=== PATIENT | male | born 1955 | race American Indian/Alaskan Native ===

== ENCOUNTER 2018-01-08 01:58 | Emergency (ER) | payer OTHER, MEDICARE, SELFPAY | END 2018-01-08 03:27 | disposition home or self-care (01) | PROVIDERS: Emergency Provider Emergency Medicine; Family Provider Family Medicine; PCP Family Medicine; Visit Provider Emergency Medicine | DX: M54.5 Low back pain (principal); M54.10 Radiculopathy, site unspecified | CPT/HCPCS: 96372; 99283; J1885 ==

== ENCOUNTER 2018-02-07 23:04 | Emergency (ER) | payer OTHER, MEDICARE, SELFPAY ==
[2018-02-07 23:16] VITALS: BP 173/74; PULSE 66; RESP 22; TEMP 36.7; O2SAT 99
--- NOTE | 2018-02-07 23:46 | PC.NURSE ---
generalized back, hip, bilat wrist pain, reports as chronic. He states he was given gabapentin 2 weeks ago, he took this for 3 days in addition to his regular medications. he did not like the side effects of this medication and stopped it 3 days later. since that time, he reports his pain has been 10/10 for days and days, he denies recent injury or illness, is ambulatory independently with steady gait.
[2018-02-07] MEDS: KETOROLAC 60 MG/2 ML VIAL IM (23:53)
[2018-02-08 00:43] VITALS: BP 163/78; PULSE 61; RESP 16; O2SAT 97
--- NOTE | 2018-02-08 02:45 | ED_ITS ---
HPI - Back Pain/Injury General Chief Complaint: Back Pain/Injury Stated Complaint: pain level is high Time Seen by Provider: 02/07/18 23:13 Source: patient Mode of arrival: ambulatory Limitations: no limitations History of Present Illness HPI Narrative: Pleasant 62-year-old male with longstanding history of chronic neck and back pain presents to the emergency department with an exacerbation of his pain. He denies any new injuries nor fever, chills nor weakness. He states that his pain started getting worse when Neurontin was added to his pain regimen. He took for 3 days and then stopped. His chief complaint is of midline neck pain as well as right wrist. He denies numbness, tingling or weakness. MD Complaint: back pain Onset (ago): year(s) Duration: constant Similar Symptoms Previously: Yes Severity: moderate Quality: burning and sharp Exacerbating factors: movement Related Data Previous Rx's Medication Instructions Recorded amitriptyline 75 mg PO HS #30 tab 08/23/16 metoprolol tartrate 25 mg PO BID #60 tab 04/28/17 sildenafil (antihypertensive) 20 mg PO SEE INSTRUCTIONS #30 tab 07/05/17 prednisone 0 PO SEE INSTRUCTIONS #15 tab 08/03/17 cyclobenzaprine 10 mg PO TIDP PRN #20 tab 11/01/17 lansoprazole 30 mg PO QDAY #30 ecc 11/21/17 tramadol 50 mg PO QIDP PRN #120 tab 12/04/17 atorvastatin [Lipitor] 20 mg PO HS #30 tab 12/18/17 [METHADONE/HYDROXY] 0 SEE INSTRUCTIONS #120 cap 01/01/18 oxycodone-acetaminophen [Percocet] 1 tab PO TIDP PRN #20 tab 01/01/18 ketorolac 10 mg PO Q6H PRN #14 tab 02/07/18 methylprednisolone [Medrol (Damien)] See Label Instructions PO PER PKG 02/07/18 DIR #21 each Allergies Allergy/AdvReac Type Severity Reaction Status Date / Time morphine [MORPHINE] AdvReac Severe VOMITING Unverified 12/27/17 12:01 gabapentin AdvReac Verified 02/07/18 23:16 Review of Systems Review of Systems All systems reviewed & are unremarkable except as noted in HPI and below Eyes Denies change in vision, Denies eye discharge, Denies irritation and Denies loss of vision ENT Ears, Nose, Mouth, and Throat: Denies throat swelling Cardiovascular Denies chest pain, Denies irregular heart rhythm, Denies lightheadedness, Denies palpitations and Denies orthopnea Respiratory Denies wheezing Gastrointestinal Gastrointestinal: Denies abdominal pain, Denies change in bowel habits, Denies diarrhea, Denies nausea and Denies vomiting Genitourinary Denies hematuria, Denies flank pain, Denies urinary incontinence and Denies urinary urgency Musculoskeletal Reports back pain, Denies muscle weakness, Denies numbness and Denies tingling Integumentary/Breasts Denies pruritus, Denies erythema, Denies rash and Denies wounds Neurologic Denies loss of vision, Denies numbness and Denies tingling Endocrine Denies palpitations Allergic/Immunologic Denies urticaria, Denies throat swelling and Denies wheezing [facility] Surgical History Status post rotator cuff repair Family History Father CAD (coronary artery disease) Mother CAD (coronary artery disease) Arthritis Exam Initial Vital Signs Initial Vital Signs: Vital Signs Temperature 98.1 F 02/07/18 23:16 Pulse Rate 66 02/07/18 23:16 Respiratory Rate 22 02/07/18 23:16 Blood Pressure 173/74 H 02/07/18 23:16 Pulse Oximetry 99 02/07/18 23:16 Const General: cooperative and well developed Nutritional Appearance: well nourished Orientation: alert, awake, oriented x3 and not confused [facility] Head: normocephalic and atraumatic Nose: external nose normal and No nasal discharge Face and sinus: sinuses nontender, face symmetric, no sinus tenderness and No dry mucous membranes Mouth: oral mucosae normal and moist mucous membranes Teeth and gingiva: dentition normal Throat: tonsils normal and uvula midline Eyes General: appearance normal, both eyes and all related structures Eyelids: eyelids normal Conjunctivae: conjunctivae normal Sclera: sclerae normal Pupils: PERRL EOM: EOM intact bilaterally Neck Neck: normal visual inspection, full ROM, trachea midline, No lymphadenopathy, No midline deformity and No JVD Lymphatic: No lymphedema Resp Effort & Inspection: normal respiratory effort, able to speak in complete sentences, no respiratory distress and no use of accessory muscles Auscultation: clear to auscultation bilaterally, no rales, no rhonchi and no wheezes GI Inspection: non-distended Palpation: soft, no hepatosplenomegaly, No guarding, No pulsatile mass and No tender Auscultation: normal bowel sounds Back/Spine/Pelvis Back: No CVA tenderness Cervical Spine: cervical ROM normal and No pain with cervical ROM Thoracic/Lumbar Spine: thoracic and lumbar spine normal to inspection Skin General: no rashes or lesions noted, No jaundice and No petechiae Neuro General: alert, oriented x3, gait normal and no focal motor deficits Speech: speech normal Gait: normal gait Motor: muscle tone normal throughout and strength 5/5 throughout Sensory Exam: no sensory deficits noted Extrem General: full ROM, no clubbing, cyanosis or edema, no pedal edema and no calf tenderness Course Orders Ordered: Discontinued Medications Ketorolac Tromethamine (Toradol) 60 mg IM NOW ONE Stop: 02/07/18 23:48 Last Admin: 02/07/18 23:53 Dose: 60 mg Vital Signs - 8 hr 02/07/18 23:16 02/08/18 00:43 Temperature 98.1 F Pulse Rate 66 61 Respiratory Rate 22 16 Blood Pressure 173/74 H 163/78 H Pulse Oximetry 99 97 Discharge Plan Departure Patient Disposition: Home, Self-Care Clinical Impression: Cervical radiculopathy, Radiculopathy, Chronic neck pain Discharge Date/Time: 02/08/18 00:42 Interventions: ED Discharge Assessment Last Done: 02/08/18 00:43 Instructions: DI for Cervical Radiculopathy Activity Restrictions/Additional Instructions: *You have been diagnosed with [ cervical radiculopathy ] *What to do: *Take medications as directed. Do not take Ketorolac along with Naproxen as they can cause a dangerous reaction if given together *Follow up with your primary care provider in 2-3 days *Return to ER if you should have any new, worsening or concerning symptoms Prescriptions: New ketorolac 10 mg tablet 10 mg PO Q6H PRN (Reason: pain) Qty: 14 RF: 0 methylprednisolone [Medrol (Damien)] 4 mg tablets,dose pack See Label Instructions PO PER PKG DIR Qty: 21 RF: 0 No Action amitriptyline 75 MG tablet 75 mg PO HS Qty: 30 RF: 11 metoprolol tartrate 25 MG tablet 25 mg PO BID Qty: 60 RF: 11 sildenafil (antihypertensive) 20 MG tablet 20 mg PO SEE INSTRUCTIONS Qty: 30 RF: 6 prednisone 10 MG tablet PO SEE INSTRUCTIONS Qty: 15 RF: 0 cyclobenzaprine 10 MG tablet 10 mg PO TIDP PRNQty: 20 RF: 1 lansoprazole 30 MG capsule,delayed release(DR/EC) 30 mg PO QDAY Qty: 30 RF: 6 tramadol 50 MG tablet 50 mg PO QIDP PRNQty: 120 RF: 2 atorvastatin [Lipitor] 20 MG tablet 20 mg PO HS Qty: 30 RF: 11 oxycodone-acetaminophen [Percocet] 5 MG/325 MG tablet 1 tab PO TIDP PRNQty: 20 RF: 0 [METHADONE/HYDROXY] SEE INSTRUCTIONS Qty: 120 RF: 0
== END 2018-02-08 00:42 | disposition home or self-care (01) ==
PROVIDERS: Emergency Provider Emergency Medicine; Family Provider Family Medicine; PCP Family Medicine
DX: M54.12 Radiculopathy, cervical region (principal)
CPT/HCPCS: 96372; 99282; 99283; J1885

== ENCOUNTER → 2018-05-01 12:51 | Outpatient (CLI) | payer OTHER, MEDICARE, SELFPAY ==
[2018-05-01 13:58] LABS: Add Manual Diff / Slide Review NO; Basophils Percent Auto 0.9 % (0-2); Eosinophils Percent Auto 1.5 % (2-4); Hematocrit 42.6 % (41-53); Hemoglobin 14.2 g/dL (13.5-17.5); Lymphocytes Percent Auto 39.4 % (25-40); Mean Corpuscular HGB Conc 33.4 % (30-36); Mean Corpuscular Hemoglobin 30.4 PG (26-34); Monocytes Percent Auto 8.7 % (3-14); Neutrophils Absolute Auto 3900 /uL (3000-5900); Neutrophils Percent Auto 49.5 % (50-75); Platelet Count 225 X10^3/uL (150-400); Red Blood Cell Count 4.68 X10^6/uL (4.5-5.9); Red Cell Distribution Width 14.5 % (11.6-14.8); White Blood Cell Count 7.8 X10^3/uL (4.5-11.0)
[2018-05-01 14:27] LABS: Alanine Aminotransferase 24 IU/L (21-72); Albumin 4.2 g/dL (3.5-5.0); Albumin Globulin Ratio 1.3 (1.0-2.8); Alkaline Phosphatase 60 U/L (38-126); Aspartate Aminotransferase 28 IU/L (17-59); BUN Creatinine Ratio 12.2 (6-22); Bilirubin Total 0.5 mg/dL (0.2-1.3); Blood Urea Nitrogen 11 mg/dL (9-20); Calcium 9.5 mg/dL (8.4-10.2); Carbon Dioxide 29 mmol/L (22-32); Chloride 105 mmol/L (98-107); Cholesterol 141 mg/dL (140-199); Estimated Glomerular Filt Rate > 60.0 mL/min (>60); Globulin 3.2 g/dL (1.7-4.1); Glucose 96 mg/dL (80-110); HDL Cholesterol 37 mg/dL (40-60); HEMOLYSIS < 15 (0-50); LDL Cholesterol Calculated 82 mg/dL (<100); Potassium 4.3 mmol/L (3.4-5.1); Sodium 143 mmol/L (137-145); Total Protein 7.4 g/dL (6.3-8.2); Triglycerides 109 mg/dL (35-150)
== END ==
PROVIDERS: PCP Internal Medicine; Visit Provider Internal Medicine
DX: G89.29 Other chronic pain (principal); E78.00 Pure hypercholesterolemia, unspecified
CPT/HCPCS: 36415; 80053; 80061; 85025

== ENCOUNTER 2018-05-15 00:31 | Emergency (ER) | payer OTHER, MEDICARE, SELFPAY ==
[2018-05-15 00:43] VITALS: BP 188/100; PULSE 73; RESP 18
[2018-05-15] MEDS: KETOROLAC 60 MG/2 ML VIAL IM (00:48)
[2018-05-15] MEDS: predniSONE 20 MG TABLET 60 MG PO (00:49)
--- NOTE | 2018-05-15 00:53 | PC.NURSE ---
pt has long history of back problems. multiple fusions and arthritic spine. states he has appointments with [facility] soon. states this episode of back pain has been increasing over the last week and is not unbearable.
--- NOTE | 2018-05-15 00:56 | ED_ITS ---
HPI - Back Pain/Injury General Chief Complaint: Extremity Injury, Lower Stated Complaint: lower back sciatic pain going down left leg Time Seen by Provider: 05/15/18 00:32 Source: patient Mode of arrival: ambulatory Limitations: no limitations History of Present Illness HPI Narrative: 62-year-old male with history of chronic neck and back pain presents to the emergency department with a chief complaint of an exacerbation of his pain. By and large she is doing quite well and is off most of his chronic medications. He has an upcoming appointment with [facility]. He denies any new injury but states his pain has flared up tonight for some reason and is radiating down his left leg. He does have some burning and tingling but denies any weakness. He denies fever or chills. He has no loss of bowel or bladder control. MD Complaint: back pain Onset (ago): year(s) Duration: constant Similar Symptoms Previously: Yes Location: lumbar spine Severity: moderate Quality: burning, sharp and stabbing Radiation: left leg Severity scale (1-10): 8 Relieving factors: none Exacerbating factors: walking Related Data Previous Rx's Medication Instructions Recorded sildenafil (antihypertensive) 20 mg PO SEE INSTRUCTIONS #30 tab 07/05/17 lansoprazole 30 mg PO QDAY #30 ecc 11/21/17 atorvastatin [Lipitor] 20 mg PO HS #30 tab 12/18/17 amitriptyline 25 mg tablet 25 mg PO BEDTIME #90 tab 03/06/18 meloxicam 15 mg tablet 15 mg PO DAILY #30 tab 03/06/18 acetaminophen 500 mg capsule 1,000 mg PO TID PRN #100 cap 04/13/18 amoxicillin 500 mg tablet 500 mg PO TID #21 tab 04/26/18 cyclobenzaprine 10 mg tablet 10 mg PO TIDP PRN #90 tab 05/02/18 metoprolol succinate ER 50 mg 50 mg PO DAILY #30 tab 05/02/18 tablet,extended release 24 hr pregabalin 100 mg capsule 100 mg PO QID #120 cap 05/14/18 methylprednisolone [Medrol (Damien)] See Label Instructions PO PER PKG 05/15/18 DIR #21 each Allergies Allergy/AdvReac Type Severity Reaction Status Date / Time morphine [MORPHINE] AdvReac Severe VOMITING Unverified 05/15/18 00:45 gabapentin AdvReac Verified 05/15/18 00:45 Review of Systems Review of Systems All systems reviewed & are unremarkable except as noted in HPI and below Constitutional Denies chills, Denies fever(s), Denies lethargy and Denies weakness Eyes Denies change in vision, Denies eye discharge, Denies irritation and Denies loss of vision ENT Ears, Nose, Mouth, and Throat: Denies change in voice, Denies neck pain and Denies sore throat Cardiovascular Denies chest pain, Denies irregular heart rhythm, Denies lightheadedness, Denies palpitations, Denies dyspnea, Denies dyspnea on exertion and Denies orthopnea Respiratory Denies cough, Denies dyspnea, Denies dyspnea on exertion and Denies wheezing Gastrointestinal Gastrointestinal: Denies abdominal pain, Denies change in bowel habits, Denies diarrhea, Denies nausea and Denies vomiting Genitourinary Denies hematuria, Denies flank pain, Denies urinary incontinence and Denies urinary urgency Musculoskeletal Reports back pain, Reports limited range of motion and Denies neck pain Integumentary/Breasts Denies pruritus, Denies erythema, Denies rash and Denies wounds Neurologic Denies confusion, Denies loss of vision and Denies weakness Psychiatric Denies anxiety, Denies confusion, Denies depression, Denies homicidal ideation and Denies suicidal ideation Endocrine Denies palpitations Hematologic/Lymphatic Denies easy bruising Allergic/Immunologic Denies wheezing PFSH Medical History CAD (coronary artery disease) (Chronic) Hyperlipidemia (Chronic) Myocardial infarction (Resolved) Surgical History History of cervical spinal surgery (Resolved ~2000) History of left knee surgery (Resolved) History of lumbar surgery (Resolved ~2000) S/P coronary artery stent placement (Resolved 2010) Status post arthroscopic surgery of right knee (Resolved 12/2012) Status post rotator cuff repair (Resolved 2007) Family History Father CAD (coronary artery disease) Mother CAD (coronary artery disease) Arthritis Family/Other Alcoholism and drug addiction in family Autoimmune disease Arthritis Rheumatoid arthritis Other Drug abuse Social History Smoking Status: Current every day smoker Exam Narrative Exam Narrative: GEN: AOx3 and in mild distress, pleasant, ambulating with a cane EYES: Pupils are equal, round, and reactive to light and accommodation. Extraoccular muscles are intact bilaterally. There is no subconjunctival hemorrhage or exudate. CHEST: Lungs are clear to auscultation bilaterally and free of wheezes, rales, or rhonchi. Heart rate is regular rhythm, there are no murmurs, clicks, rubs, or gallops. There is no chest wall tenderness. ABD: Abdomen is soft and nontender. There is no guarding or rebound. Bowel sounds are normal in all 4 quadrants. There is no mass or organomegaly. EXT: Full painless ROM of all extremities with no loss of sensation or strength. SKIN: Warm, pink, and dry. No erythema or rash BACK: chief operator lock tender but free of any obvious external abnormalities. Patient exam notes decreased range of motion and muscle spasm, but no CVA tenderness, or vertebral point tenderness. There are no symptoms of cauda equina such as saddle anesthesia, and decreased reflexes, decreased sensation or strength. Initial Vital Signs Initial Vital Signs: Vital Signs Pulse Rate 73 05/15/18 00:43 Respiratory Rate 18 05/15/18 00:43 Blood Pressure 188/100 H 05/15/18 00:43 Course Orders Ordered: Discontinued Medications Ketorolac Tromethamine (Toradol) 60 mg IM NOW ONE Stop: 05/15/18 00:45 Last Admin: 05/15/18 00:48 Dose: 60 mg Prednisone (Deltasone) 60 mg PO NOW ONE Stop: 05/15/18 00:45 Last Admin: 05/15/18 00:49 Dose: 60 mg Vital Signs - 8 hr 05/15/18 00:43 Pulse Rate 73 Respiratory Rate 18 Blood Pressure 188/100 H MDM - Back Pain/Injury Differential Diagnosis Differential diagnosis: Likely lumbar radiculopathy, sciatica, strain of lumbar region, renal colic, pyelonephritis, thoracic back pain and AAA Discharge Plan Departure Patient Disposition: Home Clinical Impression: Left sided sciatica Discharge Date/Time: 05/15/18 01:03 Interventions: ED Discharge Assessment Last Done: 05/15/18 01:03 Instructions: DI for Lumbar Radiculopathy Activity Restrictions/Additional Instructions: *You have been diagnosed with [ lumbar radiculopathy ] *What to do: *Take medications as directed *Follow up with your primary care provider in 2-3 days, call for an appointment. Let them know you were seen in the Emergency Department and that we ask that you be seen in follow up *Return to ER if you should have any new, worsening or concerning symptoms , such as [increasing pain, weakness of the extremities, loss of control of bowel or bladder, or other bothersome symptoms ] Prescriptions: New methylprednisolone [Medrol (Damien)] 4 mg tablets,dose pack See Label Instructions PO PER PKG DIR Qty: 21 RF: 0 No Action sildenafil (antihypertensive) 20 MG tablet 20 mg PO SEE INSTRUCTIONS Qty: 30 RF: 6 lansoprazole 30 MG capsule,delayed release(DR/EC) 30 mg PO QDAY Qty: 30 RF: 6 atorvastatin [Lipitor] 20 MG tablet 20 mg PO HS Qty: 30 RF: 11 amoxicillin 500 mg tablet 500 mg PO TID Qty: 21 RF: 0 cyclobenzaprine 10 mg tablet 10 mg PO TIDP PRN (Reason: muscle spasm) Qty: 90 RF: 1 metoprolol succinate 50 mg tablet extended release 24 hr 50 mg PO DAILY Qty: 30 RF: 1 amitriptyline 25 mg tablet 25 mg PO BEDTIME Qty: 90 RF: 0 meloxicam 15 mg tablet 15 mg PO DAILY Qty: 30 RF: 2 pregabalin 100 mg capsule 100 mg PO QID Qty: 120 RF: 2 acetaminophen 500 mg capsule 1,000 mg PO TID PRN (Reason: pain) Qty: 100 RF: 5 Referrals: Arnaldo Trammell MD [Primary Care Provider] -
== END 2018-05-15 01:03 | disposition home or self-care (01) ==
PROVIDERS: Emergency Provider Emergency Medicine; Family Provider Family Medicine; PCP Internal Medicine
DX: M54.32 Sciatica, left side (principal)
CPT/HCPCS: 96372; 99282; 99284; J1885

== ENCOUNTER → 2018-06-14 16:47 | Outpatient (CLI) | payer OTHER, MEDICARE, SELFPAY ==
--- NOTE | 2018-06-14 16:51 | DI.MRI.S_ITS ---
PROCEDURE: MR LUMBAR SPINE WO CON INDICATIONS: Low back pain. Bilateral leg radicular pain TECHNIQUE: Noncontrast sagittal T1 spin echo and T2 fast echo, sagittal STIR, axial T1 and T2 fast spin echo through the lumbar spine. In cases with scoliosis, additional coronal T2 fast spin echo may be performed. COMPARISON: [facility], MR, L-SPINE WITHOUT CONTRAST, 07/15/2016, 17:18. [facility], CR, L-SPINE 2-3 VIEWS, 06/18/2016, 9:00. [facility], MR, L-SPINE WITHOUT CONTRAST, 06/03/2015, 17:02. [facility], MR, L-SPINE WITHOUT CONTRAST, 11/07/2013, 17:26. [facility], MR, L-SPINE WITHOUT CONTRAST, 09/07/2011, 16:49. FINDINGS: Image quality: Excellent. Alignment and Curvature: Grade 1 anterolisthesis is seen at the L4-L5 level. Bone Marrow: Marrow is of normal overall signal. No acute vertebral body compression fractures. Spinal Cord: Conus medullaris terminates at the L1 level. Visualized cord demonstrates normal signal and size. Paraspinous Soft Tissues: No paravertebral masses. T12-L1: Normal appearance. L1-L2: Normal appearance. L2-L3: Mild to moderate loss of disc height and disc signal are seen. There is a Schmorl's node seen at the inferior posterior aspect of L2, which has progressed compared to the prior examination. There is a mild degree of adjacent edema seen, as on series 4 image 10. Mild to moderate disc bulge is seen. There is an annular fissure seen posteriorly, as on 4 image 10. Moderate bilateral neural foraminal narrowing is seen. Moderate central canal narrowing is seen. These imaging findings are mildly progressed compared to the prior study. L3-L4: Mild loss of disc height is seen. Loss of disc signal is seen. Moderate generalized disc bulge is seen. Moderate facet joint hypertrophy is seen. Moderate bilateral neural foraminal narrowing is seen, left worse than right. Moderate central canal narrowing is seen. These degenerative changes have progressed compared to 2016. L4-L5: Moderate loss of disc height is seen. Loss of disc signal is seen. Moderate disc bulge is seen, which is eccentric to the right. There is moderate facet hypertrophy seen, right worse than left. Moderate associated hypertrophy of the ligamentum flavum can be seen. There is moderate left-sided and moderate to severe right-sided neural foraminal narrowing seen. There is a degree of impingement seen upon the exiting right L4 nerve root. Severe central canal narrowing is seen. When comparison is made with the prior examination, these findings are similar. L5-S1: Moderate loss of disc height is seen. Loss of disc signal is seen. Moderate disc bulge is seen, which is eccentric to the left. Mild to moderate facet hypertrophy is seen. There is moderate bilateral neural foraminal narrowing seen. Right hemilaminectomy changes are seen. No significant central canal narrowing is seen. When comparison is made with the prior examination, these findings are similar. IMPRESSION: Multiple levels of lumbar spine degenerative change are seen, which are slightly progressed at L2-L3 and L3-L4 compared to 2016. The degenerative changes are overall most prominent at L4-L5, with relatively stable degenerative change at this level. Interval progression of a Schmorl's node at the inferior endplate of L2. Dictated by: Darrius Cerrato M.D. on 06/14/2018 at 16:35 Approved by: Darrius Cerrato M.D. on 06/14/2018 at 16:45
== END ==
PROVIDERS: Family Provider Family Medicine; PCP Internal Medicine; Visit Provider Orthopaedic Surgery Orthopaedic Surgery of the Spine
DX: M54.5 Low back pain (principal); M51.16 Intervertebral disc disorders with radiculopathy, lumbar region; M51.17 Intervertebral disc disorders with radiculopathy, lumbosacral region; M51.46 Schmorl's nodes, lumbar region; M43.16 Spondylolisthesis, lumbar region
CPT/HCPCS: 72148

== ENCOUNTER 2018-07-13 00:43 | Emergency (ER) | payer OTHER, MEDICARE, SELFPAY ==
[2018-07-13 00:59] VITALS: BP 173/93; PULSE 64; RESP 16; TEMP 36.6; O2SAT 99; BMI 30.7
[2018-07-13] MEDS: KETOROLAC 60 MG/2 ML VIAL IM (01:14)
[2018-07-13] MEDS: predniSONE 20 MG TABLET 40 MG PO (01:15)
[2018-07-13 01:46] VITALS: BP 165/88; PULSE 72; RESP 18; O2SAT 100
--- NOTE | 2018-07-13 01:52 | ED_ITS ---
HPI - Back Pain/Injury General Chief Complaint: Back Pain/Injury Stated Complaint: lower back/both legs pain x3 days Time Seen by Provider: 07/13/18 01:01 Source: patient Mode of arrival: ambulatory Limitations: no limitations History of Present Illness HPI Narrative: 62-year-old every day smoker presents to the emergency department today with a chief complaint of an exacerbation of his chronic back pain with radiculopathy. He is known well to myself and others with a chief complaint of back pain. He states that got exacerbated over the past few days and radiates down both legs. He denies any trouble controlling bowel or bladder. He denies any weakness or foot drop. He denies any specific injury or trauma. He has had no fever MD Complaint: back pain Onset (ago): year(s) Duration: constant Similar Symptoms Previously: Yes Location: lumbar spine Severity: mild Quality: burning and sharp Radiation: left leg and right leg Relieving factors: immobilization Exacerbating factors: movement and walking Associated symptoms: denies other symptoms Related Data Previous Rx's Medication Instructions Recorded sildenafil (antihypertensive) 20 mg PO SEE INSTRUCTIONS #30 tab 07/05/17 atorvastatin [Lipitor] 20 mg PO HS #30 tab 12/18/17 acetaminophen 500 mg capsule 1,000 mg PO TID PRN #100 cap 04/13/18 lansoprazole 30 mg capsule,delayed 30 mg PO QDAY #30 ecc 06/04/18 release meloxicam 15 mg tablet 15 mg PO DAILY #30 tab 06/04/18 amitriptyline 25 mg tablet 25 mg PO BEDTIME #90 tab 06/07/18 pregabalin 100 mg capsule 100 mg PO QID #120 cap 06/15/18 cyclobenzaprine 10 mg tablet 10 mg PO TIDP PRN #30 tab 07/03/18 metoprolol succinate ER 50 mg 50 mg PO DAILY #30 tab 07/10/18 tablet,extended release 24 hr methylprednisolone [Medrol (Damien)] See Label Instructions PO PER PKG 07/13/18 DIR #21 each Allergies Allergy/AdvReac Type Severity Reaction Status Date / Time morphine [MORPHINE] AdvReac Severe VOMITING Verified 07/13/18 01:02 gabapentin AdvReac Verified 07/13/18 01:02 Review of Systems Review of Systems All systems reviewed & are unremarkable except as noted in HPI and below Constitutional Denies chills, Denies fever(s), Denies lethargy and Denies weakness Eyes Denies change in vision, Denies eye discharge, Denies irritation and Denies loss of vision ENT Ears, Nose, Mouth, and Throat: Denies change in voice, Denies neck pain and Denies sore throat Cardiovascular Denies chest pain, Denies irregular heart rhythm, Denies lightheadedness, Denies palpitations, Denies dyspnea, Denies dyspnea on exertion and Denies orthopnea Respiratory Denies cough, Denies dyspnea, Denies dyspnea on exertion and Denies wheezing Gastrointestinal Gastrointestinal: Denies abdominal pain, Denies change in bowel habits, Denies diarrhea, Denies nausea and Denies vomiting Genitourinary Denies hematuria, Denies flank pain, Denies urinary incontinence and Denies urinary urgency Musculoskeletal Reports abnormal gait, Reports limited range of motion and Denies neck pain Integumentary/Breasts Denies pruritus, Denies erythema, Denies rash and Denies wounds Neurologic Reports abnormal gait, Denies confusion, Denies loss of vision and Denies weakness Psychiatric Denies anxiety, Denies confusion, Denies depression, Denies homicidal ideation and Denies suicidal ideation Endocrine Denies palpitations Hematologic/Lymphatic Denies easy bruising Allergic/Immunologic Denies wheezing PFSH Medical History CAD (coronary artery disease) (Chronic) Hyperlipidemia (Chronic) Myocardial infarction (Resolved) Surgical History History of cervical spinal surgery (Resolved ~2000) History of left knee surgery (Resolved) History of lumbar surgery (Resolved ~2000) S/P coronary artery stent placement (Resolved 2010) Status post arthroscopic surgery of right knee (Resolved 12/2012) Status post rotator cuff repair (Resolved 2007) Family History Father CAD (coronary artery disease) Mother CAD (coronary artery disease) Arthritis Family/Other Alcoholism and drug addiction in family Autoimmune disease Arthritis Rheumatoid arthritis Other Drug abuse Social History Smoking Status: Current every day smoker Exam Narrative Exam Narrative: GEN: AOx3 and in mild distress EYES: Pupils are equal, round, and reactive to light and accommodation. Extraoccular muscles are intact bilaterally. There is no subconjunctival hemorrhage or exudate. CHEST: Lungs are clear to auscultation bilaterally and free of wheezes, rales, or rhonchi. Heart rate is regular rhythm, there are no murmurs, clicks, rubs, or gallops. There is no chest wall tenderness. ABD: Abdomen is soft and nontender. There is no guarding or rebound. Bowel sounds are normal in all 4 quadrants. There is no mass or organomegaly. EXT: Full painless ROM of all extremities with no loss of sensation or strength. SKIN: Warm, pink, and dry. No erythema or rash BACK: heating and ventilating tender but free of any obvious external abnormalities. Patient exam notes decreased range of motion and muscle spasm, but no CVA tenderness, or vertebral point tenderness. There are no symptoms of cauda equina such as saddle anesthesia, and decreased reflexes, decreased sensation or strength. Initial Vital Signs Initial Vital Signs: Vital Signs Temperature 97.9 F 07/13/18 00:59 Pulse Rate 64 07/13/18 00:59 Respiratory Rate 16 07/13/18 00:59 Blood Pressure 173/93 H 07/13/18 00:59 Pulse Oximetry 99 10 00:59 Course Orders Ordered: Discontinued Medications Ketorolac Tromethamine (Toradol) 60 mg IM NOW ONE Stop: 07/13/18 01:03 Last Admin: 07/13/18 01:14 Dose: 60 mg Prednisone (Deltasone) 40 mg PO NOW ONE Stop: 07/13/18 01:04 Last Admin: 07/13/18 01:15 Dose: 40 mg Vital Signs - 8 hr 07/13/18 00:59 Temperature 97.9 F Pulse Rate 64 Respiratory Rate 16 Blood Pressure 173/93 H Pulse Oximetry 99 Discharge Plan Departure Patient Disposition: Home Clinical Impression: Acute lumbar radiculopathy Discharge Date/Time: 07/13/18 01:48 Instructions: DI for Lumbar Radiculopathy Activity Restrictions/Additional Instructions: *You have been diagnosed with [ acute on chronic lumbar radiculopathy ] *What to do: *Take medications as directed *Follow up with your primary care provider in 2-3 days, call for an appointment. Let them know you were seen in the Emergency Department and that we ask that you be seen in follow up *Return to ER if you should have any new, worsening or concerning symptoms Prescriptions: New methylprednisolone [Medrol (Damien)] 4 mg tablets,dose pack See Label Instructions PO PER PKG DIR Qty: 21 RF: 0 No Action sildenafil (antihypertensive) 20 MG tablet 20 mg PO SEE INSTRUCTIONS Qty: 30 RF: 6 atorvastatin [Lipitor] 20 MG tablet 20 mg PO HS Qty: 30 RF: 11 lansoprazole 30 mg capsule,delayed release(DR/EC) 30 mg PO QDAY Qty: 30 RF: 6 meloxicam 15 mg tablet 15 mg PO DAILY Qty: 30 RF: 2 amitriptyline 25 mg tablet 25 mg PO BEDTIME Qty: 90 RF: 1 cyclobenzaprine 10 mg tablet 10 mg PO TIDP PRN (Reason: muscle spasm) Qty: 30 RF: 0 metoprolol succinate 50 mg tablet extended release 24 hr 50 mg PO DAILY Qty: 30 RF: 1 pregabalin 100 mg capsule 100 mg PO QID Qty: 120 RF: 2 acetaminophen 500 mg capsule 1,000 mg PO TID PRN (Reason: pain) Qty: 100 RF: 5 Referrals: Arnaldo Trammell MD [Primary Care Provider] -
== END 2018-07-13 01:48 | disposition home or self-care (01) ==
PROVIDERS: Emergency Provider Emergency Medicine; Family Provider Family Medicine; PCP Internal Medicine
DX: M54.16 Radiculopathy, lumbar region (principal)
CPT/HCPCS: 96372; 99282; 99283; J1885

== ENCOUNTER 2018-08-05 06:28 | Emergency (ER) | payer OTHER, MEDICARE, SELFPAY ==
[2018-08-05 06:38] VITALS: BP 153/81; PULSE 74; RESP 16; TEMP 36.3; O2SAT 100; BMI 31.4
--- NOTE | 2018-08-05 06:49 | ED.NECK ---
HPI - Neck Pain/Injury General Chief Complaint: Neck Pain/Injury Stated Complaint: low back and neck pain x 3 days Time Seen by Provider: 08/05/18 06:38 Source: patient and old records reviewed Mode of arrival: ambulatory Limitations: no limitations History of Present Illness HPI Narrative: this is a 62-year-old male who comes the emergency department with complaint of back pain. Patient states his neck and lower back pain have both been exacerbated. He has a history of 4 prior cervical surgeries. Patient states he has also had an MRI recently of his lower back and is scheduled for surgery in September with Orthopedic surgery. He supposed to get cardiac clearance on the with Dr. Lynne. Patient states no fevers. He has had pain particularly in the left side of neck and radiated to his left arm. He does have this intermittently. He has also had some increasing just lower back pain but majority of his symptoms today her cervical. Patient has not had any new falls or trauma. He has been taking his naproxen, Flexeril and Lyrica without any improvement in his symptoms. He states he always lives about 6/10 level but today is higher. Patient did drive himself. He has not had any loss of bowel or bladder control, no new weakness, no new numbness. Related Data Previous Rx's Medication Instructions Recorded sildenafil (antihypertensive) 20 mg PO SEE INSTRUCTIONS #30 tab 07/05/17 atorvastatin [Lipitor] 20 mg PO HS #30 tab 12/18/17 acetaminophen 500 mg capsule 1,000 mg PO TID PRN #100 cap 04/13/18 lansoprazole 30 mg capsule,delayed 30 mg PO QDAY #30 ecc 06/04/18 release meloxicam 15 mg tablet 15 mg PO DAILY #30 tab 06/04/18 amitriptyline 25 mg tablet 25 mg PO BEDTIME #90 tab 06/07/18 pregabalin 100 mg capsule 100 mg PO QID #120 cap 06/15/18 metoprolol succinate ER 50 mg 50 mg PO DAILY #30 tab 07/10/18 tablet,extended release 24 hr methylprednisolone [Medrol (Damien)] See Label Instructions PO PER PKG 07/13/18 DIR #21 each cyclobenzaprine 10 mg tablet 10 mg PO TIDP PRN #10 tab 07/30/18 methylprednisolone See Label Instructions PO PER PKG 08/05/18 DIR #21 each Allergies Allergy/AdvReac Type Severity Reaction Status Date / Time morphine [MORPHINE] AdvReac Severe VOMITING Verified 08/05/18 06:42 gabapentin AdvReac Verified 08/05/18 06:42 Review of Systems Review of Systems All systems reviewed & are unremarkable except as noted in HPI and below Constitutional Denies fever(s) ENT Ears, Nose, Mouth, and Throat: Reports neck pain Cardiovascular Denies dyspnea Respiratory Denies dyspnea Gastrointestinal Gastrointestinal: Denies fecal incontinence, Denies nausea and Denies vomiting Genitourinary Denies urinary incontinence Musculoskeletal Reports as per HPI, Reports back pain, Reports limited range of motion, Denies muscle weakness, Reports neck pain, Denies numbness, Reports radiating pain into limb (left arm) and Denies tingling Integumentary/Breasts Denies rash Neurologic Denies numbness and Denies tingling PFSH Medical History CAD (coronary artery disease) (Chronic) Hyperlipidemia (Chronic) Myocardial infarction (Resolved) Surgical History History of cervical spinal surgery (Resolved ~2000) History of left knee surgery (Resolved) History of lumbar surgery (Resolved ~2000) S/P coronary artery stent placement (Resolved 2010) Status post arthroscopic surgery of right knee (Resolved 12/2012) Status post rotator cuff repair (Resolved 2007) Social History Smoking Status: Current every day smoker Exam Narrative Exam Narrative: GENERAL: Alert and oriented x three, Well-nourished, well-appearing obese male in moderate distress. HEENT: Head normocephalic, atraumatic, EOMI, pupils reactive, face symmetric, moist mucous membranes NECK: Supple, full range of motion CARDIOVASCULAR: Regular rate and rhythm without murmurs, rubs or gallops. RESPIRATORY: Breath sounds equal bilaterally, no wheezes rales or rhonchi. ABDOMEN: Soft, nontender. Normoactive bowel sounds all 4 quadrants. No guarding or rebound, rigidity, no mass : No CVA tenderness BACK: No cervical, thoracic or lumbar vertebral point tenderness. Patient has mildly decreased range of motion, especially with rotation of neck.. Patient's gait is slightly antalgic. Rectal exam is deferred. 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 2+ pulses radially b/l. sensation intact bilateral upper extremities. EXTREMITIES: Normal range of motion, no clubbing or edema. Neurovascularly intact NEUROLOGICAL: Cranial nerves II through XII grossly intact. Moving all extremities SKIN: Warm, dry, no petechiae, no rashes or lesions. Initial Vital Signs Initial Vital Signs: Vital Signs Temperature 97.4 F L 08/05/18 06:38 Pulse Rate 74 08/05/18 06:38 Respiratory Rate 16 08/05/18 06:38 Blood Pressure 153/81 H 08/05/18 06:38 Pulse Oximetry 100 08/05/18 06:38 Course Orders Ordered: Discontinued Medications Hydrocodone Bitart/Acetaminophen (Vicodin Prepack) 1 bottle MISC SEEINSTR ONE Stop: 08/05/18 06:50 Last Admin: 08/05/18 07:00 Dose: 1 bottle Ketorolac Tromethamine (Toradol) 60 mg IM NOW ONE Stop: 08/05/18 06:50 Last Admin: 08/05/18 07:00 Dose: 60 mg Prednisone (Deltasone) 40 mg PO NOW ONE Stop: 08/05/18 06:50 Last Admin: 08/05/18 07:00 Dose: 40 mg Vital Signs - 8 hr 08/05/18 06:38 Temperature 97.4 F L Pulse Rate 74 Respiratory Rate 16 Blood Pressure 153/81 H Pulse Oximetry 100 MDM - Neck Pain/Injury MDM Narrative Medical decision making narrative: Patient had improvement before with Toradol and prednisone. Plan for [place] prepack this am for breakthrough and follow up with pcp. Patient has ortho as follow up also. Patient is aware of red flag symptoms and will return if these occur. Discharge Plan Departure Patient Disposition: Home Clinical Impression: Cervical pain (neck), Lumbar back pain Discharge Date/Time: 08/05/18 07:10 Interventions: ED Discharge Assessment Last Done: 08/05/18 07:09 Instructions: DI for Neck Pain Activity Restrictions/Additional Instructions: Follow-up with your physician in the next 3-5 days for recheck if you're not having any improvement in your symptoms. 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 Take methylprednisolone as prescribed. Take prepack as prescribed. You may take 1-2 tablets as needed for pain. Prescriptions: New methylprednisolone 4 mg tablets,dose pack See Label Instructions PO PER PKG DIR Qty: 21 RF: 0 No Action sildenafil (antihypertensive) 20 MG tablet 20 mg PO SEE INSTRUCTIONS Qty: 30 RF: 6 atorvastatin [Lipitor] 20 MG tablet 20 mg PO HS Qty: 30 RF: 11 lansoprazole 30 mg capsule,delayed release(DR/EC) 30 mg PO QDAY Qty: 30 RF: 6 meloxicam 15 mg tablet 15 mg PO DAILY Qty: 30 RF: 2 amitriptyline 25 mg tablet 25 mg PO BEDTIME Qty: 90 RF: 1 metoprolol succinate 50 mg tablet extended release 24 hr 50 mg PO DAILY Qty: 30 RF: 1 cyclobenzaprine 10 mg tablet 10 mg PO TIDP PRN (Reason: muscle spasm) Qty: 10 RF: 0 pregabalin 100 mg capsule 100 mg PO QID Qty: 120 RF: 2 acetaminophen 500 mg capsule 1,000 mg PO TID PRN (Reason: pain) Qty: 100 RF: 5 methylprednisolone [Medrol (Damien)] 4 mg tablets,dose pack See Label Instructions PO PER PKG DIR Qty: 21 RF: 0 Referrals: Arnaldo Trammell MD [Primary Care Provider] -
[2018-08-05] MEDS: HYDROCODONE/ACET 5/325 PREPACK 1 BOTTLE MISC (07:00)
[2018-08-05] MEDS: predniSONE 20 MG TABLET 40 MG PO (07:00)
[2018-08-05] MEDS: KETOROLAC 60 MG/2 ML VIAL IM (07:00)
--- NOTE | 2018-08-07 14:44 | PC.NURSE ---
Pt states that he is still having pain,Pt states that he doesn't have a pcp appointment until the 27 for a new doctor as his pcp left. Pt states that he may need to go back to the ED
== END 2018-08-05 07:11 | disposition home or self-care (01) ==
PROVIDERS: Emergency Provider Emergency Medicine; Family Provider Family Medicine; PCP Internal Medicine
DX: M54.2 Cervicalgia (principal); M54.5 Low back pain
CPT/HCPCS: 96372; 99282; 99283; J1885

== ENCOUNTER → 2018-08-30 14:50 | Outpatient (CLI) | payer OTHER, MEDICARE, SELFPAY ==
[2018-08-30 15:28] LABS: Hemoglobin 13.5 g/dL (13.5-17.5); Mean Corpuscular HGB Conc 33.7 % (30-36); Mean Corpuscular Hemoglobin 29.9 PG (26-34); Mean Corpuscular Volume 88.8 fL (80-100); Platelet Count 206 X10^3/uL (150-400); Red Cell Distribution Width 16.6 % (11.6-14.8); White Blood Cell Count 6.5 X10^3/uL (4.5-11.0)
[2018-08-30 15:39] LABS: BUN Creatinine Ratio 13.3 (6-22); Blood Urea Nitrogen 12 mg/dL (9-20); Calcium 9.1 mg/dL (8.4-10.2); Carbon Dioxide 26 mmol/L (22-32); Chloride 105 mmol/L (98-107); Estimated Glomerular Filt Rate > 60.0 mL/min (>60); Glucose 103 mg/dL (80-110); HEMOLYSIS < 15 (0-50); Potassium 4.2 mmol/L (3.4-5.1); Sodium 143 mmol/L (137-145)
== END ==
PROVIDERS: PCP Student in an Organized Health Care Education/Training Program; Visit Provider Orthopaedic Surgery Orthopaedic Surgery of the Spine
DX: Z01.818 Encounter for other preprocedural examination (principal)
CPT/HCPCS: 36415; 80048; 85027

== ENCOUNTER 2018-09-27 06:15 | Inpatient (IN) | payer OTHER, MEDICARE, SELFPAY ==
[2018-08-23 12:40] VITALS: BMI 33.3
[2018-09-27] VITALS (17 sets, daily range): BP systolic 116–167; BP diastolic 53–97; PULSE 66–85; RESP 10–20; TEMP 35.8–36.9; O2SAT 89–98; BMI 33.6
--- NOTE | 2018-09-27 | DI.RAD.S_ITS ---
PROCEDURE: XR LUMBAR SPINE 2-3V INDICATIONS: L4-5, L5-S1 TLIF TECHNIQUE: 2 views of the lumbar spine were acquired. COMPARISON: [facility] [place], SPINE LUMB 2 OR 3VW, 08/17/2016, 15:04. [facility] [place], XR LUMBAR SPINE 2 OR 3 VIEWS, 06/06/2018, 14:22. FINDINGS: 2 intraoperative fluoroscopy images demonstrate discectomy and posterior fusion at L4-L5 and L5-S1. IMPRESSION: Discectomy and posterior fusion at L4-L5 and L5-S1. Dictated by: Sulaiman Chawla M.D. on 09/27/2018 at 15:18 Approved by: Sulaiman Chawla M.D. on 09/27/2018 at 15:19
[2018-09-27] MEDS: LACTATED RINGERS 1,000 ML 42 ML IV ×4 (07:10→11:18)
--- NOTE | 2018-09-27 07:16 | SUR.PREOP ---
PT REPORTS HAS NUMBNESS AND TINGLING IN ALL FOUR EXTREMITIES THAT IS BASELINE FOR HIM.
--- NOTE | 2018-09-27 07:49 | PM.PREOP ---
Pre-operative Note Interval Note History & Physical reviewed/Exam performed by Physician: Yes Changes to H&P: No
[2018-09-27] MEDS: CEFAZOLIN 2 GM/100 ML FROZ.PIGGY IV ×2 (07:50→17:48)
[2018-09-27] MEDS: BUPIVACAINE 0.25% W/ EPI VIAL 30 ML INJ (08:41)
[2018-09-27] MEDS: BUPIVACAINE LIPOSOME 266 MG/20 ML VIAL INJ (08:42)
--- NOTE | 2018-09-27 08:45 | SUR.OPER ---
Prone on spine table, head in foam head support, padded chest and pelvic supports, gel pad at knees, lower legs supported by pillows; nipples, genitalia and toes free of pressure, arms secured on foam padded arm boards at <90 degrees abduction. Tape over blanket at thigh secured to table.
--- NOTE | 2018-09-27 11:02 | P.OP_ITS ---
Operative Date/Time/Diagnoses Date of procedure: 09/27/18 Time of procedure: 07:56 Pre-op diagnosis: 1. L4-5, L5-S1 post laminectomy syndrome 2. L4-5, L5-S1 spinal stenosis 3. L4-5, L5-S1 spondylolisthesis Post-op diagnosis: same Procedure & Clinicians Procedure: 1. L4-5, L5-S1 Postero-lateral and posterior interbody fusion 2. L4-5, L5-S1 interbody cage placement. 3. L4-5, L5-S1 decompressive laminectomy with bilateral facetecomies 4. L4-5, L5-S1 Posterior segmental instrumentation 5. [place] of bone marrow from iliac crest 6. Utilization of microsurgical technique and operating microscope Same procedure as scheduled: Yes Indications: Patient has been having chronic back pain and worsening lumbar radiculopathy. Patient had a history of lumbar laminectomies with persisting symptoms and worsening leg pain and leg weakness. Patient failed multiple conservative management with worsening pain weakness and numbness in her lower extremity. Patient has been having difficulty performing activity of daily living. After discussing risks benefits of treatment options, patient elected proceed with surgery. Surgeon: Karina Alamo Auto Bench Mechanic: Leeann Person Click Yes if Unassisted: No Anesthesia Type: General Operative Notes Closure Type: primary Specimen(s): none sent Implants & Drains: Globus revolve screws, Rise cages Applied: catheter Estimated Blood Loss (mL): 100 Blood products transfused: none Procedure in detail: Patient was seen in the preoperative area. Risks and benefits of the surgery was discussed with the patient. Informed consent was obtained from the patient and placed in the chart. Surgical site was marked. Patient was taken to the operative room. General anesthesia was administered. Prophylactic antibiotic was given to the patient less than 30 min before the incision was made. Patient was placed into a prone position on the Moe table. Patient's back was then prepped and draped in the sterile fashion. Time- out was performed at this time. Using AP and lateral C-arm imaging the interval between L4-S1 was identified and marked on patient's back. A 2 inch incision 2 in from midline was made on the left side first. The fascia was incised in line with skin incision. Globus MARS retractors was placed inside the incision and docked onto the L4 and L5 lamina. Using microsurgical technique and operating microscope, a L4 and L5 laminectomy and L4-5 L5-S1 facetectomy was performed using a [place]ison rongeur. Patient was found have significant amount of epidural scarring from the previous laminectomy. Along with the osteophytes the thecal sac and nerve roots were under significant amount of pressure from the scar tissue causing stenosis. L4-5 L5-S1 facetectomies at L4 and L5 laminectomies were performed in order to fully decompress the epidural space and neural foramen at both levels. The disc space at L4-5, L5-S1 was identified. And a total diskectomy was performed at L4-5, L5-S1 level. The endplates were decorticated using a rasp and shaver. The total diskectomy and decortication was performed at L4-5, L5-S1 level in order to to accomplish a L4-5, L5-S1 fusion. The local bone from the laminectomy and facetectomy was saved for local bone grafting. After the total diskectomy and decortication was completed, Globus viacell bone graft material was combined with local bone that was harvested earlier. At this time , a separate skin is incision was made over the iliac crest. A Jamshidi needle was inserted into the iliac crest through a separate skin incision. 5 cc of bone marrow aspiration was obtained through the separate skin incision using a Jamshidi needle from the iliac crest. The bone marrow aspiration was combined with local bone and the via cell bone grafting material. The bone grafting material was placed into the L4-5, L5-S1 interbody space along with two cages, one expandable cage at each level. The cages were expanded to their maximum height using the torque limiting screwdriver. At this time a mirror image incision was made on the right side. The fascia was incised in line with the skin incision. Globus MARS retractor was inserted and docked onto the L4-5, L5-S1 posterolateral gutter. Using the power drill, posterior-lateral decortication was performed at L4-5, L5-S1 level until bleeding cortical bone was identified. The remaining bone grafting material was placed into the L4-5 L5-S1 posterior lateral gutter he order to accomplish posterolateral fusion at the L4-5 L5-S1 levels. Using the double C-arm technique, pedicle screws were placed into the L4, L5, S1 pedicles bilaterally. This was done by placing the Jamshidi needle into the pedicles, then placing the guidewires over the Jamshidi needle, and finally placing the cannulated screws over the guidewires bilaterally. After the pedicle screws were placed, 2 titanium rods was locked into the heads of the pedicle screws using locking caps and torque limiting screwdriver. Total 6 pedicles screws were placed. After all the hardware was placed, and confirmed with AP and lateral C-arm imaging, the wound was then irrigated with sterile normal saline and packed with Ray-Marifer gauze for 3 min to accomplish hemostasis. After the gauze was removed the deep fascia was closed with #1 Vicryl suture. The subcutaneous layer was closed with 2-0 Vicryl. The skin was closed with skin rajeev. Patient tolerated the procedure well. There were no complications. Complications: none Condition: stable Disposition: PACU Plan for aftercare: Admit to inpatient hospital
[2018-09-27] MEDS: HYDROMORPHONE 2 MG INJ 0.5 MG IV ×4 (11:40→11:55)
[2018-09-27] MEDS: LORazepam 2 MG/ML SYRINGE 0.25 MG IV ×2 (11:40→11:45)
[2018-09-27] MEDS: SODIUM CHLORIDE 0.9% 1,000 ML 100 ML IV (14:55)
[2018-09-27] MEDS: NALOXONE 0.4 MG/ML VIAL 0.2 MG IV (15:35)
--- NOTE | 2018-09-27 15:52 | PC.NURSE ---
Aundrea shift note: 1528 Received report from Bárbara CABELLO, at bedside patient asleep, this RN was unable to arouse patient to voice or pain. Patient was placed on Cpap and was at 7L, O2 sat 88% RR 12, shallow breathing. Notified Dr. Alamo regarding patient clinical status, VS, and RTs recommendation for closer observation. Order obtained for Narcan 0.2 mg x1 and order for ICU transfer. Upon administration of Narcan IV, patient more responsive, responds 1-2 words, able to squeeze hand. However, O2 sat remain 90% on 7L via Cpap. Patient transferred with RN and RT on O2 to ICU. Report given to Cande CABELLO. Family updated regarding plan of care.
--- NOTE | 2018-09-27 16:33 | PC.NURSE ---
jessica solorio pt received from acute care to ICU room 106. O2 at 7 L bleed in via cpap. O2 sats 93-98% depending on wakefulness. Pt opens eyes to name being called. Pt lifts arm when wires being moved under arm. RR steady at 10.
--- NOTE | 2018-09-27 16:56 | CM.MNRNOTE ---
Ortho- Report called for pt. During report pacu nurse stated the pt had brief desats and prob. had sleep apnea. She had given him dilaudid and ativan but he was doing fine and she would be bringing pt to his room. OPERATIONS STAFF SPECIALIST SECURITY made decision to leave pt on O2 due to desats. When pt arrived to the floor he was immed desating to the low to mid 80's unless stimulated. He had obvious apnea episodes. The pacu nurse said he would be fine in a couple of minutes and after looking at the wound left. However pt remained unable to maintain a sat. Cont pulse ox placed. He required 1:1 care with this RN due to breathing and oxygenation. He was quickly titrated to 6L NC, RT paged x2, RT started with a venti mask. Started CO2 monitoring, was high 50's. CO - called informed of situation. CO made aware patient was requiring 1:1 care and RT had thought he might need to be moved to the ICU for monitoring. CO reported ICU was busy but would consider this if current modality being tried didn't work. called - informed of situation. RT requesting and received order for c-pap. Pt could be aroused and sats would increase briefly but then decrease. O2 was bled into c-pap line. Each time patient aroused he would be grimacing and complaining of 10/10 pain. RT recalled (RT has actually been in room numerous times) and they stated patient should be transfered to the ICU to initiate bi-pap. And to also try a dose of narcan. It was noted patient had arrived to the floor without narcan orders. Dr. Alamo was called again about RT request for bi-pap, move to ICU and narcan. Dr. Alamo was in agreement and pt is in the process of being transfered. Pt is arouseable at this time but does fall asleep immed. O2 sats are better at 88-92% on cpap at 7L. Spouse is in room and has been kept informed about pt's care and condition through entire event. She confirms pt does have sleep apnea but has not been able to do the sleep study. The pain has been so bad in his back he has been sleeping in a chair at home. Family aware of decision to move pt to ICU and they will follow him down there. Cont w/poc.
[2018-09-27] MEDS: PREGABALIN 50 MG CAPSULE 100 MG PO ×2 (17:48→21:09)
[2018-09-27] MEDS: OXYCODONE IR 5 MG TABLET 10 MG PO ×2 (17:51→21:09)
--- NOTE | 2018-09-27 20:46 | PC.NURSE ---
Addendum entered by Cande Lopez R.N. 09/27/18 22:29: pt ambulated 3 more laps around ICU, now sitting in recliner. Original Note: Addendum entered by Cande Lopez R.N. 09/27/18 21:37: pt up to bathroom to try for bowel movement. + flatus, no BM. Pt c/o burning with catheter and feels like no urine is draining, but >700 ml in bag. Original Note: Addendum entered by Cande Lopez R.N. 09/27/18 20:48: 18:00- pt c/o 10 pain. Pt able to assist with sitting up, ate pudding and soup. 10 mg oxycodone given and scheduled Lyrica. 19:00- pt OOB with FWW to ambulate 4 full circles in ICU. 20:00- O2 sats 89% on RA while asleep, with some snoring, apnea. O2 2L added. Original Note: jessica note Pt very sleepy, but opens eyes when name is called. Does not stay awake. O2 7 L via cpap with sats 96-99%, RR10.
[2018-09-27] MEDS: ATORVASTATIN 20 MG TABLET 40 MG PO (21:10)
[2018-09-27] MEDS: DOCUSATE 100 MG CAPSULE PO (21:10)
[2018-09-27] MEDS: AMITRIPTYLINE 25 MG TABLET PO (21:10)
[2018-09-27] MEDS: SENNOSIDES 8.6 MG TABLET 17.2 MG PO (21:10)
[2018-09-28 00:05] VITALS: BP 125/69; PULSE 76; RESP 8; TEMP 36.4; O2SAT 95
[2018-09-28] MEDS: OXYCODONE IR 5 MG TABLET 10 MG PO ×4 (00:08→11:59)
--- NOTE | 2018-09-28 01:00 | PC.NURSE ---
Up walking around ICU for steady 20min, returned to bed and said his pain was down to 8, and that he usually takes Lyrica and Flexaril now. I explained we needed to see how rest and repositioning and ice would do, as those aren't ordered right now.
[2018-09-28] MEDS: HYDROMORPHONE 1 MG INJ 0.5 MG IV (04:00)
[2018-09-28] MEDS: CEFAZOLIN 2 GM/100 ML FROZ.PIGGY IV (04:01)
[2018-09-28 04:06] VITALS: BP 152/69; PULSE 79; RESP 10; TEMP 36.9; O2SAT 95
--- NOTE | 2018-09-28 04:11 | PC.NURSE ---
Medicated at 0304 with second dose this shift of oxycodone 10mg for pain 10/10. Pt states it is higher than 10 even after explaining 10 would be unbearable. Repositioned placed on ice and cautioned about twisting again. 20 min after that found him twisting to remove ice. At 0400 stated needed to go to ER as he was hurting and he is not getting his Lyrica. Med with 0.5mg Dilaudid IV. Keeps asking for heating pad for back, then neck. Explained that for 24 hours heat is contraindicated , warm blanket in a roll given for his neck.
[2018-09-28 05:35] LABS: Hematocrit 36.6 % (41-53); Hemoglobin 12.3 g/dL (13.5-17.5)
[2018-09-28] MEDS: PANTOPRAZOLE 40 MG TABLET PO (06:13)
[2018-09-28 08:00] VITALS: BP 169/75; PULSE 90; RESP 18; TEMP 36.6; O2SAT 94
--- NOTE | 2018-09-28 08:00 | PM.DS.1 ---
History of Present Illness Date Patient Seen: 09/28/18 Time Patient Seen: 08:00 Chief complaint: [id number] Narrative: Patient seen bedside s/p L4-5, L5-S1 Postero-lateral and posterior interbody fusion on 09/28/[address] Alamo. Patient is POD #1. He is doing well, his pain is controlled and he has been ambulating using a walker in the hallway. He has not been seen by PT yet. He would like to go home today. He denies CP, SOB, numbness/tingling, and calf pain. Discharge Providers Date of admission: 09/27/18 06:15 Primary care physician: Myron Estrella MD Consults: 09/27/18 12:45 Consult to Occupational Therapy Evaluate & Treat Comment: Physician Instructions: Evaluate and treat Consult to Physical Therapy Evaluate & Treat Comment: Physician Instructions: Evaluate and Treat 09/27/18 13:23 Consult to Pastoral Services Routine Comment: No problems 08/23/18 13:35 Consult to Anesthesiology Routine Comment: Consulting Provider: Anesthesiologist Reason for consultation: Surgeon requested re: Cardiac Consult to Pastoral Services Routine Comment: TLIF 09/07 Consult to Respiratory Therapy Evaluate & Treat Comment: Physician Instructions: Evaluate and treat Discharge provider: Do Morillo PA-C Discharge Date: 09/28/18 Summary Discharge Diagnosis: 1. L4-5, L5-S1 post laminectomy syndrome 2. L4-5, L5-S1 spinal stenosis 3. L4-5, L5-S1 spondylolisthesis Hospital Course: Patient admitted to the hospital s/p L4-5, L5-S1 TLIF with Dr. Alamo on 09/27/18. Patient tolerated the procedure well with no major complications. Patient had respiratory depression in the PACU secondary to narcotics, he was reversed and sent to the ICU for observation overnight. He was seen by Physical therapy recommended for discharge home. He is stable for discharge on 09/28/2018 Status at Discharge Functional status at discharge: uses cane/walker Overall status at discharge: patient is progressing back to baseline Time Spent with Patient Less than 30 minutes Exam Vital Signs (past 8 hours): - 09/28/18 04:06 09/28/18 08:00 09/28/18 08:11 Temperature 98.5 F 97.9 F Pulse Rate 79 90 95 H Respiratory Rate 10 L 18 Blood Pressure 152/69 H 169/75 H 169/75 H Pulse Oximetry 95 94 09/28/18 09:12 Temperature Pulse Rate 78 Respiratory Rate Blood Pressure Pulse Oximetry Oxygen Delivery Method CPAP Oxygen Flow Rate 7 Narrative Exam Narrative: Well-developed well-nourished no acute distress. Alert oriented x3. Dressing on the lumbar spine is clean dry intact. No erythema no drainage. Mild generalized swelling around the incision area. No focal deficits noted. Calves are soft and compressible. Objective Labs Result Diagrams: 09/28/18 04:54 Labs: Laboratory Results - last 24 hr 09/27/18 09/28/18 16:00 04:54 Hgb 12.3 L Hct 36.6 L Nasal Screen MRSA (PCR) Negative for mrsa Discharge Plan Discharge Plan Patient Disposition: Home Discharge comment: d/c after PT Discharge Med Rec/Prescriptions Prescriptions: New hydroxyzine pamoate 25 mg Capsule 25 mg PO Q4HR PRN (Reason: Nausea And Vomiting) Qty: 40 RF: 1 oxycodone 10 mg tablet 10 mg PO Q4-6H PRN (Reason: pain) Qty: 40 RF: 0 Continue atorvastatin 40 mg tablet 40 mg PO HS Qty: 30 RF: 11 cyclobenzaprine 10 mg tablet 10 mg PO TIDP PRN (Reason: muscle spasm) Qty: 90 RF: 5 lansoprazole 30 mg capsule,delayed release(DR/EC) 30 mg PO QDAY Qty: 30 RF: 6 amitriptyline 25 mg tablet 25 mg PO BEDTIME Qty: 90 RF: 1 pregabalin 100 mg capsule 100 mg PO QID Qty: 120 RF: 2 metoprolol succinate 50 mg tablet extended release 24 hr 50 mg PO DAILY Qty: 30 RF: 5 acetaminophen 500 mg capsule 1,000 mg PO TID PRN (Reason: pain) Qty: 100 RF: 5 Discontinued meloxicam 15 mg tablet 15 mg PO DAILY Qty: 30 RF: 5 oxycodone-acetaminophen 7.5-325 mg Tablet 1 tab PO Q4H PRN (Reason: pain) RF: 0 naproxen sodium 220 mg Capsule 220 mg PO TID RF: 0 Follow up/Referrals: Myron Estrella MD [Primary Care Provider] - Provider Discharge Instructions Diet: Diet as Tolerated Activity: Weight bearing as tolerated, limit bending, twisting, and lifting greater than 5 lbs Cold/Heat Therapy: Apply ice 20 minutes at a time to surgical site at needed for pain/swelling Skin/Wound/Dressing Care Report to your healthcare provider any signs of infection, such as:: chills, fever, night sweats, increased pain, unusual drainage and unusual redness Dressing: Keep dressing clean, dry, and intact. May shower with dressing in place, no soaking. Visit Report/Discharge Packet Instructions: DI for Transforaminal Lumbar Interbody Fusion Visit Report Forms: Stroke Signs & Symptoms Discharge Data Primary Care Provider: Myron Estrella Attending Provider: Karina Alamo Admit Date/Time: 09/27/18 06:15 Discharges patient from system. Discharge Date/Time: 09/28/18 13:39
[2018-09-28] MEDS: hydrOXYzine pamoate 25 MG CAPSULE PO ×2 (08:10→11:59)
[2018-09-28] MEDS: PREGABALIN 50 MG CAPSULE 100 MG PO ×2 (08:10→12:00)
[2018-09-28 08:11] VITALS: BP 169/75; PULSE 95
[2018-09-28] MEDS: METOPROLOL ER 50 MG TABLET PO (08:11)
[2018-09-28] MEDS: DOCUSATE 100 MG CAPSULE PO (08:11)
[2018-09-28 09:12] VITALS: PULSE 78
--- NOTE | 2018-09-28 11:10 | PT.IIE ---
Current Diagnoses Spondylolisthesis, lumbar region (09/27/18) Spinal stenosis, lumbar region without neurogenic claudication (09/27/18) Postlaminectomy syndrome, not elsewhere classified (09/27/18) Surgery Performed Operation Date: 09/27/18 07:45 Actual Procedures p L4-5,L5-S1 TLIF w/Post Enrike Alamo MD Surgical History (Last Updated 08/23/18 @ 13:15 by Dorene Caldera, RN) History of arthroplasty of right knee (Acute) History of bilateral carpal tunnel release (Acute) Hx of appendectomy (Acute) Hx of cervical spine surgery (Acute ~12/2015) S/P wrist surgery (Acute) History of cervical spinal surgery (Resolved ~02/2001) History of lumbar surgery (Resolved ~2000) S/P coronary artery stent placement (Resolved 09/2011) Status post rotator cuff repair (Resolved 2007) Medical History (Last Updated 08/23/18 @ 13:27 by Dorene Caldera RN) GERD (gastroesophageal reflux disease) (Acute) Gastric ulcer (Acute) Insomnia (Acute) Numbness and tingling (Acute) CAD (coronary artery disease) (Chronic) Hyperlipidemia (Chronic) Myocardial infarction (Resolved ~2011) Physical Therapy Inpatient Evaluation/Re-Eval M1 PT/OT-IP Prior Functional Status Start: 09/28/18 12:10 Freq: NEEDED Status: Active Protocol: Document 09/28/18 11:10 AB (Rec: 09/28/18 12:24 AB [id number]) Medical Review Prior Functional Status Medical History Reviewed Yes Communication able to make needs known Mobility and Gait stated that he is modified independent with all mobilities and ambulation using SPC. has used 2 SPC last few days before surgery due to back pain Social History Household Members spouse children Living Arrangements House Number of Floors (Floors) One Floor Number of Stairs To Enter/Railing? 4 steps to enter with L rail ascending Home Environment Standard Height Toilet Tub/Shower Home Equipment Four Wheel Walker Straight Cane Grab Bars In Shower Employment Status Retired M2 PT-IP Current Condition Start: 09/28/18 12:10 Freq: NEEDED Status: Active Protocol: Document 09/28/18 11:10 AB (Rec: 09/28/18 12:24 AB [id number]) Physical Therapy Current Condition Current Condition Evaluation Date 09/28/18 Treatment Diagnosis s/p L4-5, L5S1 posterolat/ posterior fusion/lami; difficulties in walking Onset Date 09/27/18 Precautions Lumbar Precautions Log Roll No Twisting Limit Bending Lifting Restriction of 10 lbs Gait Belt above Incisional Area M3 PT-IP Subjective Start: 09/28/18 12:10 Freq: NEEDED Status: Active Protocol: Document 09/28/18 11:10 AB (Rec: 09/28/18 12:24 AB [id number]) Subjective Physical Therapy Visit Type Type Initial Evaluation Visit Start Time 11:10 Visit Stop Time 11:55 Total Visit Minutes 45 Number of MULTIFOLD OPERATOR Visits 0 Physical Therapy Visit Comments Patient Comments pt agreeable to do PT Therapy Pain Assessment Pain When Pain Assessed At Rest Pain Present Pain Present Pain Reported Location Back Intensity 8 Scale Used stated that normally his pain is 7/10 prior to surgery Pain Management Techniques Re-positioning Timing of Activity with Medications M4 PT-IP Mobility and Gait Start: 09/28/18 12:10 Freq: NEEDED Status: Active Protocol: Document 09/28/18 11:10 AB (Rec: 09/28/18 12:24 AB [id number]) PT-Bed Mobility Assessment Rolling Type of Rolling Log Rolling Level of Assist Standby Assistance Supine to Sit Supine to Sit Standby Assistance Sit to Supine Sit to Supine Standby Assistance Scooting Scooting Up and Down in Bed Standby Assistance PT-Transfer Assessment Sit to and From Stand Sit to and from Stand Standby Assistance Equipment Transfer Assistive Device Gait Belt Front Wheeled Walker 4 Wheeled Walker Transfers Transfer Destination Bed Chair Transfer Technique Stand Step Pivot Transfer Ability Level of Assist Standby Assistance Gait Assessment Gait Gait Assistance Required: Standby Assistance Distance (Feet) 100 Able to Maintain Weight Bearing Status Yes During Gait Assistive Devices Assistive Device Gait Belt Straight Cane Front Wheeled Walker 4 Wheeled Walker Orthotic/Prosthetic Devices or Brace: No Gait Deviations General Gait Pattern Antalgic Factors Limiting Gait Function Factors Limiting Gait Function Decreased Activity Tolerance Decreased Strength Limited Range of Motion Pain Poor Balance Poor Safety Awareness Comments Gait Comments Pt completed ambulation using FWW SBA to the toilet. pt was able to maintain standing using FWW for support SBA while completing toileting. Assessed ambulation using SPC and able to complete ~ 10 ft CGA and cues. pt has 4WW at home and assessed safety with use of 4WW. pt educated on how to manage 4WW and use of brakes. pt completed ambulation using 4WW ~ 100 ft SBA with occasional cues on brake management. Stair Climbing Assessment Devices Stair Climbing Assistive Devices Left Railing Technique/Endurance Stair Climbing Direction Ascend and Descend Stair Climbing Technique Step to Step Number of Steps Climbed 1 Query Text: Stair Climbing Set # Repetitions (reps) 4 Comments Stair Climbing Comments pt completed up/down 1 step using L rail SBA PT-Balance Assessment Sitting Balance and Reactions Static Sitting Balance Ability Good Dynamic Sitting Balance Ability Good Standing Balance and Reactions Static Standing Balance Ability Fair Dynamic Standing Balance Ability Fair Device Used without AD/SPC M5 PT-IP Objective Assessments Start: 09/28/18 12:10 Freq: NEEDED Status: Active Protocol: Document 09/28/18 11:10 AB (Rec: 09/28/18 12:24 AB [id number]) Orientation Orientation/Cognition Level of Alertness Alert Orientation Name Age Birthday Month Year Day of Week Place Situation Safety Awareness Decreased Safety Awareness Memory Description Short Term Impaired Gross Range of Motion Lower Extremity ROM Assessment Within Functional Limits Strength Lower Extremity Strength Assessment Bilaterally Impaired Comments Strength Comments RLE: 4+/5 LLE: 4/5 Sensation Assessment Sensation Gross Sensation WNL Muscle Tone Muscle Tone WNL Yes M6 PT-IP Treatment Start: 09/28/18 12:10 Freq: NEEDED Status: Active Protocol: Document 09/28/18 11:10 AB (Rec: 09/28/18 12:24 AB [id number]) Physical Therapy Treatment Education Education Provided Precautions Weight Bearing Status Post-Op Packet Safety M7 PT-IP Assessment and Plan Start: 09/28/18 12:10 Freq: NEEDED Status: Active Protocol: Document 09/28/18 11:10 AB (Rec: 09/28/18 12:24 AB [id number]) PT Summary Assessment and Plan Potential Rehabilitation Potential Good Status of Condition at Evaluation Stable Summary Impairments Pain ROM Strength Balance Coordination Sensation Tone Cognition Bed Mobility Transfers Gait Activity Tolerance Assessment Summary pt requiring SBA to CGA with mobility and plans to go home with spouse to assist him. pt may go home when medically stable. Goals Bed Mobility Goal Independent Transfer Goal Independent Four Wheeled Walker Gait Goal Independent Four Wheel Walker Gait Distance 200 Other Goals up/down 4 steps withL rail SBA Days to Meet Goals 2 Frequency of Treatment Frequency Of Treatment Twice a Day Treatment Plan Physical Therapy Treatment Plan Bed Mobility Training Transfer Training Gait Training Therapeutic Exercise Balance Retraining Post Op Education Discharge Planning Hot or Cold Pack Neuromuscular Re-ed Coordination Retraining Manual Therapy Other Recommendations and Next Treatment ambulation, stair climbing Focus Recommendations To Nursing Amount of Assist Needed Standby Assistance Discharge Recommendations PT Discharge Recommendations Home with Assistance
--- NOTE | 2018-09-28 11:51 | CM.DANOTE ---
Discharge Planning/Care Management CM Discharge Assessment Start: 09/28/18 11:48 Freq: Status: Active Protocol: Document 09/28/18 11:48 (Rec: 09/28/18 11:50 [id number]) Discharge Planning Assessment Assigned Supervisor Type Photography RALPH Paz Advance Directives? Yes Advance Directives on File No History Provided By Patient Family Member Medical Record Has Patient been admitted in last 30 No days? Prior Living Arrangements House Household Members spouse children Type of transporation used prior to Drives own vehicle admit Independent with ADL's Yes: with use of cane. Is patient alert and oriented? Yes Caregiver for Another No DME Already Rented / Owned Cane Patient/Family Preference OP PT Therapy Barriers to Discharge No Discharge Plan Home Community Services Physical Therapy Transportation Arrangement will provide Referrals Initiated None needed Comment Met with patient and spouse: both in agreement for discharge home today. Spouse took time off work to care for patient. Neither have any concerns or needs at this time. Spouse will provide transportation home. Whiteboard Updated in Patient Room with Yes name and ext. # of Supervisor Type Photography Please Provide Date Initial DC 09/28/18 Assessment Was Performed Pre-Anesthesia Assessment Start: 08/23/18 12:40 Freq: Status: Complete Protocol: Document 08/23/18 12:40 CAB (Rec: 08/23/18 13:35 CAB [id number]) Pre-Anesthesia Assessment Patient Information Reviewed Via Phone Assessment Assessment Completed With Patient Lab Results EKG Comment Pt has not done labs yet Primary Care Provider Myron Estrella Medical Clearance Received Yes Seen Specialist in Last 12 Months Yes Specialist Seen Manufacturer Orthopedist Comment PCP clearance Primary Language Slovak Transportation Maintenance Worker Required No Height 180.34 cm Weight 108.409 kg Body Mass Index (BMI) 33.3 Hearing Ability Normal Visual Assist None Dentition Type Teeth, Missing Full- Upper Barriers to Learning Visual Comment Missing teeth on bottom Hx Anesthesia Reactions No Hx Family Anesthesia Reaction No Hx Malignant Hyperthermia No Hx Blood Transfusions No Anesthesia Review Requested Yes: Surgeon requested re: Cardiac Kennel Manager Dog Track No alcohol intake former Alcohol Intake Frequency Other: Quit 25 years ago Smoking Status Current every day smoker Tobacco type cigarettes Smoking packs per day 0.75 Substance Use Type does not use Pain Present Pain Reported Musculoskeletal Symptoms Abnormal Gait Back Pain Difficulty Walking Joint Pain Neck Pain Numbness Tingling History of Falling (Recent or History of No ) Patient is completely paralyzed or No completely immobile Prosthesis or Orthotic Device Cane Mental Status Oriented to own ability Is patient on oxygen? No Does patient have ZHAO/SOB No Hx Sleep Apnea No Currently Taking a Beta Brendan Yes: Metoprolol Can You Climb a Flight of Stairs Without Yes SOB Hx Chest Pain No Hx SOB No Hx Syncope or Dizziness No Anti-Coagulant Therapy No Has a Manufacturer Yes: Dr. Lynne visit Hx Pacemaker/ICD No Pacemaker Rep Required? No Cardiac Clearance Received Yes Comment Clearance/visit to med records to be scanned to chart Diet Type At Home Regular dysphagia No Urinary Catheter Present No Hx Urinary Self Catheterization No Diabetes No Hx Drug Resistant Organism No Presence of External or Internal Medical No Devices Have you traveled outside the [facility] in the last 30 days? Marital Status Lives With spouse children Prior Living Arrangements House Number of Floors (Floors) One Floor Number of Stairs To Enter/Railing? 4 stairs, railing present Support System Child/Children Spouse Does the Patient Have Assistance After Yes Surgery Patient Discharge Plan Description Return Home Comment Pt advised 2-3 day length of stay per surgeon's office Feels Safe in Current Environment Yes Been Physically Hurt or Threatened By a No Person in Current Environment Do you have thoughts of harming yourself None or others? Are you currently considering suicide? No Do you have a plan to hurt yourself or No Plan others? Do You Have Any Spiritual Beliefs That No May Affect Your HC Choices? Do You Have Any Cultural Practices That No May Affect Your HC Choices? 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 No: Declines further information Power of Demand Planning Manager Yes Power of Demand Planning Manager Name Yady Taveras () Power of Demand Planning Manager PAC Instructions Medications to take/avoid Nasal antibiotic No ETOH/petroleum product on skin DOS NPO Post-op transportation Pre-surgical wash Sturdy shoes/comfortable clothes Do not bring valuables and remove jewelry
--- NOTE | 2018-09-28 13:37 | PC.NURSE ---
d/c to home following pt eval as well as conversation with OT- RX FILLED AT [facility] AND INSTRUCTED ON SAME-ESCORT FROM HOSPITAL AFTER ALL QUESTIONS ANSWERED TO THEIR SATISFACTION
--- NOTE | 2018-09-28 13:52 | OT.IP.TRT ---
Current Diagnoses Spondylolisthesis, lumbar region (09/27/18) Spinal stenosis, lumbar region without neurogenic claudication (09/27/18) Postlaminectomy syndrome, not elsewhere classified (09/27/18) Surgery Performed Operation Date: 09/27/18 07:45 Actual Procedures p L4-5,L5-S1 TLIF w/Post Instru - Karina Alamo MD Occupational Therapy Treatment Note M3 OT- IP Subjective and Pain Start: 09/28/18 13:49 Freq: Status: Active Protocol: Document 09/28/18 13:49 [facility] (Rec: 09/28/18 13:52 [facility] [id number]) OT- Subjective Occupational Therapy Visit Type Type Administrative Note Notes Pt right about to be discharged. Spoke to pt and for OT needs and states going to [employer] to check on shower chair otherwise has all needs for OT. Pt states will initially sleep in his recliner. Also suggested urinal at night , however pt and states not needed and she will be close by and that the bathroom is close by to use. Pt's has good understanding to assist pt for all needs. No charge
== END 2018-09-28 13:39 | disposition home or self-care (01) | DRG 455 ==
LOC: AC 11:35 → ICU 09-28 10:57
PROVIDERS: Admitting Provider Orthopaedic Surgery Orthopaedic Surgery of the Spine; Family Provider Family Medicine; PCP Student in an Organized Health Care Education/Training Program; Visit Provider Orthopaedic Surgery Orthopaedic Surgery of the Spine
PROC: 0SG00AJ Fusion of Lumbar Vertebral Joint with Interbody Fusion Device, Posterior Approach, Anterior Column, Open Approach (ICD-10-PCS; principal; 2018-09-27 07:45)
DX: M43.16 Spondylolisthesis, lumbar region (principal); M47.26 Other spondylosis with radiculopathy, lumbar region; M48.062 Spinal stenosis, lumbar region with neurogenic claudication; E78.5 Hyperlipidemia, unspecified; G89.4 Chronic pain syndrome; I25.10 Atherosclerotic heart disease of native coronary artery without angina pectoris; T41.205A Adverse effect of unspecified general anesthetics, initial encounter; G93.89 Other specified disorders of brain
CPT/HCPCS: 36415; 72100; 76000; 85014; 85018; 87797; 94762; 97116; 97161; 99406; C1776; C9290; J0330; J0690; J1100; J1170; J2060; J2310; J2405; J2704; J3010

== ENCOUNTER 2018-10-16 08:04 | Emergency (ER) | payer OTHER, MEDICARE, SELFPAY ==
[2018-09-27 13:00] VITALS: BMI 33.6
[2018-10-16 08:13] VITALS: BP 148/86; PULSE 74; RESP 12; TEMP 36.3; O2SAT 96
--- NOTE | 2018-10-16 08:30 | ED.BACK ---
HPI - Back Pain/Injury General Chief Complaint: Back Pain/Injury Stated Complaint: back pain/back surg on 09/27/18 Time Seen by Provider: 10/16/18 08:13 Source: patient and old records reviewed Mode of arrival: ambulatory Limitations: no limitations History of Present Illness HPI Narrative: Patient is 63-year-old male presenting with back pain. He had lumbar fusion 09/27/2018 before his surgery was complaining of radiation down both legs. He continues to complain of radiation down both legs as well. The right leg is weaker but sensation on his left leg is altered. He has not had any fever. He has no changes in bowel or bladder habits. He has been taking more oxycodone prescribed up to 6 a day he says he is only supposed to take for. He has not been taking any Tylenol with it. He is on Lyrica. He has had difficulty with pain control in the past. He says his pain was never better after surgery that continues on. MD Complaint: back pain Related Data Previous Rx's Medication Instructions Recorded acetaminophen 500 mg capsule 1,000 mg PO TID PRN #100 cap 04/13/18 lansoprazole 30 mg capsule,delayed 30 mg PO QDAY #30 ecc 06/04/18 release amitriptyline 25 mg tablet 25 mg PO BEDTIME #90 tab 06/07/18 atorvastatin 40 mg tablet 40 mg PO HS #30 tab 08/14/18 cyclobenzaprine 10 mg tablet 10 mg PO TIDP PRN #90 tab 08/14/18 pregabalin 100 mg capsule 100 mg PO QID #120 cap 08/14/18 metoprolol succinate ER 50 mg 50 mg PO DAILY #30 tab 09/04/18 tablet,extended release 24 hr hydroxyzine pamoate 25 mg PO Q4HR PRN #40 cap 09/28/18 oxycodone 10 mg PO Q4-6H PRN #40 tab 09/28/18 Allergies Allergy/AdvReac Type Severity Reaction Status Date / Time gabapentin AdvReac Severe Dizziness, Verified 09/27/18 06:48 increased pain symptoms morphine [MORPHINE] AdvReac Severe VOMITING Verified 09/27/18 06:48 Review of Systems Review of Systems ROS Unobtainable: All systems reviewed & are unremarkable except as noted in HPI and below Constitutional Denies chills, Denies fever(s), Denies lethargy and Denies weakness Cardiovascular Denies chest pain, Denies irregular heart rhythm, Denies lightheadedness, Denies palpitations, Denies dyspnea, Denies dyspnea on exertion and Denies orthopnea Respiratory Denies cough, Denies dyspnea, Denies dyspnea on exertion and Denies wheezing Gastrointestinal Gastrointestinal: Denies abdominal pain, Denies change in bowel habits, Denies diarrhea, Denies nausea and Denies vomiting Musculoskeletal Denies back pain, Denies muscle weakness, Denies numbness and Denies tingling Integumentary/Breasts Denies pruritus, Denies erythema, Denies rash and Denies wounds Neurologic Denies numbness, Denies tingling and Denies weakness Endocrine Denies palpitations Allergic/Immunologic Denies wheezing PFSH Medical History Fusion of lumbar spine (Acute) GERD (gastroesophageal reflux disease) (Acute) Gastric ulcer (Acute) Insomnia (Acute) Numbness and tingling (Acute) CAD (coronary artery disease) (Chronic) Hyperlipidemia (Chronic) Myocardial infarction (Resolved ~2011) Surgical History History of arthroplasty of right knee (Acute) History of bilateral carpal tunnel release (Acute) Hx of appendectomy (Acute) Hx of cervical spine surgery (Acute ~12/2015) S/P wrist surgery (Acute) History of cervical spinal surgery (Resolved ~02/2001) History of lumbar surgery (Resolved ~2000) S/P coronary artery stent placement (Resolved 09/2011) Status post rotator cuff repair (Resolved 2007) Family History Father CAD (coronary artery disease) Mother CAD (coronary artery disease) Arthritis Family/Other Alcoholism and drug addiction in family Autoimmune disease Arthritis Rheumatoid arthritis Other Drug abuse Social History household members: spouse and children Smoking Status: Current every day smoker alcohol intake: former Social History household members: spouse and children Smoking Status: Current every day smoker alcohol intake: former Exam Initial Vital Signs Initial Vital Signs: Vital Signs Temperature 97.4 F L 10/16/18 08:13 Pulse Rate 74 10/16/18 08:13 Respiratory Rate 12 10/16/18 08:13 Blood Pressure 148/86 H 10/16/18 08:13 Pulse Oximetry 96 10/16/18 08:13 GENERAL: Well-appearing, well-nourished and in no acute distress. HEENT: Head atraumatic,EOMI, pupils reactive CARDIOVASCULAR: Regular rate and rhythm without murmurs, rubs or gallops. RESPIRATORY: Breath sounds equal bilaterally, no wheezes rales or rhonchi. ABDOMEN: Soft, nontender. Normoactive bowel sounds all 4 quadrants. No guarding or rebound. BACK: Mild lumbar pain more on left than right incision sites are clean and dry no erythema EXTREMITIES: Normal range of motion, no clubbing or edema. Neurovascularly intact NEUROLOGICAL: Alert and oriented x4.Normal gait and speech. Cranial nerves II through XII grossly intact. Unable to hold right leg off the gurney, left leg is held for 5 sec. Decreased sensation on left leg than right leg SKIN: Warm, dry, no laceration, no petechiae, no rashes or lesions. Course Orders Ordered: Discontinued Medications Ketorolac Tromethamine (Toradol) 60 mg IM NOW ONE Stop: 10/16/18 08:30 Last Admin: 10/16/18 08:39 Dose: 60 mg Vital Signs - 8 hr 10/16/18 08:13 10/16/18 09:00 10/16/18 09:25 Temperature 97.4 F L 98.3 F 96.1 F L Pulse Rate 74 63 76 Respiratory Rate 12 18 13 Blood Pressure 148/86 H 137/72 Blood Pressure [Left Arm] 151/76 H Pulse Oximetry 96 100 99 Discharge Plan Departure Patient Disposition: Home Clinical Impression: Acute exacerbation of chronic low back pain Discharge Date/Time: 10/16/18 09:36 Interventions: ED Discharge Assessment Last Done: 10/16/18 09:25 Instructions: DI for Low Back Pain Activity Restrictions/Additional Instructions: *You have been diagnosed with acute on chronic back pain *What to do: Follow-up postoperative instructions at some point you may require physical therapy you will need medical clearance before this *Continue to take medications as directed Tylenol 1000 mg every 6 hr do not exceed more than 4,000mg in 24 hr *Follow up with your primary care provider in 2-3 days, you may also need chronic pain management *Return to ER if you should have leg weakness, fever, numbness, tingling or any new, worsening or concerning symptoms Prescriptions: No Action atorvastatin 40 mg tablet 40 mg PO HS Qty: 30 RF: 11 cyclobenzaprine 10 mg tablet 10 mg PO TIDP PRN (Reason: muscle spasm) Qty: 90 RF: 5 lansoprazole 30 mg capsule,delayed release(DR/EC) 30 mg PO QDAY Qty: 30 RF: 6 amitriptyline 25 mg tablet 25 mg PO BEDTIME Qty: 90 RF: 1 pregabalin 100 mg capsule 100 mg PO QID Qty: 120 RF: 2 metoprolol succinate 50 mg tablet extended release 24 hr 50 mg PO DAILY Qty: 30 RF: 5 acetaminophen 500 mg capsule 1,000 mg PO TID PRN (Reason: pain) Qty: 100 RF: 5 hydroxyzine pamoate 25 mg Capsule 25 mg PO Q4HR PRN (Reason: Nausea And Vomiting) Qty: 40 RF: 1 oxycodone 10 mg tablet 10 mg PO Q4-6H PRN (Reason: pain) Qty: 40 RF: 0 Referrals: Myron Estrella MD [Primary Care Provider] - Karina Alamo MD [Physician] -
[2018-10-16] MEDS: KETOROLAC 60 MG/2 ML VIAL IM (08:39)
[2018-10-16 09:00] VITALS: BP 151/76; PULSE 63; RESP 18; TEMP 36.8; O2SAT 100
[2018-10-16 09:25] VITALS: BP 137/72; PULSE 76; RESP 13; TEMP 35.6; O2SAT 99
== END 2018-10-16 09:36 | disposition home or self-care (01) ==
PROVIDERS: Emergency Provider Emergency Medicine; Family Provider Family Medicine; PCP Student in an Organized Health Care Education/Training Program
DX: M54.5 Low back pain (principal); G89.29 Other chronic pain
CPT/HCPCS: 96372; 99282; 99283; J1885

== ENCOUNTER 2018-12-29 23:08 | Emergency (ER) | payer OTHER, MEDICARE, SELFPAY ==
[2018-09-27 13:00] VITALS: BMI 33.6
[2018-12-29 23:28] VITALS: BP 166/73; PULSE 66; RESP 16; TEMP 36.6; O2SAT 100; BMI 33.5
--- NOTE | 2018-12-29 23:41 | ED.BACK ---
HPI - Back Pain/Injury General Chief Complaint: Back Pain/Injury Stated Complaint: back pain Time Seen by Provider: 12/29/18 23:40 Source: patient Mode of arrival: ambulatory Limitations: no limitations History of Present Illness HPI Narrative: Patient is a 63-year-old male with known degenerative disc disease here for evaluation of back pain. He states that it is a flare of his normal back pain. He has not taken any medications for. Has seen spine surgery in the past. Related Data Previous Rx's Medication Instructions Recorded acetaminophen 500 mg capsule 1,000 mg PO TID PRN #100 cap 04/13/18 lansoprazole 30 mg capsule,delayed 30 mg PO QDAY #30 ecc 06/04/18 release amitriptyline 25 mg tablet 25 mg PO BEDTIME #90 tab 06/07/18 atorvastatin 40 mg tablet 40 mg PO HS #30 tab 08/14/18 cyclobenzaprine 10 mg tablet 10 mg PO TIDP PRN #90 tab 08/14/18 metoprolol succinate ER 50 mg 50 mg PO DAILY #30 tab 09/04/18 tablet,extended release 24 hr hydroxyzine pamoate 25 mg PO Q4HR PRN #40 cap 09/28/18 oxycodone 10 mg PO Q4-6H PRN #40 tab 09/28/18 pregabalin 100 mg capsule 100 mg PO QID #120 cap 11/30/18 oxycodone-acetaminophen [Percocet] 1 tab PO Q4-6H PRN #7 tab 12/29/18 prednisone 40 mg PO DAILY 5 Days #10 tab 12/29/18 Allergies Allergy/AdvReac Type Severity Reaction Status Date / Time gabapentin AdvReac Severe Dizziness, Verified 09/27/18 06:48 increased pain symptoms morphine [MORPHINE] AdvReac Severe VOMITING Verified 09/27/18 06:48 Review of Systems Constitutional Denies fever(s) Cardiovascular Denies chest pain and Denies dyspnea Respiratory Denies dyspnea Gastrointestinal Gastrointestinal: Denies abdominal pain Genitourinary Denies dysuria, Denies urinary frequency and Denies urinary hesitancy Musculoskeletal Reports back pain Integumentary/Breasts Denies rash Hematologic/Lymphatic Denies easy bleeding and Denies easy bruising Allergic/Immunologic Denies urticaria PFSH Medical History Fusion of lumbar spine (Acute) GERD (gastroesophageal reflux disease) (Acute) Gastric ulcer (Acute) Insomnia (Acute) Numbness and tingling (Acute) CAD (coronary artery disease) (Chronic) Hyperlipidemia (Chronic) Myocardial infarction (Resolved ~2011) Surgical History (Updated 08/23/18 @ 13:15 by Dorene Caldera RN) History of arthroplasty of right knee (Acute) History of bilateral carpal tunnel release (Acute) Hx of appendectomy (Acute) Hx of cervical spine surgery (Acute ~12/2015) S/P wrist surgery (Acute) History of cervical spinal surgery (Resolved ~02/2001) History of lumbar surgery (Resolved ~2000) S/P coronary artery stent placement (Resolved 09/2011) Status post rotator cuff repair (Resolved 2007) Family History Father CAD (coronary artery disease) Mother CAD (coronary artery disease) Arthritis Family/Other Alcoholism and drug addiction in family Autoimmune disease Arthritis Rheumatoid arthritis Other Drug abuse Social History household members: spouse and children Smoking Status: Current every day smoker alcohol intake: former Social History household members: spouse and children Smoking Status: Current every day smoker alcohol intake: former Exam Initial Vital Signs Initial Vital Signs: Vital Signs Temperature 97.9 F 12/29/18 23:28 Pulse Rate 66 12/29/18 23:28 Respiratory Rate 16 12/29/18 23:28 Blood Pressure 166/73 H 12/29/18 23:28 Pulse Oximetry 100 12/29/18 23:28 Const General: cooperative, healthy appearing, comfortable, well developed, well groomed and No acute distress Orientation: alert, awake and oriented x3 HENMT Head: normal to inspection and normocephalic Resp Effort & Inspection: normal respiratory effort Cardio Rate: regular rate Back/Spine/Pelvis Cervical Spine: No cervical spasm and No cervical spinal tenderness Thoracic/Lumbar Spine: thoracic spinal tenderness and lumbar spinal tenderness Skin Lesions: no lesions Rashes: no rashes Neuro General: alert, awake and oriented x3 Extrem General: normal to inspection and capillary refill normal Psych Appearance: grossly normal and well kempt Course Orders Ordered: Discontinued Medications Hydromorphone HCl (Dilaudid) 1 mg IM NOW ONE Stop: 04/13/19 23:50 Last Admin: 12/30/18 00:01 Dose: 1 mg Vital Signs - 8 hr 12/29/18 23:28 12/30/18 00:42 Temperature 97.9 F Pulse Rate 66 60 Respiratory Rate 16 18 Blood Pressure 166/73 H 166/68 H Pulse Oximetry 100 97 MDM - Back Pain/Injury MDM Narrative Medical decision making narrative: No red flag symptoms. Will hold on radiologic studies for now. Was given pain medication here in the emergency department. Will have him follow up with his primary provider. He expressed understanding and agreement with plan. Discharge Plan Departure Patient Disposition: Home Clinical Impression: Back pain Qualifiers: Back pain location: back pain in unspecified location Chronicity: chronic Back pain laterality: unspecified Qualified Code(s): M54.9 - Dorsalgia, unspecified Discharge Date/Time: 12/30/18 00:41 Interventions: ED Discharge Assessment Last Done: 12/30/18 00:42 Instructions: DI for Back Strain or Sprain Activity Restrictions/Additional Instructions: I do recommend you stay as active as possible. Your pain control medications need to come from 1 provider. That can be either your orthopedic doctor or your primary doctor. On Monday I would contact both them to schedule follow-up visit. Return to the emergency department for any new or worsening symptoms Prescriptions: New prednisone 20 mg tablet 40 mg PO DAILY 5 Days Qty: 10 RF: 0 oxycodone-acetaminophen [Percocet] 5-325 mg tablet 1 tab PO Q4-6H PRN (Reason: pain) Qty: 7 RF: 0 No Action atorvastatin 40 mg tablet 40 mg PO HS Qty: 30 RF: 11 cyclobenzaprine 10 mg tablet 10 mg PO TIDP PRN (Reason: muscle spasm) Qty: 90 RF: 5 lansoprazole 30 mg capsule,delayed release(DR/EC) 30 mg PO QDAY Qty: 30 RF: 6 amitriptyline 25 mg tablet 25 mg PO BEDTIME Qty: 90 RF: 1 metoprolol succinate 50 mg tablet extended release 24 hr 50 mg PO DAILY Qty: 30 RF: 5 pregabalin 100 mg capsule 100 mg PO QID Qty: 120 RF: 5 acetaminophen 500 mg capsule 1,000 mg PO TID PRN (Reason: pain) Qty: 100 RF: 5 hydroxyzine pamoate 25 mg Capsule 25 mg PO Q4HR PRN (Reason: Nausea And Vomiting) Qty: 40 RF: 1 oxycodone 10 mg tablet 10 mg PO Q4-6H PRN (Reason: pain) Qty: 40 RF: 0 Referrals: Myorn Estrella MD [Primary Care Provider] -
[2018-12-30] MEDS: HYDROMORPHONE 1 MG INJ IM (00:01)
[2018-12-30 00:42] VITALS: BP 166/68; PULSE 60; RESP 18; O2SAT 97
== END 2018-12-30 00:41 | disposition home or self-care (01) ==
PROVIDERS: Emergency Provider Emergency Medicine; Family Provider Orthopaedic Surgery Orthopaedic Surgery of the Spine; PCP Student in an Organized Health Care Education/Training Program
DX: M54.9 Dorsalgia, unspecified (principal)
CPT/HCPCS: 96372; 99282; 99283; J1170

== ENCOUNTER 2019-02-01 15:15 | Outpatient (RCR) | payer OTHER, MEDICARE, SELFPAY ==
[2018-09-27 13:00] VITALS: BMI 33.6
--- NOTE | 2018-12-27 11:15 | PT.OIE ---
Current Diagnoses Spondylolisthesis, lumbar region (12/27/18) Other spondylosis with radiculopathy, lumbar region (12/27/18) Spinal stenosis, lumbar region with neurogenic claudication (12/27/18) Muscle weakness (generalized) (12/27/18) Unspecified abnormalities of gait and mobility (12/27/18) Past Medical History (Last Updated 10/16/18 @ 08:40 by Dana Cortez DO) Fusion of lumbar spine (Acute) GERD (gastroesophageal reflux disease) (Acute) Gastric ulcer (Acute) Insomnia (Acute) Numbness and tingling (Acute) CAD (coronary artery disease) (Chronic) Hyperlipidemia (Chronic) Myocardial infarction (Resolved ~2011) Past Surgical History (Last Updated 08/23/18 @ 13:15 by Dorene Caldera RN) History of arthroplasty of right knee (Acute) History of bilateral carpal tunnel release (Acute) Hx of appendectomy (Acute) Hx of cervical spine surgery (Acute ~12/2015) S/P wrist surgery (Acute) History of cervical spinal surgery (Resolved ~02/2001) History of lumbar surgery (Resolved ~2000) S/P coronary artery stent placement (Resolved 09/2011) Status post rotator cuff repair (Resolved 2007) Provider Visit Care Team Role Provider Type Myron Estrella MD Primary Care Provider Physician Specialty: Internal Medicine Address: [address] [place] [address], [id number] Email: Karina Alamo MD Attending Provider Physician Specialty: Orthopedic Surgery Address: [address] [place] [address], [id number] Email: [email or web address] Physical Therapy Initial Evaluation PT-OP-A Visit Information Start: 12/27/18 17:09 Freq: Status: Active Protocol: Document 12/27/18 11:15 RCC (Rec: 12/27/18 17:54 [facility] [email or web address]) Out-Patient Physical Therapy Visit Information Visit Information Visit Type Initial Evaluation Visit Start Time 11:15 Visit Stop Time 12:05 Total Visit Minutes 50 Visit Number 1 Number of HOTEL OR MOTEL RECEPTIONIST Visits 0 Evaluation Information Evaluation Date 12/27/18 Precautions Precautions lumbar spine surgery precautions- surgery 09/27/18 ( per pt Dr. Alamo states 3 lb max lifting) PT-OP-B Current Condition Start: 12/27/18 17:09 Freq: Status: Active Protocol: Document 12/27/18 11:15 RCC (Rec: 12/27/18 17:54 [facility] [email or web address]) Current Condition History of Current Condition Onset Date 09/27/18 Current Complaints low back with radiating LE pain, bilateral neck pain, difficulty walking History of Current Condition Pt is a 63 y/o male presenting to physical therapy with a c/ o bilateral low back with radiating LE pain, and neck pain stemming from past orthopedic surgeries, most recent L4-5, L5-S1 laminectomy , TLIF with cage, and posterior instrumented fusion. Pt also with past h/o back surgery in 2000, bilateral shoulder surgeries, R knee replacement, and cervical spine fusion 3-4 yrs ago. Pt admits that his pain is still radiating down the bilateral LEs. Walking longer time or distances without breaks increases his low back pain. Easing factors include: heat, cold, rest (seated in recliner with his feet elevated). Pt would like to be able to walk long distances without increased low back pain (up to 1 hr per pt). Treatment Goals Patient/Caregiver Goals Improve walking tolerance to 1 hr, decrease neck and back pain Prior Functional Status Baseline Function- Recreation/Hobbies walking for 1-1.5 hrs with fatigue outdoors Personal Factors Other Personal Factors That May Effect multiple orthopedic procedures Therapy/Recovery : multiple back and neck surgeries with hardware, B shoulder surgeries, R knee replacement; current every day smoker PT-OP-C Subjective Start: 12/27/18 17:09 Freq: Status: Active Protocol: Document 12/27/18 11:15 [facility] (Rec: 12/27/18 17:54 [facility] [email or web address]) Patient Questionnaires Oswestry Low Back Index Oswestry Score 74 OP-PT Pain Assessment Location neck Intensity 7 Scale Used Numeric (1 - 10) Back Intensity 7 Scale Used Numeric (1 - 10) Home Pain Medication Use Pain Medications Used Yes PT-OP-E Functional Tests Start: 12/27/18 17:09 Freq: Status: Active Protocol: Document 12/27/18 11:15 RCC (Rec: 12/27/18 17:54 RCC [email or web address]) Functional Tests 6 Minute Walk Test Distance 623 Device Used SPC Comments quit @ 4 min d/t pain in low back PT-OP-F Manual Assessment Start: 12/27/18 17:09 Freq: Status: Active Protocol: Document 12/27/18 11:15 RCC (Rec: 12/27/18 17:54 [facility] [email or web address]) Manual Assessments Soft Tissue Assessment Soft Tissue Mobility Assessment moderate tone: bilateral QL, lumbar paraspinals, R levator and upper trap; mild tone L levator and upper trap; mild scar tissue lumbar spine @ region of incision L4-S1 PT-OP-G Mobility & Gait Start: 12/27/18 17:09 Freq: Status: Active Protocol: Document 12/27/18 11:15 RCC (Rec: 12/27/18 17:54 [facility] [email or web address]) OP Gait Assessment Gait Deviations General Gait Pattern Antalgic Decreased Stride Length Decreased Feet Clearance PT-OP-H Neuro Start: 12/27/18 17:09 Freq: Status: Active Protocol: Document 12/27/18 11:15 RCC (Rec: 12/27/18 17:54 [facility] [email or web address]) Vital Signs Comments Vital Signs Comments DTRs- unable to evoke due to pt tension PT-OP-K Range of Motion Start: 12/27/18 17:09 Freq: Status: Active Protocol: Document 12/27/18 11:15 RCC (Rec: 12/27/18 17:54 [facility] [email or web address]) Cervical Spine Range of Motion Cervical Spine Active Degrees Testing Position Sitting Flexion 22 Extension 25 Rotation Left 45 Rotation Right 39 Lateral Flexion Left 26 Lateral Flexion Right 22 Lumbar Spine Range of Motion Lumbar Spine Active Degrees Testing Position Standing Flexion 40 Extension 0 PT-OP-L Special Tests Start: 12/27/18 17:09 Freq: Status: Active Protocol: Document 12/27/18 11:15 RCC (Rec: 12/27/18 17:54 [facility] [email or web address]) Special Tests Neural Special Tests- Lower Body Sciatic Nerve Tension Test Results positive B PT-OP-M Strength Start: 12/27/18 17:09 Freq: Status: Active Protocol: Document 12/27/18 11:15 RCC (Rec: 12/27/18 17:54 [facility] [email or web address]) Shoulder Strength Shoulder Manual Muscle Testing Right Flexion 4- Good- Abduction (C5) 4 Good External Rotation 3 Fair Internal Rotation 5 Normal Left Flexion 4 Good Abduction (C5) 3+ Fair+ External Rotation 4 Good Internal Rotation 5 Normal Hip Strength Hip Manual Muscle Testing Right Flexion (L2) 4 Good External Rotation 3+ Fair+ Internal Rotation 3+ Fair+ Left Flexion (L2) 4 Good External Rotation 3+ Fair+ Internal Rotation 4- Good- Knee Strength Knee Manual Muscle Testing Right Flexion (S2) 4 Good Extension (L3) 4 Good Left Flexion (S2) 4+ Good+ Extension (L3) 5 Normal Ankle/Foot Strength Ankle and Foot Manual Muscle Testing Right Dorsiflexion (L4) 5 Normal Left Dorsiflexion (L4) 5 Normal PT-OP-Q Treatments Start: 12/27/18 17:09 Freq: Status: Active Protocol: Document 12/27/18 11:15 RCC (Rec: 12/27/18 17:54 [facility] [email or web address]) Therapeutic Exercises Supine Exercises sciatic nerve glides Side bilateral Comments tension with hip flex to 45 deg SKC, DKC Side bilateral Reps/Minutes 10 sec hold x2 each PT-OP-R Modalities Start: 12/27/18 17:09 Freq: Status: Active Protocol: Document 12/27/18 11:15 RCC (Rec: 12/27/18 17:54 RCC [email or web address]) Hot Pack/Cold Pack Treatment Hot Pack Location lumbar and cervical Patient Position Hooklying Treatment Duration (minutes) 10 Patient Tolerance Good PT-OP-T Assessment and Plan Start: 12/27/18 17:09 Freq: Status: Active Protocol: Document 12/27/18 11:15 RCC (Rec: 12/27/18 17:54 [facility] [email or web address]) Physical Therapy Assessment Rehab Potential Rehabilitation Potential Good Evaluation Complexity Number of Personal Factors/Comorbidities 3 or More Number of Body Systems Impaired 4 or More Clinical Presentation at Evaluation Evolving Impairments Impairments Activity Tolerance Functional Activities Functional Mobility Gait Pain Posture ROM Soft Tissue Mobility Strength Goals weakness Impairment bilateral UE and LE weakness Short Term Goal (STG) Pt will demonstrate improved strength with manual muscle testing at least 4+/5 in the LE and 4/5 in the UE to be able to return to his home projects and being able to lift light objects for art work. STG Duration 6 weeks Mcfp Goal (LTG) Pt will demonstrate improved strength with manual muscle testing at least 4+/5 in the bilateral LE and UE to be able to return to his home projects and being able to lift light objects for art work. LTG Duration 12 weeks 6 Minute Walk Test Impairment 623 ft in 4 min (unable to complete 6 MWT) Short Term Goal (STG) Pt will ambulate at least 900 ft with the 6 Minute Walk Test (and complete walk test) to demonstrate improved tolerance to walking for continuous amount of time and to promote establishment of a daily walking program. STG Duration 6 weeks Health Physics Technician Goal (LTG) Pt will ambulate at least 1200 ft with the 6 Minute Walk Test (and complete walk test) to demonstrate improved tolerance to walking for continuous amount of time and to promote establishment of a daily walking program. LTG Duration 12 weeks pain Impairment low back and neck pain 7/10 Mcfp Goal (LTG) Decrease pain to 4/10 or less to improve activity tolerance with standing and walking. LTG Duration 12 weeks Modified Oswestry Impairment 74% perceived disability Short Term Goal (STG) 60% or less perceived disability on the Modified Oswestry Scale to demonstrate improvements with functional mobility and activities and decreased perceived disability from low back pain. STG Duration 6 weeks Mcfp Goal (LTG) 50% or less perceived disability on the Modified Oswestry Scale to demonstrate improvements with functional mobility and activities and decreased perceived disability from low back pain. LTG Duration 12 weeks Assessment Summary Assessment Pt presents s/p lumbar fusion on 09/27/2018, with bilateral low back and radiating pain, worsened with standing and walking. Pt was unable to walk for six consecutive minutes due to low back pain, which is well below his goal of walking for 1 hr at a time without low back pain. It is more realistic that pt may only tolerate short bouts of walking at a time with occasional rest breaks between, but he does not have a safe walking program to abide by which could be established with progression of physical therapy interventions. Pt also lacks appropriate strength overall, which has left him unable to participate in his usual hobbies and work, including being able to lift light objects such as art work without increase pain. Overall , pt is a good candidate for physical therapy, but due to his multiple orthopedic surgeries and poor conditioning at this time, it is expected that pt will require a prolonged amount of consistent physical therapy to progress toward his goals. Physical Therapy Plan Frequency and Duration Frequency of Treatment 2x/Week Duration of Treatment 12 weeks Plan of Care Start Date 12/27/18 Plan of Care End Date 03/21/19 Therapeutic Interventions Therapeutic Interventions Aquatic Therapy Balance Training Gait Training Home Exercise Program Manual Therapy Neuromuscular Re-education Orthotic/Prosthetic Management Patient/Caregiver Education Self-Care/Home Management Soft Tissue Mobilization Taping Therapeutic Activities Therapeutic Exercises Modalities Cold Pack/Ice Massage Electric Stimulation Hot Packs Ultrasound Next Visit Focus/Plan Next Note Type Treatment Note Next Visit Plan Recumbent stepper, HS stretching in standing or sitting with good low back positioning; review sciatic nerve glides; gentle core stabilization: TA activation; modalities for pain as needed.
--- NOTE | 2019-01-02 15:43 | PT.OTN ---
Current Diagnoses Spondylolisthesis, lumbar region (01/02/19) Other spondylosis with radiculopathy, lumbar region (01/02/19) Spinal stenosis, lumbar region with neurogenic claudication (01/02/19) Physical Therapy Treatment Note PT-OP-A Visit Information Start: 12/27/18 17:09 Freq: Status: Active Protocol: Document 01/02/19 13:45 HH (Rec: 01/02/19 15:43 HH [email or web address]) Out-Patient Physical Therapy Visit Information Visit Information Visit Type Treatment Note Visit Start Time 13:45 Visit Stop Time 14:30 Total Visit Minutes 45 Visit Number 2 Number of INTERNET NETWORK SPECIALIST Visits 0 PT-OP-B Current Condition Start: 12/27/18 17:09 Freq: Status: Active Protocol: Document 12/27/18 11:15 RCC (Rec: 12/27/18 17:54 RCC [email or web address]) Current Condition History of Current Condition Onset Date 09/27/18 Current Complaints low back with radiating LE pain, bilateral neck pain, difficulty walking History of Current Condition Pt is a 63 y/o male presenting to physical therapy with a c/ o bilateral low back with radiating LE pain, and neck pain stemming from past orthopedic surgeries, most recent L4-5, L5-S1 laminectomy , TLIF with cage, and posterior instrumented fusion. Pt also with past h/o back surgery in 2000, bilateral shoulder surgeries, R knee replacement, and cervical spine fusion 3-4 yrs ago. Pt admits that his pain is still radiating down the bilateral LEs. Walking longer time or distances without breaks increases his low back pain. Easing factors include: heat, cold, rest (seated in recliner with his feet elevated). Pt would like to be able to walk long distances without increased low back pain (up to 1 hr per pt). Treatment Goals Patient/Caregiver Goals Improve walking tolerance to 1 hr, decrease neck and back pain Prior Functional Status Baseline Function- Recreation/Hobbies walking for 1-1.5 hrs with fatigue outdoors Personal Factors Other Personal Factors That May Effect multiple orthopedic procedures Therapy/Recovery : multiple back and neck surgeries with hardware, B shoulder surgeries, R knee replacement; current every day smoker PT-OP-C Subjective Start: 12/27/18 17:09 Freq: Status: Active Protocol: Document 01/02/19 13:45 HH (Rec: 01/02/19 15:43 HH [email or web address]) OP-PT Subjective Patient Comments Patient Comments My back is very limited. And hard to walk for long distance PT-OP-E Functional Tests Start: 12/27/18 17:09 Freq: Status: Active Protocol: Document 12/27/18 11:15 RCC (Rec: 12/27/18 17:54 RCC [email or web address]) Functional Tests 6 Minute Walk Test Distance 623 Device Used SPC Comments quit @ 4 min d/t pain in low back PT-OP-F Manual Assessment Start: 12/27/18 17:09 Freq: Status: Active Protocol: Document 12/27/18 11:15 RCC (Rec: 12/27/18 17:54 RCC [email or web address]) Manual Assessments Soft Tissue Assessment Soft Tissue Mobility Assessment moderate tone: bilateral QL, lumbar paraspinals, R levator and upper trap; mild tone L levator and upper trap; mild scar tissue lumbar spine @ region of incision L4-S1 PT-OP-G Mobility & Gait Start: 12/27/18 17:09 Freq: Status: Active Protocol: Document 12/27/18 11:15 RCC (Rec: 12/27/18 17:54 RCC [email or web address]) OP Gait Assessment Gait Deviations General Gait Pattern Antalgic Decreased Stride Length Decreased Feet Clearance PT-OP-H Neuro Start: 12/27/18 17:09 Freq: Status: Active Protocol: Document 12/27/18 11:15 RCC (Rec: 12/27/18 17:54 RCC [email or web address]) Vital Signs Comments Vital Signs Comments DTRs- unable to evoke due to pt tension PT-OP-K Range of Motion Start: 12/27/18 17:09 Freq: Status: Active Protocol: Document 12/27/18 11:15 RCC (Rec: 12/27/18 17:54 RCC [email or web address]) Cervical Spine Range of Motion Cervical Spine Active Degrees Testing Position Sitting Flexion 22 Extension 25 Rotation Left 45 Rotation Right 39 Lateral Flexion Left 26 Lateral Flexion Right 22 Lumbar Spine Range of Motion Lumbar Spine Active Degrees Testing Position Standing Flexion 40 Extension 0 PT-OP-L Special Tests Start: 12/27/18 17:09 Freq: Status: Active Protocol: Document 12/27/18 11:15 RCC (Rec: 12/27/18 17:54 RCC [email or web address]) Special Tests Neural Special Tests- Lower Body Sciatic Nerve Tension Test Results positive B PT-OP-M Strength Start: 12/27/18 17:09 Freq: Status: Active Protocol: Document 12/27/18 11:15 RCC (Rec: 12/27/18 17:54 RCC [email or web address]) Shoulder Strength Shoulder Manual Muscle Testing Right Flexion 4- Good- Abduction (C5) 4 Good External Rotation 3 Fair Internal Rotation 5 Normal Left Flexion 4 Good Abduction (C5) 3+ Fair+ External Rotation 4 Good Internal Rotation 5 Normal Hip Strength Hip Manual Muscle Testing Right Flexion (L2) 4 Good External Rotation 3+ Fair+ Internal Rotation 3+ Fair+ Left Flexion (L2) 4 Good External Rotation 3+ Fair+ Internal Rotation 4- Good- Knee Strength Knee Manual Muscle Testing Right Flexion (S2) 4 Good Extension (L3) 4 Good Left Flexion (S2) 4+ Good+ Extension (L3) 5 Normal Ankle/Foot Strength Ankle and Foot Manual Muscle Testing Right Dorsiflexion (L4) 5 Normal Left Dorsiflexion (L4) 5 Normal PT-OP-Q Treatments Start: 12/27/18 17:09 Freq: Status: Active Protocol: Document 01/02/19 13:45 HH (Rec: 01/02/19 15:43 HH [email or web address]) Cardio Equipment Recumbent Stepper (Sci-Fit) Duration (Minutes) 6 Resistance 3 Therapeutic Exercises Supine Exercises HS stretch Side bilateral Equipment Used manual support Comments manual support to hip flexion 40-45 degrees. sciatic nerve glides Side bilateral Comments tension with hip flex to 45 deg Sitting Exercises seated sciatic nerve glide Side bilateral Reps/Minutes 10 x 4 Comments seated B knee ext with DF Standing Exercises standing Ppt Side bilateral Reps/Minutes 10 x 3 Comments cues for abd and gluteal engagement Manual Therapy Treatment Soft Tissue Mobilization B paraspinals Body Location lumbar and thoracic Mobilization Type Rolling Sustained Pressure Trigger Point Release Intensity/Depth Superficial Body Position Prone Joint Mobilizations Pa mob Joint T2-T6 Grade II Body Position Prone PT-OP-R Modalities Start: 12/27/18 17:09 Freq: Status: Active Protocol: Document 12/27/18 11:15 RCC (Rec: 12/27/18 17:54 RCC [email or web address]) Hot Pack/Cold Pack Treatment Hot Pack Location lumbar and cervical Patient Position Hooklying Treatment Duration (minutes) 10 Patient Tolerance Good PT-OP-T Assessment and Plan Start: 12/27/18 17:09 Freq: Status: Active Protocol: Document 01/02/19 13:45 HH (Rec: 01/02/19 15:43 HH [email or web address]) Physical Therapy Assessment Assessment Summary Assessment today's session focused on STM on paraspinals, PA mob at T/S , HS stretch, sciatic nerve glide in supine/ seated, PPT. Pt did not c/o pain during seated nerve glide but pain during SLR/HS stretch R>L. Pt also show significant reduced joint mobility at upper thoracic region. Introduced pt to use cardio eq today to improve his overall LE strength and cardio endurance. Physical Therapy Plan Next Visit Focus/Plan Next Note Type Treatment Note Next Visit Plan Recumbent stepper, HS stretching in standing or sitting with good low back positioning; review sciatic nerve glides; gentle core stabilization: TA activation; modalities for pain as needed.
--- NOTE | 2019-01-08 17:52 | PT.OTN ---
Current Diagnoses Spondylolisthesis, lumbar region (01/08/19) Other spondylosis with radiculopathy, lumbar region (01/08/19) Spinal stenosis, lumbar region with neurogenic claudication (01/08/19) Physical Therapy Treatment Note PT-OP-A Visit Information Start: 12/27/18 17:09 Freq: Status: Active Protocol: Document 01/08/19 14:30 HH (Rec: 01/08/19 17:50 HH [email or web address]) Out-Patient Physical Therapy Visit Information Visit Information Visit Type Treatment Note Visit Start Time 14:30 Visit Stop Time 15:15 Total Visit Minutes 45 Visit Number 3 Number of LOCATION MANAGER Visits 0 PT-OP-B Current Condition Start: 12/27/18 17:09 Freq: Status: Active Protocol: Document 12/27/18 11:15 RCC (Rec: 12/27/18 17:54 RCC [email or web address]) Current Condition History of Current Condition Onset Date 09/27/18 Current Complaints low back with radiating LE pain, bilateral neck pain, difficulty walking History of Current Condition Pt is a 63 y/o male presenting to physical therapy with a c/ o bilateral low back with radiating LE pain, and neck pain stemming from past orthopedic surgeries, most recent L4-5, L5-S1 laminectomy , TLIF with cage, and posterior instrumented fusion. Pt also with past h/o back surgery in 2000, bilateral shoulder surgeries, R knee replacement, and cervical spine fusion 3-4 yrs ago. Pt admits that his pain is still radiating down the bilateral LEs. Walking longer time or distances without breaks increases his low back pain. Easing factors include: heat, cold, rest (seated in recliner with his feet elevated). Pt would like to be able to walk long distances without increased low back pain (up to 1 hr per pt). Treatment Goals Patient/Caregiver Goals Improve walking tolerance to 1 hr, decrease neck and back pain Prior Functional Status Baseline Function- Recreation/Hobbies walking for 1-1.5 hrs with fatigue outdoors Personal Factors Other Personal Factors That May Effect multiple orthopedic procedures Therapy/Recovery : multiple back and neck surgeries with hardware, B shoulder surgeries, R knee replacement; current every day smoker PT-OP-C Subjective Start: 12/27/18 17:09 Freq: Status: Active Protocol: Document 01/08/19 14:30 HH (Rec: 01/08/19 17:52 HH [email or web address]) OP-PT Subjective Patient Comments Patient Comments I felt pretty good last week. However, my neck and back was quite painful during the weekend because of the rain. It's been like that everytime it rains. PT-OP-E Functional Tests Start: 12/27/18 17:09 Freq: Status: Active Protocol: Document 12/27/18 11:15 RCC (Rec: 12/27/18 17:54 RCC [email or web address]) Functional Tests 6 Minute Walk Test Distance 623 Device Used SPC Comments quit @ 4 min d/t pain in low back PT-OP-F Manual Assessment Start: 12/27/18 17:09 Freq: Status: Active Protocol: Document 12/27/18 11:15 RCC (Rec: 12/27/18 17:54 RCC [email or web address]) Manual Assessments Soft Tissue Assessment Soft Tissue Mobility Assessment moderate tone: bilateral QL, lumbar paraspinals, R levator and upper trap; mild tone L levator and upper trap; mild scar tissue lumbar spine @ region of incision L4-S1 PT-OP-G Mobility & Gait Start: 12/27/18 17:09 Freq: Status: Active Protocol: Document 12/27/18 11:15 RCC (Rec: 12/27/18 17:54 RCC [email or web address]) OP Gait Assessment Gait Deviations General Gait Pattern Antalgic Decreased Stride Length Decreased Feet Clearance PT-OP-H Neuro Start: 12/27/18 17:09 Freq: Status: Active Protocol: Document 12/27/18 11:15 RCC (Rec: 12/27/18 17:54 RCC [email or web address]) Vital Signs Comments Vital Signs Comments DTRs- unable to evoke due to pt tension PT-OP-K Range of Motion Start: 12/27/18 17:09 Freq: Status: Active Protocol: Document 12/27/18 11:15 RCC (Rec: 12/27/18 17:54 RCC [email or web address]) Cervical Spine Range of Motion Cervical Spine Active Degrees Testing Position Sitting Flexion 22 Extension 25 Rotation Left 45 Rotation Right 39 Lateral Flexion Left 26 Lateral Flexion Right 22 Lumbar Spine Range of Motion Lumbar Spine Active Degrees Testing Position Standing Flexion 40 Extension 0 PT-OP-L Special Tests Start: 12/27/18 17:09 Freq: Status: Active Protocol: Document 12/27/18 11:15 RCC (Rec: 12/27/18 17:54 RCC [email or web address]) Special Tests Neural Special Tests- Lower Body Sciatic Nerve Tension Test Results positive B PT-OP-M Strength Start: 12/27/18 17:09 Freq: Status: Active Protocol: Document 12/27/18 11:15 RCC (Rec: 12/27/18 17:54 RCC [email or web address]) Shoulder Strength Shoulder Manual Muscle Testing Right Flexion 4- Good- Abduction (C5) 4 Good External Rotation 3 Fair Internal Rotation 5 Normal Left Flexion 4 Good Abduction (C5) 3+ Fair+ External Rotation 4 Good Internal Rotation 5 Normal Hip Strength Hip Manual Muscle Testing Right Flexion (L2) 4 Good External Rotation 3+ Fair+ Internal Rotation 3+ Fair+ Left Flexion (L2) 4 Good External Rotation 3+ Fair+ Internal Rotation 4- Good- Knee Strength Knee Manual Muscle Testing Right Flexion (S2) 4 Good Extension (L3) 4 Good Left Flexion (S2) 4+ Good+ Extension (L3) 5 Normal Ankle/Foot Strength Ankle and Foot Manual Muscle Testing Right Dorsiflexion (L4) 5 Normal Left Dorsiflexion (L4) 5 Normal PT-OP-Q Treatments Start: 12/27/18 17:09 Freq: Status: Active Protocol: Document 01/08/19 14:30 HH (Rec: 01/08/19 17:50 [email or web address]) Therapeutic Exercises Supine Exercises HS stretch Side bilateral Equipment Used manual support Reps/Minutes 5 mins Comments manual support to hip flexion 60 degrees. sciatic nerve glides Side bilateral Reps/Minutes 5 mins Comments with knee ext and ankle DF, tension with hip flex to 45 deg Sitting Exercises scap roll Side bilateral Reps/Minutes 5 mins seated trunk flexion and extension Side bilateral Reps/Minutes 5 mins Comments with PPT and APT seated sciatic nerve glide Side bilateral Reps/Minutes 10 x 4 Comments seated B knee ext with DF Standing Exercises standing hip hinge Side bilateral Reps/Minutes 8 x 2 Comments cues to keep neutral spine Manual Therapy Treatment Soft Tissue Mobilization B paraspinals Body Location lumbar and thoracic Mobilization Type Rolling Sustained Pressure Trigger Point Release Joint Mobilizations Pa mob Joint T2-T6 Grade II Body Position Prone PT-OP-R Modalities Start: 12/27/18 17:09 Freq: Status: Active Protocol: Document 01/08/19 14:30 HH (Rec: 01/08/19 17:52 HH [email or web address]) Hot Pack/Cold Pack Treatment Hot Pack Location lumbar and cervical Patient Position Hooklying Treatment Duration (minutes) 10 Patient Tolerance Good PT-OP-T Assessment and Plan Start: 12/27/18 17:09 Freq: Status: Active Protocol: Document 01/08/19 14:30 HH (Rec: 01/08/19 17:50 HH [email or web address]) Physical Therapy Assessment Assessment Summary Assessment today's session focused on STM on paraspinals, PA mob at T/S , HS stretch, sciatic nerve glide in supine/ seated, PPT. Pt did not c/o pain during seated nerve glide but pain during SLR/HS stretch R>L. Added standing hip hinge today with cues to keep neutral spine. Pt also refuses to use cardio marchine due to c/o knee pain Physical Therapy Plan Next Visit Focus/Plan Next Note Type Treatment Note Next Visit Plan Recumbent stepper, HS stretching in standing or sitting with good low back positioning; review sciatic nerve glides; gentle core stabilization: TA activation; modalities for pain as needed.
--- NOTE | 2019-01-10 17:31 | PT.OTN ---
Current Diagnoses Spondylolisthesis, lumbar region (01/10/19) Other spondylosis with radiculopathy, lumbar region (01/10/19) Spinal stenosis, lumbar region with neurogenic claudication (01/10/19) Physical Therapy Treatment Note PT-OP-A Visit Information Start: 12/27/18 17:09 Freq: Status: Active Protocol: Document 01/10/19 14:30 HH (Rec: 01/10/19 17:31 HH [email or web address]) Out-Patient Physical Therapy Visit Information Visit Information Visit Type Treatment Note Visit Note 10 mins for hotpack after tx session Visit Start Time 14:30 Visit Stop Time 15:15 Total Visit Minutes 45 Visit Number 4 Number of FREIGHT CALLER Visits 0 PT-OP-B Current Condition Start: 12/27/18 17:09 Freq: Status: Active Protocol: Document 12/27/18 11:15 RCC (Rec: 12/27/18 17:54 RCC [email or web address]) Current Condition History of Current Condition Onset Date 09/27/18 Current Complaints low back with radiating LE pain, bilateral neck pain, difficulty walking History of Current Condition Pt is a 63 y/o male presenting to physical therapy with a c/ o bilateral low back with radiating LE pain, and neck pain stemming from past orthopedic surgeries, most recent L4-5, L5-S1 laminectomy , TLIF with cage, and posterior instrumented fusion. Pt also with past h/o back surgery in 2000, bilateral shoulder surgeries, R knee replacement, and cervical spine fusion 3-4 yrs ago. Pt admits that his pain is still radiating down the bilateral LEs. Walking longer time or distances without breaks increases his low back pain. Easing factors include: heat, cold, rest (seated in recliner with his feet elevated). Pt would like to be able to walk long distances without increased low back pain (up to 1 hr per pt). Treatment Goals Patient/Caregiver Goals Improve walking tolerance to 1 hr, decrease neck and back pain Prior Functional Status Baseline Function- Recreation/Hobbies walking for 1-1.5 hrs with fatigue outdoors Personal Factors Other Personal Factors That May Effect multiple orthopedic procedures Therapy/Recovery : multiple back and neck surgeries with hardware, B shoulder surgeries, R knee replacement; current every day smoker PT-OP-C Subjective Start: 12/27/18 17:09 Freq: Status: Active Protocol: Document 01/10/19 14:30 HH (Rec: 01/10/19 17:31 HH [email or web address]) OP-PT Subjective Patient Comments Patient Comments my symptoms is the same. It' s been like that for many years and seems like nothing help. PT-OP-E Functional Tests Start: 12/27/18 17:09 Freq: Status: Active Protocol: Document 12/27/18 11:15 RCC (Rec: 12/27/18 17:54 RCC [email or web address]) Functional Tests 6 Minute Walk Test Distance 623 Device Used SPC Comments quit @ 4 min d/t pain in low back PT-OP-F Manual Assessment Start: 12/27/18 17:09 Freq: Status: Active Protocol: Document 12/27/18 11:15 RCC (Rec: 12/27/18 17:54 RCC [email or web address]) Manual Assessments Soft Tissue Assessment Soft Tissue Mobility Assessment moderate tone: bilateral QL, lumbar paraspinals, R levator and upper trap; mild tone L levator and upper trap; mild scar tissue lumbar spine @ region of incision L4-S1 PT-OP-G Mobility & Gait Start: 12/27/18 17:09 Freq: Status: Active Protocol: Document 12/27/18 11:15 RCC (Rec: 12/27/18 17:54 RCC [email or web address]) OP Gait Assessment Gait Deviations General Gait Pattern Antalgic Decreased Stride Length Decreased Feet Clearance PT-OP-H Neuro Start: 12/27/18 17:09 Freq: Status: Active Protocol: Document 12/27/18 11:15 RCC (Rec: 12/27/18 17:54 RCC [email or web address]) Vital Signs Comments Vital Signs Comments DTRs- unable to evoke due to pt tension PT-OP-K Range of Motion Start: 12/27/18 17:09 Freq: Status: Active Protocol: Document 12/27/18 11:15 RCC (Rec: 12/27/18 17:54 RCC [email or web address]) Cervical Spine Range of Motion Cervical Spine Active Degrees Testing Position Sitting Flexion 22 Extension 25 Rotation Left 45 Rotation Right 39 Lateral Flexion Left 26 Lateral Flexion Right 22 Lumbar Spine Range of Motion Lumbar Spine Active Degrees Testing Position Standing Flexion 40 Extension 0 PT-OP-L Special Tests Start: 12/27/18 17:09 Freq: Status: Active Protocol: Document 12/27/18 11:15 RCC (Rec: 12/27/18 17:54 RCC [email or web address]) Special Tests Neural Special Tests- Lower Body Sciatic Nerve Tension Test Results positive B PT-OP-M Strength Start: 12/27/18 17:09 Freq: Status: Active Protocol: Document 12/27/18 11:15 RCC (Rec: 12/27/18 17:54 RCC [email or web address]) Shoulder Strength Shoulder Manual Muscle Testing Right Flexion 4- Good- Abduction (C5) 4 Good External Rotation 3 Fair Internal Rotation 5 Normal Left Flexion 4 Good Abduction (C5) 3+ Fair+ External Rotation 4 Good Internal Rotation 5 Normal Hip Strength Hip Manual Muscle Testing Right Flexion (L2) 4 Good External Rotation 3+ Fair+ Internal Rotation 3+ Fair+ Left Flexion (L2) 4 Good External Rotation 3+ Fair+ Internal Rotation 4- Good- Knee Strength Knee Manual Muscle Testing Right Flexion (S2) 4 Good Extension (L3) 4 Good Left Flexion (S2) 4+ Good+ Extension (L3) 5 Normal Ankle/Foot Strength Ankle and Foot Manual Muscle Testing Right Dorsiflexion (L4) 5 Normal Left Dorsiflexion (L4) 5 Normal PT-OP-Q Treatments Start: 12/27/18 17:09 Freq: Status: Active Protocol: Document 01/10/19 14:30 HH (Rec: 01/10/19 17:31 HH [email or web address]) Cardio Equipment Recumbent Bicycle Duration (Minutes) 10 Resistance 3 Therapeutic Exercises Supine Exercises HS stretch Side bilateral Equipment Used manual support Reps/Minutes 5 mins Comments manual support to hip flexion 60 degrees. Sitting Exercises scap roll Side bilateral Reps/Minutes 5 mins Comments forward and backward seated sciatic nerve glide Side bilateral Reps/Minutes 10 x 4 Comments seated B knee ext with DF Standing Exercises standing lumbar stretch Side bilateral Equipment Used treadmill handle bar Reps/Minutes 8 mins Comments flexion, lateral flexion standing hip hinge Side bilateral Reps/Minutes 8 x 2 Comments cues to keep neutral spine PT-OP-R Modalities Start: 12/27/18 17:09 Freq: Status: Active Protocol: Document 01/10/19 14:30 HH (Rec: 01/10/19 17:31 HH [email or web address]) Hot Pack/Cold Pack Treatment Hot Pack Location lumbar and cervical Patient Position Hooklying Treatment Duration (minutes) 10 Patient Tolerance Good PT-OP-T Assessment and Plan Start: 12/27/18 17:09 Freq: Status: Active Protocol: Document 01/10/19 14:30 HH (Rec: 01/10/19 17:31 HH [email or web address]) Physical Therapy Assessment Assessment Summary Assessment Today's session focused on pt education regarding strengthening program and cardio program. Pt thinks bike / stepper machine will hurt his knees. explained machines will reduce his pressure and maintain ROM for B knees. Pt agreed and looking forward to start a strengthening and endurance program to improve his quality of life/ Physical Therapy Plan Next Visit Focus/Plan Next Note Type Treatment Note Next Visit Plan Recumbent bike, HS stretching in standing or sitting with good low back positioning; review sciatic nerve glides; gentle core stabilization: TA activation; modalities for pain as needed.
--- NOTE | 2019-01-17 17:06 | PT.OTN ---
Current Diagnoses Spondylolisthesis, lumbar region (01/17/19) Other spondylosis with radiculopathy, lumbar region (01/17/19) Spinal stenosis, lumbar region with neurogenic claudication (01/17/19) Physical Therapy Treatment Note PT-OP-A Visit Information Start: 12/27/18 17:09 Freq: Status: Active Protocol: Document 01/17/19 15:30 GGD (Rec: 01/17/19 17:05 GGD [email or web address]) Out-Patient Physical Therapy Visit Information Visit Information Visit Type Treatment Note Visit Start Time 15:30 Visit Stop Time 16:05 Total Visit Minutes 35 Visit Number 5 Number of BLOCK MASON Visits 1 PT-OP-B Current Condition Start: 12/27/18 17:09 Freq: Status: Active Protocol: Document 12/27/18 11:15 RCC (Rec: 12/27/18 17:54 RCC [email or web address]) Current Condition History of Current Condition Onset Date 09/27/18 Current Complaints low back with radiating LE pain, bilateral neck pain, difficulty walking History of Current Condition Pt is a 63 y/o male presenting to physical therapy with a c/ o bilateral low back with radiating LE pain, and neck pain stemming from past orthopedic surgeries, most recent L4-5, L5-S1 laminectomy , TLIF with cage, and posterior instrumented fusion. Pt also with past h/o back surgery in 2000, bilateral shoulder surgeries, R knee replacement, and cervical spine fusion 3-4 yrs ago. Pt admits that his pain is still radiating down the bilateral LEs. Walking longer time or distances without breaks increases his low back pain. Easing factors include: heat, cold, rest (seated in recliner with his feet elevated). Pt would like to be able to walk long distances without increased low back pain (up to 1 hr per pt). Treatment Goals Patient/Caregiver Goals Improve walking tolerance to 1 hr, decrease neck and back pain Prior Functional Status Baseline Function- Recreation/Hobbies walking for 1-1.5 hrs with fatigue outdoors Personal Factors Other Personal Factors That May Effect multiple orthopedic procedures Therapy/Recovery : multiple back and neck surgeries with hardware, B shoulder surgeries, R knee replacement; current every day smoker PT-OP-C Subjective Start: 12/27/18 17:09 Freq: Status: Active Protocol: Document 01/17/19 15:30 GGD (Rec: 01/17/19 17:05 GGD [email or web address]) OP-PT Subjective Patient Comments Patient Comments Pt states that he has had increase in pain after doing 1 hour of yard work. PT-OP-E Functional Tests Start: 12/27/18 17:09 Freq: Status: Active Protocol: Document 12/27/18 11:15 RCC (Rec: 12/27/18 17:54 RCC [email or web address]) Functional Tests 6 Minute Walk Test Distance 623 Device Used SPC Comments quit @ 4 min d/t pain in low back PT-OP-F Manual Assessment Start: 12/27/18 17:09 Freq: Status: Active Protocol: Document 12/27/18 11:15 RCC (Rec: 12/27/18 17:54 RCC [email or web address]) Manual Assessments Soft Tissue Assessment Soft Tissue Mobility Assessment moderate tone: bilateral QL, lumbar paraspinals, R levator and upper trap; mild tone L levator and upper trap; mild scar tissue lumbar spine @ region of incision L4-S1 PT-OP-G Mobility & Gait Start: 12/27/18 17:09 Freq: Status: Active Protocol: Document 12/27/18 11:15 RCC (Rec: 12/27/18 17:54 RCC [email or web address]) OP Gait Assessment Gait Deviations General Gait Pattern Antalgic Decreased Stride Length Decreased Feet Clearance PT-OP-H Neuro Start: 12/27/18 17:09 Freq: Status: Active Protocol: Document 12/27/18 11:15 RCC (Rec: 12/27/18 17:54 RCC [email or web address]) Vital Signs Comments Vital Signs Comments DTRs- unable to evoke due to pt tension PT-OP-K Range of Motion Start: 12/27/18 17:09 Freq: Status: Active Protocol: Document 12/27/18 11:15 RCC (Rec: 12/27/18 17:54 RCC [email or web address]) Cervical Spine Range of Motion Cervical Spine Active Degrees Testing Position Sitting Flexion 22 Extension 25 Rotation Left 45 Rotation Right 39 Lateral Flexion Left 26 Lateral Flexion Right 22 Lumbar Spine Range of Motion Lumbar Spine Active Degrees Testing Position Standing Flexion 40 Extension 0 PT-OP-L Special Tests Start: 12/27/18 17:09 Freq: Status: Active Protocol: Document 12/27/18 11:15 RCC (Rec: 12/27/18 17:54 RCC [email or web address]) Special Tests Neural Special Tests- Lower Body Sciatic Nerve Tension Test Results positive B PT-OP-M Strength Start: 12/27/18 17:09 Freq: Status: Active Protocol: Document 12/27/18 11:15 RCC (Rec: 12/27/18 17:54 RCC [email or web address]) Shoulder Strength Shoulder Manual Muscle Testing Right Flexion 4- Good- Abduction (C5) 4 Good External Rotation 3 Fair Internal Rotation 5 Normal Left Flexion 4 Good Abduction (C5) 3+ Fair+ External Rotation 4 Good Internal Rotation 5 Normal Hip Strength Hip Manual Muscle Testing Right Flexion (L2) 4 Good External Rotation 3+ Fair+ Internal Rotation 3+ Fair+ Left Flexion (L2) 4 Good External Rotation 3+ Fair+ Internal Rotation 4- Good- Knee Strength Knee Manual Muscle Testing Right Flexion (S2) 4 Good Extension (L3) 4 Good Left Flexion (S2) 4+ Good+ Extension (L3) 5 Normal Ankle/Foot Strength Ankle and Foot Manual Muscle Testing Right Dorsiflexion (L4) 5 Normal Left Dorsiflexion (L4) 5 Normal PT-OP-Q Treatments Start: 12/27/18 17:09 Freq: Status: Active Protocol: Document 01/17/19 15:30 GGD (Rec: 01/17/19 17:05 GGD [email or web address]) Cardio Equipment Recumbent Bicycle Duration (Minutes) 9 Resistance 1 Therapeutic Exercises Supine Exercises knee push Supine Exercise Name abdominal Isometric Side bilateral Reps/Minutes 6x 5 sec bent knee fall out Side bilateral Reps/Minutes 10 HS stretch Side bilateral Equipment Used manual support Reps/Minutes 5 mins Comments manual support to hip flexion 60 degrees. SKC, DKC Side bilateral Reps/Minutes 10 sec hold x2 each Standing Exercises standing hip hinge Side bilateral Reps/Minutes 8 Comments cues to keep neutral spine PT-OP-R Modalities Start: 12/27/18 17:09 Freq: Status: Active Protocol: Document 01/17/19 15:30 GGD (Rec: 01/17/19 17:05 GGD [email or web address]) Hot Pack/Cold Pack Treatment Hot Pack Location lumbar and cervical Patient Position Hooklying Treatment Duration (minutes) 10 Patient Tolerance Good PT-OP-T Assessment and Plan Start: 12/27/18 17:09 Freq: Status: Active Protocol: Document 01/17/19 15:30 GGD (Rec: 05/02/19 17:05 GGD [email or web address]) Physical Therapy Assessment Assessment Summary Assessment Pt need review of hip hinge and body mechanics for yard work. He needs encouragement and cues for exercise. Physical Therapy Plan Frequency and Duration Frequency of Treatment 2x/Week Duration of Treatment 12 weeks Plan of Care Start Date 12/27/18 Plan of Care End Date 03/21/19 Next Visit Focus/Plan Next Note Type Treatment Note Next Visit Plan Recumbent bike, gentle core stabilization: TA activation; modalities for pain as needed.
--- NOTE | 2019-01-22 12:18 | PT.OTN ---
Current Diagnoses Spondylolisthesis, lumbar region (01/22/19) Other spondylosis with radiculopathy, lumbar region (01/22/19) Spinal stenosis, lumbar region with neurogenic claudication (01/22/19) Physical Therapy Treatment Note PT-OP-A Visit Information Start: 12/27/18 17:09 Freq: Status: Active Protocol: Document 01/22/19 10:30 HH (Rec: 01/22/19 12:18 HH [email or web address]) Out-Patient Physical Therapy Visit Information Visit Information Visit Type Treatment Note Visit Start Time 10:30 Visit Stop Time 11:15 Total Visit Minutes 45 Visit Number 6 Number of OPERATOR [employer] Visits 0 PT-OP-B Current Condition Start: 12/27/18 17:09 Freq: Status: Active Protocol: Document 12/27/18 11:15 RCC (Rec: 12/27/18 17:54 RCC [email or web address]) Current Condition History of Current Condition Onset Date 09/27/18 Current Complaints low back with radiating LE pain, bilateral neck pain, difficulty walking History of Current Condition Pt is a 63 y/o male presenting to physical therapy with a c/ o bilateral low back with radiating LE pain, and neck pain stemming from past orthopedic surgeries, most recent L4-5, L5-S1 laminectomy , TLIF with cage, and posterior instrumented fusion. Pt also with past h/o back surgery in 2000, bilateral shoulder surgeries, R knee replacement, and cervical spine fusion 3-4 yrs ago. Pt admits that his pain is still radiating down the bilateral LEs. Walking longer time or distances without breaks increases his low back pain. Easing factors include: heat, cold, rest (seated in recliner with his feet elevated). Pt would like to be able to walk long distances without increased low back pain (up to 1 hr per pt). Treatment Goals Patient/Caregiver Goals Improve walking tolerance to 1 hr, decrease neck and back pain Prior Functional Status Baseline Function- Recreation/Hobbies walking for 1-1.5 hrs with fatigue outdoors Personal Factors Other Personal Factors That May Effect multiple orthopedic procedures Therapy/Recovery : multiple back and neck surgeries with hardware, B shoulder surgeries, R knee replacement; current every day smoker PT-OP-C Subjective Start: 12/27/18 17:09 Freq: Status: Active Protocol: Document 01/22/19 10:30 HH (Rec: 01/22/19 12:18 HH [email or web address]) OP-PT Subjective Patient Comments Patient Comments I started feeling pretty good lately with increased activity level such as gardening, yardwork without much of c/o. I think my back is getting stronger. Patient Reported Progress Improving PT-OP-E Functional Tests Start: 12/27/18 17:09 Freq: Status: Active Protocol: Document 12/27/18 11:15 RCC (Rec: 12/27/18 17:54 RCC [email or web address]) Functional Tests 6 Minute Walk Test Distance 623 Device Used SPC Comments quit @ 4 min d/t pain in low back PT-OP-F Manual Assessment Start: 12/27/18 17:09 Freq: Status: Active Protocol: Document 12/27/18 11:15 RCC (Rec: 12/27/18 17:54 RCC [email or web address]) Manual Assessments Soft Tissue Assessment Soft Tissue Mobility Assessment moderate tone: bilateral QL, lumbar paraspinals, R levator and upper trap; mild tone L levator and upper trap; mild scar tissue lumbar spine @ region of incision L4-S1 PT-OP-G Mobility & Gait Start: 12/27/18 17:09 Freq: Status: Active Protocol: Document 12/27/18 11:15 RCC (Rec: 12/27/18 17:54 RCC [email or web address]) OP Gait Assessment Gait Deviations General Gait Pattern Antalgic Decreased Stride Length Decreased Feet Clearance PT-OP-H Neuro Start: 12/27/18 17:09 Freq: Status: Active Protocol: Document 12/27/18 11:15 RCC (Rec: 12/27/18 17:54 RCC [email or web address]) Vital Signs Comments Vital Signs Comments DTRs- unable to evoke due to pt tension PT-OP-K Range of Motion Start: 12/27/18 17:09 Freq: Status: Active Protocol: Document 12/27/18 11:15 RCC (Rec: 12/27/18 17:54 RCC [email or web address]) Cervical Spine Range of Motion Cervical Spine Active Degrees Testing Position Sitting Flexion 22 Extension 25 Rotation Left 45 Rotation Right 39 Lateral Flexion Left 26 Lateral Flexion Right 22 Lumbar Spine Range of Motion Lumbar Spine Active Degrees Testing Position Standing Flexion 40 Extension 0 PT-OP-L Special Tests Start: 12/27/18 17:09 Freq: Status: Active Protocol: Document 12/27/18 11:15 RCC (Rec: 04/11/19 17:54 RCC [email or web address]) Special Tests Neural Special Tests- Lower Body Sciatic Nerve Tension Test Results positive B PT-OP-M Strength Start: 12/27/18 17:09 Freq: Status: Active Protocol: Document 12/27/18 11:15 RCC (Rec: 12/27/18 17:54 RCC [email or web address]) Shoulder Strength Shoulder Manual Muscle Testing Right Flexion 4- Good- Abduction (C5) 4 Good External Rotation 3 Fair Internal Rotation 5 Normal Left Flexion 4 Good Abduction (C5) 3+ Fair+ External Rotation 4 Good Internal Rotation 5 Normal Hip Strength Hip Manual Muscle Testing Right Flexion (L2) 4 Good External Rotation 3+ Fair+ Internal Rotation 3+ Fair+ Left Flexion (L2) 4 Good External Rotation 3+ Fair+ Internal Rotation 4- Good- Knee Strength Knee Manual Muscle Testing Right Flexion (S2) 4 Good Extension (L3) 4 Good Left Flexion (S2) 4+ Good+ Extension (L3) 5 Normal Ankle/Foot Strength Ankle and Foot Manual Muscle Testing Right Dorsiflexion (L4) 5 Normal Left Dorsiflexion (L4) 5 Normal PT-OP-Q Treatments Start: 12/27/18 17:09 Freq: Status: Active Protocol: Document 01/22/19 10:30 HH (Rec: 01/22/19 12:18 HH [email or web address]) Cardio Equipment Recumbent Bicycle Duration (Minutes) 9 Resistance 3 Gym Equipment Shuttle Recovery B squat Resistance 100 lbs Shuttle Recovery Platform Stable Reps/Time 10 x4 single leg squat Resistance 50 lbs Shuttle Recovery Platform Stable Reps/Time 10x 4 Sport Cord resisted hip hinge Cord/Resistance blue Reps/Duration 10 x 3 Comments cues on hip hinge with neutral spine Therapeutic Exercises Standing Exercises standing hip hinge Standing Exercise Name butt touch wall Side bilateral Reps/Minutes 10 x 3 Comments cues to keep neutral spine standing Ppt Side bilateral Reps/Minutes 10 x 3 Comments cues for abd and gluteal engagement Other Exercises bird dog Side bilateral Reps/Minutes 10 x2 each ex Comments single leg hold 10secs; single UE hold x 10 secs PT-OP-R Modalities Start: 12/27/18 17:09 Freq: Status: Active Protocol: Document 01/17/19 15:30 GGD (Rec: 01/17/19 17:05 GGD [email or web address]) Hot Pack/Cold Pack Treatment Hot Pack Location lumbar and cervical Patient Position Hooklying Treatment Duration (minutes) 10 Patient Tolerance Good PT-OP-T Assessment and Plan Start: 12/27/18 17:09 Freq: Status: Active Protocol: Document 01/22/19 10:30 HH (Rec: 01/22/19 12:18 HH [email or web address]) Physical Therapy Assessment Assessment Summary Assessment Today focused on hip hinge with neutral spine and bird dog to facilitate isometric strength of back extensors and gluteal engagement. Pt is very satisfied of new ex which allows him to be more aware of his movement capability Physical Therapy Plan Next Visit Focus/Plan Next Note Type Treatment Note Next Visit Plan provide HEP with hip hinge, bird dog, sit to stand, plank cont leg press, core and back strengthening
--- NOTE | 2019-02-01 15:30 | PT.OTN ---
Current Diagnoses Spondylolisthesis, lumbar region (02/01/19) Other spondylosis with radiculopathy, lumbar region (02/01/19) Spinal stenosis, lumbar region with neurogenic claudication (02/01/19) Physical Therapy Treatment Note PT-OP-A Visit Information Start: 12/27/18 17:09 Freq: Status: Active Protocol: Document 02/01/19 15:30 RCC (Rec: 02/03/19 16:51 RCC [email or web address]) Out-Patient Physical Therapy Visit Information Visit Information Visit Type Treatment Note Visit Start Time 15:30 Visit Stop Time 16:15 Total Visit Minutes 45 Visit Number 7 Number of [employer] EXAM[employer]ER Visits 0 Evaluation Information Evaluation Date 12/27/18 Precautions Precautions lumbar spine surgery precautions- surgery 09/27/18 ( per pt Dr. Alamo states 3 lb max lifting) PT-OP-B Current Condition Start: 12/27/18 17:09 Freq: Status: Active Protocol: Document 12/27/18 11:15 RCC (Rec: 12/27/18 17:54 RCC [email or web address]) Current Condition History of Current Condition Onset Date 09/27/18 Current Complaints low back with radiating LE pain, bilateral neck pain, difficulty walking History of Current Condition Pt is a 63 y/o male presenting to physical therapy with a c/ o bilateral low back with radiating LE pain, and neck pain stemming from past orthopedic surgeries, most recent L4-5, L5-S1 laminectomy , TLIF with cage, and posterior instrumented fusion. Pt also with past h/o back surgery in 2000, bilateral shoulder surgeries, R knee replacement, and cervical spine fusion 3-4 yrs ago. Pt admits that his pain is still radiating down the bilateral LEs. Walking longer time or distances without breaks increases his low back pain. Easing factors include: heat, cold, rest (seated in recliner with his feet elevated). Pt would like to be able to walk long distances without increased low back pain (up to 1 hr per pt). Treatment Goals Patient/Caregiver Goals Improve walking tolerance to 1 hr, decrease neck and back pain Prior Functional Status Baseline Function- Recreation/Hobbies walking for 1-1.5 hrs with fatigue outdoors Personal Factors Other Personal Factors That May Effect multiple orthopedic procedures Therapy/Recovery : multiple back and neck surgeries with hardware, B shoulder surgeries, R knee replacement; current every day smoker PT-OP-C Subjective Start: 04/11/19 17:09 Freq: Status: Active Protocol: Document 02/01/19 15:30 RCC (Rec: 02/03/19 16:51 RCC [email or web address]) OP-PT Subjective Patient Comments Patient Comments Pt still having some bad days when it's rainy. He does feel like his legs are getting stronger and he is doing his TA exercises. PT-OP-E Functional Tests Start: 12/27/18 17:09 Freq: Status: Active Protocol: Document 12/27/18 11:15 RCC (Rec: 12/27/18 17:54 RCC [email or web address]) Functional Tests 6 Minute Walk Test Distance 623 Device Used SPC Comments quit @ 4 min d/t pain in low back PT-OP-F Manual Assessment Start: 12/27/18 17:09 Freq: Status: Active Protocol: Document 12/27/18 11:15 RCC (Rec: 12/27/18 17:54 RCC [email or web address]) Manual Assessments Soft Tissue Assessment Soft Tissue Mobility Assessment moderate tone: bilateral QL, lumbar paraspinals, R levator and upper trap; mild tone L levator and upper trap; mild scar tissue lumbar spine @ region of incision L4-S1 PT-OP-G Mobility & Gait Start: 12/27/18 17:09 Freq: Status: Active Protocol: Document 12/27/18 11:15 RCC (Rec: 12/27/18 17:54 RCC [email or web address]) OP Gait Assessment Gait Deviations General Gait Pattern Antalgic Decreased Stride Length Decreased Feet Clearance PT-OP-H Neuro Start: 12/27/18 17:09 Freq: Status: Active Protocol: Document 12/27/18 11:15 RCC (Rec: 12/27/18 17:54 RCC [email or web address]) Vital Signs Comments Vital Signs Comments DTRs- unable to evoke due to pt tension PT-OP-K Range of Motion Start: 12/27/18 17:09 Freq: Status: Active Protocol: Document 12/27/18 11:15 RCC (Rec: 12/27/18 17:54 RCC [email or web address]) Cervical Spine Range of Motion Cervical Spine Active Degrees Testing Position Sitting Flexion 22 Extension 25 Rotation Left 45 Rotation Right 39 Lateral Flexion Left 26 Lateral Flexion Right 22 Lumbar Spine Range of Motion Lumbar Spine Active Degrees Testing Position Standing Flexion 40 Extension 0 PT-OP-L Special Tests Start: 12/27/18 17:09 Freq: Status: Active Protocol: Document 12/27/18 11:15 RCC (Rec: 12/27/18 17:54 RCC [email or web address]) Special Tests Neural Special Tests- Lower Body Sciatic Nerve Tension Test Results positive B PT-OP-M Strength Start: 12/27/18 17:09 Freq: Status: Active Protocol: Document 12/27/18 11:15 RCC (Rec: 12/27/18 17:54 RCC [email or web address]) Shoulder Strength Shoulder Manual Muscle Testing Right Flexion 4- Good- Abduction (C5) 4 Good External Rotation 3 Fair Internal Rotation 5 Normal Left Flexion 4 Good Abduction (C5) 3+ Fair+ External Rotation 4 Good Internal Rotation 5 Normal Hip Strength Hip Manual Muscle Testing Right Flexion (L2) 4 Good External Rotation 3+ Fair+ Internal Rotation 3+ Fair+ Left Flexion (L2) 4 Good External Rotation 3+ Fair+ Internal Rotation 4- Good- Knee Strength Knee Manual Muscle Testing Right Flexion (S2) 4 Good Extension (L3) 4 Good Left Flexion (S2) 4+ Good+ Extension (L3) 5 Normal Ankle/Foot Strength Ankle and Foot Manual Muscle Testing Right Dorsiflexion (L4) 5 Normal Left Dorsiflexion (L4) 5 Normal PT-OP-Q Treatments Start: 12/27/18 17:09 Freq: Status: Active Protocol: Document 02/01/19 15:30 RCC (Rec: 02/03/19 16:51 RCC [email or web address]) Cardio Equipment Recumbent Bicycle Duration (Minutes) 8 Resistance 3 Gym Equipment Shuttle Recovery B squat Resistance 75 lbs Shuttle Recovery Platform Stable Reps/Time 10 x4 single leg squat Resistance 50 lbs Shuttle Recovery Platform Stable Reps/Time 10x 4 Therapeutic Ball TA activation Ball Size/Color 55 cm ball Body Position Supine Reps/Duration x5 min LTR Ball Size/Color 55 cm Body Position Supine Reps/Duration x10 each direction Comments gentle B knee flex/extension Ball Size/Color 55 cm Body Position Supine Reps/Duration x15 Therapeutic Exercises Supine Exercises hip adduction Supine Exercise Name ball squeeze Side bilateral Equipment Used small therapy ball Reps/Minutes x10 Comments 5 sec hold SKC, DKC Side bilateral Reps/Minutes 10 sec hold x2 each Standing Exercises standing Ppt Side bilateral Reps/Minutes 10 x 3 Comments cues for abd and gluteal engagement PT-OP-R Modalities Start: 12/27/18 17:09 Freq: Status: Active Protocol: Document 02/01/19 15:30 RCC (Rec: 02/03/19 16:51 RCC [email or web address]) Hot Pack/Cold Pack Treatment Hot Pack Location lumbar and cervical Patient Position Hooklying Treatment Duration (minutes) 15 Patient Tolerance Good PT-OP-T Assessment and Plan Start: 12/27/18 17:09 Freq: Status: Active Protocol: Document 02/01/19 15:30 RCC (Rec: 02/03/19 16:51 RCC [email or web address]) Physical Therapy Assessment Assessment Summary Assessment Pt 15 min late for appointment . He was able to perform supine exercises with 55 cm ball and no c/o low back pain this session. He was unable to tolerate 100 lb resistance on Shuttle Recovery today, therefore decreased weight. Physical Therapy Plan Frequency and Duration Frequency of Treatment 2x/Week Duration of Treatment 12 weeks Plan of Care Start Date 12/27/18 Plan of Care End Date 03/21/19 Next Visit Focus/Plan Next Note Type Treatment Note Next Visit Plan cont. to advance core strength and activity tolerance.
--- NOTE | 2019-02-06 15:15 | PT.OTN ---
Current Diagnoses Spondylolisthesis, lumbar region (02/01/19) Other spondylosis with radiculopathy, lumbar region (02/01/19) Spinal stenosis, lumbar region with neurogenic claudication (02/01/19) Physical Therapy Treatment Note Patient called to cancel his appointment. He reports he fell from a ladder and injured his wrist. He is going to the MD/ED to determine if his wrist is broken.
--- NOTE | 2019-04-24 11:58 | PT.OPDS ---
Current Diagnoses Spondylolisthesis, lumbar region (02/01/19) Other spondylosis with radiculopathy, lumbar region (02/01/19) Spinal stenosis, lumbar region with neurogenic claudication (02/01/19) Provider Visit Care Team Role Provider Type Myron Estrella MD Primary Care Provider Physician Specialty: Internal Medicine Address: [address] [place] [address], [address] Email: Karina Alamo MD Attending Provider Physician Specialty: Orthopedic Surgery Address: [address] [place] [address], [id number] Email: [email or web address] Visit Number Visit Number 7 Discharge Summary PT-OP-B Current Condition Start: 12/27/18 17:09 Freq: Status: Active Protocol: Document 12/27/18 11:15 RCC (Rec: 12/27/18 17:54 RCC [email or web address]) Current Condition History of Current Condition Onset Date 09/27/18 Current Complaints low back with radiating LE pain, bilateral neck pain, difficulty walking History of Current Condition Pt is a 63 y/o male presenting to physical therapy with a c/ o bilateral low back with radiating LE pain, and neck pain stemming from past orthopedic surgeries, most recent L4-5, L5-S1 laminectomy , TLIF with cage, and posterior instrumented fusion. Pt also with past h/o back surgery in 2000, bilateral shoulder surgeries, R knee replacement, and cervical spine fusion 3-4 yrs ago. Pt admits that his pain is still radiating down the bilateral LEs. Walking longer time or distances without breaks increases his low back pain. Easing factors include: heat, cold, rest (seated in recliner with his feet elevated). Pt would like to be able to walk long distances without increased low back pain (up to 1 hr per pt). Treatment Goals Patient/Caregiver Goals Improve walking tolerance to 1 hr, decrease neck and back pain Prior Functional Status Baseline Function- Recreation/Hobbies walking for 1-1.5 hrs with fatigue outdoors Personal Factors Other Personal Factors That May Effect multiple orthopedic procedures Therapy/Recovery : multiple back and neck surgeries with hardware, B shoulder surgeries, R knee replacement; current every day smoker PT-OP-C Subjective Start: 12/27/18 17:09 Freq: Status: Active Protocol: Document 02/01/19 15:30 RCC (Rec: 02/03/19 16:51 RCC [email or web address]) OP-PT Subjective Patient Comments Patient Comments Pt still having some bad days when it's rainy. He does feel like his legs are getting stronger and he is doing his TA exercises. PT-OP-E Functional Tests Start: 12/27/18 17:09 Freq: Status: Active Protocol: Document 12/27/18 11:15 RCC (Rec: 12/27/18 17:54 RCC [email or web address]) Functional Tests 6 Minute Walk Test Distance 623 Device Used SPC Comments quit @ 4 min d/t pain in low back PT-OP-F Manual Assessment Start: 12/27/18 17:09 Freq: Status: Active Protocol: Document 12/27/18 11:15 RCC (Rec: 12/27/18 17:54 RCC [email or web address]) Manual Assessments Soft Tissue Assessment Soft Tissue Mobility Assessment moderate tone: bilateral QL, lumbar paraspinals, R levator and upper trap; mild tone L levator and upper trap; mild scar tissue lumbar spine @ region of incision L4-S1 PT-OP-G Mobility & Gait Start: 12/27/18 17:09 Freq: Status: Active Protocol: Document 12/27/18 11:15 RCC (Rec: 12/27/18 17:54 RCC [email or web address]) OP Gait Assessment Gait Deviations General Gait Pattern Antalgic Decreased Stride Length Decreased Feet Clearance PT-OP-H Neuro Start: 12/27/18 17:09 Freq: Status: Active Protocol: Document 12/27/18 11:15 RCC (Rec: 12/27/18 17:54 RCC [email or web address]) Vital Signs Comments Vital Signs Comments DTRs- unable to evoke due to pt tension PT-OP-K Range of Motion Start: 12/27/18 17:09 Freq: Status: Active Protocol: Document 12/27/18 11:15 RCC (Rec: 12/27/18 17:54 RCC [email or web address]) Cervical Spine Range of Motion Cervical Spine Active Degrees Testing Position Sitting Flexion 22 Extension 25 Rotation Left 45 Rotation Right 39 Lateral Flexion Left 26 Lateral Flexion Right 22 Lumbar Spine Range of Motion Lumbar Spine Active Degrees Testing Position Standing Flexion 40 Extension 0 PT-OP-L Special Tests Start: 12/27/18 17:09 Freq: Status: Active Protocol: Document 12/27/18 11:15 RCC (Rec: 12/27/18 17:54 RCC [email or web address]) Special Tests Neural Special Tests- Lower Body Sciatic Nerve Tension Test Results positive B PT-OP-M Strength Start: 12/27/18 17:09 Freq: Status: Active Protocol: Document 12/27/18 11:15 RCC (Rec: 12/27/18 17:54 RCC [email or web address]) Shoulder Strength Shoulder Manual Muscle Testing Right Flexion 4- Good- Abduction (C5) 4 Good External Rotation 3 Fair Internal Rotation 5 Normal Left Flexion 4 Good Abduction (C5) 3+ Fair+ External Rotation 4 Good Internal Rotation 5 Normal Hip Strength Hip Manual Muscle Testing Right Flexion (L2) 4 Good External Rotation 3+ Fair+ Internal Rotation 3+ Fair+ Left Flexion (L2) 4 Good External Rotation 3+ Fair+ Internal Rotation 4- Good- Knee Strength Knee Manual Muscle Testing Right Flexion (S2) 4 Good Extension (L3) 4 Good Left Flexion (S2) 4+ Good+ Extension (L3) 5 Normal Ankle/Foot Strength Ankle and Foot Manual Muscle Testing Right Dorsiflexion (L4) 5 Normal Left Dorsiflexion (L4) 5 Normal PT-OP-T Assessment and Plan Start: 12/27/18 17:09 Freq: Status: Active Protocol: Document 04/24/19 11:53 IJS (Rec: 04/24/19 11:58 IJS [email or web address]) Physical Therapy Plan Discharge Physical Therapy Discharge Reasons No Longer Attending PT Discharge Comments Patient was last seen 02-01-19. He then called to cancel further appointments secondary to falling off a roof on 02-05 and he felt he may have broken his wrist.
== END 2019-05-01 12:52 | disposition home or self-care (01) ==
LOC: PHYS 15:15
PROVIDERS: PCP Student in an Organized Health Care Education/Training Program; Visit Provider Orthopaedic Surgery Orthopaedic Surgery of the Spine
DX: M43.16 Spondylolisthesis, lumbar region (principal); M47.26 Other spondylosis with radiculopathy, lumbar region; M48.062 Spinal stenosis, lumbar region with neurogenic claudication
CPT/HCPCS: 97010; 97110; 97140; 97162

== ENCOUNTER 2019-02-07 02:09 | Emergency (ER) | payer OTHER, MEDICARE, SELFPAY ==
[2018-09-27 13:00] VITALS: BMI 33.6
[2019-02-07 02:15] VITALS: BP 163/84; PULSE 74; RESP 16; TEMP 36.7; O2SAT 97; BMI 32.8
--- NOTE | 2019-02-07 02:15 | PC.NURSE ---
PT unable to remove metal ring from left hand and has consented to ring being cut off by Dr. Lentz. Dr. Lentz removed ring using ring cutter, pt tolerated procedure well. Pt placed ring in his zipped coat pocket.
--- NOTE | 2019-02-07 02:21 | DI.RAD.S_ITS ---
PROCEDURE: XR WRIST LT MIN 3V INDICATIONS: Pain and swelling after fall TECHNIQUE: 4 views of the wrist were acquired. COMPARISON: None. FINDINGS: Bones: Impacted, mildly comminuted and minimally displaced fracture of the distal radius. There is fracture plane extension to the articular surface. The ulnar styloid fracture is seen. The distal radioulnar joint alignment maintained. Mild osteoarthritic changes at the first carpometacarpal joint. Scaphoid view: Scaphoid appears intact. Soft tissues: No suspicious soft tissue calcifications. IMPRESSION: Impacted, intra-articular distal radius fracture without significant angulation and with only mild displacement. Minimally displaced ulnar styloid fracture. Dictated by: Riya Howard M.D. on 02/07/2019 at 8:45 Approved by: Riya Howard M.D. on 02/07/2019 at 8:48
--- NOTE | 2019-02-07 02:22 | ED.UPPEXIN ---
HPI - Extremity Injury (Upper) General Chief Complaint: Extremity Injury, Upper Stated Complaint: left hand injury, fell off ladder at home Time Seen by Provider: 02/07/19 02:18 Source: patient Mode of arrival: ambulatory Limitations: no limitations History of Present Illness HPI narrative: Patient is a 63-year-old male here for evaluation of left wrist pain and hand swelling. He states that yesterday he tripped while climbing a ladder landing on his left wrist. No other injuries reported from the event. He states since then he has had pain and swelling of the left hand and wrist. Related Data Previous Rx's Medication Instructions Recorded acetaminophen 500 mg capsule 1,000 mg PO TID PRN #100 cap 04/13/18 atorvastatin 40 mg tablet 40 mg PO HS #30 tab 08/14/18 hydroxyzine pamoate 25 mg PO Q4HR PRN #40 cap 09/28/18 pregabalin 100 mg capsule 100 mg PO QID #120 cap 11/30/18 amitriptyline 25 mg tablet 25 mg PO BEDTIME #90 tab 01/01/19 lansoprazole 30 mg capsule,delayed 30 mg PO QDAY #30 ecc 01/01/19 release oxycodone-acetaminophen 5 mg-325 1 tab PO Q6-8H PRN #90 tab 01/10/19 mg tablet cyclobenzaprine 10 mg tablet 10 mg PO TIDP PRN #90 tab 01/11/19 metoprolol succinate ER 50 mg 50 mg PO DAILY #90 tab 01/11/19 tablet,extended release 24 hr Allergies Allergy/AdvReac Type Severity Reaction Status Date / Time gabapentin AdvReac Severe Dizziness, Verified 01/10/19 16:21 increased pain symptoms morphine [MORPHINE] AdvReac Severe VOMITING Verified 01/10/19 16:21 Review of Systems Constitutional Denies fever(s) and Denies frequent falls Musculoskeletal Denies myalgias, Reports arthralgias (Left wrist) and Reports tingling (Left hand) Comments: Left hand swelling Integumentary/Breasts Denies lesions and Denies rash Neurologic Denies frequent falls and Reports tingling (Left hand) Hematologic/Lymphatic Denies easy bleeding and Denies easy bruising [facility] Surgical History History of arthroplasty of right knee (Acute) History of bilateral carpal tunnel release (Acute) Hx of appendectomy (Acute) Hx of cervical spine surgery (Acute ~12/2015) S/P wrist surgery (Acute) History of cervical spinal surgery (Resolved ~02/2001) History of lumbar surgery (Resolved ~2000) S/P coronary artery stent placement (Resolved 09/2011) Status post rotator cuff repair (Resolved 2007) Family History Father CAD (coronary artery disease) Mother CAD (coronary artery disease) Arthritis Family/Other Alcoholism and drug addiction in family Autoimmune disease Arthritis Rheumatoid arthritis Other Drug abuse Social History household members: spouse and children Smoking Status: Current every day smoker alcohol intake: former Family History Father CAD (coronary artery disease) Mother CAD (coronary artery disease) Arthritis Family/Other Alcoholism and drug addiction in family Autoimmune disease Arthritis Rheumatoid arthritis Other Drug abuse Social History household members: spouse and children Smoking Status: Current every day smoker alcohol intake: former Exam Initial Vital Signs Initial Vital Signs: Vital Signs Temperature 98.1 F 02/07/19 02:15 Pulse Rate 74 02/07/19 02:15 Respiratory Rate 16 02/07/19 02:15 Blood Pressure 163/84 H 02/07/19 02:15 Pulse Oximetry 97 02/07/19 02:15 Const General: cooperative, well developed, well groomed and No acute distress Orientation: alert, awake and oriented x3 HENMT Head: normal to inspection and normocephalic Cardio Pulses: radial pulses present on the left Skin Lesions: no lesions Rashes: no rashes Neuro Other: Sensation intact to light touch left upper extremity Extrem Other: Left shoulder and left elbow unremarkable. Patient with discomfort supination of the left wrist. Unable to flex extend the left wrist. Does have swelling to the left hand. Procedures Orthopedic Splinting/Casting Injury #1: Side: left Upper Extremity Injury Location: wrist Upper Extremity Immobilizer: sugar tong splint Post splinting neuro exam: intact and no change Post splinting vascular exam: no change Placed by: Provider Course Orders Ordered: ED Orders 02/07/19 02:21 XR wrist LT min 3V Stat Vital Signs - 8 hr 02/07/19 02:15 02/07/19 02:38 Temperature 98.1 F Pulse Rate 74 Pulse Rate [Left Radial] 74 Respiratory Rate 16 Blood Pressure 163/84 H Pulse Oximetry 97 MDM - Extremity Injury (Upper) Imaging Data X-ray left wrist: Attestation: I personally reviewed and interpreted this imaging study as follows: My impression: Distal radius fracture [facility] Narrative Medical decision making narrative: Patient is neurovascularly intact does have a distal radius fracture. He is placed in a splint as described above. He has pain medication at home prescribed by his primary doctor. Approximately 1 month ago he had 90 tablets filled. He states he has approximately 7 tablets left in states that he cannot get it refilled until next week. He was informed that he can take these pills as needed for any discomfort. Informed him that if he needed any more pain medication needed contact his primary doctor tomorrow for refill. Discharge Plan Departure Patient Disposition: Home Clinical Impression: Distal radius fracture, left Qualifiers: Encounter type: initial encounter Fracture type: closed Fracture morphology: unspecified fracture morphology Qualified Code(s): S52.502A - Unspecified fracture of the lower end of left radius, initial encounter for closed fracture Instructions: How to Take Care of Your Splint, DI for Distal Radius Fracture Activity Restrictions/Additional Instructions: You need to keep the splint on and keep it clean and keep it dry. Tomorrow contact the [facility] at [phone] for follow-up. You can use the pain medication that you already have at home for any discomfort if you need this refilled you need to contact your primary doctor before Monday to have this done before the weekend. Emergency department will not refill chronic pain medications. Return to the emergency department for any new or worsening symptoms Prescriptions: No Action atorvastatin 40 mg tablet 40 mg PO HS Qty: 30 RF: 11 pregabalin 100 mg capsule 100 mg PO QID Qty: 120 RF: 5 amitriptyline 25 mg tablet 25 mg PO BEDTIME Qty: 90 RF: 1 lansoprazole 30 mg capsule,delayed release(DR/EC) 30 mg PO QDAY Qty: 30 RF: 6 oxycodone-acetaminophen 5-325 mg tablet 1 tab PO Q6-8H PRN (Reason: pain) Qty: 90 RF: 0 cyclobenzaprine 10 mg tablet 10 mg PO TIDP PRN (Reason: muscle spasm) Qty: 90 RF: 5 metoprolol succinate 50 mg tablet extended release 24 hr 50 mg PO DAILY Qty: 90 RF: 1 acetaminophen 500 mg capsule 1,000 mg PO TID PRN (Reason: pain) Qty: 100 RF: 5 hydroxyzine pamoate 25 mg Capsule 25 mg PO Q4HR PRN (Reason: Nausea And Vomiting) Qty: 40 RF: 1 Referrals: Myron Estrella MD [Primary Care Provider] -
[2019-02-07 02:38] VITALS: PULSE 74
[2019-02-07] MEDS: HYDROMORPHONE 1 MG INJ IM (03:35)
== END 2019-02-07 03:40 | disposition home or self-care (01) ==
PROVIDERS: Emergency Provider Emergency Medicine; Family Provider Orthopaedic Surgery Orthopaedic Surgery of the Spine; PCP Student in an Organized Health Care Education/Training Program
DX: S52.502A Unspecified fracture of the lower end of left radius, initial encounter for closed fracture (principal); W11.XXXA Fall on and from ladder, initial encounter
CPT/HCPCS: 73110; 96372; 99282; 99283; J1170

== ENCOUNTER → 2019-02-08 15:08 | Outpatient (CLI) | payer OTHER, MEDICARE, SELFPAY ==
[2018-09-27 13:00] VITALS: BMI 33.6
--- NOTE | 2019-02-08 | DI.CT.S_ITS ---
PROCEDURE: CT UE LT WO CON INDICATIONS: left wrist fracture TECHNIQUE: Noncontrast 1 mm axial sections acquired through the carpal bones, with coronal and sagittal reformats. COMPARISON: [facility] [place] [facility], CR, XR WRIST LT MIN 3V, 02/07/2019, 2:25. FINDINGS: Image quality: Excellent. Bones: Mildly displaced comminuted fracture of the distal radius with articular surface extension to the radiocarpal joint. Mild, roughly 2 mm of impaction. No significant angulation. Mildly displaced fracture of the tip of the ulnar styloid. Soft tissues: Chondrocalcinosis within triangular fibrocartilage complex. IMPRESSION: 1. Distal radial and ulnar fractures as above. Dictated by: Jhonny Chun M.D. on 02/08/2019 at 17:55 Approved by: Jhonny Chun M.D. on 02/08/2019 at 17:56
== END ==
PROVIDERS: Family Provider Orthopaedic Surgery Orthopaedic Surgery of the Spine; PCP Student in an Organized Health Care Education/Training Program; Visit Provider Orthopaedic Surgery
DX: S52.502A Unspecified fracture of the lower end of left radius, initial encounter for closed fracture (principal); S52.612A Displaced fracture of left ulna styloid process, initial encounter for closed fracture; X58.XXXA Exposure to other specified factors, initial encounter
CPT/HCPCS: 73200

== ENCOUNTER → 2019-02-12 15:12 | Outpatient (CLI) | payer OTHER, MEDICARE, SELFPAY ==
[2018-09-27 13:00] VITALS: BMI 33.6
== END ==
PROVIDERS: Family Provider Orthopaedic Surgery Orthopaedic Surgery of the Spine; PCP Student in an Organized Health Care Education/Training Program; Visit Provider Orthopaedic Surgery
DX: Z01.818 Encounter for other preprocedural examination (principal)
CPT/HCPCS: 93005

== ENCOUNTER 2019-06-16 19:52 | Emergency (ER) | payer OTHER, MEDICARE, SELFPAY ==
[2018-09-27 13:00] VITALS: BMI 33.6
[2019-06-16 20:10] VITALS: BP 148/88; PULSE 74; RESP 16; TEMP 36.6; O2SAT 97; BMI 33.6
[2019-06-16] MEDS: KETOROLAC 60 MG/2 ML VIAL IM (21:05)
--- NOTE | 2019-06-17 00:18 | ED_ITS ---
HPI - Back Pain/Injury General Chief Complaint: Back Pain/Injury Stated Complaint: lower back pain Time Seen by Provider: 06/16/19 19:54 Source: patient Mode of arrival: Ambulatory Limitations: no limitations History of Present Illness HPI Narrative: 63-year-old male smoker with extensive history of neck and back pain is well known to myself and other staff. He presents with a few days of left lower back pain in the absence of any significant injury. He denies any numbness, weakness or tingling. He denies any trouble controlling bowel or bladder. He denies any numbness in his groin or foot drop. He states this happens on occasion and has been for quite some time and usually responds well to anti-inflammatories. MD Complaint: back pain Onset (ago): month(s) Duration: intermittent Similar Symptoms Previously: Yes Location: lumbar spine Severity: moderate Quality: aching Radiation: buttocks Relieving factors: none Exacerbating factors: movement Associated symptoms: denies other symptoms Related Data Previous Rx's Medication Instructions Recorded acetaminophen 500 mg capsule 1,000 mg PO TID PRN #100 cap 04/13/18 atorvastatin 40 mg tablet 40 mg PO HS #30 tab 08/14/18 amitriptyline 25 mg tablet 25 mg PO BEDTIME #90 tab 01/01/19 lansoprazole 30 mg capsule,delayed 30 mg PO QDAY #30 ecc 01/01/19 release hydroxyzine pamoate 25 mg capsule 25 mg PO Q4HR PRN #40 cap 02/13/19 cyclobenzaprine 10 mg tablet 10 mg PO TIDP PRN #90 tab 04/05/19 oxycodone-acetaminophen 5 mg-325 1 tab PO Q6-8H PRN #90 tab 04/11/19 mg tablet metoprolol succinate 50 mg 50 mg PO DAILY #90 tab 04/26/19 tablet,extended release 24 hr pregabalin 100 mg capsule 100 mg PO QID #120 cap 05/24/19 ketorolac 10 mg PO TID PRN #10 tab 06/16/19 Allergies Allergy/AdvReac Type Severity Reaction Status Date / Time gabapentin AdvReac Severe Dizziness, Verified 04/11/19 13:39 increased pain symptoms morphine [MORPHINE] AdvReac Severe VOMITING Verified 04/11/19 13:39 Review of Systems Constitutional Constitutional: Denies chills, Denies fatigue, Denies fever(s), Denies frequent falls, Denies lethargy and Denies weakness Eyes Eyes: Denies change in vision, Denies eye discharge, Denies irritation and Denies loss of vision ENT Ears, Nose, Mouth, and Throat: Denies change in voice, Denies dizziness, Denies neck pain, Denies sore throat and Denies throat swelling Cardiovascular Cardiovascular: Denies chest pain, Denies irregular heart rhythm, Denies lightheadedness, Denies palpitations, Denies dyspnea, Denies dyspnea on exertion and Denies orthopnea Respiratory Respiratory: Denies cough, Denies dyspnea, Denies dyspnea on exertion and Denies wheezing Gastrointestinal Gastrointestinal: Denies abdominal pain, Denies change in bowel habits, Denies diarrhea, Denies nausea and Denies vomiting Genitourinary Genitourinary: Denies hematuria, Denies flank pain, Denies urinary incontinence and Denies urinary urgency Musculoskeletal Musculoskeletal: Reports back pain, Denies muscle weakness, Denies neck pain, Denies numbness and Denies tingling Integumentary/Breasts Skin/Breast: Denies pruritus, Denies erythema, Denies rash and Denies wounds Neurologic Neurologic: Denies behavioral changes, Denies confusion, Denies dizziness, Denies frequent falls, Denies loss of vision, Denies numbness, Denies tingling and Denies weakness Psychiatric Psychiatric: Denies anxiety, Denies behavioral changes, Denies confusion, Denies depression, Denies homicidal ideation and Denies suicidal ideation Endocrine Endocrine: Denies fatigue, Denies flushing and Denies palpitations Hematologic/Lymphatic Hematologic/Lymphatic: Denies easy bruising Allergic/Immunologic Allergic/Immunologic: Denies urticaria, Denies throat swelling and Denies wheezing FOR[facility], LATER [facility] Medical History CAD (coronary artery disease) (Chronic) Fusion of lumbar spine (Acute) Gastric ulcer (Acute) GERD (gastroesophageal reflux disease) (Acute) Hyperlipidemia (Chronic) Insomnia (Acute) Myocardial infarction (Resolved ~2011) Numbness and tingling (Acute) Surgical History History of arthroplasty of right knee (Acute) History of bilateral carpal tunnel release (Acute) History of cervical spinal surgery (Resolved ~02/2001) History of left knee surgery (Deleted) History of lumbar surgery (Resolved ~2000) Hx of appendectomy (Acute) Hx of cervical spine surgery (Acute ~12/2015) S/P coronary artery stent placement (Resolved 09/2011) S/P wrist surgery (Acute) Status post arthroscopic surgery of right knee (Deleted 12/2012) Status post rotator cuff repair (Resolved 2007) Family History Father CAD (coronary artery disease) Mother CAD (coronary artery disease) Arthritis Family/Other Alcoholism and drug addiction in family Autoimmune disease Arthritis Rheumatoid arthritis Other Drug abuse Social History household members: spouse and children Smoking Status: Current every day smoker alcohol intake: former Family History Father CAD (coronary artery disease) Mother CAD (coronary artery disease) Arthritis Family/Other Alcoholism and drug addiction in family Autoimmune disease Arthritis Rheumatoid arthritis Other Drug abuse Social History household members: spouse and children Smoking Status: Current every day smoker alcohol intake: former Exam Narrative Exam Narrative: GEN: AOx3 and in mild distress EYES: Pupils are equal, round, and reactive to light and accommodation. Extraoccular muscles are intact bilaterally. There is no subconjunctival hemorrhage or exudate. CHEST: Lungs are clear to auscultation bilaterally and free of wheezes, rales, or rhonchi. Heart rate is regular rhythm, there are no murmurs, clicks, rubs, or gallops. There is no chest wall tenderness. ABD: Abdomen is soft and nontender. There is no guarding or rebound. Bowel sounds are normal in all 4 quadrants. There is no mass or organomegaly. EXT: Full painless ROM of all extremities with no loss of sensation or strength. BACK: branding machine tender but free of any obvious external abnormalities. Patient exam notes decreased range of motion and muscle spasm, but no CVA tenderness, or vertebral point tenderness. There are no symptoms of cauda equina such as saddle anesthesia, and decreased reflexes, decreased sensation or strength. SKIN: Warm, pink, and dry. No erythema or rash Initial Vital Signs Initial Vital Signs: Vital Signs Temperature 97.8 F 06/16/19 20:10 Pulse Rate 74 06/16/19 20:10 Respiratory Rate 16 06/16/19 20:10 Blood Pressure 148/88 H 06/16/19 20:10 Pulse Oximetry 97 06/16/19 20:10 Course Orders Ordered: Discontinued Medications Ketorolac Tromethamine (Toradol) 60 mg IM NOW ONE Stop: 06/16/19 20:54 Last Admin: 06/16/19 21:05 Dose: 60 mg Documented by: CIRILO Vital Signs Vital signs: Vital Signs - 8 hr 06/16/19 20:10 Temperature 97.8 F Pulse Rate 74 Respiratory Rate 16 Blood Pressure 148/88 H Pulse Oximetry 97 MDM - Back Pain/Injury MDM Narrative Medical decision making narrative: Multiple etiologies of back pain considered including; Epidural abscess, cauda equina, mass occupying lesion, and other considered but thought less likely given patient's history and very reassuring physical exam Discharge Plan Departure Patient Disposition: Home Clinical Impression: Left sided sciatica Strain of lumbar region Qualifiers: Encounter type: initial encounter Qualified Code(s): S39.012A - Strain of muscle, fascia and tendon of lower back, initial encounter Discharge Date/Time: 06/16/19 21:09 Instructions: DI for Back Pain With Sciatica Activity Restrictions/Additional Instructions: *You have been diagnosed with [left lumbar pain] *What to do: *Take medications as directed *Follow up with your primary care provider in 2-3 days, call for an appointment. Let them know you were seen in the Emergency Department and that we ask that you be seen in follow up *Return to ER if you should have any new, worsening or concerning symptoms Prescriptions: New ketorolac 10 mg tablet 10 mg PO TID PRN (Reason: pain) Qty: 10 RF: 0 No Action atorvastatin 40 mg tablet 40 mg PO HS Qty: 30 RF: 11 amitriptyline 25 mg tablet 25 mg PO BEDTIME Qty: 90 RF: 1 lansoprazole 30 mg capsule,delayed release(DR/EC) 30 mg PO QDAY Qty: 30 RF: 6 hydroxyzine pamoate 25 mg capsule 25 mg PO Q4HR PRN (Reason: Nausea And Vomiting) Qty: 40 RF: 5 cyclobenzaprine 10 mg tablet 10 mg PO TIDP PRN (Reason: muscle spasm) Qty: 90 RF: 5 metoprolol succinate 50 mg tablet extended release 24 hr 50 mg PO DAILY Qty: 90 RF: 1 pregabalin 100 mg capsule 100 mg PO QID Qty: 120 RF: 5 acetaminophen 500 mg capsule 1,000 mg PO TID PRN (Reason: pain) Qty: 100 RF: 5 oxycodone-acetaminophen 5-325 mg tablet 1 tab PO Q6-8H PRN (Reason: pain) Qty: 90 RF: 0 Referrals: Myron Estrella MD [Primary Care Provider] -
== END 2019-06-16 21:09 | disposition home or self-care (01) ==
PROVIDERS: Emergency Provider Emergency Medicine; Family Provider Orthopaedic Surgery Orthopaedic Surgery of the Spine; PCP Student in an Organized Health Care Education/Training Program
DX: M54.32 Sciatica, left side (principal)
CPT/HCPCS: 96372; 99282; 99283; J1885

== ENCOUNTER 2019-09-24 06:39 | Emergency (ER) | payer OTHER, MEDICARE, SELFPAY ==
[2018-09-27 13:00] VITALS: BMI 33.6
[2019-09-24 06:45] VITALS: BP 191/85; PULSE 78; RESP 16; TEMP 36.7; O2SAT 98; BMI 34.5
[2019-09-24] MEDS: KETOROLAC 60 MG/2 ML VIAL IM (06:49)
--- NOTE | 2019-09-24 06:51 | ED_ITS ---
HPI - Back Pain/Injury General Chief Complaint: Back Pain/Injury Stated Complaint: neck pain Time Seen by Provider: 09/24/19 06:40 Source: patient Mode of arrival: Ambulatory Limitations: no limitations History of Present Illness HPI Narrative: 64-year-old male smoker with chronic neck pain known well to myself and others presents with his chronic neck pain. No new symptoms, no numbness, tingling or weakness. No trauma. No fever. He tends to have exacerbations with changes in weather. He is otherwise well and free of complaint. MD Complaint: other Onset (ago): year(s) Duration: constant Similar Symptoms Previously: Yes Severity: moderate Quality: aching Relieving factors: immobilization Exacerbating factors: movement Associated symptoms: denies other symptoms Related Data Previous Rx's Medication Instructions Recorded acetaminophen 500 mg capsule 1,000 mg PO TID PRN #100 cap 04/13/18 hydroxyzine pamoate 25 mg capsule 25 mg PO Q4HR PRN #40 cap 02/13/19 cyclobenzaprine 10 mg tablet 10 mg PO TIDP PRN #90 tab 04/05/19 metoprolol succinate 50 mg 50 mg PO DAILY #90 tab 04/26/19 tablet,extended release 24 hr pregabalin 100 mg capsule 100 mg PO QID #120 cap 05/24/19 amitriptyline 25 mg tablet 25 mg PO BEDTIME #90 tab 06/24/19 oxycodone-acetaminophen 5 mg-325 1 tab PO Q6-8H PRN #90 tab 07/12/19 mg tablet lansoprazole 30 mg capsule,delayed See Rx Instructions .ROUTE 07/23/19 release .COMPLEX #90 cap atorvastatin 40 mg tablet See Rx Instructions .ROUTE 08/28/19 .COMPLEX #90 tab ketorolac 10 mg PO Q6H PRN #20 tab 09/24/19 Allergies Allergy/AdvReac Type Severity Reaction Status Date / Time gabapentin AdvReac Severe Dizziness, Verified 07/12/19 11:35 increased pain symptoms morphine [MORPHINE] AdvReac Severe VOMITING Verified 07/12/19 11:35 Review of Systems Constitutional Constitutional: Denies chills, Denies fatigue, Denies fever(s), Denies frequent falls, Denies lethargy and Denies weakness Eyes Eyes: Denies change in vision, Denies eye discharge, Denies irritation and Denies loss of vision ENT Ears, Nose, Mouth, and Throat: Denies change in voice, Denies dizziness, Reports neck pain, Denies sore throat and Denies throat swelling Cardiovascular Cardiovascular: Denies chest pain, Denies irregular heart rhythm, Denies lightheadedness, Denies palpitations, Denies dyspnea, Denies dyspnea on exertion and Denies orthopnea Respiratory Respiratory: Denies cough, Denies dyspnea, Denies dyspnea on exertion and Denies wheezing Gastrointestinal Gastrointestinal: Denies abdominal pain, Denies change in bowel habits, Denies diarrhea, Denies nausea and Denies vomiting Genitourinary Genitourinary: Denies hematuria, Denies flank pain, Denies urinary incontinence and Denies urinary urgency Musculoskeletal Musculoskeletal: Denies back pain, Denies muscle weakness, Reports neck pain, Denies numbness and Denies tingling Integumentary/Breasts Skin/Breast: Denies pruritus, Denies erythema, Denies rash and Denies wounds Neurologic Neurologic: Denies behavioral changes, Denies confusion, Denies dizziness, Denies frequent falls, Denies loss of vision, Denies numbness, Denies tingling and Denies weakness Psychiatric Psychiatric: Denies anxiety, Denies behavioral changes, Denies confusion, Denies depression, Denies homicidal ideation and Denies suicidal ideation Endocrine Endocrine: Denies fatigue, Denies flushing and Denies palpitations Hematologic/Lymphatic Hematologic/Lymphatic: Denies easy bruising Allergic/Immunologic Allergic/Immunologic: Denies urticaria, Denies throat swelling and Denies wheezing Patient History Medical History CAD (coronary artery disease) (Chronic) Fusion of lumbar spine (Acute) Gastric ulcer (Acute) GERD (gastroesophageal reflux disease) (Acute) Hyperlipidemia (Chronic) Hypertension (Acute) Insomnia (Acute) Myocardial infarction (Resolved ~2011) Numbness and tingling (Acute) Surgical History History of arthroplasty of right knee (Acute) History of bilateral carpal tunnel release (Acute) History of cervical spinal surgery (Resolved ~02/2001) History of left knee surgery (Deleted) History of lumbar surgery (Resolved ~2000) Hx of appendectomy (Acute) Hx of cervical spine surgery (Acute ~12/2015) S/P coronary artery stent placement (Resolved 09/2011) S/P wrist surgery (Acute) Status post arthroscopic surgery of right knee (Deleted 12/2012) Status post rotator cuff repair (Resolved 2007) Family History Father CAD (coronary artery disease) Mother CAD (coronary artery disease) Arthritis Family/Other Alcoholism and drug addiction in family Autoimmune disease Arthritis Rheumatoid arthritis Other Drug abuse Social History household members: spouse and children Smoking Status: Current every day smoker alcohol intake: former Smoking Status: Current every day smoker alcohol intake frequency: 0-2 drinks per day Substance Use Type: does not use Exam Narrative Exam Narrative: GEN: AOx3 and in mild distress NECK: Tender to palpation of L sided paraspinal muscles. No numbness or weakness. No change with axial loading. EYES: Pupils are equal, round, and reactive to light and accommodation. Extraoccular muscles are intact bilaterally. There is no subconjunctival hemorrhage or exudate. CHEST: Lungs are clear to auscultation bilaterally and free of wheezes, rales, or rhonchi. Heart rate is regular rhythm, there are no murmurs, clicks, rubs, or gallops. There is no chest wall tenderness. ABD: Abdomen is soft and nontender. There is no guarding or rebound. Bowel sounds are normal in all 4 quadrants. There is no mass or organomegaly. EXT: Full painless ROM of all extremities with no loss of sensation or strength. SKIN: Warm, pink, and dry. No erythema or rash Initial Vital Signs Initial Vital Signs: Vital Signs Temperature 98.1 F 09/24/19 06:45 Pulse Rate 78 09/24/19 06:45 Respiratory Rate 16 09/24/19 06:45 Blood Pressure 191/85 H 09/24/19 06:45 Pulse Oximetry 98 09/24/19 06:45 Course Orders Ordered: Discontinued Medications Ketorolac Tromethamine (Toradol) 60 mg IM NOW ONE Stop: 09/24/19 06:44 Last Admin: 09/24/19 06:49 Dose: 60 mg Documented by: VERO Vital Signs Vital signs: Vital Signs - 8 hr 09/24/19 06:45 Temperature 98.1 F Pulse Rate 78 Respiratory Rate 16 Blood Pressure 191/85 H Pulse Oximetry 98 Discharge Plan Departure Patient Disposition: Home Clinical Impression: Chronic neck pain Discharge Date/Time: 09/24/19 06:54 Instructions: DI for Chronic Neck Pain Activity Restrictions/Additional Instructions: *You have been diagnosed with [chronic neck pain ] *What to do: *Take medications as directed: Prescription sent to [facility] at your request *Follow up with your primary care provider in 2-3 days, call for an appointment. Let them know you were seen in the Emergency Department and that we ask that you be seen in follow up *Return to ER if you should have any new, worsening or concerning symptoms Prescriptions: New ketorolac 10 mg tablet 10 mg PO Q6H PRN (Reason: pain) Qty: 20 RF: 0 No Action hydroxyzine pamoate 25 mg capsule 25 mg PO Q4HR PRN (Reason: Nausea And Vomiting) Qty: 40 RF: 5 cyclobenzaprine 10 mg tablet 10 mg PO TIDP PRN (Reason: muscle spasm) Qty: 90 RF: 5 metoprolol succinate 50 mg tablet extended release 24 hr 50 mg PO DAILY Qty: 90 RF: 1 pregabalin 100 mg capsule 100 mg PO QID Qty: 120 RF: 5 amitriptyline 25 mg tablet 25 mg PO BEDTIME Qty: 90 RF: 3 lansoprazole 30 mg capsule,delayed release(DR/EC) See Rx Instructions .ROUTE .COMPLEX Qty: 90 RF: 1 atorvastatin 40 mg tablet See Rx Instructions .ROUTE .COMPLEX Qty: 90 RF: 3 acetaminophen 500 mg capsule 1,000 mg PO TID PRN (Reason: pain) Qty: 100 RF: 5 oxycodone-acetaminophen 5-325 mg tablet 1 tab PO Q6-8H PRN (Reason: pain) Qty: 90 RF: 0 Referrals: Myron Estrella MD [Primary Care Provider] -
[2019-09-24 06:54] VITALS: BP 169/68; PULSE 68; RESP 18; O2SAT 96
== END 2019-09-24 06:54 | disposition home or self-care (01) ==
PROVIDERS: Emergency Provider Emergency Medicine; Family Provider Orthopaedic Surgery Orthopaedic Surgery of the Spine; PCP Student in an Organized Health Care Education/Training Program
DX: M54.2 Cervicalgia (principal); G89.29 Other chronic pain
CPT/HCPCS: 96372; 99283; J1885

== ENCOUNTER 2019-11-26 22:13 | Emergency (ER) | payer OTHER, MEDICARE, SELFPAY ==
[2018-09-27 13:00] VITALS: BMI 33.6
[2019-11-26 22:15] VITALS: BP 144/73; PULSE 62; RESP 15; TEMP 36.7; O2SAT 98; BMI 34.5
--- NOTE | 2019-11-27 00:19 | ED_ITS ---
HPI - Neck Pain/Injury General Chief Complaint: Neck Pain/Injury Stated Complaint: Neck pain Time Seen by Provider: 11/27/19 00:18 Source: patient and old records reviewed Mode of arrival: Ambulatory Limitations: no limitations History of Present Illness HPI Narrative: This is a 64-year-old comes in with complaint of acute exacerbation of chronic neck pain. Patient has been seen in the past for similar. Patient has issues with his neck as well as lower back. He is having pain kind of in both areas. Patient states he has had a fusion in his neck remotely as well as low back surgery. Patient has not had any fevers. He states he has some radiation of pain down towards his shoulder. He has some numbness and tingling which he states is not new and has not increased. He has not had any loss of sensation. He also has not had any bowel or bladder incontinence or saddle anesthesia. Patient states he has been taking Percocet, gabapentin and cyclobenzaprine with minimal improvement. He follows with Dr. Robledo is his primary care. Patient states he has responded well to steroids in the past. Related Data Previous Rx's Medication Instructions Recorded acetaminophen 500 mg capsule 1,000 mg PO TID PRN #100 cap 04/13/18 hydroxyzine pamoate 25 mg capsule 25 mg PO Q4HR PRN #40 cap 02/13/19 metoprolol succinate 50 mg 50 mg PO DAILY #90 tab 04/26/19 tablet,extended release 24 hr amitriptyline 25 mg tablet 25 mg PO BEDTIME #90 tab 06/24/19 lansoprazole 30 mg capsule,delayed See Rx Instructions .ROUTE 07/23/19 release .COMPLEX #90 cap atorvastatin 40 mg tablet See Rx Instructions .ROUTE 08/28/19 .COMPLEX #90 tab cyclobenzaprine 10 mg tablet 10 mg PO TIDP PRN #90 tab 10/12/19 pregabalin 100 mg capsule 100 mg PO QID #120 cap 10/31/19 oxycodone-acetaminophen 5 mg-325 1 tab PO Q6-8H PRN #90 tab 11/12/19 mg tablet prednisone 40 mg PO DAILY #6 tab 11/27/19 Allergies Allergy/AdvReac Type Severity Reaction Status Date / Time gabapentin AdvReac Severe Dizziness, Verified 10/11/19 15:11 increased pain symptoms morphine [MORPHINE] AdvReac Severe VOMITING Verified 10/11/19 15:11 Review of Systems Review of Systems ROS Unobtainable: All systems reviewed & are unremarkable except as noted in HPI and below Patient History Medical History CAD (coronary artery disease) (Chronic) Fusion of lumbar spine (Acute) Gastric ulcer (Acute) GERD (gastroesophageal reflux disease) (Acute) Hyperlipidemia (Chronic) Hypertension (Acute) Insomnia (Acute) Myocardial infarction (Resolved ~2011) Numbness and tingling (Acute) Surgical History History of arthroplasty of right knee (Acute) History of bilateral carpal tunnel release (Acute) History of cervical spinal surgery (Resolved ~02/2001) History of left knee surgery (Deleted) History of lumbar surgery (Resolved ~2000) Hx of appendectomy (Acute) Hx of cervical spine surgery (Acute ~12/2015) S/P coronary artery stent placement (Resolved 09/2011) S/P wrist surgery (Acute) Status post arthroscopic surgery of right knee (Deleted 12/2012) Status post rotator cuff repair (Resolved 2007) Social History household members: spouse and children Smoking Status: Current every day smoker alcohol intake: former Smoking Status: Current every day smoker alcohol intake frequency: 0-2 drinks per day Substance Use Type: does not use Exam Narrative Exam Narrative: GEN: well nourished, well appearing male, alert and oriented x 3, patient appears to be in mild distress. Patient is sitting up in a chair. HEENT: Atraumatic, pupils are equal round reactive to light, extraocular movements are intact, nares are clear. Is clear. HEART: Regular rate and rhythm without murmur, clicks, rubs. No carotid bruits, pulses are equal in upper and lower extremities LUNGS:Lungs clear to auscultation, no wheezes, rales, crackles, chest moves symmetrically ABD:bowel sounds normal, soft, non-tender, no guarding, rebound, rigidity, no masses noted, no hepatosplenomegaly BACK: No cervical, thoracic or lumbar vertebral point tenderness. Patient has normal range of motion. Rectal exam is deferred. Muscle strength is 5/5 in upper and lower extremities, co founder are equal bilaterally, 2+ radial pulse bilaterally. Sensation is equal throughout bilateral upper extremities. MSCL: Non-tender, no muscle atrophy, muscles strength 5/5 upper and lower extremities, full range of motion, normal gait NEURO:CN 2-12 intact, sensation normal. SKIN: No rash, no erythema or skin changes. Initial Vital Signs Initial Vital Signs: Vital Signs Temperature 98.0 F 11/26/19 22:15 Pulse Rate 62 11/26/19 22:15 Respiratory Rate 15 11/26/19 22:15 Blood Pressure 144/73 H 11/26/19 22:15 Pulse Oximetry 98 11/26/19 22:15 Course Orders Ordered: Discontinued Medications Ketorolac Tromethamine (Toradol) 30 mg IM NOW ONE Stop: 11/27/19 00:38 Last Admin: 11/27/19 00:46 Dose: 30 mg Documented by: JAD Prednisone (Deltasone) 40 mg PO NOW ONE Stop: 11/27/19 00:38 Last Admin: 11/27/19 00:45 Dose: 40 mg Documented by: JAD Vital Signs Vital signs: Vital Signs - 8 hr 11/26/19 22:15 11/27/19 01:02 Temperature 98.0 F Pulse Rate 62 59 L Respiratory Rate 15 15 Blood Pressure 144/73 H 121/77 Pulse Oximetry 98 99 MDM - Neck Pain/Injury MDM Narrative Medical decision making narrative: Patient comes to the ED with complaint of neck pain that is acute on chronic. States that he response to steroids typically. It appears he has had Toradol frequently in the past his renal function does appear appropriate for this from past lab work. No red flag symptoms. Discharge Plan Departure Patient Disposition: Home Clinical Impression: Chronic neck pain Discharge Date/Time: 11/27/19 01:08 Instructions: Chronic Neck Pain Activity Restrictions/Additional Instructions: Follow-up with your physician in the next week if her symptoms are not improving. Take the steroids once daily until gone. Your prescription was sent to the [facility]. Continue your other home medications as prescribed. 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 Prescriptions: New prednisone 20 mg tablet 40 mg PO DAILY Qty: 6 RF: 0 No Action hydroxyzine pamoate 25 mg capsule 25 mg PO Q4HR PRN (Reason: Nausea And Vomiting) Qty: 40 RF: 5 metoprolol succinate 50 mg tablet extended release 24 hr 50 mg PO DAILY Qty: 90 RF: 1 amitriptyline 25 mg tablet 25 mg PO BEDTIME Qty: 90 RF: 3 lansoprazole 30 mg capsule,delayed release(DR/EC) See Rx Instructions .ROUTE .COMPLEX Qty: 90 RF: 1 atorvastatin 40 mg tablet See Rx Instructions .ROUTE .COMPLEX Qty: 90 RF: 3 pregabalin 100 mg capsule 100 mg PO QID Qty: 120 RF: 5 oxycodone-acetaminophen 5-325 mg tablet 1 tab PO Q6-8H PRN (Reason: pain) Qty: 90 RF: 0 acetaminophen 500 mg capsule 1,000 mg PO TID PRN (Reason: pain) Qty: 100 RF: 5 cyclobenzaprine 10 mg tablet 10 mg PO TIDP PRN (Reason: muscle spasm) Qty: 90 RF: 5 Referrals: Myron Estrella MD [Primary Care Provider] -
[2019-11-27] MEDS: predniSONE 20 MG TABLET 40 MG PO (00:45)
[2019-11-27] MEDS: KETOROLAC 60 MG/2 ML VIAL 30 MG IM (00:46)
[2019-11-27 01:02] VITALS: BP 121/77; PULSE 59; RESP 15; O2SAT 99
== END 2019-11-27 01:08 | disposition home or self-care (01) ==
PROVIDERS: Emergency Provider Emergency Medicine; Family Provider Orthopaedic Surgery Orthopaedic Surgery of the Spine; PCP Student in an Organized Health Care Education/Training Program
DX: M54.2 Cervicalgia (principal)
CPT/HCPCS: 96372; 99283; J1885

== ENCOUNTER 2020-02-28 02:12 | Emergency (ER) | payer OTHER, MEDICARE, SELFPAY ==
[2018-09-27 13:00] VITALS: BMI 33.6
--- NOTE | 2020-02-28 02:16 | ED_ITS ---
HPI - General Adult General Chief complaint: Back Pain/Injury Stated complaint: spine hurting with leg pain Time Seen by Provider: 02/28/20 02:15 History of Present Illness HPI narrative: 64-year-old gentleman with chronic orthopedic pain in multiple locations including spine shoulders hands hips knees and increasing peripheral neuropathy as he is aging. He has had multiple orthopedic surgeries including multiple spine surgeries and he is followed by Dr. Robledo for chronic pain managem ent. He states that he is not out of any of his medications. Notes that he has days that her particularly painful and yesterday was 1 such day. He describes no specific trauma that seem to make things worse he does note that a weather change sometimes can affect his joints adversely. Notes that he is having more left-sided body pain specifically left low back pain and increasing left leg radicular pain. He did take a Percocet approximately 2 hours prior to arrival as part of his routine chronic pain management and found that it was not effective in relieving any of his pain. In the past he has had significant luck with coming into the emergency room and getting a shot of Toradol to get on top of the pain and then finds that his chronic pain management plan is far more effective. He is requesting such today. Related Data Previous Rx's Medication Instructions Recorded acetaminophen 500 mg capsule 1,000 mg PO TID PRN #100 cap 04/13/18 hydroxyzine pamoate 25 mg capsule 25 mg PO Q4HR PRN #40 cap 02/13/19 amitriptyline 25 mg tablet 25 mg PO BEDTIME #90 tab 06/24/19 atorvastatin 40 mg tablet See Rx Instructions .ROUTE 08/28/19 .COMPLEX #90 tab pregabalin 100 mg capsule 100 mg PO QID #120 cap 10/31/19 metoprolol succinate 50 mg 50 mg PO DAILY #90 tab 11/27/19 tablet,extended release 24 hr cyclobenzaprine 10 mg tablet 10 mg PO TIDP PRN #90 tab 11/28/19 lansoprazole 30 mg capsule,delayed 30 mg PO DAILY #90 cap 01/24/20 release oxycodone-acetaminophen 5 mg-325 1 tab PO Q6-8H PRN #90 tab 02/24/20 mg tablet Allergies Allergy/AdvReac Type Severity Reaction Status Date / Time gabapentin AdvReac Severe Dizziness, Verified 10/11/19 15:11 increased pain symptoms morphine [MORPHINE] AdvReac Severe VOMITING Verified 10/11/19 15:11 Review of Systems Review of Systems Narrative: Pertinent positive and negative findings as per HPI Remainder of review of systems is otherwise unremarkable for Constitutional: Fevers, chills, weakness ENT: No sore throat, neck pain, ear pain CV: Chest pain, palpitations, dyspnea on exertion Respiratory: Cough, wheeze, dyspnea GI: Nausea, vomiting, diarrhea, change in bowel habits, black or bloody stools Patient History Medical History CAD (coronary artery disease) (Chronic) Fusion of lumbar spine (Acute) Gastric ulcer (Acute) GERD (gastroesophageal reflux disease) (Acute) Hyperlipidemia (Chronic) Hypertension (Acute) Insomnia (Acute) Myocardial infarction (Resolved ~2011) Numbness and tingling (Acute) Surgical History History of arthroplasty of right knee (Acute) History of bilateral carpal tunnel release (Acute) History of cervical spinal surgery (Resolved ~02/2001) History of left knee surgery (Deleted) History of lumbar surgery (Resolved ~2000) Hx of appendectomy (Acute) Hx of cervical spine surgery (Acute ~12/2015) S/P coronary artery stent placement (Resolved 09/2011) S/P wrist surgery (Acute) Status post arthroscopic surgery of right knee (Deleted 12/2012) Status post rotator cuff repair (Resolved 2007) Family History Father CAD (coronary artery disease) Mother CAD (coronary artery disease) Arthritis Family/Other Alcoholism and drug addiction in family Autoimmune disease Arthritis Rheumatoid arthritis Other Drug abuse Social History household members: spouse and children Smoking Status: Current every day smoker alcohol intake: former Smoking Status: Current every day smoker alcohol intake frequency: 0-2 drinks per day Substance Use Type: does not use Exam Narrative Exam Narrative: General: Alert appropriate in no acute distress, able to walk into the emergency department with out obvious pain behaviors and is able to move about on the bed to facilitate exam with minimal difficulty. Respiratory: Able to speak in full sentences, no obvious respiratory distress Skin: No obvious rashes, warm and dry. The erythema ab igne rash from chronic heating pad use over both lower flanks Neurologic: Grossly intact no obvious asymmetries or abnormalities. With all of his orthopedic surgeries I am unable to elicit any reflexes in lower extremities. He is able to do straight leg raises bilaterally while sitting on the bed with minimal pain response. Psych: appropriate insight and affect, cooperative Spine: No skin changes and no point tenderness, erythema or localizing symptoms that would suggest epidural abscess or discitis Initial Vital Signs Initial Vital Signs: Vital Signs Temperature 97.3 F L 02/28/20 02:23 Pulse Rate 70 02/28/20 02:23 Respiratory Rate 18 02/28/20 02:23 Blood Pressure 169/77 H 02/28/20 02:23 Pulse Oximetry 98 02/28/20 02:23 Course Orders Ordered: Discontinued Medications Ketorolac Tromethamine (Toradol) 30 mg IM NOW ONE Stop: 02/28/20 02:38 Vital Signs Vital signs: Vital Signs - 8 hr 02/28/20 02:23 Temperature 97.3 F L Pulse Rate 70 Respiratory Rate 18 Blood Pressure 169/77 H Pulse Oximetry 98 Medical Decision Making Medical Records Medical records reviewed: Yes I reviewed the patient's medical records. MDM Narrative Medical decision making narrative: 64-year-old gentleman with a chronic orthopedic issues and chronic pain who has had a particularly difficult 24 hours and feels that he simply cannot get on top of his pain. He describes no fevers, no trauma and no other red flags. In the past Toradol has been quite effective. He is given 30 mg of IM Toradol today and is pleased with results and will be discharged home. Will encourage him to follow-up with his primary care physicians as well as orthopedic surgeons regarding any continued flare to his chronic pain. Discharge Plan Departure Patient Disposition: Home Clinical Impression: Chronic neck pain, Left sided sciatica Chronic back pain Qualifiers: Back pain location: back pain in unspecified location Back pain laterality: bilateral Qualified Code(s): M54.9 - Dorsalgia, unspecified Instructions: DI for Back Pain With Sciatica Activity Restrictions/Additional Instructions: Thank you for coming in today I wish that today had not been such an increased pain sort of day for you. On your exam I am not finding anything that is suspicious for infection or trauma. I agree with you that this is simply an exacerbation of your chronic pain and your having difficulty simply getting on top of the pain and back to your usual chronic pain management. I have given you a shot of Toradol in the emergency department. We briefly discussed a prescription for oral Toradol. There is no significant indication that Toradol as a pill works any more efficiently than ibuprofen and there is quite a bit of information that shows that the risk of bleeding from her stomach due to Toradol as a pill is dramatically higher. If he find that your continuing to have a flare of your chronic pain, please follow-up with Dr. Robledo and see what other suggestions he might have for more effective management for you I wish you the best Prescriptions: No Action hydroxyzine pamoate 25 mg capsule 25 mg PO Q4HR PRN (Reason: Nausea And Vomiting) Qty: 40 RF: 5 amitriptyline 25 mg tablet 25 mg PO BEDTIME Qty: 90 RF: 3 atorvastatin 40 mg tablet See Rx Instructions .ROUTE .COMPLEX Qty: 90 RF: 3 pregabalin 100 mg capsule 100 mg PO QID Qty: 120 RF: 5 metoprolol succinate 50 mg tablet extended release 24 hr 50 mg PO DAILY Qty: 90 RF: 1 cyclobenzaprine 10 mg tablet 10 mg PO TIDP PRN (Reason: muscle spasm) Qty: 90 RF: 5 lansoprazole 30 mg capsule,delayed release(DR/EC) 30 mg PO DAILY Qty: 90 RF: 3 oxycodone-acetaminophen 5-325 mg tablet 1 tab PO Q6-8H PRN (Reason: pain) Qty: 90 RF: 0 acetaminophen 500 mg capsule 1,000 mg PO TID PRN (Reason: pain) Qty: 100 RF: 5 Referrals: Myron Estrella MD [Primary Care Provider] -
[2020-02-28 02:23] VITALS: BP 169/77; PULSE 70; RESP 18; TEMP 36.3; O2SAT 98
[2020-02-28] MEDS: KETOROLAC 60 MG/2 ML VIAL 30 MG IM (03:21)
[2020-02-28 03:24] VITALS: BP 160/70; PULSE 80; RESP 18; O2SAT 99
== END 2020-02-28 03:25 | disposition home or self-care (01) ==
PROVIDERS: Emergency Provider Emergency Medicine; Family Provider Orthopaedic Surgery Orthopaedic Surgery of the Spine; PCP Student in an Organized Health Care Education/Training Program
DX: M54.2 Cervicalgia (principal); M54.32 Sciatica, left side; M54.9 Dorsalgia, unspecified
CPT/HCPCS: 96372; 99283; J1885

== ENCOUNTER 2020-05-29 22:17 | Emergency (ER) | payer OTHER, MEDICARE, SELFPAY ==
[2018-09-27 13:00] VITALS: BMI 33.6
[2020-05-29 22:20] VITALS: BP 173/82; PULSE 83; RESP 20; TEMP 36.6; O2SAT 97; BMI 34.5
--- NOTE | 2020-05-29 22:31 | ED_ITS ---
HPI - General Adult General Chief complaint: Back Pain/Injury Stated complaint: neck and back pain, weakness Time Seen by Provider: 05/29/20 22:31 History of Present Illness HPI narrative: 64-year-old gentleman with chronic neck and lumbar pain with multiple prior orthopedic interventions she is noting increasing pain levels over the last weeks. His usual pain medication with amitriptyline, oxycodone, gabapentin is not working as well. He still has all of his medications and does not want to over use them. In the past when he has had exacerbations of his chronic pain a shot of Toradol and a brief course of steroid has been helpful in getting his pain back to a manageable level and his chronic regimen works well for a number of months. He describes no fevers, cough, chills, chest pain, vomiting, diarrhea, rashes. He does note increase in joint pain at hands wrist shoulders neck low back with increased radicular pain into both eyes consistent with his chronic pain exacerbation. He is using his cane more as he will have sharp stabbing electrical pulses into his upper thighs. He describes no saddle paresthesia or change to bowel or bladder habits. No IV drug use or immunosuppressant medications. Related Data Previous Rx's Medication Instructions Recorded acetaminophen 500 mg capsule 1,000 mg PO TID PRN #100 cap 04/13/18 hydroxyzine pamoate 25 mg capsule 25 mg PO Q4HR PRN #40 cap 02/13/19 amitriptyline 25 mg tablet 25 mg PO BEDTIME #90 tab 06/24/19 atorvastatin 40 mg tablet See Rx Instructions .ROUTE 08/28/19 .COMPLEX #90 tab cyclobenzaprine 10 mg tablet 10 mg PO TIDP PRN #90 tab 11/28/19 lansoprazole 30 mg capsule,delayed 30 mg PO DAILY #90 cap 01/24/20 release metoprolol succinate 50 mg 50 mg PO DAILY #90 tab 05/26/20 tablet,extended release 24 hr oxycodone-acetaminophen 5 mg-325 1 tab PO Q8H PRN #90 tab 05/26/20 mg tablet pregabalin 100 mg capsule 100 mg PO QID #120 cap 05/26/20 dexamethasone 10 mg PO DAILY #5 tab 05/29/20 dexamethasone 10 mg PO DAILY #5 tab 05/29/20 Allergies Allergy/AdvReac Type Severity Reaction Status Date / Time gabapentin AdvReac Severe Dizziness, Verified 05/29/20 22:37 increased pain symptoms morphine [MORPHINE] AdvReac Severe VOMITING Verified 05/29/20 22:37 Review of Systems Review of Systems Narrative: Remainder of review of systems including constitutional, ENT, cardiovascular, respiratory, GI, , musculoskeletal, skin, neurologic and psychiatric systems reviewed and are unremarkable except as noted in HPI. Patient History Medical History CAD (coronary artery disease) (Chronic) Fusion of lumbar spine (Acute) Gastric ulcer (Acute) GERD (gastroesophageal reflux disease) (Acute) Hyperlipidemia (Chronic) Hypertension (Acute) Insomnia (Acute) Myocardial infarction (Resolved ~2011) Numbness and tingling (Acute) Surgical History History of arthroplasty of right knee (Acute) History of bilateral carpal tunnel release (Acute) History of cervical spinal surgery (Resolved ~02/2001) History of left knee surgery (Deleted) History of lumbar surgery (Resolved ~2000) Hx of appendectomy (Acute) Hx of cervical spine surgery (Acute ~12/2015) S/P coronary artery stent placement (Resolved 09/2011) S/P wrist surgery (Acute) Status post arthroscopic surgery of right knee (Deleted 12/2012) Status post rotator cuff repair (Resolved 2007) Family History Father CAD (coronary artery disease) Mother CAD (coronary artery disease) Arthritis Family/Other Alcoholism and drug addiction in family Autoimmune disease Arthritis Rheumatoid arthritis Other Drug abuse Social History household members: spouse and children Smoking Status: Current every day smoker alcohol intake: former Smoking Status: Current every day smoker alcohol intake frequency: 0-2 drinks per day Substance Use Type: does not use Exam Narrative Exam Narrative: General: Alert appropriate in no acute distress H EENT: Mild muscle spasm along the right lateral cervical spine without any midline tenderness Respiratory: Able to speak in full sentences, no obvious respiratory distress Skin: No obvious rashes, warm and dry Neurologic: Grossly intact no obvious asymmetries or abnormalities, reflexes are 3+ bilaterally at patellas (even after knee replacement and lumbar surgery) Psych, appropriate insight and affect, cooperative Initial Vital Signs Initial Vital Signs: Vital Signs Temperature 97.9 F 05/29/20 22:20 Pulse Rate 83 05/29/20 22:20 Respiratory Rate 20 05/29/20 22:20 Blood Pressure 173/82 H 05/29/20 22:20 Pulse Oximetry 97 05/29/20 22:20 Course Orders Ordered: Discontinued Medications Dexamethasone (Decadron) 10 mg PO NOW ONE Stop: 05/29/20 22:41 Last Admin: 05/29/20 22:51 Dose: 10 mg Documented by: RYAN Ketorolac Tromethamine (Toradol) 30 mg IM NOW ONE Stop: 05/29/20 22:41 Last Admin: 05/29/20 22:51 Dose: 30 mg Documented by: RYAN Vital Signs Vital signs: Vital Signs - 8 hr 05/29/20 22:20 05/29/20 23:15 Temperature 97.9 F Pulse Rate 83 75 Respiratory Rate 20 18 Blood Pressure 173/82 H 187/84 H Pulse Oximetry 97 97 Medical Decision Making Medical Records Medical records reviewed: Yes I reviewed the patient's medical records. [facility] Narrative Medical decision making narrative: 64-year-old gentleman with an exacerbation of his chronic neck and low back pain as well as multiple other joints. Feeling significantly improved after IM Toradol and p.o. Decadron. Will give him a prescription for an additional 2 days of Decadron for a total of 3 days of 10 mg. Will continue with his usual pain regimen and follow-up with his primary care physician. At this point there is no evidence of infection, metastatic disease, epidural abscess or other acute spine or neurologic issues that would require further workup for hospital admission. He is safe for home discharge Discharge Plan Departure Patient Disposition: Home Clinical Impression: Chronic neck pain Chronic back pain Qualifiers: Back pain location: low back pain Back pain laterality: midline Sciatica presence: with sciatica Sciatica laterality: bilateral sciatica Qualified Code(s): M54.41 - Lumbago with sciatica, right side Discharge Date/Time: 05/29/20 23:26 Instructions: DI for Back Pain With Sciatica Activity Restrictions/Additional Instructions: Today your give a shot of Toradol to help with your acute pain as well as Decadron, a steroid, to help with the overall inflammation. 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 Please continue your usual home medications and follow-up with your primary care physician in the next week to make sure that your back to your baseline, controllable, pain levels. I wish you the best Prescriptions: New dexamethasone 4 mg tablet 10 mg PO DAILY Qty: 5 RF: 0 dexamethasone 4 mg tablet 10 mg PO DAILY Qty: 5 RF: 0 No Action hydroxyzine pamoate 25 mg capsule 25 mg PO Q4HR PRN (Reason: Nausea And Vomiting) Qty: 40 RF: 5 amitriptyline 25 mg tablet 25 mg PO BEDTIME Qty: 90 RF: 3 atorvastatin 40 mg tablet See Rx Instructions .ROUTE .COMPLEX Qty: 90 RF: 3 cyclobenzaprine 10 mg tablet 10 mg PO TIDP PRN (Reason: muscle spasm) Qty: 90 RF: 5 lansoprazole 30 mg capsule,delayed release(DR/EC) 30 mg PO DAILY Qty: 90 RF: 3 metoprolol succinate 50 mg tablet extended release 24 hr 50 mg PO DAILY Qty: 90 RF: 3 pregabalin 100 mg capsule 100 mg PO QID Qty: 120 RF: 3 oxycodone-acetaminophen 5-325 mg tablet 1 tab PO Q8H PRN (Reason: pain) Qty: 90 RF: 0 acetaminophen 500 mg capsule 1,000 mg PO TID PRN (Reason: pain) Qty: 100 RF: 5 Referrals: Myron Estrelal MD [Primary Care Provider] -
[2020-05-29] MEDS: dexAMETHasone 4 MG TABLET 10 MG PO (22:51)
[2020-05-29] MEDS: KETOROLAC 60 MG/2 ML VIAL 30 MG IM (22:51)
[2020-05-29 23:15] VITALS: BP 187/84; PULSE 75; RESP 18; O2SAT 97
== END 2020-05-29 23:26 | disposition home or self-care (01) ==
PROVIDERS: Emergency Provider Emergency Medicine; Family Provider Orthopaedic Surgery Orthopaedic Surgery of the Spine; PCP Student in an Organized Health Care Education/Training Program
DX: M54.2 Cervicalgia (principal); M54.41 Lumbago with sciatica, right side
CPT/HCPCS: 96372; 99283; J1885

== ENCOUNTER 2020-07-23 06:05 | Emergency (ER) | payer OTHER, MEDICARE, SELFPAY ==
[2018-09-27 13:00] VITALS: BMI 33.6
[2020-07-23 06:15] VITALS: BP 184/87; PULSE 65; RESP 16; TEMP 36.7; O2SAT 98; BMI 20.3
--- NOTE | 2020-07-23 07:29 | ED.BACK ---
HPI - Back Pain/Injury General Chief Complaint: Back Pain/Injury Stated Complaint: Lower back and bilateral leg pain Time Seen by Provider: 07/23/20 07:03 Source: patient Limitations: physical limitation History of Present Illness HPI Narrative: Patient for exacerbation of chronic low back pain. Patient had low back surgery fusion with [facility] [place]. [facility] 2 years ago. Patient states MRI here in 2018 was done after the surgery. Has been doing well. Ran out of his pain medication, refills tomorrow by family doctor. No new injuries. No fever chills. Has multiple visits for exacerbation of issues of chronic low back pain. Not immunosuppressed. currently not on antibiotics no fever chills cough cold congestion. No recent procedures. Denies any bowel or bladder incontinence or retention. The pain is lower back pain radiates in sciatic distribution both legs, down to the knees. At times to the big toes. Uses 2 canes to walk on daily basis. However is able to stand and walk without assist of these canes or personnel. Related Data Previous Rx's Medication Instructions Recorded acetaminophen 500 mg capsule 1,000 mg PO TID PRN #100 cap 04/13/18 hydroxyzine pamoate 25 mg capsule 25 mg PO Q4HR PRN #40 cap 02/13/19 atorvastatin 40 mg tablet See Rx Instructions .ROUTE 08/28/19 .COMPLEX #90 tab cyclobenzaprine 10 mg tablet 10 mg PO TIDP PRN #90 tab 11/28/19 lansoprazole 30 mg capsule,delayed 30 mg PO DAILY #90 cap 01/24/20 release metoprolol succinate 50 mg 50 mg PO DAILY #90 tab 05/26/20 tablet,extended release 24 hr pregabalin 100 mg capsule 100 mg PO QID #120 cap 05/26/20 dexamethasone 10 mg PO DAILY #5 tab 05/29/20 dexamethasone 10 mg PO DAILY #5 tab 05/29/20 amitriptyline 25 mg tablet 25 mg PO BEDTIME #90 tab 06/23/20 oxycodone-acetaminophen 5 mg-325 1 tab PO Q8H PRN #90 tab 07/22/20 mg tablet Allergies Allergy/AdvReac Type Severity Reaction Status Date / Time gabapentin AdvReac Severe Dizziness, Verified 07/23/20 06:15 increased pain symptoms morphine [MORPHINE] AdvReac Severe VOMITING Verified 07/23/20 06:15 Review of Systems Review of Systems Narrative: GENERAL: Denies chills, fatigue, malaise, fever, sweats. HEENT: Denies sinus pain, ear pain, sore throat, difficulty swallowing RESPIRATORY: Denies dyspnea, cough CARDIOVASCULAR: Denies chest pain, palpitations, edema, GASTROINTESTINAL: Denies nausea, vomiting, abdominal pain, diarrhea, constipation, melena. : Denies dysuria, frequency, hematuria MUSCULOSKELETAL: Complains muscle bony pain SKIN: Denies rash, skin lesions NEUROLOGIC: Denies weakness, headache, numbness, change in speech, confusion PSYCHIATRIC: No SI or HI or hallucinations ROS Unobtainable: All systems reviewed & are unremarkable except as noted in HPI and below Patient History Medical History CAD (coronary artery disease) (Chronic) Fusion of lumbar spine (Acute) Gastric ulcer (Acute) GERD (gastroesophageal reflux disease) (Acute) Hyperlipidemia (Chronic) Hypertension (Acute) Insomnia (Acute) Myocardial infarction (Resolved ~2011) Numbness and tingling (Acute) Surgical History History of arthroplasty of right knee (Acute) History of bilateral carpal tunnel release (Acute) History of cervical spinal surgery (Resolved ~02/2001) History of left knee surgery (Deleted) History of lumbar surgery (Resolved ~2000) Hx of appendectomy (Acute) Hx of cervical spine surgery (Acute ~12/2015) S/P coronary artery stent placement (Resolved 09/2011) S/P wrist surgery (Acute) Status post arthroscopic surgery of right knee (Deleted 12/2012) Status post rotator cuff repair (Resolved 2007) Family History Father CAD (coronary artery disease) Mother CAD (coronary artery disease) Arthritis Family/Other Alcoholism and drug addiction in family Autoimmune disease Arthritis Rheumatoid arthritis Other Drug abuse Social History household members: spouse and children Smoking Status: Current every day smoker alcohol intake: former Smoking Status: Current every day smoker alcohol intake frequency: other Substance Use Type: does not use Exam Narrative Exam Narrative: GENERAL: patient appears stated age. Well-nourished, well-developed patient, in no distress, not toxic not dyspneic HEAD: Normocephalic. EYES: Pupils equal round and reactive. No scleral icterus. No injection no discharge ENT: Mucous membranes moist. No drooling no tongue elevation no trismus no malocclusion NECK: Trachea midline. Non tender CARDIOVASCULAR: Regular rate and rhythm without murmurs, gallops, or rubs. RESPIRATORY: Clear to auscultation. Breath sounds equal bilaterally. No wheezes, rales, or rhonchi. GASTROINTESTINAL: Abdomen soft, non-tender EXTREMITIES: No gross deformities. BACK: Mid and lower back exposed. No rash. There is a stimulator pad on the skin. Able to stand. Pain with side bends left right as well as leaning forward and back. There pain with straight leg raise individually at 60?. NEURO: AOx4. Slow slight antalgic gait but stable. No ataxia. No footdrop. Strong bilateral patellar reflexes as well as ankle flexion extension. Light touch intact to bilateral legs. SKIN: Warm and dry PSYCH: Not anxious, is cooperative Initial Vital Signs Initial Vital Signs: Vital Signs Temperature 98.1 F 07/23/20 06:15 Pulse Rate 65 07/23/20 06:15 Respiratory Rate 16 07/23/20 06:15 Blood Pressure 184/87 H 07/23/20 06:15 Pulse Oximetry 98 07/23/20 06:15 Course Course Course Narrative: Patient able to walk up to the nurses station to use the phone to call his to drive for him. Before medications given. Orders Ordered: Discontinued Medications Hydromorphone HCl (Dilaudid) 1 mg IM NOW ONE Stop: 07/23/20 07:29 Last Admin: 07/23/20 07:39 Dose: 1 mg Documented by: GIAN Ketorolac Tromethamine (Toradol) 30 mg IM NOW ONE Stop: 07/23/20 07:29 Last Admin: 07/23/20 07:39 Dose: 30 mg Documented by: GIAN Reevaluation(s) Reevaluation #1: Pain improved/blood pressure improved. 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 He desires discharge home 142/64. Pain improving. He desires discharge home. at bedside to drive Time: 08:05 Vital Signs Vital signs: Vital Signs - 8 hr 07/23/20 06:15 07/23/20 08:04 Temperature 98.1 F Pulse Rate 65 54 L Respiratory Rate 16 16 Blood Pressure 184/87 H 142/64 H Pulse Oximetry 98 97 MDM - Back Pain/Injury Medical Records Attestation: I reviewed the patient's medical records. Medical records narrative: [address] [address] Magnetic Resonance Report Signed Patient: Handy Taveras BANNER#: [id number] : 4Acct:[id number] Age/Sex: 62 / MDate of Service: 06/14/18 Loc: MRI Accession Number: [id number] Procedure: MR lumbar spine wo con Ordering Provider: Karina Alamo MD PROCEDURE: MR LUMBAR SPINE WO CON INDICATIONS: Low back pain. Bilateral leg radicular pain TECHNIQUE: Noncontrast sagittal T1 spin echo and T2 fast echo, sagittal STIR, axial T1 and T2 fast spin echo through the lumbar spine. In cases with scoliosis, additional coronal T2 fast spin echo may be performed. COMPARISON: [facility], MR, L-SPINE WITHOUT CONTRAST, 07/15/2016, 17:18. [facility], CR, L-SPINE 2-3 VIEWS, 06/18/2016, 9:00. [facility], MR, L-SPINE WITHOUT CONTRAST, 06/03/2015, 17:02. [facility], MR, L-SPINE WITHOUT CONTRAST, 11/07/2013, 17:26. [facility], MR, L-SPINE WITHOUT CONTRAST, 09/07/2011, 16:49. FINDINGS: Image quality: Excellent. Alignment and Curvature: Grade 1 anterolisthesis is seen at the L4-L5 level. Bone Marrow: Marrow is of normal overall signal. No acute vertebral body compression fractures. Spinal Cord: Conus medullaris terminates at the L1 level. Visualized cord demonstrates normal signal and size. Paraspinous Soft Tissues: No paravertebral masses. T12-L1: Normal appearance. L1-L2: Normal appearance. L2-L3: Mild to moderate loss of disc height and disc signal are seen. There is a Schmorl's node seen at the inferior posterior aspect of L2, which has progressed compared to the prior examination. There is a mild degree of adjacent edema seen, as on series 4 image 10. Mild to moderate disc bulge is seen. There is an annular fissure seen posteriorly, as on 4 image 10. Moderate bilateral neural foraminal narrowing is seen. Moderate central canal narrowing is seen. These imaging findings are mildly progressed compared to the prior study. L3-L4: Mild loss of disc height is seen. Loss of disc signal is seen. Moderate generalized disc bulge is seen. Moderate facet joint hypertrophy is seen. Moderate bilateral neural foraminal narrowing is seen, left worse than right. Moderate central canal narrowing is seen. These degenerative changes have progressed compared to 2016. L4-L5: Moderate loss of disc height is seen. Loss of disc signal is seen. Moderate disc bulge is seen, which is eccentric to the right. There is moderate facet hypertrophy seen, right worse than left. Moderate associated hypertrophy of the ligamentum flavum can be seen. There is moderate left-sided and moderate to severe right-sided neural foraminal narrowing seen. There is a degree of impingement seen upon the exiting right L4 nerve root. Severe central canal narrowing is seen. When comparison is made with the prior examination, these findings are similar. L5-S1: Moderate loss of disc height is seen. Loss of disc signal is seen. Moderate disc bulge is seen, which is eccentric to the left. Mild to moderate facet hypertrophy is seen. There is moderate bilateral neural foraminal narrowing seen. Right hemilaminectomy changes are seen. No significant central canal narrowing is seen. When comparison is made with the prior examination, these findings are similar. IMPRESSION: Multiple levels of lumbar spine degenerative change are seen, which are slightly progressed at L2-L3 and L3-L4 compared to 2016. The degenerative changes are overall most prominent at L4-L5, with relatively stable degenerative change at this level. Interval progression of a Schmorl's node at the inferior endplate of L2. Dictated by: Darrius Cerrato M.D. on 06/14/2018 at 16:35 Approved by: Darrius Cerrato M.D. on 06/14/2018 at 16:45 MDM Narrative Medical decision making narrative: Appropriate for discharge home. Reviewed with patient no indication at this time for imaging or laboratory studies. No recent illness. No fall or recent illness. Patient states this is the exact same exacerbation of his chronic back pain. He is out of his home pain meds. No IV drug use Discharge Plan Departure Patient Disposition: Home Clinical Impression: Chronic low back pain with sciatica Qualifiers: Back pain laterality: unspecified Sciatica laterality: bilateral sciatica Qualified Code(s): M54.41 - Lumbago with sciatica, right side Discharge Date/Time: 07/23/20 08:05 Instructions: Managing Chronic Low Back Pain, DI for Back Pain With Sciatica Activity Restrictions/Additional Instructions: No driving today. Be sure to get your medication refill with family doctor tomorrow. Return if worse or if any questions concerns or any changes with urination or bowel movements. Or any weakness in the legs. Prescriptions: No Action hydroxyzine pamoate 25 mg capsule 25 mg PO Q4HR PRN (Reason: Nausea And Vomiting) Qty: 40 RF: 5 atorvastatin 40 mg tablet See Rx Instructions .ROUTE .COMPLEX Qty: 90 RF: 3 cyclobenzaprine 10 mg tablet 10 mg PO TIDP PRN (Reason: muscle spasm) Qty: 90 RF: 5 lansoprazole 30 mg capsule,delayed release(DR/EC) 30 mg PO DAILY Qty: 90 RF: 3 metoprolol succinate 50 mg tablet extended release 24 hr 50 mg PO DAILY Qty: 90 RF: 3 pregabalin 100 mg capsule 100 mg PO QID Qty: 120 RF: 3 amitriptyline 25 mg tablet 25 mg PO BEDTIME Qty: 90 RF: 3 oxycodone-acetaminophen 5-325 mg tablet 1 tab PO Q8H PRN (Reason: pain) Qty: 90 RF: 0 acetaminophen 500 mg capsule 1,000 mg PO TID PRN (Reason: pain) Qty: 100 RF: 5 dexamethasone 4 mg tablet 10 mg PO DAILY Qty: 5 RF: 0 dexamethasone 4 mg tablet 10 mg PO DAILY Qty: 5 RF: 0 Referrals: Myron Estrella MD [Primary Care Provider] -
[2020-07-23] MEDS: KETOROLAC 60 MG/2 ML VIAL 30 MG IM (07:39)
[2020-07-23] MEDS: HYDROMORPHONE 1 MG INJ IM (07:39)
[2020-07-23 08:04] VITALS: BP 142/64; PULSE 54; RESP 16; O2SAT 97
== END 2020-07-23 08:05 | disposition home or self-care (01) ==
PROVIDERS: Emergency Provider Emergency Medicine; Family Provider Orthopaedic Surgery Orthopaedic Surgery of the Spine; PCP Student in an Organized Health Care Education/Training Program
DX: M54.41 Lumbago with sciatica, right side (principal)
CPT/HCPCS: 96372; 99283; J1170; J1885

== ENCOUNTER → 2020-07-30 16:12 | Outpatient (CLI) | payer OTHER, MEDICARE, SELFPAY ==
[2018-09-27 13:00] VITALS: BMI 33.6
--- NOTE | 2020-07-30 16:18 | DI.MRI.S_ITS ---
PROCEDURE: MR LUMBAR SPINE WO CON INDICATIONS: Low back pain, sciatica TECHNIQUE: Noncontrast sagittal T1 spin echo and T2 fast echo, sagittal STIR, axial T1 and T2 fast spin echo through the lumbar spine. In cases with scoliosis, additional coronal T2 fast spin echo may be performed. COMPARISON: [facility], MR, L-SPINE WITHOUT CONTRAST, 07/15/2016, 17:18. [facility], CR, L-SPINE 2-3 VIEWS, 06/18/2016, 9:00. [facility], CR, SPINE LUMB 2 OR 3VW, 08/17/2016, 15:04. [facility], CR, XR LUMBAR SPINE 2 OR 3 VIEWS, 12/17/2018, 15:55. [facility], CR, XR LUMBAR SPINE 2 OR 3 VIEWS, 11/01/2018, 13:31. [facility], CR, XR LUMBAR SPINE 2-3V, 09/27/2018, 9:26. [facility], , MR LUMBAR SPINE WO CON, 06/14/2018, 17:04. FINDINGS: Image quality: There is artifact associated with the metallic hardware. Alignment and Curvature: There is normal bony alignment. Bone Marrow: Marrow is of normal overall signal. No acute vertebral body compression fractures. Spinal Cord: Conus medullaris terminates at the L1 level. Visualized cord demonstrates normal signal and size. Paraspinous Soft Tissues: No paravertebral masses. Postoperative changes are seen, with bilateral pedicle screws at L4, L5, and S1. Vertical fixation rods are seen. Disc spacers are seen at L4-L5 and L5-S1. There is associated susceptibility artifact. There has been removal of portions of the posterior elements. T12-L1: Normal appearance. L1-L2: Normal appearance. L2-L3: Moderate loss of disc height is seen. Loss of disc signal is seen. At least moderate disc bulge is seen. Moderate facet joint hypertrophy is seen. There is at least moderate left-sided and moderate right-sided neural foraminal narrowing seen. Moderate central canal narrowing is seen. There is a focal annular fissure seen posteriorly. When comparison is made with the prior examination, these findings are similar. L3-L4: Moderate loss of disc height is seen. Loss of disc signal is seen. At least moderate disc bulge is seen. Moderate prominent facet hypertrophy is seen. There is moderate right-sided and at least moderate left-sided neural foraminal narrowing seen. There is a degree of compression seen upon the exiting nerve roots. Moderate to severe central canal narrowing is seen, as on series 5, image 20. These degenerative changes are progressed compared to 2018. L4-L5: Postoperative changes seen at this level. Moderate disc bulge is seen, which is eccentric to the right side. Moderate facet joint hypertrophy is seen. There is at least moderate left-sided and moderate to severe right-sided neural foraminal narrowing seen. There is a degree of compression seen upon the exiting right L4 nerve root. Mild central canal narrowing is seen. This level is improved compared to the preoperative MRI. L5-S1: Postoperative change can be seen at this level. There is at least moderate disc bulge seen. Moderate facet joint hypertrophy is seen. There is at least moderate right-sided and [id number] left-sided neural foraminal narrowing seen. The central canal is widely patent. The degree of left-sided neural foraminal narrowing is improved compared to 2018. IMPRESSION: L4 through S1 postoperative change, with improvement compared to the preoperative MRI. Progression of degenerative change at L3-4 compared to 2018. Dictated by: Darrius Cerrato M.D. on 07/30/2020 at 16:31 Approved by: Darrius Cerrato M.D. on 07/30/2020 at 16:40
== END ==
PROVIDERS: Family Provider Orthopaedic Surgery Orthopaedic Surgery of the Spine; PCP Student in an Organized Health Care Education/Training Program; Referring Provider Student in an Organized Health Care Education/Training Program; Visit Provider Student in an Organized Health Care Education/Training Program
DX: M47.816 Spondylosis without myelopathy or radiculopathy, lumbar region (principal); M54.41 Lumbago with sciatica, right side; M54.42 Lumbago with sciatica, left side; G89.29 Other chronic pain
CPT/HCPCS: 72148

== ENCOUNTER 2020-09-15 22:51 | Emergency (ER) | payer OTHER, MEDICARE, SELFPAY ==
[2018-09-27 13:00] VITALS: BMI 33.6
[2020-09-15 23:00] VITALS: BP 201/90; PULSE 77; RESP 16; TEMP 37.1; O2SAT 97; BMI 34.5
--- NOTE | 2020-09-15 23:24 | ED_ITS ---
HPI - Back Pain/Injury General Chief Complaint: Back Pain/Injury Stated Complaint: neck, back and leg pain Time Seen by Provider: 09/15/20 23:14 Source: patient Mode of arrival: Ambulatory Limitations: no limitations History of Present Illness HPI Narrative: Patient is a 65-year-old male with chronic neck and back pain. His prescribed pain medication by his primary provider here for evaluation of 2- 3 days of a increase in his pain. No fevers. He states that his oral pain medicine at home is not helping his symptoms. Related Data Previous Rx's Medication Instructions Recorded acetaminophen 500 mg capsule 1,000 mg PO TID PRN #100 cap 04/13/18 hydroxyzine pamoate 25 mg capsule 25 mg PO Q4HR PRN #40 cap 02/13/19 atorvastatin 40 mg tablet See Rx Instructions .ROUTE 08/28/19 .COMPLEX #90 tab cyclobenzaprine 10 mg tablet 10 mg PO TIDP PRN #90 tab 11/28/19 lansoprazole 30 mg capsule,delayed 30 mg PO DAILY #90 cap 01/24/20 release metoprolol succinate 50 mg 50 mg PO DAILY #90 tab 05/26/20 tablet,extended release 24 hr pregabalin 100 mg capsule 100 mg PO QID #120 cap 05/26/20 amitriptyline 25 mg tablet 25 mg PO BEDTIME #90 tab 06/23/20 oxycodone-acetaminophen 5 mg-325 1 tab PO Q8H PRN #90 tab 08/19/20 mg tablet Allergies Allergy/AdvReac Type Severity Reaction Status Date / Time gabapentin AdvReac Severe Dizziness, Verified 07/23/20 06:15 increased pain symptoms morphine [MORPHINE] AdvReac Severe VOMITING Verified 07/23/20 06:15 Review of Systems Constitutional Constitutional: Denies fever(s) and Denies headache(s) ENT Ears, Nose, Mouth, and Throat: Denies headache(s) and Reports neck pain Cardiovascular Cardiovascular: Denies chest pain and Denies dyspnea Respiratory Respiratory: Denies dyspnea Gastrointestinal Gastrointestinal: Denies abdominal pain Musculoskeletal Musculoskeletal: Reports back pain and Reports neck pain Integumentary/Breasts Skin/Breast: Denies rash Neurologic Neurologic: Denies headache(s) Hematologic/Lymphatic Hematologic/Lymphatic: Denies easy bleeding and Denies easy bruising Patient History Medical History CAD (coronary artery disease) Fusion of lumbar spine Gastric ulcer GERD (gastroesophageal reflux disease) Hyperlipidemia Hypertension Insomnia Myocardial infarction (~2011) Numbness and tingling Surgical History History of arthroplasty of right knee History of bilateral carpal tunnel release History of cervical spinal surgery (~02/2001) History of left knee surgery History of lumbar surgery (~2000) Hx of appendectomy Hx of cervical spine surgery (~12/2015) S/P coronary artery stent placement (09/2011) S/P wrist surgery Status post arthroscopic surgery of right knee (12/2012) Status post rotator cuff repair (2007) Family History Father CAD (coronary artery disease) Mother CAD (coronary artery disease) Arthritis Family/Other Alcoholism and drug addiction in family Autoimmune disease Arthritis Rheumatoid arthritis Other Drug abuse Social History household members: spouse and children Smoking Status: Current every day smoker alcohol intake: former Smoking Status: Current every day smoker alcohol intake frequency: other Substance Use Type: does not use Exam Initial Vital Signs Initial Vital Signs: Vital Signs Temperature 98.7 F 09/15/20 23:00 Pulse Rate 77 09/15/20 23:00 Respiratory Rate 16 09/15/20 23:00 Blood Pressure 201/90 H 09/15/20 23:00 Pulse Oximetry 97 09/15/20 23:00 Const General: cooperative Limitations: mental status not altered HENMT Head: normal to inspection and normocephalic Resp Effort & Inspection: normal respiratory effort Cardio Rate: regular rate Skin Lesions: no lesions Rashes: no rashes Neuro General: patient alert, patient awake and patient oriented x3 Gait: normal gait Extrem General: normal to inspection Psych Appearance: well kempt Course Orders Ordered: Discontinued Medications Hydromorphone HCl (Hydromorphone 1 Mg Inj) 1 mg IM NOW ONE Stop: 09/15/20 23:26 Last Admin: 09/15/20 23:38 Dose: 1 mg Documented by: CIRILO Ketorolac Tromethamine (Ketorolac 60 Mg/2 Ml Vial) 30 mg IM NOW ONE Stop: 09/15/20 23:26 Last Admin: 09/15/20 23:38 Dose: 30 mg Documented by: CIRILO Vital Signs Vital signs: Vital Signs - 8 hr 09/15/20 23:00 09/15/20 23:53 Temperature 98.7 F Pulse Rate 77 74 Respiratory Rate 16 16 Blood Pressure 201/90 H 155/77 H Pulse Oximetry 97 97 MDM - Back Pain/Injury MDM Narrative Medical decision making narrative: Patient with an increase in his chronic pain. Was given a dose of pain medicine here in the ER and he was instructed that he needed to contact his primary provider for any further medication. No further workup needed in the emergency department. Patient was given return precautions. Discharge Plan Departure Patient Disposition: Home Clinical Impression: Chronic back pain Instructions: Managing Chronic Low Back Pain Activity Restrictions/Additional Instructions: Continue taking all your medications as directed. Contact your primary provider for follow-up. Prescriptions: No Action hydroxyzine pamoate 25 mg capsule 25 mg PO Q4HR PRN (Reason: Nausea And Vomiting) Qty: 40 RF: 5 atorvastatin 40 mg tablet See Rx Instructions .ROUTE .COMPLEX Qty: 90 RF: 3 cyclobenzaprine 10 mg tablet 10 mg PO TIDP PRN (Reason: muscle spasm) Qty: 90 RF: 5 lansoprazole 30 mg capsule,delayed release(DR/EC) 30 mg PO DAILY Qty: 90 RF: 3 metoprolol succinate 50 mg tablet extended release 24 hr 50 mg PO DAILY Qty: 90 RF: 3 pregabalin 100 mg capsule 100 mg PO QID Qty: 120 RF: 3 amitriptyline 25 mg tablet 25 mg PO BEDTIME Qty: 90 RF: 3 oxycodone-acetaminophen 5-325 mg tablet 1 tab PO Q8H PRN (Reason: pain) Qty: 90 RF: 0 acetaminophen 500 mg capsule 1,000 mg PO TID PRN (Reason: pain) Qty: 100 RF: 5 Referrals: Myron Estrella MD [Primary Care Provider] -
[2020-09-15] MEDS: HYDROMORPHONE 1 MG INJ IM (23:38)
[2020-09-15] MEDS: KETOROLAC 60 MG/2 ML VIAL 30 MG IM (23:38)
[2020-09-15 23:53] VITALS: BP 155/77; PULSE 74; RESP 16; O2SAT 97
== END 2020-09-15 23:53 | disposition home or self-care (01) ==
PROVIDERS: Emergency Provider Emergency Medicine; Family Provider Orthopaedic Surgery Orthopaedic Surgery of the Spine; PCP Student in an Organized Health Care Education/Training Program
DX: M54.5 Low back pain (principal); M54.2 Cervicalgia
CPT/HCPCS: 96372; 99281; 99283; J1170; J1885

== ENCOUNTER → 2020-11-17 16:06 | Outpatient (CLI) | payer OTHER, MEDICARE, SELFPAY ==
[2018-09-27 13:00] VITALS: BMI 33.6
[2020-11-17 17:08] LABS: Bacteria Urine None Seen; RBC Urine None Seen (0-5/HPF); WBC Urine None Seen (0-5/HPF)
[2020-11-17 17:51] LABS: Appearance Urine UA CLEAR; Bilirubin Urine UA NEGATIVE (NEGATIVE); Color Urine UA YELLOW; Glucose Urine UA 2+ g/dL (Negative); Ketones Urine UA TRACE (NEGATIVE); Leukocyte Esterase Urine UA NEGATIVE (NEGATIVE); Nitrite Urine UA NEGATIVE (Negative); Occult Blood Urine UA NEGATIVE (Negative); Protein Urine UA TRACE (Negative); Urobilinogen Urine UA 0.2 E.U./dL (0.2)
[2020-11-17 17:56] LABS: BUN Creatinine Ratio 15.5 (6-22); Blood Urea Nitrogen 11 mg/dL (9-20); Calcium 9.2 mg/dL (8.4-10.2); Carbon Dioxide 25 mmol/L (22-32); Chloride 103 mmol/L (98-107); Estimated Glomerular Filt Rate > 60.0 mL/min (>60); Glucose 267 mg/dL (80-110); HEMOLYSIS < 15 (0-50); Potassium 4.1 mmol/L (3.4-5.1); Sodium 136 mmol/L (137-145)
[2020-11-17 18:00] LABS: Add Manual Diff / Slide Review NO; Basophils Absolute Auto 100 /uL (0-100); Basophils Percent Auto 0.7 % (0-2); Eosinophils Absolute Auto 100 /uL (0-450); Eosinophils Percent Auto 1.5 % (2-4); Hemoglobin 13.3 g/dL (13.5-17.5); Lymphocytes Absolute Auto 3000 /uL (1100-4500); Mean Corpuscular HGB Conc 33.4 % (30-36); Mean Corpuscular Hemoglobin 28.4 PG (26-34); Monocytes Absolute Auto 600 /uL (0-900); Monocytes Percent Auto 8.5 % (3-14); Neutrophils Absolute Auto 3700 /uL (1500-7000); Neutrophils Percent Auto 49.3 % (50-75); Platelet Count 234 X10^3/uL (150-400); Red Cell Distribution Width 17.2 % (11.6-14.8); White Blood Cell Count 7.5 X10^3/uL (4.5-11.0)
[2020-11-17 18:02] LABS: Culture Indicated Urine Cult Not Indicated; Urine Comments Microscopic Normal
== END ==
PROVIDERS: Family Provider Orthopaedic Surgery Orthopaedic Surgery of the Spine; PCP Student in an Organized Health Care Education/Training Program; Referring Provider Orthopaedic Surgery Orthopaedic Surgery of the Spine; Visit Provider Orthopaedic Surgery Orthopaedic Surgery of the Spine
DX: Z01.818 Encounter for other preprocedural examination (principal); Z01.812 Encounter for preprocedural laboratory examination; N39.0 Urinary tract infection, site not specified
CPT/HCPCS: 36415; 80048; 81001; 85025; 93005

== ENCOUNTER → 2020-11-18 11:08 | Outpatient (CLI) | payer OTHER, MEDICARE, SELFPAY ==
[2018-09-27 13:00] VITALS: BMI 33.6
[2020-11-18 12:43] LABS: Hemoglobin A1C% w Est Avg Glu 9.2 % (4.0-6.0)
== END ==
PROVIDERS: Family Provider Orthopaedic Surgery Orthopaedic Surgery of the Spine; PCP Student in an Organized Health Care Education/Training Program; Referring Provider Orthopaedic Surgery Orthopaedic Surgery of the Spine; Visit Provider Orthopaedic Surgery Orthopaedic Surgery of the Spine
DX: R73.9 Hyperglycemia, unspecified (principal)
CPT/HCPCS: 36415; 83036

== ENCOUNTER 2021-02-03 22:52 | Emergency (ER) | payer OTHER, MEDICARE, SELFPAY ==
[2018-09-27 13:00] VITALS: BMI 33.6
[2021-02-03 23:21] VITALS: BP 165/76; PULSE 64; RESP 22; TEMP 36.8; O2SAT 99; BMI 34.5
--- NOTE | 2021-02-04 00:50 | ED_ITS ---
HPI - Back Pain/Injury General Chief Complaint: Back Pain/Injury Stated Complaint: neck, back and leg pain Time Seen by Provider: 02/04/21 00:50 Source: patient Limitations: no limitations History of Present Illness HPI Narrative: 65-year-old gentleman with long history of chronic neck and back pain currently on multiple pain medications including Percocet, Flexeril, amitriptyline, and pregabalin (has all medications available to him at home). He states that he was scheduled for surgical intervention in the lumbar spine last month but his blood sugars were 2 elevated in the surgery needed to be rescheduled. Tonight without any obvious increased activity, trauma, fevers or other changes he notes that his pain is significantly increased and he comes in requesting help with a shot to the control the pain and help him get some sleep this evening. He describes no new neurologic findings, no change to baseline neuropathy or radicular complaints down legs or bilateral arms. No headaches, no palpitations, no vomiting no diarrhea. Related Data Home Medications Medication Instructions Recorded Confirmed docusate sodium 100 mg capsule 100 mg PO BID 09/29/20 11/23/20 Previous Rx's Medication Instructions Recorded acetaminophen 500 mg capsule 1,000 mg PO TID PRN #100 cap 04/13/18 metoprolol succinate 50 mg 50 mg PO DAILY #90 tab 05/26/20 tablet,extended release 24 hr amitriptyline 25 mg tablet 25 mg PO BEDTIME #90 tab 06/23/20 atorvastatin 40 mg tablet See Rx Instructions .ROUTE 09/21/20 .COMPLEX #90 tab pregabalin 100 mg capsule 100 mg PO QID #120 cap 09/21/20 cyclobenzaprine 10 mg tablet 10 mg PO TIDP PRN #90 tab 11/17/20 glucose meter #1 ea 11/24/20 lancets #100 ea 11/24/20 test strips #100 ea 11/24/20 ketorolac 60 mg/2 mL intramuscular 60 mg IM ONCE #2 ml 12/29/20 solution lansoprazole 30 mg capsule,delayed 30 mg PO DAILY #90 cap 01/14/21 release oxycodone-acetaminophen 5 mg-325 1 tab PO Q8H PRN #90 tab 01/18/21 mg tablet metformin 500 mg tablet 500 mg PO BID #180 tab 01/20/21 Allergies Allergy/AdvReac Type Severity Reaction Status Date / Time gabapentin AdvReac Severe Dizziness, Verified 02/03/21 23:21 increased pain symptoms morphine [MORPHINE] AdvReac Severe VOMITING Verified 02/03/21 23:21 Review of Systems Review of Systems Narrative: Remainder of complete review of systems is otherwise unremarkable except for that included in the HPI. Patient History Medical History CAD (coronary artery disease) Fusion of lumbar spine Gastric ulcer GERD (gastroesophageal reflux disease) Hyperlipidemia Hypertension Insomnia Myocardial infarction (~2011) Numbness and tingling Surgical History History of arthroplasty of right knee History of bilateral carpal tunnel release History of cervical spinal surgery (~02/2001) History of left knee surgery History of lumbar surgery (~2000) Hx of appendectomy Hx of cervical spine surgery (~12/2015) S/P coronary artery stent placement (09/2011) S/P wrist surgery Status post arthroscopic surgery of right knee (12/2012) Status post rotator cuff repair (2007) Family History Father CAD (coronary artery disease) Mother CAD (coronary artery disease) Arthritis Family/Other Alcoholism and drug addiction in family Autoimmune disease Arthritis Rheumatoid arthritis Other Drug abuse Social History household members: spouse and children Smoking Status: Current every day smoker alcohol intake: former Smoking Status: Current every day smoker alcohol intake frequency: other Substance Use Type: does not use Exam Narrative Exam Narrative: General: Alert appropriate in no acute distress Respiratory: Able to speak in full sentences, no obvious respiratory distress Skin: No obvious rashes, warm and dry Neurologic: Grossly intact no obvious asymmetries or abnormalities. He complains of radicular pain down the lateral aspects of both legs to his heels. Psych: appropriate insight and affect, cooperative Spine: No skin changes, no point tenderness no warmth, redness or significant paraspinous spasm. Initial Vital Signs Initial Vital Signs: Vital Signs Temperature 98.2 F 02/03/21 23:21 Pulse Rate 64 02/03/21 23:21 Respiratory Rate 22 02/03/21 23:21 Blood Pressure 165/76 H 02/03/21 23:21 Pulse Oximetry 99 02/03/21 23:21 Course Orders Ordered: Discontinued Medications Hydromorphone HCl (Hydromorphone 1 Mg Inj) 1 mg IM NOW ONE Stop: 02/04/21 01:20 Last Admin: 02/04/21 01:22 Dose: 1 mg Documented by: OREN Ketorolac Tromethamine (Ketorolac 30 Mg/Ml Vial) 30 mg IM NOW ONE Stop: 02/04/21 01:02 Last Admin: 02/04/21 01:18 Dose: 30 mg Documented by: OREN Vital Signs Vital signs: Vital Signs - 8 hr 02/03/21 23:21 02/04/21 01:43 Temperature 98.2 F Pulse Rate 64 75 Respiratory Rate 22 18 Blood Pressure 165/76 H 160/85 H Pulse Oximetry 99 97 [facility] - Back Pain/Injury Medical Records Attestation: I reviewed the patient's medical records. [facility] Narrative Medical decision making narrative: 65-year-old gentleman with a long history of back and neck pain with acute exacerbation this evening. No significant red flags to suggest infection fracture or epidural abscess. He is given or IM Toradol is single mg of IM Dilaudid with significant relief of pain and he is safe for home discharge Discharge Plan Departure Patient Disposition: Home Clinical Impression: Acute exacerbation of chronic low back pain Instructions: DI for Low Back Pain Activity Restrictions/Additional Instructions: Thank you for coming in today I am sorry that your chronic back pain is so exacerbated. You have been given a shot of Toradol in the emergency department. Please continue with all of your usual pain medications. If you have new symptoms, develops fevers or worsening numbness please feel free to return to the ER for further evaluation Prescriptions: No Action metoprolol succinate 50 mg tablet extended release 24 hr 50 mg PO DAILY Qty: 90 RF: 3 amitriptyline 25 mg tablet 25 mg PO BEDTIME Qty: 90 RF: 3 atorvastatin 40 mg tablet See Rx Instructions .ROUTE .COMPLEX Qty: 90 RF: 3 pregabalin 100 mg capsule 100 mg PO QID Qty: 120 RF: 4 cyclobenzaprine 10 mg tablet 10 mg PO TIDP PRN (Reason: muscle spasm) Qty: 90 RF: 5 (DME) glucose meter See Rx Instructions .Route .MEDSUPPLY Qty: 1 RF: 0 (DME) lancets See Rx Instructions .Route .MEDSUPPLY Qty: 100 RF: 3 (DME) test strips See Rx Instructions .Route .MEDSUPPLY Qty: 100 RF: 3 lansoprazole 30 mg capsule,delayed release(DR/EC) 30 mg PO DAILY Qty: 90 RF: 3 oxycodone-acetaminophen 5-325 mg tablet 1 tab PO Q8H PRN (Reason: pain) Qty: 90 RF: 0 metformin 500 mg tablet 500 mg PO BID Qty: 180 RF: 1 docusate sodium 100 mg capsule 100 mg PO BID RF: 0 ketorolac 60 mg/2 mL solution 60 mg IM ONCE Qty: 2 RF: 0 acetaminophen 500 mg capsule 1,000 mg PO TID PRN (Reason: pain) Qty: 100 RF: 5 Referrals: Myron Estrella MD [Primary Care Provider] -
--- NOTE | 2021-02-04 01:16 | PC.NURSE ---
History of back surgeries and pain issues. Was supposed to have surgery last month but blood sugar was too high. Increased pain over the past two weeks. Chronic numbness in bilateral upper legs
[2021-02-04] MEDS: KETOROLAC 30 MG/ML VIAL IM (01:18)
[2021-02-04] MEDS: HYDROMORPHONE 1 MG INJ IM (01:22)
[2021-02-04 01:43] VITALS: BP 160/85; PULSE 75; RESP 18; O2SAT 97
== END 2021-02-04 01:43 | disposition home or self-care (01) ==
PROVIDERS: Emergency Provider Emergency Medicine; Family Provider Orthopaedic Surgery Orthopaedic Surgery of the Spine; PCP Student in an Organized Health Care Education/Training Program
DX: M54.5 Low back pain (principal); M54.2 Cervicalgia
CPT/HCPCS: 96372; 99283; J1170; J1885

== ENCOUNTER → 2021-02-05 14:14 | Outpatient (CLI) | payer OTHER, MEDICARE, SELFPAY ==
[2018-09-27 13:00] VITALS: BMI 33.6
[2021-02-05 15:31] LABS: Hemoglobin A1C% w Est Avg Glu 7.4 % (4.0-6.0)
[2021-02-05 16:13] LABS: BUN Creatinine Ratio 14.1 (6-22); Blood Urea Nitrogen 11 mg/dL (9-20); Cholesterol 114 mg/dL (140-199); Estimated Glomerular Filt Rate > 60.0 mL/min (>60); HDL Cholesterol 30 mg/dL (40-60); LDL Cholesterol Calculated 39 mg/dL (<100); Triglycerides 224 mg/dL (35-150)
[2021-02-05 19:20] LABS: Creatinine Urine Random 100.5 mg/dL
[2021-02-05 19:32] LABS: Microalbumin Urine Random < 0.6 mg/dL (0-1.6)
== END ==
PROVIDERS: Family Provider Orthopaedic Surgery Orthopaedic Surgery of the Spine; PCP Student in an Organized Health Care Education/Training Program; Referring Provider Student in an Organized Health Care Education/Training Program; Visit Provider Student in an Organized Health Care Education/Training Program
DX: E11.9 Type 2 diabetes mellitus without complications (principal); E78.00 Pure hypercholesterolemia, unspecified; I10 Essential (primary) hypertension
CPT/HCPCS: 36415; 80061; 82043; 82565; 82570; 83036; 84520

== ENCOUNTER → 2021-04-28 11:54 | Outpatient (CLI) | payer OTHER, MEDICARE, SELFPAY ==
[2018-09-27 13:00] VITALS: BMI 33.6
[2021-04-28 12:43] LABS: COVID19 -Nasal RAPID Negative (Negative)
== END ==
PROVIDERS: Family Provider Orthopaedic Surgery Orthopaedic Surgery of the Spine; PCP Student in an Organized Health Care Education/Training Program; Referring Provider Student in an Organized Health Care Education/Training Program; Visit Provider Student in an Organized Health Care Education/Training Program
DX: Z01.812 Encounter for preprocedural laboratory examination (principal); Z20.822 Contact with and (suspected) exposure to COVID-19
CPT/HCPCS: 87635

== ENCOUNTER 2021-04-30 06:22 | Inpatient (IN) | payer OTHER, MEDICARE, SELFPAY ==
[2018-09-27 13:00] VITALS: BMI 33.6
[2021-04-27 13:42] VITALS: BMI 34.5
[2021-04-30] VITALS (17 sets, daily range): BP systolic 130–183; BP diastolic 53–93; PULSE 62–83; RESP 10–20; TEMP 36.3–37.1; O2SAT 90–98; BMI 33.9
[2021-04-30] MEDS: LACTATED RINGERS 1,000 ML 42 ML IV ×3 (07:16→11:48)
--- NOTE | 2021-04-30 07:21 | SUR.PREOP ---
Scab on mid back shown to DESTINEY Ascencio. Picture taken to send to Dr Alamo to assess. Surgery to proceed.
--- NOTE | 2021-04-30 07:40 | PM.PREOP ---
Pre-operative Note COVID-19 COVID-19 status: Negative Result date/Date tested (Pos, Neg/Pending): 04/28/21 Interval Note History & Physical reviewed/Exam performed by Physician: Yes Changes to H&P: No
[2021-04-30] MEDS: CEFAZOLIN 1 GM VIAL 2 GM IV ×2 (08:29→16:44)
[2021-04-30] MEDS: BUPIVACAINE 0.25% W/ EPI 30 ML VIAL INJ (09:21)
[2021-04-30] MEDS: BUPIVACAINE LIPOSOME 266 MG/20 ML VIAL INJ (09:22)
--- NOTE | 2021-04-30 11:38 | DI.RAD.S_ITS ---
PROCEDURE: XR LUMBAR SPINE 2-3V INDICATIONS: L3-4 TLIF TECHNIQUE: To views of the lumbar spine were acquired. COMPARISON: [facility], CR, XR LUMBAR SPINE 2-3V, 09/27/2018, 9:26. FINDINGS: Bones: Postsurgical changes compatible with L3-S1 TLIF. L3-L4 TLIF postsurgical changes are new compared to prior exam. Postsurgical changes compatible with L4-S1 TLIF are stable compared to the prior exam. Orthopedic hardware is in expected position. There is normal bony alignment. No vertebral body compression fractures. No suspicious bony lesions. Soft tissues: Overlying bowel gas pattern is normal. No suspicious soft tissue calcifications. IMPRESSION: Expected postsurgical change for L3-S1 TLIF. Dictated by: Graciela Goldstein MD, PhD on 04/30/2021 at 11:48 Approved by: Graciela Goldstein MD, PhD on 04/30/2021 at 11:50
--- NOTE | 2021-04-30 12:10 | P.OP_ITS ---
Operative Date/Time/Diagnoses Date of procedure: 04/30/21 Time of procedure: 08:00 Pre-op diagnosis: 1. L3-4, L4-5, L5-S1 spinal stenosis 2. Hx of L4-5, L5-S1 fusion 3. Lumbar spondylosis with radiculopathy Post-op diagnosis: same Procedure & Clinicians Procedure: 1. L3-4 posterolateral and posterior interbody fusion 2. L3-4 posterior interbody cage placement 3. L4-5, L5-S1 posterior segmental instrumentation removal 4. L4-5, L5-S1 revision laminectomy with exploration of fusion 5. L3-4, L4-5, L5-S1 posterior segmental instrumentation with pedicle screw placement 6. L4-5, L5-S1 posterolatearl fusion 7. [place] of bone marrow from iliac crest through a separate incision 8. Utilization of microsurgical technique and operating microscope Same procedure as scheduled: Yes Indications: Patient has been having chronic back pain and worsening lumbar radiculopathy. Fusion had previous fusion has been doing well until the last 6 months. Patient failed multiple conservative management with worsening pain weakness and numbness in her lower extremity. Patient has been having difficulty performing activity of daily living. After discussing risks benefits of treatment options, patient elected proceed with surgery. Surgeon: Karina Alamo Plastic Die Maker Apprentice: Boyd Velazquez Click Yes if Unassisted: No Anesthesia Type: General Operative Notes Closure Type: primary Specimen(s): none sent Prosthetic devices, grafts, tissues, transplants, or devices: Globus revolve screws, Rise cage Applied: catheter Estimated Blood Loss (mL): 200 Blood products transfused: none Procedure in detail: Patient was seen in the preoperative area. Risks and benefits of the surgery was discussed with the patient. Informed consent was obtained from the patient and placed in the chart. Surgical site was marked. Patient was taken to the operative room. General anesthesia was administered. Prophylactic antibiotic was given to the patient less than 30 min before the incision was made. Patient was placed into a prone position on the Moe table. Patient's back was then prepped and draped in the sterile fashion. Time- out was performed at this time. Using patient's previous scar incision was made over the L3-4 L4-5 L5-S1 had interval on the left side. Fascia was incised in line with skin incision. Patient's previously placed hardware over the L4-5 L5-S1 level was identified by dissecting down to the level the hardware using a Bovie and a Moreno. The locking caps which was removed using globus screwdriver. The locking ann was then removed from the tulips of the pedicle screws using a Randy. The pedicle screws were then removed using the screwdriver. The screws were found to have loose purchase in L4 and S1 pedicles and good purchase in L5 pedicles. The Globus and MARS retractors was then placed into the wound and docked onto the L3 lamina using C-arm guidance. Using microsurgical technique and operating microscope a laminectomy facetectomy was performed by removing the L3 lamina and the L3-4 facet. Patient was found have severe neural foramen and central stenosis which was fully decompressed after the laminectomy and facetectomy was completed. The disc space at L3-4 level was identified next. And a total diskectomy was performed at L3-4 level. The endplates were decorticated using a rasp and shaver. The total diskectomy and decortication was performed at L3-4 level in order to to accomplish a L3-4 fusion. The local bone from the laminectomy and facetectomy was saved for local bone grafting. After the total diskectomy and decortication was completed, Trifecta bone graft material was combined with local bone that was harvested earlier. At this time, a separate skin is incision was made over the iliac crest. A Jamshidi needle was inserted into the iliac crest through a separate skin incision. 5 cc of bone marrow aspiration was obtained through the separate skin incision using a Jamshidi needle from the iliac crest. The bone marrow aspiration was combined with local bone and the Trifecta bone grafting material. The bone grafting material was placed into the L3-4 interbody space along with a expandable cage. The cage was expanded to its maximum height using the torque limiting screwdriver. At this time a mirror image incision was made on the right side. The fascia was incised in line with the skin incision. Patient's previously placed hardware on the right side was then removed in the same fashion as it was on the left side. The hardware was also found to have good purchase. The fusion mass on the left side was exposed by performing a right-sided hemilaminectomy at L4-5 L5-S1 level. The hemilaminectomy was performed using the Kerrison rongeur to undercut the lamina as well removing additional epidural scar tissue for purpose of decompressing the epidural space. The fusion mass was explored and was found have visible motion indicating pseudoarthrosis L4-5 and L5-S1 level. Globus MARS retractor was inserted and docked onto the L3-4 L4-5 L5-S1 posterolateral gutter. Using the power drill, posterior-lateral decortication was performed at L3-4 L4-5 L5-S1 level until bleeding cortical bone was identified. The remaining bone grafting material was placed into the L3-4 L4-5 L5-S1 posterior lateral gutter he order to accomplish posterolateral fusion at the L3-4 L4-5 L5-S1 level. Using the double C-arm technique, pedicle screws were placed into the L3-L4 L5 and S1 pedicles bilaterally. This was done by placing the Jamshidi needle into the pedicles, then placing the guidewires over the Jamshidi needle, and finally placing the cannulated screws over the guidewires bilaterally. After the pedicle screws were placed, 2 titanium rods was locked into the heads of the pedicle screws using locking caps and torque limiting screwdriver. After all the hardware was placed, and confirmed with AP and lateral C-arm imaging, the wound was then irrigated with sterile normal saline and packed with Ray-Marifer gauze for 3 min to accomplish hemostasis. After the gauze was removed the deep fascia was closed with #1 Vicryl suture. The subcutaneous layer was closed with 2-0 Vicryl. The skin was closed with skin rajeev. Patient tolerated the procedure well. There were no complications. Complications: none Post-operative Condition: stable Disposition: PACU Plan for aftercare: Admit to inpatient hospital
--- NOTE | 2021-04-30 12:27 | SUR.PHASEI ---
Received to PACU after general anesthesia. Occassionally needing jaw thrust - awakens when attempting to place oral airway. Pt supporting own airway. Report received from Dr Maldonado and DESTINEY Tello.
[2021-04-30] MEDS: HYDROMORPHONE 2 MG INJ IV ×3 (12:35→12:57)
[2021-04-30] MEDS: OXYCODONE IR 5 MG TABLET PO (13:03)
--- NOTE | 2021-04-30 13:43 | SUR.PHASEI ---
Transferred to room 210 in stable condition. Received in room by DESTINEY Montesinos. Back drsg remains D/I Pt belongings including walker and cane brought to pt's room.
[2021-04-30] MEDS: SODIUM CHLORIDE 0.9% 1,000 ML 100 ML IV (14:17)
[2021-04-30] MEDS: PREGABALIN 50 MG CAPSULE 100 MG PO ×3 (14:17→21:32)
[2021-04-30] MEDS: HYDROMORPHONE 0.5 MG INJ IV ×3 (14:22→21:34)
--- NOTE | 2021-04-30 15:16 | PC.NURSE ---
A&Ox4. VSS. Had some pain in his back from laying in bed for an extended period of time, relieved with walking and [place] PRN. ECHO done this morning. NIH:0. Able to speak clearly, no facial droop, able to swallow well. Call light within reach, bed low.
[2021-04-30] MEDS: OXYCODONE IR 5 MG TABLET 10 MG PO ×3 (16:37→22:55)
[2021-04-30] MEDS: hydrOXYzine pamoate 25 MG CAPSULE PO (17:56)
[2021-04-30] MEDS: ACETAMINOPHEN 325 MG TABLET 650 MG PO (19:22)
[2021-04-30] MEDS: ATORVASTATIN 20 MG TABLET PO (21:31)
[2021-04-30] MEDS: METFORMIN HCL 500 MG TABLET PO (21:31)
[2021-04-30] MEDS: SENNOSIDES 8.6 MG TABLET 17.2 MG PO (21:32)
[2021-04-30] MEDS: AMITRIPTYLINE 25 MG TABLET PO (21:33)
[2021-04-30] MEDS: DOCUSATE 100 MG CAPSULE PO (21:33)
[2021-05-01] VITALS (7 sets, daily range): BP systolic 117–154; BP diastolic 61–71; PULSE 66–85; RESP 12–20; TEMP 36.1–37.9; O2SAT 85–98
[2021-05-01] MEDS: CEFAZOLIN 1 GM VIAL 2 GM IV (00:45)
[2021-05-01] MEDS: SODIUM CHLORIDE 0.9% 1,000 ML 100 ML IV (00:49)
[2021-05-01] MEDS: OXYCODONE IR 5 MG TABLET 10 MG PO ×3 (02:28→19:58)
[2021-05-01] MEDS: PANTOPRAZOLE DR 40 MG TABLET PO (06:17)
[2021-05-01 06:53] LABS: Hematocrit 37.8 % (41-53); Hemoglobin 12.2 g/dL (13.5-17.5)
[2021-05-01] MEDS: PREGABALIN 50 MG CAPSULE 100 MG PO ×4 (08:32→21:00)
[2021-05-01] MEDS: MORPHINE IR 15 MG TABLET 30 MG PO (08:33)
[2021-05-01] MEDS: METOPROLOL ER 50 MG TABLET PO (08:38)
[2021-05-01] MEDS: METFORMIN HCL 500 MG TABLET PO ×2 (08:38→20:13)
[2021-05-01] MEDS: DOCUSATE 100 MG CAPSULE PO ×2 (08:38→21:32)
[2021-05-01] MEDS: SODIUM CHLORIDE 0.9% FLUSH 10 ML IV ×2 (09:00→21:33)
--- NOTE | 2021-05-01 09:08 | OT.IP.EVAL ---
Current Diagnoses Other spondylosis with radiculopathy, lumbosacral region (04/30/21) Spinal stenosis, lumbar region with neurogenic claudication (04/30/21) Arthrodesis status (04/30/21) Surgery Performed Operation Date: 04/30/21 07:45 Actual Procedures p L3-4 TLIF, L2-3 hemilaminectomy,L4-S1 lumbar HWR, exploration of fusion, repeat laminectomy, reinsertion of hardware, L3-S1 PSF w. instrumentation - Karina Alamo MD Past Medical History (Last Reviewed 05/01/21 @ 09:41 by Boyd Velazquez PA-C) CAD (coronary artery disease) Fusion of lumbar spine Gastric ulcer GERD (gastroesophageal reflux disease) History of arthroplasty of right knee History of bilateral carpal tunnel release History of cervical spinal surgery (~02/2001) History of left knee surgery History of lumbar spinal fusion (09/27/18) History of lumbar surgery (~2000) Hx of appendectomy Hx of cervical spine surgery (~12/2015) Hyperlipidemia Hypertension Insomnia Myocardial infarction (~2011) Numbness and tingling S/P coronary artery stent placement (09/2011) S/P wrist surgery Status post arthroscopic surgery of right knee (12/2012) Surgical History (Last Reviewed 05/01/21 @ 09:41 by Boyd Velazquez PA-C) History of arthroplasty of right knee History of bilateral carpal tunnel release History of cervical spinal surgery (~02/2001) History of left knee surgery History of lumbar spinal fusion (09/27/18) History of lumbar surgery (~2000) Hx of appendectomy Hx of cervical spine surgery (~12/2015) S/P coronary artery stent placement (09/2011) S/P wrist surgery Status post arthroscopic surgery of right knee (12/2012) Status post rotator cuff repair (2007) Occupational Therapy Inpatient Evaluation/Re-Eval M1 PT/OT-IP Prior Functional Status Start: 05/01/21 13:58 Freq: NEEDED Status: Active Protocol: Document 05/01/21 15:31 CGR (Rec: 05/01/21 16:02 CGR [id number]) Medical Review Prior Functional Status Medical History Reviewed Yes Communication Pt is and effective verbal communicator but presents as lethargic with need for increased time for comprehension. Mobility and Gait Pt indicated that he uses a 4WW at baseline. Per P.T., pt' s states that prior to a month ago, pt was only using his SPC. Activities of Daily Living and IADL's Pt states he was IND in all ADLs. Social History Household Members spouse,children Living Arrangements House Number of Floors (Floors) One Floor Number of Stairs To Enter/Railing? 4 steps to enter with L rail assending Home Environment Standard Height Toilet,Tub/ Shower Home Equipment Four Wheel Walker,Straight Cane,Hand Held Shower Employment Status Retired Additional Social History Comment spouse and son lives with pt but spouse stated that they work but will take a few days off work to assist pt pt sleeps on a recliner M1 PT/OT-IP Prior Functional Status Start: 05/01/21 15:31 Freq: NEEDED Status: Active Protocol: Document 05/01/21 15:31 CGR (Rec: 05/01/21 16:02 CGR [id number]) Medical Review Prior Functional Status Medical History Reviewed Yes Communication Pt is and effective verbal communicator but presents as lethargic with need for increased time for comprehension. Mobility and Gait Pt indicated that he uses a 4WW at baseline. Per P.T., pt' s states that prior to a month ago, pt was only using his SPC. Activities of Daily Living and IADL's Pt states he was IND in all ADLs. Social History Household Members spouse,children Living Arrangements House Number of Floors (Floors) One Floor Number of Stairs To Enter/Railing? 4 steps to enter with L rail assending Home Environment Standard Height Toilet,Tub/ Shower Home Equipment Four Wheel Walker,Straight Cane,Hand Held Shower Employment Status Retired Additional Social History Comment spouse and son lives with pt but spouse stated that they work but will take a few days off work to assist pt pt sleeps on a recliner M2 OT-IP Current Condition Start: 05/01/21 15:31 Freq: Status: Active Protocol: Document 05/01/21 15:31 CGR (Rec: 05/01/21 16:02 CGR [id number]) Occupational Therapy Current Condition Current Condition Evaluation Date 05/01/21 Treatment Diagnosis L3-S1 TLIF Diagnosis Onset Date 04/30/21 Post Operative Precautions Lumbar Precautions Log Roll,No Twisting,Limit Bending,Lifting Restriction of 10 lbs,Gait Belt above Incisional Area M3 OT- IP Subjective and Pain Start: 05/01/21 15:31 Freq: Status: Active Protocol: Document 05/01/21 15:31 CGR (Rec: 05/01/21 16:02 CGR [id number]) OT- Subjective Occupational Therapy Visit Type Type Initial Evaluation Visit Start Time 08:34 Visit Stop Time 09:08 Total Visit Minutes 34 OT Pain Assessment Pain When Pain Assessed At Rest Pain Present Pain Present Pain Reported Location Back Intensity 10 Scale Used Numeric (0 - 10) Management Techniques Distraction,Modification of Treatment,Re-positioning, Timing of Activity with Medications M4 OT- IP ADL's Start: 05/01/21 15:31 Freq: Status: Active Protocol: Document 05/01/21 15:31 CGR (Rec: 05/01/21 16:02 CGR [id number]) OT [id number] Comments OT Self-Feeding Comments Not meal time OT ADL-Grooming General Evaluation Grooming Ability Standby Assistance Areas Needing Assistance Face Washing Comments OT Grooming Comments seated in chair OT ADL-Oral Care General Eval Oral Care Ability Standby Assistance Comments Oral Care Comments seated in chair OT ADL-Dressing General Eval Lower Body Dressing Ability Total Assistance Areas Needing Assistance Socks OT ADL-Toileting Comments OT Toileting Comments not performed OT ADL-Bathing Comments OT Bathing Comments not performed M5 OT- IP IADL's Start: 05/01/21 15:31 Freq: Status: Active Protocol: Document 05/01/21 15:31 CGR (Rec: 05/01/21 16:02 CGR [id number]) OT-Instrumental Activities of Daily Living Deficits IADL Deficits Identified Deficits Home Safety Awareness Awareness of Need for Assistance at Home Decreased Awareness Ability to Problem Solve Emergency Unable to Problem Solve Situations Home Safety Comments Pt appears lethargic needing extra time for all communications. Medication Management Medication Management Caregiver Administers Medication Management Comments Concerns regarding pts ability to perform safely Money Management Money Management Comments Concerns regarding pts ability to perform safely Meal Preparation Meal Preparation Caregiver Provides Assist Meal Preparation Comments Concerns regarding pts ability to perform safely Graves Registration Specialist Graves Registration Specialist Caregiver Provides Assist Graves Registration Specialist Comments Concerns regarding pts ability to perform safely Driving Driving Comments PT does not drive at baseline. M6 OT- IP Functional Cognition Start: 05/01/21 15:31 Freq: Status: Active Protocol: Document 05/01/21 15:31 CGR (Rec: 05/01/21 16:02 R [id number]) Cognitive Factors Limiting Selfcare Function Cognitive Ability Level of Alertness Alert,Confusional State Patient Orientation Name,Age,Birthday,Month,Date, Year,Day of Week,Place, Situation Attention Span Ability Unable to Focus,Unable to Sustain Attention Ability to Follow Commands Able to Follow One Step Commands with Increased Time, Able to Follow One Step Commands with Repetition Safety Awareness Decreased Recall of Precautions,Decreased Ability to Apply Precautions, Underestimates Need for Assistance Cognitive Comments Cognitive Assessment Comments Pt would benefit from formal cog assessment. OT- Vision and Hearing OT- Hearing Assessment OT- Hearing Assessment Hearing Impaired OT- Vision Assessment Visual Acuity Glasses All The Time Visual Attentiveness WFL Occular Pursuits WFL Visual Convergence WFL M7 OT- IP Mobility and Balance Start: 05/01/21 15:31 Freq: Status: Active Protocol: Document 05/01/21 15:31 CGR (Rec: 05/01/21 16:02 R [id number]) OT- Bed Mobility Assessment Scooting Scooting to Edge of Bed Total Assistance,1 Person Assistance OT-Transfer Assessment Sit to and From Stand Sit to and from Stand Maximum Assistance,1 Person Assistance Transfers Transfer Ability Maximum Assistance,1 Person Assistance Technique Transfer Destination Bed,Chair Transfer Technique Stand Step Pivot Devices Transfer Assistive Devices Gait Belt,Front Wheeled Walker Comments Mobility Comments Pt stood initially for only a few seconds then returned to sitting EOB. Stood a second time and was able to transfer to chair with max a and max vc . OT- Balance Assessment Sitting Balance and Reactions Static Sitting Balance Ability Poor Dynamic Sitting Balance Ability Poor M8 OT- IP Objective Assessments Start: 05/01/21 15:31 Freq: Status: Active Protocol: Document 05/01/21 15:31 CGR (Rec: 05/01/21 16:02 R [id number]) OT Gross Range of Motion Upper Extremity Range of Motion Assessment Within Functional Limits OT Strength Upper Extremity Strength Assessment Bilaterally Impaired Comments Strength Comments grossly 3-/5 to shlds, 3+/5 to arms and hands with noted wasting to arms and hands. OT- Coordination Assessment Upper Extremity Finger to Nose Test Within Functional Limits Finger Tapping Test Within Functional Limits OT-Muscle Tone Assessment Muscle Tone WNL Yes OT Sensation Assessment Edema Edema Absent M9 OT- IP Assessment and Plan Start: 05/01/21 15:31 Freq: Status: Active Protocol: Document 05/01/21 15:31 CGR (Rec: 05/01/21 16:02 CGR [id number]) OT Summary Assessment and Plan Potential Rehabilitation Potential Good Analytic Complexity at Evaluation High Summary OT Impairments Pain,Strength,Balance, Functional Cognition, Functional Mobility,Grooming, Dressing,Toileting,Bathing, Toilet Transfers,Shower Transfers,Activity Tolerance Progress Towards Goals Slow Progress due to Pain,Slow Progress due to Cognition Assessment Summary Pt presents as a high complexity evaluation s/p admit for L3-S1 TLIF. Pt presents with poor sitting balance, significant pain, decline to cognition, and poor mobility. Pt will benefit from continued OT services. Recommend d/c to SNF. Goals Grooming Goal Independent Dressing Goal Independent Toileting Goal Independent Bathing Goal Independent Toilet Transfer Goal Independent Shower Transfer Goal Independent Days to Meet Goals 20 Frequency of Treatment Frequency Of Treatment Once a Day Treatment Plan OT Treatment Plan ADL Training,Functional Cognition Training,Functional Mobility,Patient/Family Education,Discharge Planning Other Treatment Recommendations and Next ADLs seated, simple transfers, Treatment Focus cog assessment. Discharge Recommendations OT Discharge Recommendations SNF Rehab Transportation Needs at Discharge Wheelchair/Cabulance
--- NOTE | 2021-05-01 09:35 | CM.DANOTE ---
Addendum entered by Concepcion Dumont R.N. 05/01/21 11:51: Spoke to O.T, who is recommending skilled rehab, difficulty following directions. Went into room, patient was semi sleeping, but , Yady was in the room. Brought in a Medicare Choice List. indicated, he will not go to a prison, the best place for him is at home. Did speak to her about home health, which she mentioned, would be interested in. Let her know that on the back of the list are Medicare Choice agencies, such as [facility], [facility], and [facility]. She will review. At this time, the plan is for patient to go home with home health. Original Note: DCP: Case received, EMR reviewed and met with patient. Introduced self and role. Was able to obtain information from patient regarding his baseline activity status prior to his surgery. DCP assessment completed with information currently available. Patient is a 65 year old male who admitted yesterday morning to the care of the orthopedic team. PCP: Dr. Estrella. Payer: confirmed: [employer]/Medicare. Patient came to the hospital via private vehicle for a surgical procedure. He had L3-4 postlateral and posterior interbody fusion. Patient has had chronic history of back pain for over the last 6 months. He has been having to use a cane, as well as four-wheel walker as well. Met with patient in his room. He is alert and oriented, and was sitting up in his chair having breakfast. Confirmed with him that he resides in [place] with his spouse, Yady. He stated, she has been assisting him at home when needed, and is supportive. He does not drive as well, due to his chronic back pain. P: DCP to continue to follow, and will be available for any resources needed. Patient should be able to go home when he is deemed medically stable and cleared by the therapy team. Concepcion Dumont RN/Head Of Operation And Logistics
--- NOTE | 2021-05-01 09:37 | P.PN_ITS ---
Subjective Subjective Date Patient Seen: 05/01/21 Time Patient Seen: 09:38 Interval history: Patient states he is doing well overall but reports moderate pain at rest. He denies fever, chills, nausea, chest pain, or shortness of breath. Patient explains that he has concerns about mobilizing and believes he cannot get to the commode on his own. He reports good sensation throughout the bilateral lower extremities. Unable to determine if the patient has adequate care at to assist him following discharge. Exam Vital Signs (past 8 hours): - 05/01/21 05:44 05/01/21 08:38 Temperature 97.0 F L Pulse Rate 74 85 Respiratory Rate 16 Blood Pressure 154/71 H 148/68 H Pulse Oximetry 98 Oxygen Delivery Method Nasal Cannula Oxygen Flow Rate 3 Narrative Exam Narrative: 65-year-old male postop day 1 status post lumbar fusion. Exam limited due to patient following in and out of sleep during exam and questioning. Nasal cannula and placed on exam. Dooley catheter in place. Patient is resting comfortably in room chair, is in no acute distress. Skin is warm and dry, and the skin surrounding the incision site is free of erythema, warmth, induration, or discharge. Dressing over the incision site is clean, dry, and intact. Good sensation appreciated throughout the bilateral lower e xtremities to light touch. Gross motor function intact throughout the bilateral lower extremities. Calves are soft and nontender, negative Homans sign. No other signs of DVT appreciated. Const General: cooperative and comfortable Resp Effort & Inspection: normal respiratory effort and able to speak in complete sentences Skin General: no rashes or lesions noted Objective Labs Result Diagrams: 05/01/21 06:15 Labs: Laboratory Results - last 24 hr 05/01/21 06:15 Hgb 12.2 L Hct 37.8 L [facility] Medical History CAD (coronary artery disease) Fusion of lumbar spine Gastric ulcer GERD (gastroesophageal reflux disease) Hyperlipidemia Hypertension Insomnia Myocardial infarction (~2011) Numbness and tingling Surgical History History of arthroplasty of right knee History of bilateral carpal tunnel release History of cervical spinal surgery (~02/2001) History of left knee surgery History of lumbar spinal fusion (09/27/18) History of lumbar surgery (~2000) Hx of appendectomy Hx of cervical spine surgery (~12/2015) S/P coronary artery stent placement (09/2011) S/P wrist surgery Status post arthroscopic surgery of right knee (12/2012) Status post rotator cuff repair (2007) Family History Father CAD (coronary artery disease) Mother CAD (coronary artery disease) Arthritis Family/Other Alcoholism and drug addiction in family Autoimmune disease Arthritis Rheumatoid arthritis Other Drug abuse Social History household members: spouse and children Smoking Status: Current every day smoker alcohol intake: former Assessment & Plan Post-op Postoperative Procedures: Procedures Operation Date: 04/30/21 07:45 Actual Procedure Side Surgeon p L3-4 TLIF, L2-3 hemilaminectomy,L4-S1 lumbar HWR, exploration of fusion, repeat laminectomy, reinsertion of hardware, L3-S1 PSF w. instrumentation Karina Alamo MD Postoperative day: 1 Postoperative status: marginal pain control Postoperative plan: ambulate Postoperative plan narrative: Patient is to work on ambulation with the assistance of a front wheeled walker with physical therapy. At this time plan is to hold IV Dilaudid to ensure that the patient is able to answer questions appropriately and successfully worked with physical therapy. Will continue to monitor the patient's progress with physical therapy as he mentions he has concerns about his ability to mobilize. Plan for discharge in the next day or 2 once the patient feels more comfortable ambulating.
--- NOTE | 2021-05-01 11:38 | PT.IIE ---
Current Diagnoses Other spondylosis with radiculopathy, lumbosacral region (04/30/21) Spinal stenosis, lumbar region with neurogenic claudication (04/30/21) Arthrodesis status (04/30/21) Surgery Performed Operation Date: 04/30/21 07:45 Actual Procedures p L3-4 TLIF, L2-3 hemilaminectomy,L4-S1 lumbar HWR, exploration of fusion, repeat laminectomy, reinsertion of hardware, L3-S1 PSF w. instrumentation - Karina Alamo MD Surgical History (Last Reviewed 05/01/21 @ 09:41 by Boyd Velazquez PA-C) Status post rotator cuff repair (2007) Medical History (Last Reviewed 05/01/21 @ 09:41 by Boyd Velazquez PA-C) CAD (coronary artery disease) Fusion of lumbar spine Gastric ulcer GERD (gastroesophageal reflux disease) Hyperlipidemia Hypertension Insomnia Myocardial infarction (~2011) Numbness and tingling Physical Therapy Inpatient Evaluation/Re-Eval M1 PT/OT-IP Prior Functional Status Start: 05/01/21 13:58 Freq: NEEDED Status: Active Protocol: Document 05/01/21 11:38 AB (Rec: 05/01/21 14:15 AB [id number]) Medical Review Prior Functional Status Medical History Reviewed Yes Communication pt is lethargic and requires constant cues to keep eyes open but once awake still has difficulty following directions and needs increase time to answer or to complete task Mobility and Gait spouse in room and stated that pt is modified independent with all mobilities and ambulation using SPC but has been using a 4WW for the last month due to LE numbness; spouse stated that pt has fall x 4 in the last month Social History Household Members spouse,children Living Arrangements House Number of Floors (Floors) One Floor Number of Stairs To Enter/Railing? 4 steps to enter with L rail Home Environment Standard Height Toilet,Tub/ Shower Home Equipment Four Wheel Walker,Straight Cane Additional Social History Comment spouse and son lives with pt but spouse stated that they work but will take a few days off work to assist pt pt sleeps on a recliner M2 PT-IP Current Condition Start: 05/01/21 13:58 Freq: NEEDED Status: Active Protocol: Document 05/01/21 11:38 AB (Rec: 05/01/21 14:15 AB [id number]) Physical Therapy Current Condition Current Condition Evaluation Date 05/01/21 Treatment Diagnosis s/p L3-4, L4-5, L5S1 fusion/ lami; difficulty in walking Onset Date 04/30/21 Precautions Lumbar Precautions Log Roll,No Twisting,Limit Bending,Lifting Restriction of 10 lbs,Gait Belt above Incisional Area M3 PT-IP Subjective Start: 05/01/21 13:58 Freq: NEEDED Status: Active Protocol: Document 05/01/21 11:38 AB (Rec: 05/01/21 14:15 AB [id number]) Subjective Physical Therapy Visit Type Type Initial Evaluation Visit Start Time 11:38 Visit Stop Time 12:12 Total Visit Minutes 34 Number of SLAB INSPECTOR Visits 0 Therapy Pain Assessment Pain When Pain Assessed At Rest Pain Present Pain Present Pain Reported Location Back Scale Used pain scale not stated Pain Management Techniques Apply Cold,Distraction,Re- positioning,Timing of Activity with Medications M4 PT-IP Mobility and Gait Start: 05/01/21 13:58 Freq: NEEDED Status: Active Protocol: Document 05/01/21 11:38 AB (Rec: 05/01/21 14:15 AB [id number]) PT-Transfer Assessment Sit to and From Stand Sit to and from Stand Total Assistance Equipment Transfer Assistive Device Gait Belt Comments Mobility Comments pt sitting on chair and is lethargic. requires cues to stay awake but once awake, requires max cues with all tasks and has difficulty following directions. spouse in room with pt. required max Ax 2 for positioning trunk forward and scooting. increase posterior trunk lean in sitting on edge of chair. attempted sit<>stand x 6 reps but pt unable to stand despite max Ax 2-3 provided. pt unable to push and activate LE muscles to push body up but tends to slide on the edge of the chair. provided instructions cues and stabilization but pt unable to activate LE muscles. positoned pt back on chair. call light and table placed within reach. informed pt and spouse regarding SNF rehab. spouse stated that pt does not want SNF. PT asked pt directly and stated agreed and stated that maybe he will go. spouse reiterated to pt that rehab is a nursing facility. PT asked pt again if he has to go to a snf facility for PT, is he ok with that and agreed. informed spouse that pt is total A with all tasks at this time and unable to stand despite 3 person assist and if he goes home right now, they will need a lara lift to assist him with all transfers. pt's spouse is hesistant for pt to go to SNF rehab but also at the same time, informed PT that they go to work and pt will not have assitance; but again when asked if spouse is taking days off to assist pt, spouse said yes. Gait Assessment Comments Gait Comments unable at this time PT-Balance Assessment Sitting Balance and Reactions Static Sitting Balance Ability Poor Dynamic Sitting Balance Ability Poor Standing Balance and Reactions Static Standing Balance Ability Poor Dynamic Standing Balance Ability Poor M5 PT-IP Objective Assessments Start: 05/01/21 13:58 Freq: NEEDED Status: Active Protocol: Document 05/01/21 11:38 AB (Rec: 05/01/21 14:15 AB [id number]) Orientation Orientation/Cognition Level of Alertness Lethargic Orientation Name Safety Awareness Decreased Safety Awareness Memory Description Short Term Impaired,Chemist Helper Impaired Gross Range of Motion Lower Extremity ROM Assessment Within Functional Limits Strength Lower Extremity Strength Assessment Bilaterally Impaired Comments Strength Comments LLE: 2+/5 RLE: 3-/5 Coordination Assessment Gross Coordination Gross Coordination Impaired Sensation Assessment Sensation Light Touch Impaired Proprioception (Position) Impaired Muscle Tone Muscle Tone WNL Yes M6 PT-IP Treatment Start: 05/01/21 13:58 Freq: NEEDED Status: Active Protocol: Document 05/01/21 11:38 AB (Rec: 05/01/21 14:15 AB [id number]) Physical Therapy Treatment Education Education Provided Precautions,Weight Bearing Status,Post-Op Packet,Safety M7 PT-IP Assessment and Plan Start: 05/01/21 13:58 Freq: NEEDED Status: Active Protocol: Document 05/01/21 11:38 AB (Rec: 05/01/21 14:15 AB [id number]) PT Summary Assessment and Plan Potential Rehabilitation Potential Fair Status of Condition at Evaluation Evolving Summary Impairments Pain,ROM,Strength,Balance, Coordination,Sensation,Tone, Cognition,Bed Mobility, Transfers,Gait,Activity Tolerance Assessment Summary pt requiring total A with mobility and needs the mechannical lift to transfer with nurse at this time. attempted x 6 sit to stand with max A x 2-3 but pt unable to stand. pt will require SNF rehab to improve strength and mobility. Goals Bed Mobility Goal Moderate Assistance Transfer Goal Minimal Assistance,Front Wheeled Walker Gait Goal Minimal Assistance,Front Wheel Walker Gait Distance 50 Other Goals improve transfer using FWW CGA and ambualtion using FWW 100 ft CGA up/down 4 steps L rail min A Days to Meet Goals 10 Frequency of Treatment Frequency Of Treatment Twice a Day Treatment Plan Physical Therapy Treatment Plan Bed Mobility Training Precautions Lumbar Precautions Log Roll,No Twisting,Limit Bending,Lifting Restriction of 10 lbs,Gait Belt above Incisional Area Recommendations To Nursing Amount of Assist Needed Mechanical Lift Discharge Recommendations PT Discharge Recommendations SNF Rehab Equipment Needed for Home Before FWW if pt goes home Discharge Transportation Needs at Discharge Wheelchair/Cabulance,Stretcher /Ambulance
--- NOTE | 2021-05-01 12:31 | CM.DPC ---
Addendum entered by Concepcion Dumont R.N. 05/01/21 14:38: Brionna at [facility] left a message stating that she consulted with Debra on insurance, and they are not in network. Went ahead and left a message with Boni in admissions at [facility], and faxed the referral to her. They do not take week-end admissions as of yet, and do not answer the phone on weekends. At this time, [facility] will review and call insurance on Monday, per Raquel, and message has been left with Boni at [facility], and clinicals were sent. Addendum entered by Concepcion Dumont R.N. 05/01/21 14:30: Faxed clinical information to both [facility], in [facility] as well as [facility]. Addendum entered by Concepcion Dumont R.N. 05/01/21 14:28: Radha from [facility] called back and stated that they can't accept patient since his insurance is not in their network. Called Brionna at [facility], and she stated she would try to speak to Debra, and let us know. Raquel at [facility] called back and stated that she can call the insurance, [employer] on Monday to see if they are in network. Both facilities confirmed that they have openings. Original Note: DCP Cont: Spoke to Delores, physical therapist who indicated that patient is a max assist, it took 3 people, and patient could barely stand up. Patient's , Yady, was also in the room and could see that it would not be doable. She and patient are in agreement that he will need rehab upon discharge. Clarified that rehab is not just usp, but a place where he can get daily P.T, with the goal of going home. Discussed facilities, [facility] is their first choice, second, [facility]. works in [place]. Went ahead and copied patient's and 's COVID vaccination cards as well. Called Radha at [facility], she will review.She will look over primary insurance before checking on Medicare. May also send referral to [facility] as well, will follow up with Radha later today. P: DCP to continue to follow. Patient most likely will need skilled rehab, [facility] or [facility]. Have copies of vaccination cards behind face sheet. Concepcion Dumont RN/Suture Gauger
--- NOTE | 2021-05-01 14:58 | PT.IPTN ---
Current Diagnoses Other spondylosis with radiculopathy, lumbosacral region (04/30/21) Spinal stenosis, lumbar region with neurogenic claudication (04/30/21) Arthrodesis status (04/30/21) Surgery Performed Operation Date: 04/30/21 07:45 Actual Procedures p L3-4 TLIF, L2-3 hemilaminectomy,L4-S1 lumbar HWR, exploration of fusion, repeat laminectomy, reinsertion of hardware, L3-S1 PSF w. instrumentation - Karina Alamo MD Physical Therapy Treatment Note M2 PT-IP Current Condition Start: 05/01/21 13:58 Freq: NEEDED Status: Active Protocol: Document 05/01/21 11:38 AB (Rec: 05/01/21 14:15 AB [id number]) Physical Therapy Current Condition Current Condition Evaluation Date 05/01/21 Treatment Diagnosis s/p L3-4, L4-5, L5S1 fusion/ lami; difficulty in walking Onset Date 04/30/21 Precautions Lumbar Precautions Log Roll,No Twisting,Limit Bending,Lifting Restriction of 10 lbs,Gait Belt above Incisional Area M3 PT-IP Subjective Start: 05/01/21 13:58 Freq: NEEDED Status: Active Protocol: Document 05/01/21 14:40 SP (Rec: 05/01/21 16:12 SP [id number]) Subjective Physical Therapy Visit Type Type Treatment Note Visit Start Time 14:40 Visit Stop Time 14:58 Total Visit Minutes 18 Notes CHEF HEAD assist as 2nd person needed for mobility Daughter in room and stated he has been wanting and trying to stand. Number of UM SPECIALIST Visits 1 Physical Therapy Visit Comments Patient Comments Pt willing to work with therapy. Patient Goals I want to stand. Therapy Pain Assessment Pain Present Pain Present Pain Reported Location Back Scale Used pain scale not stated Pain Management Techniques Distraction,Modification of Treatment,Re-positioning, Timing of Activity with Medications M4 PT-IP Mobility and Gait Start: 05/01/21 13:58 Freq: NEEDED Status: Active Protocol: Document 05/01/21 14:40 SP (Rec: 05/01/21 16:12 SP [id number]) PT-Bed Mobility Assessment Sit to Supine Sit to Supine Maximum Assistance,2 Person Assistance,Bedrails PT-Transfer Assessment Sit to and From Stand Sit to and from Stand Maximum Assistance,2 Person Assistance,Use of Upper Extremities Equipment Transfer Assistive Device Gait Belt,Front Wheeled Walker Orthotic/Prosthetic Devices or Brace: No Transfers Transfer Destination Bed Transfer Technique Stand Step Pivot Transfer Ability Level of Assist Maximum Assistance,2 Person Assistance,Use of Upper Extremities Comments Mobility Comments Pt seated in chair when arrived, no chair alarm seen. Pt's daughter danny, stated he has been wantingto stand. SIt>stand max A x2 (UM SPECIALIST, CHEF HEAD) cued for pushing from chair then tranition to fWW self, tall posture B LE straight/ quad activiation throughout mobility, better WB through B LE able to reposition BLE . SPT chair to bed using fWW, max cues for sequencing and backingup fully then reach back Mod A for slow descent to bed. Sit>suping Max A x2 for trunk righting and LE on to bed> LR Min A x2. Max A x2 to lateral scoot to center in bed . UM SPECIALIST reviewed recommending skilled rehab for furhter strengthening and functional mobility with daughter in agreement, pt was lathargic and didn't respond. Pt had call light and all needs in reach with bed alarmed. Daughter in room when left. Gait Assessment Comments Gait Comments SPT only chair to bed using FWW max A x2 with max cues for sequencing BLE, FWW and upright tall posture to allow BLE reposition and stay within precautions of no bending, with Min A for FWW positioning . PT-Balance Assessment Sitting Balance and Reactions Static Sitting Balance Ability Fair Dynamic Sitting Balance Ability Poor Standing Balance and Reactions Static Standing Balance Ability Poor Dynamic Standing Balance Ability Poor Device Used FWW M5 PT-IP Objective Assessments Start: 05/01/21 13:58 Freq: NEEDED Status: Active Protocol: Document 05/01/21 11:38 AB (Rec: 05/01/21 14:15 AB [id number]) Orientation Orientation/Cognition Level of Alertness Lethargic Orientation Name Safety Awareness Decreased Safety Awareness Memory Description Short Term Impaired,Staff Educator Impaired Gross Range of Motion Lower Extremity ROM Assessment Within Functional Limits Strength Lower Extremity Strength Assessment Bilaterally Impaired Comments Strength Comments LLE: 2+/5 RLE: 3-/5 Coordination Assessment Gross Coordination Gross Coordination Impaired Sensation Assessment Sensation Light Touch Impaired Proprioception (Position) Impaired Muscle Tone Muscle Tone WNL Yes M6 PT-IP Treatment Start: 05/01/21 13:58 Freq: NEEDED Status: Active Protocol: Document 05/01/21 14:40 SP (Rec: 05/01/21 16:12 SP [id number]) Physical Therapy Treatment Education Education Provided Precautions,Weight Bearing Status,Post-Op Packet,Safety M7 PT-IP Assessment and Plan Start: 05/01/21 13:58 Freq: NEEDED Status: Active Protocol: Document 05/01/21 14:40 SP (Rec: 05/01/21 16:12 SP [id number]) PT Summary Assessment and Plan Potential Rehabilitation Potential Fair Status of Condition at Evaluation Evolving Summary Impairments Pain,ROM,Strength,Balance, Coordination,Sensation,Tone, Cognition,Bed Mobility, Transfers,Gait,Activity Tolerance Progress Towards Goals Progressing Toward Goals,Slow Progress due to Pain,Slow Progress due to Activity Tolerance Assessment Summary pt requiring Max A x2 for all mobility, due to inconsistancy with mobiltiy needs required recommending mechannical lift to transfer with nurse at this time. pt will require SNF rehab to improve strength and mobility. Goals Bed Mobility Goal Moderate Assistance Transfer Goal Minimal Assistance,Front Wheeled Walker Gait Goal Minimal Assistance,Front Wheel Walker Gait Distance 50 Other Goals improve transfer using FWW CGA and ambualtion using FWW 100 ft CGA up/down 4 steps L rail min A Days to Meet Goals 10 Frequency of Treatment Frequency Of Treatment Twice a Day Treatment Plan Physical Therapy Treatment Plan Bed Mobility Training,Transfer Training,Gait Training Other Recommendations and Next Treatment bed mob, transfers, gait if Focus able and safe using FWW. Precautions Lumbar Precautions Log Roll,No Twisting,Limit Bending,Lifting Restriction of 10 lbs,Gait Belt above Incisional Area Recommendations To Nursing Amount of Assist Needed Mechanical Lift Discharge Recommendations PT Discharge Recommendations SNF Rehab Equipment Needed for Home Before FWW if pt goes home Discharge Transportation Needs at Discharge Wheelchair/Cabulance,Stretcher /Ambulance
[2021-05-01] MEDS: ATORVASTATIN 20 MG TABLET PO (20:13)
[2021-05-01] MEDS: AMITRIPTYLINE 25 MG TABLET PO (20:13)
[2021-05-01] MEDS: SENNOSIDES 8.6 MG TABLET 17.2 MG PO (20:14)
--- NOTE | 2021-05-01 22:21 | PC.NURSE ---
Report received, care assumed 1530. Per day shift RN, patient was very drowsy/lethargic throughout shift and no additional PRN pain meds were given during day shift. Upon initial evening shift contact, pt. sleeping; oxygen saturation 85% on room air. 1LNC applied, oxygen saturation increased to 92%. When woken, pt. states pain 10/10. Discussed the important of balancing pain control with appropriate level of consciousness. Patient remained alert through dinner and a significant period afterwards, so pain was again addressed with scheduled and PRN analgesics. Also repositioned for patient comfort and skin integrity. Pt. became very uncomfortable laying in bed. Heavy 2-person assistance required to sit up to edge of bed; pt stood at bedside with walker for several minutes and reported feeling better.
[2021-05-02] VITALS (8 sets, daily range): BP systolic 117–148; BP diastolic 62–73; PULSE 68–78; RESP 16–18; TEMP 36.6–37.7; O2SAT 95–96
[2021-05-02] MEDS: OXYCODONE IR 5 MG TABLET 10 MG PO ×5 (01:56→16:31)
[2021-05-02] MEDS: PANTOPRAZOLE DR 40 MG TABLET PO (05:39)
[2021-05-02] MEDS: MORPHINE IR 15 MG TABLET 30 MG PO (08:44)
[2021-05-02] MEDS: METFORMIN HCL 500 MG TABLET PO ×2 (08:45→20:29)
[2021-05-02] MEDS: METOPROLOL ER 50 MG TABLET PO (08:45)
[2021-05-02] MEDS: DOCUSATE 100 MG CAPSULE PO ×2 (08:45→20:28)
[2021-05-02] MEDS: PREGABALIN 50 MG CAPSULE 100 MG PO ×4 (08:45→20:30)
--- NOTE | 2021-05-02 08:49 | PM.PN.1 ---
Subjective Subjective Date Patient Seen: 05/02/21 Time Patient Seen: 08:50 Interval history: Patient was slow to mobilize with physical therapy yesterday. This was in part due to pain in part due to lethargy. We have held off on Dilaudid over last 24 hours this is improved his mental status. The 10 used to have pain is slow to mobilize with physical therapy. At last mobilization with physical therapy he was 2 person max assist. Exam Vital Signs (past 8 hours): Oxygen Delivery Method Nasal Cannula Oxygen Flow Rate 1 Narrative Exam Narrative: Resting comfortably in bed. Eating breakfast this morning. Gross sensation intact bilateral lower extremities. 5/5 strength in dorsiflexion plantar flexion of the ankles. Objective Labs Result Diagrams: 05/01/21 06:15 [facility] Medical History CAD (coronary artery disease) Fusion of lumbar spine Gastric ulcer GERD (gastroesophageal reflux disease) Hyperlipidemia Hypertension Insomnia Myocardial infarction (~2011) Numbness and tingling Surgical History History of arthroplasty of right knee History of bilateral carpal tunnel release History of cervical spinal surgery (~02/2001) History of left knee surgery History of lumbar spinal fusion (09/27/18) History of lumbar surgery (~2000) Hx of appendectomy Hx of cervical spine surgery (~12/2015) S/P coronary artery stent placement (09/2011) S/P wrist surgery Status post arthroscopic surgery of right knee (12/2012) Status post rotator cuff repair (2007) Family History Father CAD (coronary artery disease) Mother CAD (coronary artery disease) Arthritis Family/Other Alcoholism and drug addiction in family Autoimmune disease Arthritis Rheumatoid arthritis Other Drug abuse Social History household members: spouse and children Smoking Status: Current every day smoker alcohol intake: former Assessment & Plan Assessment & Plan narrative: Patient is a 65-year-old male now postop day 2 from lumbar spinal surgery. He has been slow to mobilize with physical therapy due to pain and lethargy. His mental status has improved with cessation of Dilaudid. Continue to avoid Dilaudid if possible. Oxycodone for pain control. Continue work with physical therapy with mobilization. Anticipate discharge tomorrow.
[2021-05-02] MEDS: SODIUM CHLORIDE 0.9% FLUSH 10 ML IV ×2 (09:00→21:25)
[2021-05-02] MEDS: hydrOXYzine pamoate 25 MG CAPSULE PO (09:00)
--- NOTE | 2021-05-02 09:05 | CM.DPC ---
DCP Cont: Checked in with patient. He is still in a lot of pain, gave him a short update that this outsole caser is looking for a rehab facility that is in his insurance network. Dr. Daugherty, orthopedist, came by and was inquiring upon discharge planning. Let him know that this marketing information coordinator has been working on placement, but the barrier is his insurance. Let him know that we may have an answer tomorrow, but will depend upon which facilities take his insurance, and obtaining an authorization. So far, Raquel at [facility] is reviewing, and will call his insurance tomorrow. [facility] [place] is not in their network, and [facility] is not. Have left NXTM a message as well. P: DCP to continue to work on placement for skilled facility. So far, [facility] is reviewing and will contact insurance company tomorrow since they are not opened this weekend, and [facility] has referral out, and message has been left. Concepcion Dumont RN/Air Carrier Maintenance Inspector
--- NOTE | 2021-05-02 10:41 | PT.IPTN ---
Addendum entered and electronically signed by Nkechi Fair PTA 05/02/21 12:58: VItals taken: seated in chair BP 131/ 73, HR 78bpm Original Note: Current Diagnoses Other spondylosis with radiculopathy, lumbosacral region (04/30/21) Spinal stenosis, lumbar region with neurogenic claudication (04/30/21) Arthrodesis status (04/30/21) Surgery Performed Operation Date: 04/30/21 07:45 Actual Procedures p L3-4 TLIF, L2-3 hemilaminectomy,L4-S1 lumbar HWR, exploration of fusion, repeat laminectomy, reinsertion of hardware, L3-S1 PSF w. instrumentation - Karina Alamo MD Physical Therapy Treatment Note M2 PT-IP Current Condition Start: 05/01/21 13:58 Freq: NEEDED Status: Active Protocol: Document 05/01/21 11:38 AB (Rec: 05/01/21 14:15 AB [id number]) Physical Therapy Current Condition Current Condition Evaluation Date 05/01/21 Treatment Diagnosis s/p L3-4, L4-5, L5S1 fusion/ lami; difficulty in walking Onset Date 04/30/21 Precautions Lumbar Precautions Log Roll,No Twisting,Limit Bending,Lifting Restriction of 10 lbs,Gait Belt above Incisional Area M3 PT-IP Subjective Start: 05/01/21 13:58 Freq: NEEDED Status: Active Protocol: Document 05/02/21 10:23 SP (Rec: 05/02/21 12:57 SP [id number]) Subjective Physical Therapy Visit Type Type Treatment Note Visit Start Time 10:23 Visit Stop Time 10:41 Total Visit Minutes 18 Notes Pt in pain when arrived at 0915 and just medicated per nursing 20 min prior. Pt asked to come back little later and hope pain better. PARTICLEBOARD FACTORY WORKER 2nd attempt to see pt. Nursing staff reported to PARTICLEBOARD FACTORY WORKER new L knee pain and hard time transferring to chair and is calling ortho to see if can get another injection per patient request in L knee has gotten in past for pain control that has worked. Nurse Oropeza helped with 2nd person assist during tx, reported when arrived that ortho can not give injection to L knee but ordered ointment cream to assist with pain. Number of PARTICLEBOARD FACTORY WORKER Visits 2 Physical Therapy Visit Comments Patient Comments Pt willing to work with therapy. Patient Goals To stop my left knee pain so can get around better. Therapy Pain Assessment Pain When Pain Assessed At Rest Pain Present Pain Present Pain Reported Location L knee pain Intensity 10 Scale Used Numeric (0 - 10) with mobility Description With Movement Pain Behaviors Calling Out,Facial Grimacing, Guarding,Holding Area,Wincing Pain Management Techniques Modification of Treatment,Re- positioning,Timing of Activity with Medications Back Scale Used don't notice as much Pain Management Techniques Distraction,Modification of Treatment,Re-positioning, Timing of Activity with Medications M4 PT-IP Mobility and Gait Start: 05/01/21 13:58 Freq: NEEDED Status: Active Protocol: Document 05/02/21 10:23 SP (Rec: 05/02/21 12:57 SP [id number]) PT-Transfer Assessment Sit to and From Stand Sit to and from Stand Total Assistance,2 Person Assistance,Use of Upper Extremities Equipment Transfer Assistive Device Gait Belt,Front Wheeled Walker Orthotic/Prosthetic Devices or Brace: No Transfers Transfer Destination Chair Transfer Technique sit>stand Comments Mobility Comments Pt was seated up in chair when arrived 2nd attempt. PARTICLEBOARD FACTORY WORKER called nurse for 2nd person. PARTICLEBOARD FACTORY WORKER assisted pt sit trunk forward, pt able to scoot to edge of chair using BUE on chair arms Min A x1 and RLE WB , LLE positioned out front due to L knee pain. Sit<> stand attempted x2 total A x2 w/BUE on chair arms, unsuccessful due to L knee pain, patient calling out my L knee hurts to much I can't try anymore, I just want to sit here and rest, maybe later with that cream it will help it feel better. PARTICLEBOARD FACTORY WORKER offered CP to L knee, pt declined. Pt was able to scoot back into chair self using BUE on chair arms and RLE, CGA. Pt requested to keep his feet on floor when offered to elevate chair leg rests. He had call light and all needs in reach before left . PARTICLEBOARD FACTORY WORKER recommended chair alarm to nurse and lara transfer only at this time, nurse agreed and stated will provide chair alarm to patient. Gait Assessment Comments Gait Comments Unable this tx due to L knee pain and decreases strength. Stair Climbing Assessment Comments Stair Climbing Comments unable to assess. Has 4 steps to enter home and will need to be assessed for safe DC home when medically able. PT-Balance Assessment Sitting Balance and Reactions Static Sitting Balance Ability Poor Dynamic Sitting Balance Ability Poor Standing Balance and Reactions Static Standing Balance Ability Poor Dynamic Standing Balance Ability Poor M5 PT-IP Objective Assessments Start: 05/01/21 13:58 Freq: NEEDED Status: Active Protocol: Document 05/01/21 11:38 AB (Rec: 05/01/21 14:15 AB [id number]) Orientation Orientation/Cognition Level of Alertness Lethargic Orientation Name Safety Awareness Decreased Safety Awareness Memory Description Short Term Impaired,Flosser Impaired Gross Range of Motion Lower Extremity ROM Assessment Within Functional Limits Strength Lower Extremity Strength Assessment Bilaterally Impaired Comments Strength Comments LLE: 2+/5 RLE: 3-/5 Coordination Assessment Gross Coordination Gross Coordination Impaired Sensation Assessment Sensation Light Touch Impaired Proprioception (Position) Impaired Muscle Tone Muscle Tone WNL Yes M6 PT-IP Treatment Start: 05/01/21 13:58 Freq: NEEDED Status: Active Protocol: Document 05/02/21 10:23 SP (Rec: 05/02/21 12:57 SP [id number]) Physical Therapy Treatment Education Education Provided Precautions,Weight Bearing Status,Post-Op Packet,Safety M7 PT-IP Assessment and Plan Start: 05/01/21 13:58 Freq: NEEDED Status: Active Protocol: Document 05/02/21 10:23 SP (Rec: 05/02/21 12:57 SP [id number]) PT Summary Assessment and Plan Potential Rehabilitation Potential Fair Status of Condition at Evaluation Evolving Summary Impairments Pain,ROM,Strength,Balance, Coordination,Sensation,Tone, Cognition,Bed Mobility, Transfers,Gait,Activity Tolerance Progress Towards Goals Slow Progress due to Pain,Slow Progress due to Activity Tolerance,Slow Progress - Other Assessment Summary Pt requiring total A with mobility, needs mechanical lift to transfer with nursing at this time. Attempted x2 to stand from chair Max A x2 unsuccessful due to reported L knee pain. Pt will require SNF rehab to improve strength and mobility. Goals Bed Mobility Goal Moderate Assistance Transfer Goal Minimal Assistance,Front Wheeled Walker Gait Goal Minimal Assistance,Front Wheel Walker Gait Distance 50 Other Goals improve transfer using FWW CGA and ambualtion using FWW 100 ft CGA up/down 4 steps L rail min A Days to Meet Goals 10 Frequency of Treatment Frequency Of Treatment Twice a Day Treatment Plan Physical Therapy Treatment Plan Bed Mobility Training,Transfer Training,Gait Training, Therapeutic Exercise Other Recommendations and Next Treatment bed mob, transfers, gait if Focus able and safe using FWW. Precautions Lumbar Precautions Log Roll,No Twisting,Limit Bending,Lifting Restriction of 10 lbs,Gait Belt above Incisional Area Recommendations To Nursing Amount of Assist Needed Mechanical Lift Discharge Recommendations PT Discharge Recommendations SNF Rehab Equipment Needed for Home Before FWW if pt goes home Discharge Transportation Needs at Discharge Wheelchair/Cabulance,Stretcher /Ambulance
[2021-05-02] MEDS: NICOTINE 7 MG PATCH TOP (13:33)
[2021-05-02] MEDS: DICLOFENAC 1% GEL 100 GM 1 APPLIC TOP ×4 (13:34→20:28)
--- NOTE | 2021-05-02 14:24 | PT.IPTN ---
Current Diagnoses Other spondylosis with radiculopathy, lumbosacral region (04/30/21) Spinal stenosis, lumbar region with neurogenic claudication (04/30/21) Arthrodesis status (04/30/21) Surgery Performed Operation Date: 04/30/21 07:45 Actual Procedures p L3-4 TLIF, L2-3 hemilaminectomy,L4-S1 lumbar HWR, exploration of fusion, repeat laminectomy, reinsertion of hardware, L3-S1 PSF w. instrumentation - Karina Alamo MD Physical Therapy Treatment Note M2 PT-IP Current Condition Start: 05/01/21 13:58 Freq: NEEDED Status: Active Protocol: Document 05/01/21 11:38 AB (Rec: 05/01/21 14:15 AB [email or web address]) Physical Therapy Current Condition Current Condition Evaluation Date 05/01/21 Treatment Diagnosis s/p L3-4, L4-5, L5S1 fusion/ lami; difficulty in walking Onset Date 04/30/21 Precautions Lumbar Precautions Log Roll,No Twisting,Limit Bending,Lifting Restriction of 10 lbs,Gait Belt above Incisional Area M3 PT-IP Subjective Start: 05/01/21 13:58 Freq: NEEDED Status: Active Protocol: Document 05/02/21 14:24 AW (Rec: 05/02/21 14:55 AW [id number]) Subjective Physical Therapy Visit Type Type Treatment Note Visit Start Time 13:59 Visit Stop Time 14:24 Total Visit Minutes 25 Notes Coordinated tx with pain meds admin 25 min prior. Pt's spouse was present throughout tx. Number of PCAS Visits 0 Physical Therapy Visit Comments Patient Comments My left knee hurts more than my back. Therapy Pain Assessment Pain When Pain Assessed During Mobility Pain Present Pain Present Pain Reported Location Left Knee Intensity 9 Scale Used Numeric (0 - 10) Description Acute,Sharp Pain Behaviors Calling Out,Facial Grimacing, Wincing Pain Management Techniques Distraction,Re-positioning, Timing of Activity with Medications M4 PT-IP Mobility and Gait Start: 05/01/21 13:58 Freq: NEEDED Status: Active Protocol: Document 05/02/21 14:24 AW (Rec: 05/02/21 14:55 AW [id number]) PT-Bed Mobility Assessment Sit to Supine Sit to Supine Moderate Assistance,1 Person Assistance,Bedrails PT-Transfer Assessment Sit to and From Stand Sit to and from Stand Maximum Assistance,2 Person Assistance,Use of Upper Extremities Equipment Transfer Assistive Device Gait Belt,Front Wheeled Walker Orthotic/Prosthetic Devices or Brace: No Transfers Transfer Destination Bed Transfer Technique Stand Step Pivot Transfer Ability Level of Assist Maximum Assistance,1 Person Assistance,Use of Upper Extremities Comments Mobility Comments Pt was seated in chair as PT arrived. He asked to use his own medicated cream on his knees prior to standing. RN provided cream from lockbox. Pt's provided 2nd person assist for max 2PA sit to stand from bedside chair. In standing, pt was able to extend knees and hips enough to safely transfer to the bed max assist x 1 with FWW. First in standing with FWW and then in sitting, pt scooted toward HOB. He layed down on his left side as PT provided mod assist to elevate BLE to the bed. He then rolled to his back with good attention to precautions. Pt was able to position himself to center of bed where he was left with call light and tray table in reach. Bed alarm was armed for safety. Gait Assessment Gait Gait Assistance Required: Maximum Assistance,1 Person Assist Distance (Feet) 3 Able to Maintain Weight Bearing Status Yes During Gait Assistive Devices Assistive Device Gait Belt,Front Wheeled Walker Orthotic/Prosthetic Devices or Brace: No Gait Deviations General Gait Pattern Antalgic,Decreased Stride Length,Decreased Feet Clearance,Flexed Trunk,Step-to Gait Factors Limiting Gait Function Factors Limiting Gait Function Decreased Activity Tolerance, Decreased Strength,Pain,Poor Balance,Poor Safety Awareness Comments Gait Comments Steps taken during transfer only. Pt responded well to cues for tall posture, hip and knee extension. 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 Gross Range of Motion Lower Extremity ROM Assessment Within Functional Limits Strength Lower Extremity Strength Assessment Bilaterally Impaired Comments Strength Comments LLE: 2+/5 RLE: 3-/5 Coordination Assessment Gross Coordination Gross Coordination Impaired Sensation Assessment Sensation Light Touch Impaired Proprioception (Position) Impaired Muscle Tone Muscle Tone WNL Yes M6 PT-IP Treatment Start: 05/01/21 13:58 Freq: NEEDED Status: Active Protocol: Document 05/02/21 14:24 AW (Rec: 05/02/21 14:55 AW [id number]) Physical Therapy Treatment Education Education Provided Precautions,Safety M7 PT-IP Assessment and Plan Start: 05/01/21 13:58 Freq: NEEDED Status: Active Protocol: Document 05/02/21 14:24 AW (Rec: 05/02/21 14:55 AW [id number]) PT Summary Assessment and Plan Potential Rehabilitation Potential Fair Status of Condition at Evaluation Evolving Summary Impairments Pain,ROM,Strength,Balance, Coordination,Sensation,Tone, Cognition,Bed Mobility, Transfers,Gait,Activity Tolerance Progress Towards Goals Slow Progress due to Pain,Slow Progress due to Activity Tolerance,Slow Progress - Other Assessment Summary Pt required max A x 2 for sit to stand and mod assist for transfer with FWW. Pt remains limited by left knee pain. He will require SNF rehab to improve strength and mobility independence. Goals Bed Mobility Goal Moderate Assistance Transfer Goal Minimal Assistance,Front Wheeled Walker Gait Goal Minimal Assistance,Front Wheel Walker Gait Distance 50 Other Goals improve transfer using FWW CGA and ambualtion using FWW 100 ft CGA up/down 4 steps L rail min A Days to Meet Goals 10 Frequency of Treatment Frequency Of Treatment Twice a Day Treatment Plan Physical Therapy Treatment Plan Bed Mobility Training,Transfer Training,Gait Training, Therapeutic Exercise,Balance Retraining,Post Op Education, Discharge Planning,Hot or Cold Pack,Neuromuscular Re-ed Other Recommendations and Next Treatment bed mob, transfers, gait if Focus able and safe using FWW. Precautions Lumbar Precautions Log Roll,No Twisting,Limit Bending,Lifting Restriction of 10 lbs,Gait Belt above Incisional Area Recommendations To Nursing Amount of Assist Needed Mechanical Lift Discharge Recommendations PT Discharge Recommendations SNF Rehab Equipment Needed for Home Before FWW if pt goes home Discharge Transportation Needs at Discharge Wheelchair/Cabulance,Stretcher /Ambulance
[2021-05-02] MEDS: HYDROMORPHONE 0.5 MG INJ IV (18:49)
[2021-05-02] MEDS: SENNOSIDES 8.6 MG TABLET 17.2 MG PO (20:28)
[2021-05-02] MEDS: AMITRIPTYLINE 25 MG TABLET PO (20:29)
[2021-05-02] MEDS: ATORVASTATIN 20 MG TABLET PO (20:29)
[2021-05-02] MEDS: ACETAMINOPHEN 325 MG TABLET 650 MG PO (20:29)
[2021-05-03] VITALS (8 sets, daily range): BP systolic 123–145; BP diastolic 58–90; PULSE 61–81; RESP 16–18; TEMP 36.5–37.1; O2SAT 90–97
[2021-05-03] MEDS: OXYCODONE IR 5 MG TABLET 10 MG PO ×7 (00:08→23:45)
[2021-05-03] MEDS: hydrOXYzine pamoate 25 MG CAPSULE PO (00:08)
--- NOTE | 2021-05-03 01:23 | PC.NURSE ---
Addendum entered by Allison Sam R.N. 05/03/21 06:23: Patient asleep upon entering room and awakened for a.m. dose of Pantoprazole. Immediately began grimacing and moaning and states pain is 9/10; medicated with Oxycodone. Original Note: Patient is alert and oriented. Breath sounds CTA with RA sat of 94%. HRR. Denies nausea. BT present and is passing flatus but has not had a BM since 04/29; requests to wait for MOM until morning. Indwelling catheter is patent; urine is clear katie. Is not moving himself in bed but can assist with repositioning. Gait not assessed at this time but evening RN reports he was very difficult to get out of bed to chair and required Maxx lift to transfer back to bed. Dressing to back is intact with shadow drainage noted. Is wearing bilateral foot SCD's. Denies tingling/numbness but did complain of 9/10 back pain (was sleeping just prior to assessment) and was medicated with Oxycodone + Vistaril, repositioned and ice applied and is currently asleep. Fall risk score is high and bed alarm is activated.
[2021-05-03] MEDS: PANTOPRAZOLE DR 40 MG TABLET PO (06:17)
[2021-05-03] MEDS: MAGNESIUM HYDROXIDE 30 ML UDC PO (06:17)
--- NOTE | 2021-05-03 07:36 | P.PN_ITS ---
Subjective Subjective Date Patient Seen: 05/03/21 Time Patient Seen: 07:37 Interval history: Patient states he is doing well overall but is in moderate discomfort at rest. At this time patient denies fever, chills, nausea, chest pain, or shortness of breath. Patient states that his back pain has limited his mobility and has also noted recent bilateral knee pain. Patient reports a history peripheral neuropathy. Exam Vital Signs (past 8 hours): - 05/03/21 00:47 05/03/21 05:00 Temperature 97.7 F 98.4 F Pulse Rate 76 74 Respiratory Rate 18 18 Blood Pressure 126/69 144/64 H Pulse Oximetry 94 95 Oxygen Delivery Method Room Air Oxygen Flow Rate 0 Narrative Exam Narrative: 65-year-old male postop day 3 status post lumbar fusion. Patient is resting comfortably in bed, is in no acute distress, and is alert and oriented x3. Skin is warm and dry, and the skin surrounding the incision site is free of erythema, warmth, induration, or discharge. Dressing over the incision site is clean, dry, and intact. Decreased sensation to light touch appreciated the dorsal aspect of the feet bilaterally. Ankle dorsiflexion, plantar flexion, eversion, inversion performed bilaterally without difficulty or discomfort. Calves are soft and nontender, negative Homans sign. No other sign s of DVT appreciated. Const General: cooperative and comfortable Resp Effort & Inspection: normal respiratory effort and able to speak in complete sentences Skin General: no rashes or lesions noted Objective Labs Result Diagrams: 05/01/21 06:15 [facility] Medical History CAD (coronary artery disease) Fusion of lumbar spine Gastric ulcer GERD (gastroesophageal reflux disease) Hyperlipidemia Hypertension Insomnia Myocardial infarction (~2011) Numbness and tingling Surgical History History of arthroplasty of right knee History of bilateral carpal tunnel release History of cervical spinal surgery (~02/2001) History of left knee surgery History of lumbar spinal fusion (09/27/18) History of lumbar surgery (~2000) Hx of appendectomy Hx of cervical spine surgery (~12/2015) S/P coronary artery stent placement (09/2011) S/P wrist surgery Status post arthroscopic surgery of right knee (12/2012) Status post rotator cuff repair (2007) Family History Father CAD (coronary artery disease) Mother CAD (coronary artery disease) Arthritis Family/Other Alcoholism and drug addiction in family Autoimmune disease Arthritis Rheumatoid arthritis Other Drug abuse Social History household members: spouse and children Smoking Status: Current every day smoker alcohol intake: former Assessment & Plan Post-op Postoperative Procedures: Procedures Operation Date: 04/30/21 07:45 Actual Procedure Side Surgeon p L3-4 TLIF, L2-3 hemilaminectomy,L4-S1 lumbar HWR, exploration of fusion, repeat laminectomy, reinsertion of hardware, L3-S1 PSF w. instrumentation Karina Alamo MD Postoperative day: 3 Postoperative status: marginal pain control Postoperative plan: ambulate Postoperative plan narrative: Patient is to continue working on ambulation with the assistance of a front wheeled walker with physical therapy. Current pain management regimen is to be continued. Patient's progress with physical therapy has been limited due to pain and lethargy. Plan is to have the patient transf erred to [facility] facility. At the moment we are still awaiting and accepting [facility] facility to take the patient. Once Facility has accepted we will plan for transfer to [facility] facility.
--- NOTE | 2021-05-03 07:36 | CM.DPC ---
Addendum entered by Concepcion Dumont R.N. 05/03/21 14:18: Received letter from Raquel at [facility], and went over this with patient and . Confirmed that insurance will cover 80%, and that 20% will be billed to Medicare, but unclear if they will cover. and patient signed form. Faxed it back to Raquel, along with vaccination card copies. Raquel called and received the paper work, and indicated that she should have the auth by this pm, and can tow picker patient at 10:00am tomorrow. Ortho usually comes in early, and will have [employer] working tomorrow, let them know. Addendum entered by Concepcion Dumont R.N. 05/03/21 13:23: Spoke to Raquel at [facility]. She stated that she will generate a letter for patient to sign, they will bill Medicare for 20%, but patient will need to agree to pay 20% if it is not covered. Once letter is signed, then they can proceed with authorization. If this is done soon enough, this can possibly happen tomorrow. Will look for letter and bring by patient's room. Addendum entered by Concepcion Dumont R.N. 05/03/21 12:16: Met with patient in his room, and , Yady. Explained that the only facility at this time that this certified financial planner has been able to locate that accepts insurance is [facility]. Explained that insurance covers 80%, and it is unclear if the other 20% will be billed to Medicare. Patient wanted to know if this is a group home?. Explained to him that he would be going over to the skilled rehab side. , in agreement that she can't take care of him at home until he can mobilize better. Let patient know that this certified financial planner will give him updates as soon as more is known about [facility] accepting, and billing information. Went ahead and completed PASSR. Addendum entered by Concepcion Dumont R.N. 05/03/21 11:10: Spoke to Gaby eric Jayla, who confirmed that they do not take patient's insurance. Raquel at [facility] did receive referral, and indicated that she verified that insurance covers 80 % of stay, and other 20%, could be out of pocket cost. Asked her if the 20% could be billed to Medicare, since it is his secondary. Raquel indicated, she does not think that Medicare will cover the 20%, but will speak to her billing office and call this caseworker back. Addendum entered by Concepcion Dumont R.N. 05/03/21 09:33: Spoke to Raquel at [facility], she indicated, she didn't receive fax. They had problems with their fax over the week-end, but did send to a different fax number. Went ahead and refaxed her referral, included today's progress note and P.T. notes. Let her know that patient is medically ready, just need placement, and insurance authorization. She will review today. Original Note: DCP Cont: Spoke to david Nix this am, and let him know that this caseworker is continuing to attempt getting patient into skilled rehab. At this time, Raquel at [facility] is going to be calling his Healthcare Management insurance to see if they are in their network, and if so, proceed with authorization. Louise Harrell is also reviewing. Patient will need rehab at this time, he is at least a 2 person assist, and has been having pain issues. Will work on this today. P: DCP to continue to follow and work on skilled rehab placement. Concepcion Dumont RN/Digital Content Producer
[2021-05-03] MEDS: METOPROLOL ER 50 MG TABLET PO (08:13)
[2021-05-03] MEDS: PREGABALIN 50 MG CAPSULE 100 MG PO ×4 (08:13→20:36)
[2021-05-03] MEDS: METFORMIN HCL 500 MG TABLET PO ×2 (08:13→20:36)
[2021-05-03] MEDS: MORPHINE IR 15 MG TABLET 30 MG PO (08:13)
[2021-05-03] MEDS: DOCUSATE 100 MG CAPSULE PO ×2 (08:13→20:36)
[2021-05-03] MEDS: NICOTINE 7 MG PATCH TOP (08:14)
[2021-05-03] MEDS: DICLOFENAC 1% GEL 100 GM 1 APPLIC TOP ×4 (09:19→20:36)
[2021-05-03] MEDS: SODIUM CHLORIDE 0.9% FLUSH 10 ML IV (09:20)
--- NOTE | 2021-05-03 10:44 | PT.IPTN ---
Current Diagnoses Other spondylosis with radiculopathy, lumbosacral region (04/30/21) Spinal stenosis, lumbar region with neurogenic claudication (04/30/21) Arthrodesis status (04/30/21) Surgery Performed Operation Date: 04/30/21 07:45 Actual Procedures p L3-4 TLIF, L2-3 hemilaminectomy,L4-S1 lumbar HWR, exploration of fusion, repeat laminectomy, reinsertion of hardware, L3-S1 PSF w. instrumentation - Karina Alamo MD Physical Therapy Treatment Note M2 PT-IP Current Condition Start: 05/01/21 13:58 Freq: NEEDED Status: Active Protocol: Document 05/01/21 11:38 AB (Rec: 05/01/21 14:15 AB [email or web address]) Physical Therapy Current Condition Current Condition Evaluation Date 05/01/21 Treatment Diagnosis s/p L3-4, L4-5, L5S1 fusion/ lami; difficulty in walking Onset Date 04/30/21 Precautions Lumbar Precautions Log Roll,No Twisting,Limit Bending,Lifting Restriction of 10 lbs,Gait Belt above Incisional Area M3 PT-IP Subjective Start: 05/01/21 13:58 Freq: NEEDED Status: Active Protocol: Document 05/03/21 10:44 AW (Rec: 05/03/21 11:17 AW [id number]) Subjective Physical Therapy Visit Type Type Treatment Note Visit Start Time 10:19 Visit Stop Time 10:44 Total Visit Minutes 25 Number of MULTILITH OPERATOR Visits 0 Physical Therapy Visit Comments Patient Comments Pt is willing to work with PT Therapy Pain Assessment Pain When Pain Assessed During Mobility Pain Present Pain Present Allowed to Sleep Location Left Knee Intensity 7 Scale Used Numeric (0 - 10) Description Aching,Sharp Pain Behaviors Facial Grimacing,Wincing Pain Management Techniques Distraction,Timing of Activity with Medications M4 PT-IP Mobility and Gait Start: 05/01/21 13:58 Freq: NEEDED Status: Active Protocol: Document 05/03/21 10:44 AW (Rec: 05/03/21 11:17 AW [id number]) PT-Bed Mobility Assessment Rolling Type of Rolling Log Rolling Level of Assist Moderate Assistance,1 Person Assistance Supine to Sit Supine to Sit Maximum Assistance,Total Assistance,1 Person Assistance ,Bedrails Scooting Scooting to Edge of Bed Minimal Assistance PT-Transfer Assessment Sit to and From Stand Sit to and from Stand Maximum Assistance,1 Person Assistance,Use of Upper Extremities Equipment Transfer Assistive Device Gait Belt,Front Wheeled Walker Orthotic/Prosthetic Devices or Brace: No Transfers Transfer Destination Chair Transfer Technique Forward/Backward Scoot Transfer Ability Level of Assist Maximum Assistance,1 Person Assistance,Use of Upper Extremities Comments Mobility Comments Pt was reclined in bed as PT arrived. He agreed to get up and rolled to his left side and transitioned from SL to sit max to total assist x 1. PT raised the bed 2 to simulate home set up and pt needed max assist to stand. With FWW, pt slowly ambulated 10 feet to the window mod A. PT positioned chair two feet behind him and pt took steps backward to chair, requiring max verbal cues and assist to sit safely. Pt was left in reclined position, call light and tray table in reach. Chair alarm was armed. Gait Assessment Gait Gait Assistance Required: Moderate Assistance,1 Person Assist Distance (Feet) 10 Able to Maintain Weight Bearing Status Yes During Gait Assistive Devices Assistive Device Gait Belt,Front Wheeled Walker Orthotic/Prosthetic Devices or Brace: No Gait Deviations General Gait Pattern Antalgic,Decreased Stride Length,Decreased Feet Clearance,Flexed Trunk,Step-to Gait Factors Limiting Gait Function Factors Limiting Gait Function Decreased Activity Tolerance, Decreased Strength,Pain,Poor Balance,Poor Safety Awareness Comments Gait Comments Pt walked forward 10 feet, backward 2 feet. He fatigued quickly and needed verbal and tactile cues for knee extension in stance. 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,Dry Cell Sealer Impaired Gross Range of Motion Lower Extremity ROM Assessment Within Functional Limits Strength Lower Extremity Strength Assessment Bilaterally Impaired Comments Strength Comments LLE: 2+/5 RLE: 3-/5 Coordination Assessment Gross Coordination Gross Coordination Impaired Sensation Assessment Sensation Light Touch Impaired Proprioception (Position) Impaired Muscle Tone Muscle Tone WNL Yes M6 PT-IP Treatment Start: 05/01/21 13:58 Freq: NEEDED Status: Active Protocol: Document 05/03/21 10:44 AW (Rec: 05/03/21 11:17 AW [id number]) Physical Therapy Treatment Education Education Provided Precautions,Safety M7 PT-IP Assessment and Plan Start: 05/01/21 13:58 Freq: NEEDED Status: Active Protocol: Document 05/03/21 10:44 AW (Rec: 05/03/21 11:17 AW [id number]) PT Summary Assessment and Plan Potential Rehabilitation Potential Fair Summary Impairments Pain,ROM,Strength,Balance, Coordination,Sensation,Tone, Cognition,Bed Mobility, Transfers,Gait,Activity Tolerance Progress Towards Goals Slow Progress due to Pain,Slow Progress due to Activity Tolerance,Slow Progress - Other Assessment Summary Pt continues to require max to total assist for bed mobility and transfers but was able to improve gait distance today to 10 feet with FWW mod assist . Pt is unsafe for home discharge and will require SNF rehab. Goals Bed Mobility Goal Moderate Assistance Transfer Goal Minimal Assistance,Front Wheeled Walker Gait Goal Minimal Assistance,Front Wheel Walker Gait Distance 50 Other Goals improve transfer using FWW CGA and ambualtion using FWW 100 ft CGA up/down 4 steps L rail min A Days to Meet Goals 10 Frequency of Treatment Frequency Of Treatment Twice a Day Treatment Plan Physical Therapy Treatment Plan Bed Mobility Training,Transfer Training,Gait Training, Therapeutic Exercise,Balance Retraining,Post Op Education, Discharge Planning,Hot or Cold Pack,Neuromuscular Re-ed Other Recommendations and Next Treatment bed mob, transfers, gait if Focus able and safe using FWW. Precautions Lumbar Precautions Log Roll,No Twisting,Limit Bending,Lifting Restriction of 10 lbs,Gait Belt above Incisional Area Recommendations To Nursing Amount of Assist Needed Mechanical Lift Discharge Recommendations PT Discharge Recommendations SNF Rehab Equipment Needed for Home Before FWW if pt goes home Discharge Transportation Needs at Discharge Wheelchair/Cabulance,Stretcher /Ambulance
--- NOTE | 2021-05-03 14:12 | PT.IPTN ---
Current Diagnoses Other spondylosis with radiculopathy, lumbosacral region (04/30/21) Spinal stenosis, lumbar region with neurogenic claudication (04/30/21) Arthrodesis status (04/30/21) Surgery Performed Operation Date: 04/30/21 07:45 Actual Procedures p L3-4 TLIF, L2-3 hemilaminectomy,L4-S1 lumbar HWR, exploration of fusion, repeat laminectomy, reinsertion of hardware, L3-S1 PSF w. instrumentation - Karina Alamo MD Physical Therapy Treatment Note M2 PT-IP Current Condition Start: 05/01/21 13:58 Freq: NEEDED Status: Active Protocol: Document 05/01/21 11:38 AB (Rec: 05/01/21 14:15 AB [id number]) Physical Therapy Current Condition Current Condition Evaluation Date 05/01/21 Treatment Diagnosis s/p L3-4, L4-5, L5S1 fusion/ lami; difficulty in walking Onset Date 04/30/21 Precautions Lumbar Precautions Log Roll,No Twisting,Limit Bending,Lifting Restriction of 10 lbs,Gait Belt above Incisional Area M3 PT-IP Subjective Start: 05/01/21 13:58 Freq: NEEDED Status: Active Protocol: Document 05/03/21 14:12 AW (Rec: 05/03/21 14:44 AW [id number]) Subjective Physical Therapy Visit Type Type Treatment Note Visit Start Time 13:59 Visit Stop Time 14:12 Total Visit Minutes 13 Number of FUNERAL DIRECTOR AND EMBALMER Visits 0 Physical Therapy Visit Comments Patient Comments Pt requesting return to bed Therapy Pain Assessment Pain When Pain Assessed During Mobility Pain Present Pain Present Allowed to Sleep Location Left Knee Intensity 7 Scale Used Numeric (0 - 10) Description Aching,Sharp Pain Behaviors Facial Grimacing,Wincing Pain Management Techniques Distraction,Timing of Activity with Medications M4 PT-IP Mobility and Gait Start: 05/01/21 13:58 Freq: NEEDED Status: Active Protocol: Document 05/03/21 14:12 AW (Rec: 05/03/21 14:44 AW [id number]) PT-Bed Mobility Assessment Rolling Type of Rolling Log Rolling Level of Assist Moderate Assistance,1 Person Assistance Sit to Supine Sit to Supine Moderate Assistance,1 Person Assistance,Bedrails Scooting Scooting Up and Down in Bed Moderate Assistance PT-Transfer Assessment Sit to and From Stand Sit to and from Stand Maximum Assistance,2 Person Assistance,Use of Upper Extremities Equipment Transfer Assistive Device Gait Belt,Front Wheeled Walker Orthotic/Prosthetic Devices or Brace: No Transfers Transfer Destination Bed Transfer Technique Stand Step Pivot Transfer Ability Level of Assist Moderate Assistance,2 Person Assistance,Use of Upper Extremities Comments Mobility Comments Pt was sitting up in chair with feet on floor as PT and TAPPER SUPERVISOR arrived. Pt was able to lean forward for gait belt placement and scoot forward on chair CGA. He needed max 2PA to stand up from the chair. He used FWW to transfer to bed mod A x 2. He sat on the bed and required verbal cues to sequence log roll and mod assit to complete. Pt was able to assist with scooting up in bed but needed mod assist. Gait Assessment Gait Gait Assistance Required: Moderate Assistance,2 Person Assist Distance (Feet) 3 Able to Maintain Weight Bearing Status Yes During Gait Assistive Devices Assistive Device Gait Belt,Front Wheeled Walker Orthotic/Prosthetic Devices or Brace: No Gait Deviations General Gait Pattern Antalgic,Decreased Stride Length,Decreased Feet Clearance,Flexed Trunk,Step-to Gait Factors Limiting Gait Function Factors Limiting Gait Function Decreased Activity Tolerance, Decreased Strength,Pain,Poor Balance,Poor Safety Awareness Comments Gait Comments Transfer only. Pt was too fatigued after morning activity. 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,Assisted Impaired Gross Range of Motion Lower Extremity ROM Assessment Within Functional Limits Strength Lower Extremity Strength Assessment Bilaterally Impaired Comments Strength Comments LLE: 2+/5 RLE: 3-/5 Coordination Assessment Gross Coordination Gross Coordination Impaired Sensation Assessment Sensation Light Touch Impaired Proprioception (Position) Impaired Muscle Tone Muscle Tone WNL Yes M6 PT-IP Treatment Start: 05/01/21 13:58 Freq: NEEDED Status: Active Protocol: Document 05/03/21 14:12 AW (Rec: 05/03/21 14:44 AW [id number]) Physical Therapy Treatment Education Education Provided Precautions,Safety M7 PT-IP Assessment and Plan Start: 05/01/21 13:58 Freq: NEEDED Status: Active Protocol: Document 05/03/21 14:12 AW (Rec: 05/03/21 14:44 AW [id number]) PT Summary Assessment and Plan Potential Rehabilitation Potential Fair Summary Impairments Pain,ROM,Strength,Balance, Coordination,Sensation,Tone, Cognition,Bed Mobility, Transfers,Gait,Activity Tolerance Progress Towards Goals Slow Progress due to Pain,Slow Progress due to Activity Tolerance,Slow Progress - Other Assessment Summary Pt requiring mod to max assist x 2 for transfers. He remains unable to recall back precautions and needs assist for log roll bed mobility. Pt will need SNF rehab to improve strength and mobility independence. Goals Bed Mobility Goal Moderate Assistance Transfer Goal Minimal Assistance,Front Wheeled Walker Gait Goal Minimal Assistance,Front Wheel Walker Gait Distance 50 Other Goals improve transfer using FWW CGA and ambualtion using FWW 100 ft CGA up/down 4 steps L rail min A Days to Meet Goals 10 Frequency of Treatment Frequency Of Treatment Twice a Day Treatment Plan Physical Therapy Treatment Plan Bed Mobility Training,Transfer Training,Gait Training, Therapeutic Exercise,Balance Retraining,Post Op Education, Discharge Planning,Hot or Cold Pack,Neuromuscular Re-ed Precautions Lumbar Precautions Log Roll,No Twisting,Limit Bending,Lifting Restriction of 10 lbs,Gait Belt above Incisional Area Recommendations To Nursing Amount of Assist Needed Mechanical Lift Discharge Recommendations PT Discharge Recommendations SNF Rehab Equipment Needed for Home Before FWW if pt goes home Discharge Transportation Needs at Discharge Wheelchair/Cabulance,Stretcher /Ambulance
--- NOTE | 2021-05-03 15:40 | OT.IP.TRT ---
Current Diagnoses Other spondylosis with radiculopathy, lumbosacral region (04/30/21) Spinal stenosis, lumbar region with neurogenic claudication (04/30/21) Arthrodesis status (04/30/21) Surgery Performed Operation Date: 04/30/21 07:45 Actual Procedures p L3-4 TLIF, L2-3 hemilaminectomy,L4-S1 lumbar HWR, exploration of fusion, repeat laminectomy, reinsertion of hardware, L3-S1 PSF w. instrumentation - Karina Alamo MD Occupational Therapy Treatment Note M2 OT-IP Current Condition Start: 05/01/21 15:31 Freq: Status: Active Protocol: Document 05/01/21 15:31 CGR (Rec: 05/01/21 16:02 CGR [id number]) Occupational Therapy Current Condition Current Condition Evaluation Date 05/01/21 Treatment Diagnosis L3-S1 TLIF Diagnosis Onset Date 04/30/21 Post Operative Precautions Lumbar Precautions Log Roll,No Twisting,Limit Bending,Lifting Restriction of 10 lbs,Gait Belt above Incisional Area M3 OT- IP Subjective and Pain Start: 05/01/21 15:31 Freq: Status: Active Protocol: Document 05/03/21 17:21 CGR (Rec: 05/03/21 17:36 CGR [id number]) OT- Subjective Occupational Therapy Visit Type Type Progress Note Visit Start Time 14:57 Visit Stop Time 15:40 Total Visit Minutes 43 Notes Pt's present at start of session but left early into session. OT Pain Assessment Pain When Pain Assessed At Rest Pain Present Pain Present Pain Reported Location Left Knee Scale Used did not rate but pain to knee Management Techniques Distraction,Modification of Treatment,Re-positioning Back Scale Used did not rate but states pain to back Management Techniques Distraction,Modification of Treatment,Re-positioning M4 OT- IP ADL's Start: 05/01/21 15:31 Freq: Status: Active Protocol: Document 05/03/21 17:21 CGR (Rec: 05/03/21 17:36 CGR [id number]) OT [id number] Comments OT Self-Feeding Comments Not meal time OT ADL-Grooming General Evaluation Grooming Ability Maximum Assistance Areas Needing Assistance Combing/Brushing Hair Comments OT Grooming Comments Pt needed max a for washing hair and brushing hair Pt shaved with set up and SBA OT ADL-Oral Care Comments Oral Care Comments Not performed OT ADL-Dressing Comments OT Dressing Comments Not performed OT ADL-Toileting Comments OT Toileting Comments Pt requesting to ambulate to toilet but was unable to tolerate ambulation that far. Pt with avila at this time. OT ADL-Bathing Comments OT Bathing Comments Not performed M5 OT- IP IADL's Start: 05/01/21 15:31 Freq: Status: Active Protocol: Document 05/01/21 15:31 CGR (Rec: 05/01/21 16:02 CGR [id number]) OT-Instrumental Activities of Daily Living Deficits IADL Deficits Identified Deficits Home Safety Awareness Awareness of Need for Assistance at Home Decreased Awareness Ability to Problem Solve Emergency Unable to Problem Solve Situations Home Safety Comments Pt appears lethargic needing extra time for all communications. Medication Management Medication Management Caregiver Administers Medication Management Comments Concerns regarding pts ability to perform safely Money Management Money Management Comments Concerns regarding pts ability to perform safely Meal Preparation Meal Preparation Caregiver Provides Assist Meal Preparation Comments Concerns regarding pts ability to perform safely Tunneller Tunneller Caregiver Provides Assist Tunneller Comments Concerns regarding pts ability to perform safely Driving Driving Comments PT does not drive at baseline. M6 OT- IP Functional Cognition Start: 05/01/21 15:31 Freq: Status: Active Protocol: Document 05/03/21 17:21 CGR (Rec: 05/03/21 17:36 CGR [id number]) Cognitive Factors Limiting Selfcare Function Cognitive Ability Level of Alertness Alert Patient Orientation Name,Age,Birthday,Month,Date, Year,Day of Week,Place, Situation Attention Span Ability Capable of Focused Attention, Unable to Sustain Attention Ability to Follow Commands Able to Follow One Step Commands with Increased Time, Able to Follow One Step Commands with Repetition Cognitive Comments Cognitive Assessment Comments Pt with increased cognition on this visit. Pt was able to appropriately reply during conversation and was telling stories. M7 OT- IP Mobility and Balance Start: 05/01/21 15:31 Freq: Status: Active Protocol: Document 05/03/21 17:21 CGR (Rec: 05/03/21 17:36 CGR [id number]) OT- Bed Mobility Assessment Supine to Sit Supine to Sit Assist Standby Assistance,Head of Bed Elevated,Bedrails Scooting Scooting to Edge of Bed Standby Assistance,Head of Bed Elevated,Bedrails OT-Transfer Assessment Sit to and From Stand Sit to and from Stand Maximum Assistance,1 Person Assistance Transfers Transfer Ability Total Assistance,1 Person Assistance Technique Transfer Destination Bed,Chair Transfer Technique Stand Step Pivot Devices Transfer Assistive Devices Gait Belt,Front Wheeled Walker Comments Mobility Comments Pt needed max a for sit to stand and extra time to perform. Pt ambualted ~4 steps before his R knee fatigued and pt was unable to continue to stand. Total heavy assist with gait belt used to get pt safely into chair. Pt left sitting up in chair, call button within reach and all needs at time met. Chair fall alarm armed. OT- Balance Assessment Sitting Balance and Reactions Static Sitting Balance Ability Good Dynamic Sitting Balance Ability Fair Standing Balance and Reactions Static Standing Balance Ability Poor Dynamic Standing Balance Ability Poor M8 OT- IP Objective Assessments Start: 05/01/21 15:31 Freq: Status: Active Protocol: Document 05/01/21 15:31 CGR (Rec: 05/01/21 16:02 CGR [id number]) OT Gross Range of Motion Upper Extremity Range of Motion Assessment Within Functional Limits OT Strength Upper Extremity Strength Assessment Bilaterally Impaired Comments Strength Comments grossly 3-/5 to shlds, 3+/5 to arms and hands with noted wasting to arms and hands. OT- Coordination Assessment Upper Extremity Finger to Nose Test Within Functional Limits Finger Tapping Test Within Functional Limits OT-Muscle Tone Assessment Muscle Tone WNL Yes OT Sensation Assessment Edema Edema Absent M9 OT- IP Assessment and Plan Start: 05/01/21 15:31 Freq: Status: Active Protocol: Document 05/03/21 17:21 CGR (Rec: 05/03/21 17:36 CGR [id number]) OT Summary Assessment and Plan Potential Rehabilitation Potential Good Analytic Complexity at Evaluation High Summary OT Impairments Pain,Strength,Balance, Functional Cognition, Functional Mobility,Grooming, Dressing,Toileting,Bathing, Toilet Transfers,Shower Transfers,Activity Tolerance Progress Towards Goals Slow Progress due to Pain,Slow Progress due to Cognition Assessment Summary Pt presents as a high complexity evaluation s/p admit for L3-S1 TLIF. Pt presents with poor sitting balance, significant pain, decline to cognition, and poor mobility. Pt is progressing with therapy but now reports pain/weakness to the R knee. Pt was unable to maintain standing after ~4 steps and required a total assist to the chair. Pt will continue to benefit from OT services and would be appropriate for cog assessment. Recommend d/c to SNF as pt would not be safe for discharge home at this time. Goals Grooming Goal Independent Dressing Goal Independent Toileting Goal Independent Bathing Goal Independent Toilet Transfer Goal Independent Shower Transfer Goal Independent Days to Meet Goals 20 Frequency of Treatment Frequency Of Treatment Once a Day Treatment Plan OT Treatment Plan ADL Training,Functional Cognition Training,Functional Mobility,Patient/Family Education,Discharge Planning Other Treatment Recommendations and Next ADLs seated, simple transfers, Treatment Focus cog assessment. Discharge Recommendations OT Discharge Recommendations SNF Rehab Transportation Needs at Discharge Wheelchair/Cabulance
--- NOTE | 2021-05-03 17:30 | PC.NURSE ---
Received call back from Boyd Velazquez PA-C in regards to message left by day shift about leaving PIV out as his R hand PIV came out. Sherrell, RN took call and informed me of this. Communication order put in to leave IV out. Call placed to Dr. Alamo as order for avila catheter was supposed to be taken out on POD#2. He asked about mobility and I informed him that he is not moving well, and PT now recommends lara lift. Dr. Alamo said he would prefer to have the catheter out. This was taken out and d/c'd order in computer.
[2021-05-03] MEDS: AMITRIPTYLINE 25 MG TABLET PO (20:36)
[2021-05-03] MEDS: ATORVASTATIN 20 MG TABLET PO (20:36)
[2021-05-03] MEDS: SENNOSIDES 8.6 MG TABLET 17.2 MG PO (20:36)
[2021-05-04] MEDS: hydrOXYzine pamoate 25 MG CAPSULE PO (02:01)
--- NOTE | 2021-05-04 03:18 | PC.NURSE ---
Patient is alert and oriented. Breath sounds CTA with RA sat of 90%. HRR. Denies nausea. BT hyperactive but still has not had a BM since 04/29 despite MOM yesterday morning; plan to repeat MOM in a.m. if still no stool. Catheter removed on previous shift and has been voiding per urinal; reports some burning with urination so discussed sx/prevention of UTI and importance of reporting if does not improve. Is being assisted to reposition q2h as not moving well on his own. Dressing to back intact with no new drainage. Reports pain as 9/10 although FLACC not consistent with report; medicated with oxycodone, repositioned and warm blankets applied at time of assessment and patient was able to fall asleep. Around 0200 requesting more pain medication but too early for oxycodone so medicated with Vistaril and is currently asleep. Has good pedal pulses and denies any tingling/numbness. Is wearing bilateral foot SCD's. Fall risk score is high and bed alarm is activated.
[2021-05-04 04:15] VITALS: BP 130/61; PULSE 75; RESP 16; TEMP 36.4; O2SAT 97
[2021-05-04] MEDS: MAGNESIUM HYDROXIDE 30 ML UDC PO ×2 (06:07→09:03)
[2021-05-04] MEDS: PANTOPRAZOLE DR 40 MG TABLET PO (06:07)
--- NOTE | 2021-05-04 07:26 | PM.DS.1 ---
History of Present Illness History of Present Illness Date Patient Seen: 05/04/21 Time Patient Seen: 07:27 Chief complaint: Back pain Narrative: Pain is moderate to severe. Denies fever chills. No nausea vomiting. Discharge Providers Provider Date of admission: 04/30/21 06:22 Discharge Date: 05/04/21 Primary care physician: Myron Estrella MD Consults: 04/19/21 11:43 Consult to Anesthesiology Routine Comment: Consulting Provider: Anesthesiologist Reason for consultation: Regional block for post operative pain control 04/30/21 13:42 Consult to Occupational Therapy Evaluate & Treat Comment: Physician Instructions: Evaluate and treat Consult to Physical Therapy Evaluate & Treat Comment: Physician Instructions: Evaluate and Treat Discharge provider: Kal Jorge PA-C Summary Hospital Course Discharge Diagnosis: 1. L3-4, L4-5, L5-S1 spinal stenosis 2. Hx of L4-5, L5-S1 fusion 3. Lumbar spondylosis with radiculopathy Hospital Course: 1. L3-4 posterolateral and posterior interbody fusion 2. L3-4 posterior interbody cage placement 3. L4-5, L5-S1 posterior segmental instrumentation removal 4. L4-5, L5-S1 revision laminectomy with exploration of fusion 5. L3-4, L4-5, L5-S1 posterior segmental instrumentation with pedicle screw placement 6. L4-5, L5-S1 posterolatearl fusion 7. [place] of bone marrow from iliac crest through a separate incision 8. Utilization of microsurgical technique and operating microscope Same procedure as scheduled: Yes Indications: Patient has been having chronic back pain and worsening lumbar radiculopathy. Fusion had previous fusion has been doing well until the last 6 months. Patient failed multiple conservative management with worsening pain weakness and numbness in her lower extremity. Patient has been having difficulty performing activity of daily living. After discussing risks benefits of treatment options, patient elected proceed with surgery. Surgeon: Karina Alamo Manager Furniture: Boyd Velazquez Click Yes if Unassisted: No Anesthesia Type: General Operative Notes Closure Type: primary Specimen(s): none sent Prosthetic devices, grafts, tissues, transplants, or devices: Globus revolve screws, Rise cage Applied: catheter Estimated Blood Loss (mL): 200 Blood products transfused: none Patient mid to the hospital for the above-mentioned procedure. Patient consented to the same. Patient taken operating room on April 30, 2021. Patient back in his room recovering well as in stable condition. History of chronic pain issues. Discharge to correction facility in stable condition. Exam Vital Signs (past 8 hours): - 05/03/21 23:45 05/04/21 04:15 Temperature 98.1 F 97.5 F L Pulse Rate 74 75 Respiratory Rate 16 16 Blood Pressure 133/58 L 130/61 Pulse Oximetry 90 L 97 Oxygen Delivery Method Room Air Oxygen Flow Rate 0 Narrative Exam Narrative: 65-year-old male resting comfortably in bed in no apparent distress. Dressing is Clean, dry, intact.. Motor functions intact bilateral lower extremities. Sensation grossly intact to light touch bilateral lower extremities. Objective Labs Result Diagrams: 05/01/21 06:15 [facility] Medical History CAD (coronary artery disease) Fusion of lumbar spine Gastric ulcer GERD (gastroesophageal reflux disease) Hyperlipidemia Hypertension Insomnia Myocardial infarction (~2011) Numbness and tingling Surgical History History of arthroplasty of right knee History of bilateral carpal tunnel release History of cervical spinal surgery (~02/2001) History of left knee surgery History of lumbar spinal fusion (09/27/18) History of lumbar surgery (~2000) Hx of appendectomy Hx of cervical spine surgery (~12/2015) S/P coronary artery stent placement (09/2011) S/P wrist surgery Status post arthroscopic surgery of right knee (12/2012) Status post rotator cuff repair (2007) Family History Father CAD (coronary artery disease) Mother CAD (coronary artery disease) Arthritis Family/Other Alcoholism and drug addiction in family Autoimmune disease Arthritis Rheumatoid arthritis Other Drug abuse Social History household members: spouse and children Smoking Status: Current every day smoker alcohol intake: former Discharge Assessment & Plan Assessment and Plan Assessment: Stable status post lumbar surgery. Plan of Treatment: Limit bending, twisting, lifting. Discharge to correction facility today. Discharge Plan Discharge Plan Patient Disposition: SNF Transfer to: [facility], [facility] Provider Discharge Comment: stable status post lumbar surgery Discharge orders & Medications Prescriptions: New amitriptyline 25 mg Tablet 25 mg PO BEDTIME Qty: 20 RF: 0 docusate sodium [DOK] 100 mg Capsule 100 mg PO BID Qty: 20 RF: 0 morphine 15 mg Tablet 30 mg PO DAILY Qty: 30 RF: 0 oxycodone 5 mg Tablet 10 mg PO Q3HR PRN (Reason: Pain, Severe (7-10)) Qty: 40 RF: 0 hydroxyzine pamoate 25 mg Capsule 25 mg PO Q4HR PRN (Reason: Nausea And Vomiting) Qty: 30 RF: 0 Continued metoprolol succinate 50 mg tablet extended release 24 hr 50 mg PO DAILY Qty: 90 RF: 3 atorvastatin 40 mg tablet See Rx Instructions .ROUTE .COMPLEX Qty: 90 RF: 3 cyclobenzaprine 10 mg tablet 10 mg PO TIDP PRN (Reason: muscle spasm) Qty: 90 RF: 5 (DME) glucose meter See Rx Instructions .Route .MEDSUPPLY Qty: 1 RF: 0 (DME) lancets See Rx Instructions .Route .MEDSUPPLY Qty: 100 RF: 3 (DME) test strips See Rx Instructions .Route .MEDSUPPLY Qty: 100 RF: 3 lansoprazole 30 mg capsule,delayed release(DR/EC) 30 mg PO DAILY Qty: 90 RF: 3 pregabalin 100 mg capsule 100 mg PO QID Qty: 120 RF: 5 naloxone 4 mg/actuation spray,non-aerosol 4 mg intranasal Q3M PRN (Reason: opioid overdose) Qty: 2 RF: 1 docusate sodium 100 mg capsule 100 mg PO BID RF: 0 acetaminophen 500 mg capsule 1,000 mg PO TID PRN (Reason: pain) Qty: 100 RF: 5 naloxone 1 mg/mL syringe 1 mg IM ONCE PRN (Reason: opioid overdose) Qty: 2 RF: 5 metformin 500 mg Tablet 500 mg PO BID RF: 0 Discontinued amitriptyline 25 mg tablet 25 mg PO BEDTIME Qty: 90 RF: 3 oxycodone-acetaminophen 5-325 mg tablet 1 tab PO Q8H PRN (Reason: pain) Qty: 90 RF: 0 morphine 30 mg Tablet 30 mg PO DAILY RF: 0 Follow up/Referrals: Myron Estrella MD [Primary Care Provider] - Karina Alamo MD [Family Provider] - (2 wks) Discharge Health Status Multidrug resistant organism: No MDRO Diet/Activity/Treatments Diet: Carb-consistent/Diabetic Liquid consistency: Normal/Thin Food texture: Regular Activity: limit bending, lifting, twisting Cold/Heat Therapy: ice to back as needed Skin/Wound/Dressing Care Report to your healthcare provider any signs of infection, such as:: chills, fever, increased pain, unusual drainage and unusual redness Dressing: keep clean and dry Special Rehabilitation Services Reason for rehabilitation: Post-operative therapy Rehab type: Physical therapy and Occupational therapy Visit Report/Discharge Packet Instructions: DI for Prescription Opioid Use, DI for Transforaminal Lumbar Interbody Fusion Stand Alone Forms: Surgery Discharge Discharge Data Primary Care Provider: Myron Estrella
[2021-05-04 07:40] VITALS: BP 132/70; PULSE 75; RESP 18; TEMP 36.8; O2SAT 92
[2021-05-04 08:38] LABS: COVID19 -Nasal RAPID Negative (Negative)
[2021-05-04] MEDS: DICLOFENAC 1% GEL 100 GM 1 APPLIC TOP (08:51)
[2021-05-04] MEDS: DOCUSATE 100 MG CAPSULE PO (08:57)
[2021-05-04] MEDS: MORPHINE IR 15 MG TABLET 30 MG PO (08:57)
[2021-05-04] MEDS: METOPROLOL ER 50 MG TABLET PO (08:57)
[2021-05-04] MEDS: OXYCODONE IR 5 MG TABLET 10 MG PO (08:57)
[2021-05-04] MEDS: METFORMIN HCL 500 MG TABLET PO (08:57)
[2021-05-04] MEDS: PREGABALIN 50 MG CAPSULE 100 MG PO (08:57)
[2021-05-04] MEDS: NICOTINE 7 MG PATCH TOP (08:58)
[2021-05-04] MEDS: SODIUM CHLORIDE 0.9% FLUSH 10 ML IV (08:58)
--- NOTE | 2021-05-04 09:18 | CM.DPC ---
DCP: continued: case received, dc to [facility] noted. EMR reviewed and see that transport is already set up as of yesterday for 1000 today via [facility]. Have checked in with pt who remains agreeable to the d/c for today and says his is aware. Rapid COVID done and - results are now in packet. PASRR: reviewed, discussed with Raquel and pt and amended with the information that pt is on home medication of amtriptyline which he takes for sleep. Placed to scan folder and snf packet. SNF specific orders faxed. DESTINEY Nye updated. P: [facility] today 1000 via w/c van. Pt confirms he would like a nicotine patch at the facility. This was not ordered by Babak Jorge. Raquel is updated and sounds like she may be able to get this order once he is at the facility.
[2021-05-04 09:33] VITALS: PULSE 70
--- NOTE | 2021-05-04 09:56 | PC.NURSE ---
Day shift: Report given to Shantell at [facility] at approx [phone].
--- NOTE | 2021-05-04 10:05 | PC.NURSE ---
Day shift: Pt left unit at approx 1015. On his way to [facility]. Transport person has SNF packet. Dressing remains CDI with quarter sized shadow drainage present. Pain has been controlled per MAR. Weakness remains in bilat knees. 2ppl moderate assist when OOB. Pivot to BSC. He did not have a BM this AM but stated he is very close. Gave BM meds per MAR this AM. Voiding well after Dooley d/c'd. Pt has all personal belongings. Pt's spouse took home his cane yesterday. No IV at discharge. No nausea today as well.
--- NOTE | 2021-05-04 12:14 | PT-IP ANOTE ---
pt d/c to SNF before PT session
== END 2021-05-04 10:16 | DRG 454 ==
PROVIDERS: Admitting Provider Orthopaedic Surgery Orthopaedic Surgery of the Spine; Family Provider Orthopaedic Surgery Orthopaedic Surgery of the Spine; PCP Student in an Organized Health Care Education/Training Program; Referring Provider Student in an Organized Health Care Education/Training Program; Visit Provider Orthopaedic Surgery Orthopaedic Surgery of the Spine
PROC: 0SG00AJ Fusion of Lumbar Vertebral Joint with Interbody Fusion Device, Posterior Approach, Anterior Column, Open Approach (ICD-10-PCS; principal; 2021-04-30 07:45)
DX: M48.062 Spinal stenosis, lumbar region with neurogenic claudication (principal); M96.0 Pseudarthrosis after fusion or arthrodesis; T84.038A Mechanical loosening of other internal prosthetic joint, initial encounter; M48.07 Spinal stenosis, lumbosacral region; M47.27 Other spondylosis with radiculopathy, lumbosacral region; M47.26 Other spondylosis with radiculopathy, lumbar region; Z98.1 Arthrodesis status; I10 Essential (primary) hypertension; E11.9 Type 2 diabetes mellitus without complications; K21.9 Gastro-esophageal reflux disease without esophagitis; I25.10 Atherosclerotic heart disease of native coronary artery without angina pectoris; E66.9 Obesity, unspecified; Z68.33 Body mass index [BMI] 33.0-33.9, adult; Z79.84 Long term (current) use of oral hypoglycemic drugs; M96.1 Postlaminectomy syndrome, not elsewhere classified; F17.200 Nicotine dependence, unspecified, uncomplicated; G89.18 Other acute postprocedural pain
CPT/HCPCS: 36415; 72100; 76000; 82962; 85014; 85018; 87635; 93005; 97116; 97162; 97167; 97530; 97535; C1776; C9803; C9290; J0690; J1170; J2250; J3010

== ENCOUNTER 2021-07-20 12:30 | Emergency (ER) | payer OTHER, MEDICARE, SELFPAY ==
[2021-04-30 13:44] VITALS: BMI 33.9
[2021-07-20 12:42] VITALS: BP 178/84; PULSE 78; RESP 15; TEMP 36.9; O2SAT 99; BMI 34.5
--- NOTE | 2021-07-20 12:58 | ED.BACK ---
HPI - Back Pain/Injury General Chief Complaint: Back Pain/Injury Stated Complaint: back/neck spasms down legs Time Seen by Provider: 07/20/21 12:34 Source: patient Limitations: no limitations History of Present Illness HPI Narrative: 65-year-old male daily smoker with extensive history of chronic neck and back pain presents with a chief complaint of burning neck pain with occasional radiation into his arms. He states that symptoms have been worsening over the past few days and he denies any injury or fall. He denies any weakness of his extremities. He does not take blood thinners. He states that his last intervention was a surgery on his neck a few months ago by our local spine doctor. He states that he had some pain radiate down his left leg earlier today and attempted to use his 10s unit which seemed to make the pain radiate down his opposite leg. He denies loss of control of bowel or bladder. He denies any extremity weakness. He denies trauma. He has not been taking his pregabalin for least the past 3-4 days. He has not been on steroids for some time. He does not take any anti-inflammatories Related Data Home Medications Medication Instructions Recorded Confirmed metformin 500 mg tablet 500 mg PO BID 04/27/21 04/30/21 Previous Rx's Medication Instructions Recorded acetaminophen 500 mg capsule 1,000 mg PO TID PRN #100 cap 04/13/18 atorvastatin 40 mg tablet See Rx Instructions .ROUTE 09/21/20 .COMPLEX #90 tab cyclobenzaprine 10 mg tablet 10 mg PO TIDP PRN #90 tab 11/17/20 glucose meter #1 ea 11/24/20 lancets #100 ea 11/24/20 test strips #100 ea 11/24/20 lansoprazole 30 mg capsule,delayed 30 mg PO DAILY #90 cap 01/14/21 release pregabalin 100 mg capsule 100 mg PO QID #120 cap 02/17/21 naloxone 1 mg/mL injection syringe 1 mg IM ONCE PRN #2 ml 03/09/21 naloxone 4 mg/actuation nasal spray 4 mg INTRANASAL Q3M PRN #2 ea 03/16/21 docusate sodium 100 mg capsule 100 mg PO BID #20 cap 05/04/21 (DOK) oxycodone 5 mg tablet 10 mg PO Q3HR PRN #40 tab 05/04/21 metoprolol succinate 50 mg 50 mg PO DAILY #90 tab 05/18/21 tablet,extended release 24 hr morphine 15 mg immediate release 30 mg PO DAILY #15 tab 06/02/21 tablet amitriptyline 25 mg tablet See Rx Instructions .ROUTE 07/19/21 .COMPLEX #90 tab ketorolac 10 mg tablet 10 mg PO Q6H PRN #14 tab 07/20/21 prednisone 20 mg tablet 40 mg PO DAILY 4 Days tab 07/20/21 Allergies Allergy/AdvReac Type Severity Reaction Status Date / Time No Known Drug Allergies Allergy Verified 07/20/21 12:50 Review of Systems Review of Systems Narrative: GENERAL: Denies chills, fatigue, malaise, fever, sweats. HEENT: Denies sinus pain, ear pain, sore throat, difficulty swallowing, dizziness. RESPIRATORY: Denies dyspnea, cough, wheezing, hemoptysis, sputum. CARDIOVASCULAR: Denies chest pain, palpitations, orthopnea, edema, GASTROINTESTINAL: Denies nausea, vomiting, abdominal pain, diarrhea, constipation, melena. : Denies dysuria, frequency, incontinence, hematuria, urinary retention. MUSCULOSKELETAL: See HPI SKIN: Denies rash, skin lesions, or other NEUROLOGIC: See HPI PSYCHIATRIC: No concerning psychosocial issues. 12 point review of systems is negative except for those stated above Patient History Medical History CAD (coronary artery disease) Fusion of lumbar spine Gastric ulcer GERD (gastroesophageal reflux disease) Hyperlipidemia Hypertension Insomnia Myocardial infarction (~2011) Numbness and tingling Surgical History History of arthroplasty of right knee History of bilateral carpal tunnel release History of cervical spinal surgery (~02/2001) History of left knee surgery History of lumbar spinal fusion (09/27/18) History of lumbar surgery (~2000) Hx of appendectomy Hx of cervical spine surgery (~12/2015) S/P coronary artery stent placement (09/2011) S/P wrist surgery Status post arthroscopic surgery of right knee (12/2012) Status post rotator cuff repair (2007) Family History Father CAD (coronary artery disease) Mother CAD (coronary artery disease) Arthritis Family/Other Alcoholism and drug addiction in family Autoimmune disease Arthritis Rheumatoid arthritis Other Drug abuse Social History household members: spouse and children Smoking Status: Current every day smoker alcohol intake: former Smoking Status: Current every day smoker alcohol intake frequency: other Substance Use Type: does not use Exam Narrative Exam Narrative: GEN: AOx3 and in mild distress NECK: No midline tenderness, no change with axial load, no measurable upper extremity weakness EYES: Pupils are equal, round, and reactive to light and accommodation. Extraoccular muscles are intact bilaterally. There is no subconjunctival hemorrhage or exudate. CHEST: Lungs are clear to auscultation bilaterally and free of wheezes, rales, or rhonchi. Heart rate is regular rhythm, there are no murmurs, clicks, rubs, or gallops. There is no chest wall tenderness. ABD: Abdomen is soft and nontender. There is no guarding or rebound. Bowel sounds are normal in all 4 quadrants. There is no mass or organomegaly. BACK: dry can tender but free of any obvious external abnormalities. Patient exam notes decreased range of motion and muscle spasm, but no CVA tenderness, or vertebral point tenderness. There are no symptoms of cauda equina such as saddle anesthesia, and decreased reflexes, decreased sensation or strength. EXT: Full painless ROM of all extremities with no loss of sensation or strength. SKIN: Warm, pink, and dry. No erythema or rash Initial Vital Signs Initial Vital Signs: Vital Signs Temperature 98.5 F 07/20/21 12:42 Pulse Rate 78 07/20/21 12:42 Respiratory Rate 15 07/20/21 12:42 Blood Pressure 178/84 H 07/20/21 12:42 Pulse Oximetry 99 07/20/21 12:42 Course Orders Ordered: Discontinued Medications Ketorolac Tromethamine (Ketorolac 30 Mg/Ml Vial) 30 mg IM NOW ONE Stop: 07/20/21 12:59 Last Admin: 07/20/21 13:11 Dose: 30 mg Documented by: Prednisone (Prednisone 20 Mg Tablet) 40 mg PO NOW ONE Stop: 07/20/21 12:59 Last Admin: 07/20/21 13:10 Dose: 40 mg Documented by: Pregabalin (Pregabalin 50 Mg Capsule) 100 mg PO DAILY ONE Stop: 07/20/21 13:01 Last Admin: 07/20/21 13:10 Dose: 100 mg Documented by: Vital Signs Vital signs: Vital Signs - 8 hr 07/20/21 12:42 Temperature 98.5 F Pulse Rate 78 Respiratory Rate 15 Blood Pressure 178/84 H Pulse Oximetry 99 MDM - Back Pain/Injury MDM Narrative Medical decision making narrative: Multiple etiologies of back pain considered including; Epidural abscess, cauda equina, mass occupying lesion, and other considered, but no evidence of any neuro surgical emergency is present based on the patient's history and physical exam. The patient has been off some of his medications which may certainly be contributing to his symptoms. We talked about the utility of imaging and agree that it is not indicated at this point time. He plans to follow-up with his doctors. Return precautions have been given and questions answered to his apparent satisfaction Discharge Plan Departure Patient Disposition: Home Clinical Impression: Cervical radiculopathy Instructions: DI for Chronic Neck Pain Activity Restrictions/Additional Instructions: *You have been diagnosed with [acute on chronic neck pain with radiculopathy *What to do: *Please continue to take your regular medications as directed. Your Pregabalin should be ready in a few days as you mentioned [ x] New medication prescriptions sent to your pharmacy: [[facility]] [ ] New medication written as a paper prescription [ ] No new medications given *Please follow up with your primary care provider in 2-3 days, call for an appointment. Let them know you were seen in the Emergency Department and that we ask that you be seen in follow up. We will electronically transmit a record of today's note if your PCP is in our system *If you do not have a primary care provider please contact the [facility] Resource line at [phone]. They will ask some questions about your medical history and help get you set up with a doctor in the community. *Return to Emergency Department if you should have any new, worsening or concerning symptoms, such as [fever greater than 101 F, shaking chills, worsening pain, persistent vomiting or other bothersome symptoms] Prescriptions: New prednisone 20 mg tablet 40 mg PO DAILY 4 Days RF: 0 ketorolac 10 mg tablet 10 mg PO Q6H PRN (Reason: pain) Qty: 14 RF: 0 No Action atorvastatin 40 mg tablet See Rx Instructions .ROUTE .COMPLEX Qty: 90 RF: 3 cyclobenzaprine 10 mg tablet 10 mg PO TIDP PRN (Reason: muscle spasm) Qty: 90 RF: 5 (DME) glucose meter See Rx Instructions .Route .MEDSUPPLY Qty: 1 RF: 0 (DME) lancets See Rx Instructions .Route .MEDSUPPLY Qty: 100 RF: 3 (DME) test strips See Rx Instructions .Route .MEDSUPPLY Qty: 100 RF: 3 lansoprazole 30 mg capsule,delayed release(DR/EC) 30 mg PO DAILY Qty: 90 RF: 3 pregabalin 100 mg capsule 100 mg PO QID Qty: 120 RF: 5 Hold Instructions: Needs labs naloxone 4 mg/actuation spray,non-aerosol 4 mg intranasal Q3M PRN (Reason: opioid overdose) Qty: 2 RF: 1 metoprolol succinate 50 mg tablet extended release 24 hr 50 mg PO DAILY Qty: 90 RF: 3 morphine 15 mg tablet 30 mg PO DAILY Qty: 15 RF: 0 amitriptyline 25 mg tablet See Rx Instructions .ROUTE .COMPLEX Qty: 90 RF: 3 acetaminophen 500 mg capsule 1,000 mg PO TID PRN (Reason: pain) Qty: 100 RF: 5 naloxone 1 mg/mL syringe 1 mg IM ONCE PRN (Reason: opioid overdose) Qty: 2 RF: 5 metformin 500 mg Tablet 500 mg PO BID RF: 0 Hold Instructions: Needs labs docusate sodium [DOK] 100 mg Capsule 100 mg PO BID Qty: 20 RF: 0 oxycodone 5 mg Tablet 10 mg PO Q3HR PRN (Reason: Pain, Severe (7-10)) Qty: 40 RF: 0 Referrals: Myron Estrella MD [Primary Care Provider] - Karina Alamo MD [Physician] -
[2021-07-20] MEDS: PREGABALIN 50 MG CAPSULE 100 MG PO (13:10)
[2021-07-20] MEDS: predniSONE 20 MG TABLET 40 MG PO (13:10)
[2021-07-20] MEDS: KETOROLAC 30 MG/ML VIAL IM (13:11)
--- NOTE | 2021-07-20 13:20 | PC.NURSE ---
Had back surgery about a month and 3 weeks ago. Denies specific injury, but reporting spasms/pain increasing. Incision sites intact/healing well.
[2021-07-20 13:42] VITALS: BP 144/88; PULSE 68; RESP 16; O2SAT 98
== END 2021-07-20 13:52 | disposition home or self-care (01) ==
PROVIDERS: Emergency Provider Emergency Medicine; Family Provider Student in an Organized Health Care Education/Training Program; PCP Student in an Organized Health Care Education/Training Program
DX: M54.12 Radiculopathy, cervical region (principal)
CPT/HCPCS: 96372; 99283; J1885

== ENCOUNTER → 2021-08-26 17:02 | Outpatient (CLI) | payer OTHER, MEDICARE, SELFPAY ==
[2021-04-30 13:44] VITALS: BMI 33.9
[2021-08-26 18:35] LABS: Hemoglobin A1C% w Est Avg Glu 6.2 % (4.0-6.0)
[2021-08-26 18:51] LABS: BUN Creatinine Ratio 15.8 (6-22); Blood Urea Nitrogen 12 mg/dL (9-20); Estimated Glomerular Filt Rate > 60.0 mL/min (>60)
== END ==
PROVIDERS: Family Provider Student in an Organized Health Care Education/Training Program; PCP Student in an Organized Health Care Education/Training Program; Referring Provider Student in an Organized Health Care Education/Training Program; Visit Provider Student in an Organized Health Care Education/Training Program
DX: E11.9 Type 2 diabetes mellitus without complications (principal)
CPT/HCPCS: 36415; 82565; 83036; 84520

== ENCOUNTER 2021-10-25 00:47 | Emergency (ER) | payer OTHER, MEDICARE, SELFPAY ==
[2021-04-30 13:44] VITALS: BMI 33.9
[2021-10-25 01:14] VITALS: BP 208/88; PULSE 70; RESP 16; TEMP 36.7; O2SAT 100
--- NOTE | 2021-10-25 01:29 | ED_ITS ---
HPI - Back Pain/Injury General Chief Complaint: Back Pain/Injury Stated Complaint: back pain Time Seen by Provider: 10/25/21 01:07 Source: patient History of Present Illness HPI Narrative: 66-year-old gentleman with history of chronic neck and back pain with prior surgeries, most recently in April with lumbar fusion. He has had continued pain complaints for a number of years. Prior to April he had increasing upper extremity paresthesias and significant increase in lower extremity pain. He was noticing increasing weakness in both legs which is what led to the April surgery. Complains that has been out of his Percocet since October 19. States that he had an appointment with Dr. Robledo on October 19 however the last note from Dr. Robledo is on October 11 which confirms 60 Percocet were prescribed on September 23 as a chronic prescription. On the they talked about cervical osteoarthritis rotator cuff arthropathies and cervical paraspinous muscle spasm and he was given 30 5 mg diazepam to help muscle spasm. Comes in today complaining of greater than 10/10 back pain neck pain with a sensation that all of his nerve endings are on fire. Describes no fevers he states that he continues to have the paresthesias in the upper extremities without any change as well as the weakness bilaterally in the lower extremities without any change. He states that he has been going to physical therapy and they been trying to work on some spasm in his back. When asked what had gotten dramatically worse that precipitated in the ER visit this morning he was unable to clearly elucidate that. He denies dyspnea, orthopnea, palpitations, abdominal pain, vomiting, diarrhea, change to any bowel or bladder habits. Related Data Home Medications Medication Instructions Recorded Confirmed metformin 500 mg tablet 500 mg PO BID 04/27/21 10/11/21 Previous Rx's Medication Instructions Recorded acetaminophen 500 mg capsule 1,000 mg PO TID PRN #100 cap 04/13/18 glucose meter #1 ea 11/24/20 lancets #100 ea 11/24/20 test strips #100 ea 11/24/20 lansoprazole 30 mg capsule,delayed 30 mg PO DAILY #90 cap 01/14/21 release docusate sodium 100 mg capsule 100 mg PO BID #20 cap 05/04/21 (DOK) metoprolol succinate 50 mg 50 mg PO DAILY #90 tab 05/18/21 tablet,extended release 24 hr amitriptyline 25 mg tablet See Rx Instructions .ROUTE 07/19/21 .COMPLEX #90 tab ketorolac 10 mg tablet 10 mg PO Q6H PRN #14 tab 07/20/21 atorvastatin 40 mg tablet See Rx Instructions .ROUTE 09/16/21 .COMPLEX #90 tab cyclobenzaprine 10 mg tablet 10 mg PO TIDP PRN #90 tab 09/16/21 pregabalin 100 mg capsule 100 mg PO QID #120 cap 09/20/21 diazepam 5 mg tablet 5 mg PO DAILY PRN #30 tab 10/11/21 oxycodone-acetaminophen 5 mg-325 1 tab PO BID PRN #60 tab 10/18/21 mg tablet Allergies Allergy/AdvReac Type Severity Reaction Status Date / Time No Known Drug Allergies Allergy Verified 10/11/21 11:19 Review of Systems Review of Systems Narrative: Remainder of complete review of systems is otherwise unremarkable except for that included in the HPI. Patient History Medical History CAD (coronary artery disease) Fusion of lumbar spine Gastric ulcer GERD (gastroesophageal reflux disease) Hyperlipidemia Hypertension Insomnia Myocardial infarction (~2011) Numbness and tingling Surgical History History of arthroplasty of right knee History of bilateral carpal tunnel release History of cervical spinal surgery (~02/2001) History of left knee surgery History of lumbar spinal fusion (09/27/18) History of lumbar surgery (~2000) Hx of appendectomy Hx of cervical spine surgery (~12/2015) S/P coronary artery stent placement (09/2011) S/P wrist surgery Status post arthroscopic surgery of right knee (12/2012) Status post rotator cuff repair (2007) Family History Father CAD (coronary artery disease) Mother CAD (coronary artery disease) Arthritis Family/Other Alcoholism and drug addiction in family Autoimmune disease Arthritis Rheumatoid arthritis Other Drug abuse Social History household members: spouse and children Smoking Status: Current every day smoker alcohol intake: former Smoking Status: Current every day smoker alcohol intake frequency: other Substance Use Type: does not use Exam Initial Vital Signs Initial Vital Signs: Vital Signs Temperature 98.0 F 10/25/21 01:14 Pulse Rate 70 10/25/21 01:14 Respiratory Rate 16 10/25/21 01:14 Blood Pressure 208/88 H 10/25/21 01:14 Pulse Oximetry 100 10/25/21 01:14 General: Alert appropriate in no acute distress Respiratory: Able to speak in full sentences, no obvious respiratory distress Skin: No obvious rashes, warm and dry Neurologic: Grossly intact no obvious asymmetries or abnormalities Psych: Tangential but cooperative Extremities: Bilateral decreased sensation to hands in a glove distribution. He is able to walk into the emergency department using his walker but complains of bilateral lower extremity weakness. He has no saddle paresthesia and no specific point tenderness or erythema along his lumbar spine, the most recent area of surgery. Course Orders Ordered: Ketorolac Tromethamine (Ketorolac 30 Mg/Ml Vial) 30 mg IM NOW ONE Stop: 10/25/21 01:58 Vital Signs Vital signs: Vital Signs - 8 hr 10/25/21 01:14 Temperature 98.0 F Pulse Rate 70 Respiratory Rate 16 Blood Pressure 208/88 H Pulse Oximetry 100 MDM - Back Pain/Injury MDM Narrative Medical decision making narrative: 66-year-old gentleman with significant pain issues and multiple orthopedic surge mimi. It does look like he was getting 60 Percocet a month at [address] Robledo with pain prescriptions changed to Dr. Rivera, orthopedic surgeon, with this recent surgery in April. It looks like there was a 60 mg Percocet prescription dispensed on September 23 and patient has now been out of Percocet since October 19. He is given a shot of Toradol. He is planning to to speak with Dr. Talley tomorrow and it sounds like there was some frustration over which provider was specifically managing his chronic narcotics. Clearly there is a component of withdrawal to his severe pain. Explained to him that we are not able to help with chronic pain management nor chronic narcotic prescriptions from the emergency department. At this time there is no evidence of epidural abscess, diskitis, acute complications of prior spine surgeries and appears that the majority of his pain complaints today are chronic and exacerbated by his lack of narcotic for the last 6 days. Discharge Plan Departure Patient Disposition: Home Clinical Impression: Acute exacerbation of chronic low back pain, Chronic neck pain, Chronic narcotic use Instructions: DI for Back Pain With Sciatica Activity Restrictions/Additional Instructions: Thank you for coming in today I am so sorry there is been this communication issue between your doctors and your pain medicine prescription. I encourage you to contact Dr. Robledo is office later this morning once that is open to see when the next prescription of Percocet may be prescribed. I hope that the Toradol injection provided at least a few hours of relief for you this evening. If you find that you are developing a fever, worsening weakness or new findings please feel free to return to the emergency department Prescriptions: No Action (DME) glucose meter See Rx Instructions .Route .MEDSUPPLY Qty: 1 0RF Rx Instructions: check blood sugar once a day (DME) lancets See Rx Instructions .Route .MEDSUPPLY Qty: 100 3RF Rx Instructions: use to check blood sugar one time daily (DME) test strips See Rx Instructions .Route .MEDSUPPLY Qty: 100 3RF Rx Instructions: check blood sugar one time daily lansoprazole 30 mg capsule,delayed release(DR/EC) 30 mg PO DAILY Qty: 90 3RF metoprolol succinate 50 mg tablet extended release 24 hr 50 mg PO DAILY Qty: 90 3RF Rx Instructions: amitriptyline 25 mg tablet See Rx Instructions .ROUTE .COMPLEX Qty: 90 3RF Dose Instruction: TAKE 1 TABLET BY MOUTH AT BEDTIME Rx Instructions: TAKE 1 TABLET BY MOUTH AT BEDTIME atorvastatin 40 mg tablet See Rx Instructions .ROUTE .COMPLEX Qty: 90 2RF Dose Instruction: TAKE 1 TABLET BY MOUTH AT BEDTIME Rx Instructions: TAKE 1 TABLET BY MOUTH AT BEDTIME cyclobenzaprine 10 mg tablet 10 mg PO TIDP PRN (Reason: muscle spasm) Qty: 90 5RF pregabalin 100 mg capsule 100 mg PO QID Qty: 120 2RF Hold Instructions: Needs labs oxycodone-acetaminophen 5-325 mg tablet 1 tab PO BID PRN (Reason: pain) Qty: 60 0RF Rx Instructions: Exempt acetaminophen 500 mg capsule 1,000 mg PO TID PRN (Reason: pain) Qty: 100 5RF diazepam 5 mg tablet 5 mg PO DAILY PRN (Reason: muscle spasm) Qty: 30 2RF metformin 500 mg Tablet 500 mg PO BID 0RF Hold Instructions: Needs labs docusate sodium [DOK] 100 mg Capsule 100 mg PO BID Qty: 20 0RF ketorolac 10 mg tablet 10 mg PO Q6H PRN (Reason: pain) Qty: 14 0RF Referrals: Myron Estrella MD [Primary Care Provider] -
[2021-10-25] MEDS: KETOROLAC 30 MG/ML VIAL IM (02:03)
== END 2021-10-25 02:10 | disposition home or self-care (01) ==
PROVIDERS: Emergency Provider Emergency Medicine; Family Provider Student in an Organized Health Care Education/Training Program; PCP Student in an Organized Health Care Education/Training Program
DX: M54.50 Low back pain, unspecified (principal); G89.29 Other chronic pain; M54.2 Cervicalgia; F11.20 Opioid dependence, uncomplicated; Z98.1 Arthrodesis status
CPT/HCPCS: 96372; 99283; J1885

== ENCOUNTER 2021-12-01 13:45 | Outpatient (RCR) | payer OTHER, MEDICARE, SELFPAY ==
[2021-04-30 13:44] VITALS: BMI 33.9
--- NOTE | 2021-07-22 17:09 | PT.OIE ---
Current Diagnoses Other spondylosis with radiculopathy, lumbosacral region (07/22/21) Spinal stenosis, lumbar region without neurogenic claudication (07/22/21) Past Medical History (Last Reviewed 07/20/21 @ 13:07 by Juan Riley DO) CAD (coronary artery disease) Fusion of lumbar spine Gastric ulcer GERD (gastroesophageal reflux disease) History of arthroplasty of right knee History of bilateral carpal tunnel release History of cervical spinal surgery (~02/2001) History of left knee surgery History of lumbar spinal fusion (09/27/18) History of lumbar surgery (~2000) Hx of appendectomy Hx of cervical spine surgery (~12/2015) Hyperlipidemia Hypertension Insomnia Myocardial infarction (~2011) Numbness and tingling S/P coronary artery stent placement (09/2011) S/P wrist surgery Status post arthroscopic surgery of right knee (12/2012) Past Surgical History (Last Reviewed 07/20/21 @ 13:07 by Juan Riley DO) History of arthroplasty of right knee History of bilateral carpal tunnel release History of cervical spinal surgery (~02/2001) History of left knee surgery History of lumbar spinal fusion (09/27/18) History of lumbar surgery (~2000) Hx of appendectomy Hx of cervical spine surgery (~12/2015) S/P coronary artery stent placement (09/2011) S/P wrist surgery Status post arthroscopic surgery of right knee (12/2012) Status post rotator cuff repair (2007) Visit Care Team Role Provider Type Myron Estrella MD Family Provider Physician Primary Care Provider Specialty: Internal Medicine Address: [address] [place] [address], [address], [address] Email: [email or web address] Karina Alamo MD Attending Provider Physician Referring Provider Specialty: Orthopedic Surgery Address: [address] [place] [address], [id number] Email: [email or web address] Physical Therapy Initial Evaluation PT-OP-A Visit Information Start: 07/22/21 12:58 Freq: Status: Active Protocol: Document 07/22/21 16:19 (Rec: 07/22/21 17:08 [email or web address]) Out-Patient Physical Therapy Visit Information Visit Information Visit Type Initial Evaluation Visit Start Time 13:45 Visit Stop Time 14:30 Total Visit Minutes 45 Visit Number 1 Number of WOOD ROUTER Visits 0 Evaluation Information Evaluation Date 07/22/21 Precautions Precautions lumbar spine surgery PT-OP-B Current Condition Start: 07/22/21 12:58 Freq: Status: Active Protocol: Document 07/22/21 16:19 (Rec: 07/22/21 17:08 [email or web address]) Current Condition History of Current Condition Onset Date 8/ Current Complaints chronic LBP with radiating pain to LE, s/p lumbar fusion History of Current Condition Handy is a 65yo male presenting to PT with c/o severe LBP with radiating pain to BLE and neck pain stemming from past orthopedic surgeries. He recently had his 2nd back surgery on 04/30/21 for L3-L4 TLIF, L2-3 hemilaminectomy,L4-S1 lumbar HWR, exploration of fusion, repeat laminectomy, reinsertion of hardware, L3-S1 PSF w. instrumentation. However, his symptoms have not improved significantly. His pain tends to get worse with WB activities, trunk related movements. He is sleeping in his recliner. He does have tingling and numbness down his posterior legs. He went to ER two days because of severe pain and he was prescribed with valiem, oxycodone and pedizone. He is still walking with a 4WW to take pressure off his back. Past h/o back surgery in 2000, bilateral shoulder surgeries, R knee replacement, cervical spine fusion. Personal Factors Other Personal Factors That May Effect everyday smoker Therapy/Recovery failed spinal surgeries. PT-OP-C Subjective Start: 07/22/21 12:58 Freq: Status: Active Protocol: Document 07/22/21 16:19 (Rec: 07/22/21 17:08 [email or web address]) Patient Questionnaires Oswestry Low Back Index Oswestry Score 48 Oswestry Impairment 40 to 59% Impaired (Score 40- 59) OP-PT Pain Assessment Location Back Pain Location Details L2-L4 Intensity 8 Scale Used Numeric (0 - 10) Description Aching,Pinching,Pressure, Radiating,Sharp Frequency Constant Pain Aggravating Factors Position,Changing Position,ADL 's,Activity,Exercise,Standing, Sitting,Walking,Stair Climbing ,Bending,Lifting Pain Alleviating Factors Inactivity PT-OP-F Manual Assessment Start: 07/22/21 12:58 Freq: Status: Active Protocol: Document 07/22/21 16:19 (Rec: 07/22/21 17:08 [email or web address]) Manual Assessments Soft Tissue Assessment Soft Tissue Mobility Assessment significant pain to light pressure along his lumbar spine but decreased sensation to light touch. PT-OP-G Mobility & Gait Start: 07/22/21 12:58 Freq: Status: Active Protocol: Document 07/22/21 16:19 (Rec: 07/22/21 17:08 [email or web address]) OP Mobility Evaluation Bed Mobility Supine to and from Sit supine to long with need of UE push off from bed, Transfers Sit to Stand pt needs to sit with arm supported OP Gait Assessment Gait Gait Assistance Required: Independent Assistive Devices Assistive Device 4 Wheeled Walker Gait Deviations General Gait Pattern Decreased Stride Length, Decreased Feet Clearance, Flexed Trunk PT-OP-H Neuro Start: 07/22/21 12:58 Freq: Status: Active Protocol: Document 07/22/21 16:19 (Rec: 07/22/21 17:08 [email or web address]) Sensation Evaluation Gross Sensation Gross Sensation Left LE Impaired,Right LE Impaired Sensation Description Paresthesia,Numbness,Tingling Dermatome Impairments L4,L5,S1 Deep Tendon Reflex & Clonus Assessment Deep Tendon Reflex Bilateral Achilles Deep Tendon Reflex 1+ Diminished Left Patellar Deep Tendon Reflex 2+ Normal Right Patellar Deep Tendon Reflex 1+ Diminished PT-OP-J Posture/Palpation/Skin Start: 07/22/21 12:58 Freq: Status: Active Protocol: Document 07/22/21 16:19 (Rec: 07/22/21 17:08 [email or web address]) Posture Evaluation Position Standing Pelvis Posture Anteriorly Tilted Knee Posture (L) Excess Flexion,(R) Excess Flexion PT-OP-K Range of Motion Start: 07/22/21 12:58 Freq: Status: Active Protocol: Document 07/22/21 16:19 (Rec: 07/22/21 17:08 [email or web address]) Lumbar Spine Range of Motion Lumbar Spine Active Degrees ROM Limitations Pain Comments unable to test d/t pain PT-OP-L Special Tests Start: 07/22/21 12:58 Freq: Status: Active Protocol: Document 07/22/21 16:19 (Rec: 07/22/21 17:08 [email or web address]) Special Tests Lumbar Spine Special Tests Straight Leg Raise Test Results +VE B Comments passive SLR, pain R worse than L Slump Test Results +VE R>L PT-OP-M Strength Start: 07/22/21 12:58 Freq: Status: Active Protocol: Document 07/22/21 16:19 HH (Rec: 07/22/21 17:08 [email or web address]) Hip Strength Hip Manual Muscle Testing Right Flexion (L2) 4- Good- Extension (S1) 4- Good- Abduction 4- Good- Left Flexion (L2) 4- Good- Extension (S1) 4- Good- Abduction 4- Good- Knee Strength Knee Manual Muscle Testing Right Flexion (S2) 4- Good- Extension (L3) 4- Good- Comments LBP with resistance Left Flexion (S2) 4- Good- Extension (L3) 4- Good- Comments LBP with resistance PT-OP-Q Treatments Start: 07/22/21 12:58 Freq: Status: Active Protocol: Document 07/22/21 16:19 (Rec: 07/22/21 17:08 [email or web address]) Therapeutic Exercises Supine Exercises knee to chest Supine Exercise Name unilateral Reps/Minutes 20s x 5 Comments for HEP, reports of pulling sensation at lumbar region PT-OP-T Assessment and Plan Start: 07/22/21 12:58 Freq: Status: Active Protocol: Document 07/22/21 16:19 (Rec: 07/22/21 17:08 [email or web address]) Physical Therapy Assessment Rehab Potential Rehabilitation Potential Fair Evaluation Complexity Number of Personal Factors/Comorbidities 3 or More Number of Body Systems Impaired 4 or More Clinical Presentation at Evaluation Stable Impairments Impairments Activity Tolerance,Balance, Functional Activities, Functional Mobility,Gait,Pain, Posture,ROM,Sensation,Soft Tissue Mobility,Strength, Transfers Goals heP Impairment pt does not have HEP Short Term Goal (STG) pt will be able to complete daily HEP safely and independently. STG Duration 4 weeks gait Impairment pt is using a 4WW for mobility Short Term Goal (STG) pt will be able to show improved strength and mobility by being able to use SPC for home mobility STG Duration 5 weeks. 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 He recently had 2nd back surgery for L3-L4 TLIF on 04/30/21 who also had L4-S1 in 2019. Past medical h/o =bilateral shoulder surgeries, R knee replacement, cervical spine fusion. Pt reports his pain is still very severe 04/27 with radiating BLE pain. There's sensation loss touch on L4-S1 dermatome but no significant weakness on myotome level. Upon assessment, pt presents very sensitive neural tension who is positive for slump test , resisted knee extension and SLR. i have him started supine knee to chest at home. D/t pt 's long complicated medical history, I believe this will be a long course of rehab with fair outcome. He will still benefit from skilled therapy for pain management and improving his overall mobility and strength. Physical Therapy Plan Frequency and Duration Frequency of Treatment 2x/Week Duration of Treatment 10 weeks Plan of Care Start Date 07/22/21 Plan of Care End Date 09/20/21 Therapeutic Interventions Therapeutic Interventions Gait Training,Home Exercise Program,Joint Mobilizations, Manual Therapy,Neuromuscular Re-education,Patient/Caregiver Education,Self-Care/Home Management,Soft Tissue Mobilization,Taping, Therapeutic Activities, Therapeutic Exercises Modalities Cold Pack/Ice Massage,Electric Stimulation,Hot Packs, Infrared Therapy,Traction- Mechanical,Ultrasound Next Visit Focus/Plan Next Visit Plan check precautions knee to chest sLR LTR, piriformis stretch
--- NOTE | 2021-07-22 17:09 | PT.OPPOC ---
Physical, Occupational & Speech Therapy At [facility] Current Diagnoses Other spondylosis with radiculopathy, lumbosacral region (07/22/21) Spinal stenosis, lumbar region without neurogenic claudication (07/22/21) Visit Care Team Role Provider Type Myron Estrella MD Family Provider Physician Primary Care Provider Specialty: Internal Medicine Address: [address] [place] [address], [facility] [address], [address] Email: [email or web address] Karina Alamo MD Attending Provider Physician Referring Provider Specialty: Orthopedic Surgery Address: [address] [place] [address], [id number] Email: [email or web address] Plan Of Care PT-OP-T Assessment and Plan Start: 07/22/21 12:58 Freq: Status: Active Protocol: Document 07/22/21 16:19 (Rec: 07/22/21 17:08 [email or web address]) Physical Therapy Assessment Rehab Potential Rehabilitation Potential Fair Evaluation Complexity Number of Personal Factors/Comorbidities 3 or More Number of Body Systems Impaired 4 or More Clinical Presentation at Evaluation Stable Impairments Impairments Activity Tolerance,Balance, Functional Activities, Functional Mobility,Gait,Pain, Posture,ROM,Sensation,Soft Tissue Mobility,Strength, Transfers Goals heP Impairment pt does not have HEP Short Term Goal (STG) pt will be able to complete daily HEP safely and independently. STG Duration 4 weeks gait Impairment pt is using a 4WW for mobility Short Term Goal (STG) pt will be able to show improved strength and mobility by being able to use SPC for home mobility STG Duration 5 weeks. 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 He recently had 2nd back surgery for L3-L4 TLIF on 04/30/21 who also had L4-S1 in 2019. Past medical h/o =bilateral shoulder surgeries, R knee replacement, cervical spine fusion. Pt reports his pain is still very severe 04/27 with radiating BLE pain. There's sensation loss touch on L4-S1 dermatome but no significant weakness on myotome level. Upon assessment, pt presents very sensitive neural tension who is positive for slump test , resisted knee extension and SLR. i have him started supine knee to chest at home. D/t pt 's long complicated medical history, I believe this will be a long course of rehab with fair outcome. He will still benefit from skilled therapy for pain management and improving his overall mobility and strength. Physical Therapy Plan Frequency and Duration Frequency of Treatment 2x/Week Duration of Treatment 10 weeks Plan of Care Start Date 07/22/21 Plan of Care End Date 09/20/21 Therapeutic Interventions Therapeutic Interventions Gait Training,Home Exercise Program,Joint Mobilizations, Manual Therapy,Neuromuscular Re-education,Patient/Caregiver Education,Self-Care/Home Management,Soft Tissue Mobilization,Taping, Therapeutic Activities, Therapeutic Exercises Modalities Cold Pack/Ice Massage,Electric Stimulation,Hot Packs, Infrared Therapy,Traction- Mechanical,Ultrasound Next Visit Focus/Plan Next Visit Plan check precautions knee to chest sLR LTR, piriformis stretch Plan of Care Dates Plan of Care Start Date 07/22/21 Plan of Care End Date 09/20/21 Electronically Signed by: Lyndsey Gillespie PT 07/22/21 1828 Please Sign and Return: I have reviewed this Plan of Care and certify that the skilled therapy services above are required to meet the patient?s needs. Physician Signature Date Printed Name and Credentials Clinical Instructor Signature Printed Name and Credentials
--- NOTE | 2021-08-02 16:19 | PT.OTN ---
Current Diagnoses Other spondylosis with radiculopathy, lumbosacral region (08/02/21) Spinal stenosis, lumbar region without neurogenic claudication (08/02/21) Physical Therapy Treatment Note PT-OP-A Visit Information Start: 07/22/21 12:58 Freq: Status: Active Protocol: Document 08/02/21 15:14 (Rec: 08/02/21 16:18 [id number]) Out-Patient Physical Therapy Visit Information Visit Information Visit Type Treatment Note Visit Start Time 15:15 Visit Stop Time 16:08 Total Visit Minutes 53 Visit Number 2 Number of PORTER USED CAR LOT Visits 0 PT-OP-B Current Condition Start: 07/22/21 12:58 Freq: Status: Active Protocol: Document 07/22/21 16:19 (Rec: 07/22/21 17:08 [email or web address]) Current Condition History of Current Condition Onset Date 8/ Current Complaints chronic LBP with radiating pain to LE, s/p lumbar fusion History of Current Condition Handy is a 65yo male presenting to PT with c/o severe LBP with radiating pain to BLE and neck pain stemming from past orthopedic surgeries. He recently had his 2nd back surgery on 04/30/21 for L3-L4 TLIF, L2-3 hemilaminectomy,L4-S1 lumbar HWR, exploration of fusion, repeat laminectomy, reinsertion of hardware, L3-S1 PSF w. instrumentation. However, his symptoms have not improved significantly. His pain tends to get worse with WB activities, trunk related movements. He is sleeping in his recliner. He does have tingling and numbness down his posterior legs. He went to ER two days because of severe pain and he was prescribed with valiem, oxycodone and pedizone. He is still walking with a 4WW to take pressure off his back. Past h/o back surgery in 2000, bilateral shoulder surgeries, R knee replacement, cervical spine fusion. Personal Factors Other Personal Factors That May Effect everyday smoker Therapy/Recovery failed spinal surgeries. PT-OP-C Subjective Start: 07/22/21 12:58 Freq: Status: Active Protocol: Document 08/02/21 15:14 (Rec: 08/02/21 16:18 [id number]) OP-PT Subjective Patient Comments Patient Comments I have some personal stuff thats why i couldnt make it for my last session Patient Reported Progress Same PT-OP-F Manual Assessment Start: 07/22/21 12:58 Freq: Status: Active Protocol: Document 07/22/21 16:19 (Rec: 07/22/21 17:08 [email or web address]) Manual Assessments Soft Tissue Assessment Soft Tissue Mobility Assessment significant pain to light pressure along his lumbar spine but decreased sensation to light touch. PT-OP-G Mobility & Gait Start: 07/22/21 12:58 Freq: Status: Active Protocol: Document 07/22/21 16:19 (Rec: 07/22/21 17:08 [email or web address]) OP Mobility Evaluation Bed Mobility Supine to and from Sit supine to long with need of UE push off from bed, Transfers Sit to Stand pt needs to sit with arm supported OP Gait Assessment Gait Gait Assistance Required: Independent Assistive Devices Assistive Device 4 Wheeled Walker Gait Deviations General Gait Pattern Decreased Stride Length, Decreased Feet Clearance, Flexed Trunk PT-OP-H Neuro Start: 07/22/21 12:58 Freq: Status: Active Protocol: Document 07/22/21 16:19 (Rec: 07/22/21 17:08 [email or web address]) Sensation Evaluation Gross Sensation Gross Sensation Left LE Impaired,Right LE Impaired Sensation Description Paresthesia,Numbness,Tingling Dermatome Impairments L4,L5,S1 Deep Tendon Reflex & Clonus Assessment Deep Tendon Reflex Bilateral Achilles Deep Tendon Reflex 1+ Diminished Left Patellar Deep Tendon Reflex 2+ Normal Right Patellar Deep Tendon Reflex 1+ Diminished PT-OP-J Posture/Palpation/Skin Start: 07/22/21 12:58 Freq: Status: Active Protocol: Document 07/22/21 16:19 (Rec: 07/22/21 17:08 [email or web address]) Posture Evaluation Position Standing Pelvis Posture Anteriorly Tilted Knee Posture (L) Excess Flexion,(R) Excess Flexion PT-OP-K Range of Motion Start: 07/22/21 12:58 Freq: Status: Active Protocol: Document 07/22/21 16:19 (Rec: 07/22/21 17:08 [email or web address]) Lumbar Spine Range of Motion Lumbar Spine Active Degrees ROM Limitations Pain Comments unable to test d/t pain PT-OP-L Special Tests Start: 07/22/21 12:58 Freq: Status: Active Protocol: Document 07/22/21 16:19 (Rec: 07/22/21 17:08 [email or web address]) Special Tests Lumbar Spine Special Tests Straight Leg Raise Test Results +VE B Comments passive SLR, pain R worse than L Slump Test Results +VE R>L PT-OP-M Strength Start: 07/22/21 12:58 Freq: Status: Active Protocol: Document 07/22/21 16:19 (Rec: 07/22/21 17:08 [email or web address]) Hip Strength Hip Manual Muscle Testing Right Flexion (L2) 4- Good- Extension (S1) 4- Good- Abduction 4- Good- Left Flexion (L2) 4- Good- Extension (S1) 4- Good- Abduction 4- Good- Knee Strength Knee Manual Muscle Testing Right Flexion (S2) 4- Good- Extension (L3) 4- Good- Comments LBP with resistance Left Flexion (S2) 4- Good- Extension (L3) 4- Good- Comments LBP with resistance PT-OP-Q Treatments Start: 07/22/21 12:58 Freq: Status: Active Protocol: Document 08/02/21 15:14 (Rec: 08/02/21 16:18 [id number]) Therapeutic Exercises Supine Exercises sciatic nerve glide Supine Exercise Name HS stretch position with belt. Reps/Minutes 20sx3 Comments for HEP piriformis Side bilateral Reps/Minutes 20sx3 Comments for HEP knee to chest Supine Exercise Name unilateral Reps/Minutes 20s x 5 Comments for HEP, reports of pulling sensation at lumbar region Manual Therapy Treatment Soft Tissue Mobilization skin desensitization Mobilization Type Cross-Friction,Instrument Assisted,Myofascial Release, Rolling Intensity/Depth Moderate Body Position Prone Comments most sensitive at center of his surgical scar B paraspinals Body Location lumbar and thoracic Mobilization Type Rolling,Sustained Pressure, Trigger Point Release Body Position Prone Comments most sensitive at center of his surgical scar PT-OP-R Modalities Start: 07/22/21 12:58 Freq: Status: Active Protocol: Document 08/02/21 15:14 (Rec: 08/02/21 16:19 [id number]) Hot Pack/Cold Pack Treatment Hot Pack Location lumbar Patient Position Hooklying Treatment Duration (minutes) 10 Patient Tolerance Good PT-OP-T Assessment and Plan Start: 07/22/21 12:58 Freq: Status: Active Protocol: Document 08/02/21 15:14 WILL (Rec: 08/02/21 16:18 [id number]) Physical Therapy Assessment Goals heP Impairment pt does not have HEP Short Term Goal (STG) pt will be able to complete daily HEP safely and independently. STG Duration 4 weeks gait Impairment pt is using a 4WW for mobility Short Term Goal (STG) pt will be able to show improved strength and mobility by being able to use SPC for home mobility STG Duration 5 weeks. Care Home Goal (LTG) pt will be able to show improved strength and mobility by being able to use SPC for community mobility LTG Duration 10 weeks owestry Impairment pt scores 48 on Owestry Short Term Goal (STG) pt will show improved pain and mobility by scoring <40 on Owestry STG Duration 5 weeks Rope Tow Operator Goal (LTG) pt will show improved pain and mobility by scoring <30 on Owestry LTG Duration 10 weeks Assessment Summary Assessment pt stated he is easily distracted and doesnt like to stretch since it's very stationary. Spent a lot of time educating him the importance of decreasing hypersensitivity tissue around his surgical scar and lumbar spine. Recommended him to complete stretches daily to deload his spine/ desensitize his posterior chain. Physical Therapy Plan Frequency and Duration Frequency of Treatment 2x/Week Duration of Treatment 10 weeks Plan of Care Start Date 07/22/21 Plan of Care End Date 09/20/21 Therapeutic Interventions Therapeutic Interventions Gait Training,Home Exercise Program,Joint Mobilizations, Manual Therapy,Neuromuscular Re-education,Patient/Caregiver Education,Self-Care/Home Management,Soft Tissue Mobilization,Taping, Therapeutic Activities, Therapeutic Exercises Modalities Cold Pack/Ice Massage,Electric Stimulation,Hot Packs, Infrared Therapy,Traction- Mechanical,Ultrasound Next Visit Focus/Plan Next Visit Plan check precautions knee to chest sLR LTR, piriformis stretch
--- NOTE | 2021-08-16 14:44 | PT.OTN ---
Current Diagnoses Other spondylosis with radiculopathy, lumbosacral region (08/16/21) Spinal stenosis, lumbar region without neurogenic claudication (08/16/21) Physical Therapy Treatment Note PT-OP-A Visit Information Start: 07/22/21 12:58 Freq: Status: Active Protocol: Document 08/16/21 12:59 HH (Rec: 08/16/21 14:43 HH [id number]) Out-Patient Physical Therapy Visit Information Visit Information Visit Type Treatment Note Visit Start Time 13:00 Visit Stop Time 13:55 Total Visit Minutes 55 Visit Number 3 Number of AUTO CLUTCH SPECIALIST Visits 0 PT-OP-B Current Condition Start: 07/22/21 12:58 Freq: Status: Active Protocol: Document 07/22/21 16:19 HH (Rec: 07/22/21 17:08 HH [email or web address]) Current Condition History of Current Condition Onset Date 8/ Current Complaints chronic LBP with radiating pain to LE, s/p lumbar fusion History of Current Condition Handy is a 65yo male presenting to PT with c/o severe LBP with radiating pain to BLE and neck pain stemming from past orthopedic surgeries. He recently had his 2nd back surgery on 04/30/21 for L3-L4 TLIF, L2-3 hemilaminectomy,L4-S1 lumbar HWR, exploration of fusion, repeat laminectomy, reinsertion of hardware, L3-S1 PSF w. instrumentation. However, his symptoms have not improved significantly. His pain tends to get worse with WB activities, trunk related movements. He is sleeping in his recliner. He does have tingling and numbness down his posterior legs. He went to ER two days because of severe pain and he was prescribed with valiem, oxycodone and pedizone. He is still walking with a 4WW to take pressure off his back. Past h/o back surgery in 2000, bilateral shoulder surgeries, R knee replacement, cervical spine fusion. Personal Factors Other Personal Factors That May Effect everyday smoker Therapy/Recovery failed spinal surgeries. PT-OP-C Subjective Start: 07/22/21 12:58 Freq: Status: Active Protocol: Document 08/16/21 12:59 HH (Rec: 08/16/21 14:43 [id number]) OP-PT Subjective Patient Comments Patient Comments I think im feeling better from my last session. My legs are feeling better so far. But I got caught up with the pain medication and sometimes I just lost track of time. I will make rest of my other appointments . Patient Reported Progress Improving PT-OP-F Manual Assessment Start: 07/22/21 12:58 Freq: Status: Active Protocol: Document 07/22/21 16:19 HH (Rec: 07/22/21 17:08 [email or web address]) Manual Assessments Soft Tissue Assessment Soft Tissue Mobility Assessment significant pain to light pressure along his lumbar spine but decreased sensation to light touch. PT-OP-G Mobility & Gait Start: 07/22/21 12:58 Freq: Status: Active Protocol: Document 07/22/21 16:19 HH (Rec: 07/22/21 17:08 [email or web address]) OP Mobility Evaluation Bed Mobility Supine to and from Sit supine to long with need of UE push off from bed, Transfers Sit to Stand pt needs to sit with arm supported OP Gait Assessment Gait Gait Assistance Required: Independent Assistive Devices Assistive Device 4 Wheeled Walker Gait Deviations General Gait Pattern Decreased Stride Length, Decreased Feet Clearance, Flexed Trunk PT-OP-H Neuro Start: 07/22/21 12:58 Freq: Status: Active Protocol: Document 07/22/21 16:19 HH (Rec: 07/22/21 17:08 [email or web address]) Sensation Evaluation Gross Sensation Gross Sensation Left LE Impaired,Right LE Impaired Sensation Description Paresthesia,Numbness,Tingling Dermatome Impairments L4,L5,S1 Deep Tendon Reflex & Clonus Assessment Deep Tendon Reflex Bilateral Achilles Deep Tendon Reflex 1+ Diminished Left Patellar Deep Tendon Reflex 2+ Normal Right Patellar Deep Tendon Reflex 1+ Diminished PT-OP-J Posture/Palpation/Skin Start: 07/22/21 12:58 Freq: Status: Active Protocol: Document 07/22/21 16:19 (Rec: 07/22/21 17:08 [email or web address]) Posture Evaluation Position Standing Pelvis Posture Anteriorly Tilted Knee Posture (L) Excess Flexion,(R) Excess Flexion PT-OP-K Range of Motion Start: 07/22/21 12:58 Freq: Status: Active Protocol: Document 07/22/21 16:19 HH (Rec: 07/22/21 17:08 [email or web address]) Lumbar Spine Range of Motion Lumbar Spine Active Degrees ROM Limitations Pain Comments unable to test d/t pain PT-OP-L Special Tests Start: 07/22/21 12:58 Freq: Status: Active Protocol: Document 07/22/21 16:19 HH (Rec: 07/22/21 17:08 [email or web address]) Special Tests Lumbar Spine Special Tests Straight Leg Raise Test Results +VE B Comments passive SLR, pain R worse than L Slump Test Results +VE R>L PT-OP-M Strength Start: 07/22/21 12:58 Freq: Status: Active Protocol: Document 07/22/21 16:19 HH (Rec: 07/22/21 17:08 [email or web address]) Hip Strength Hip Manual Muscle Testing Right Flexion (L2) 4- Good- Extension (S1) 4- Good- Abduction 4- Good- Left Flexion (L2) 4- Good- Extension (S1) 4- Good- Abduction 4- Good- Knee Strength Knee Manual Muscle Testing Right Flexion (S2) 4- Good- Extension (L3) 4- Good- Comments LBP with resistance Left Flexion (S2) 4- Good- Extension (L3) 4- Good- Comments LBP with resistance PT-OP-Q Treatments Start: 07/22/21 12:58 Freq: Status: Active Protocol: Document 08/16/21 12:59 HH (Rec: 08/16/21 14:43 [id number]) Cardio Equipment Recumbent Stepper (Sci-Fit) Duration (Minutes) 6 Resistance 3 Therapeutic Exercises Supine Exercises sciatic nerve glide Supine Exercise Name HS stretch position with belt. Reps/Minutes 20sx3 Comments for HEP piriformis Side bilateral Reps/Minutes 20sx3 Comments for HEP knee to chest Supine Exercise Name unilateral Reps/Minutes 20s x 5 Comments for HEP, reports of pulling sensation at lumbar region Manual Therapy Treatment Soft Tissue Mobilization skin desensitization Mobilization Type Cross-Friction,Instrument Assisted,Myofascial Release, Rolling Intensity/Depth Moderate Body Position Prone Comments most sensitive at center of his surgical scar B paraspinals Body Location lumbar and thoracic Mobilization Type Rolling,Sustained Pressure, Trigger Point Release Body Position Prone Comments most sensitive at center of his surgical scar PT-OP-R Modalities Start: 07/22/21 12:58 Freq: Status: Active Protocol: Document 08/16/21 12:59 HH (Rec: 08/16/21 14:43 [id number]) Hot Pack/Cold Pack Treatment Hot Pack Location lumbar Patient Position Hooklying Treatment Duration (minutes) 10 Patient Tolerance Good PT-OP-T Assessment and Plan Start: 07/22/21 12:58 Freq: Status: Active Protocol: Document 08/16/21 12:59 (Rec: 08/16/21 14:43 [id number]) Physical Therapy Assessment Goals heP Impairment pt does not have HEP Short Term Goal (STG) pt will be able to complete daily HEP safely and independently. STG Duration 4 weeks gait Impairment pt is using a 4WW for mobility Short Term Goal (STG) pt will be able to show improved strength and mobility by being able to use SPC for home mobility STG Duration 5 weeks. Marketing Professional Goal (LTG) pt will be able to show improved strength and mobility by being able to use SPC for community mobility LTG Duration 10 weeks owestry Impairment pt scores 48 on Owestry Short Term Goal (STG) pt will show improved pain and mobility by scoring <40 on Owestry STG Duration 5 weeks Group Home Goal (LTG) pt will show improved pain and mobility by scoring <30 on Owestry LTG Duration 10 weeks Assessment Summary Assessment pt was not seen since 08/02 due to 2 no shows. He stated he lost track of time sometimes because of many reasons especially from his pain medication. I educated him many times the importance of attendance and his goal of participating therapy. Pt expressed good understanding. We also reviewed his HEP as well. Physical Therapy Plan Frequency and Duration Frequency of Treatment 2x/Week Duration of Treatment 10 weeks Plan of Care Start Date 07/22/21 Plan of Care End Date 09/20/21 Therapeutic Interventions Therapeutic Interventions Gait Training,Home Exercise Program,Joint Mobilizations, Manual Therapy,Neuromuscular Re-education,Patient/Caregiver Education,Self-Care/Home Management,Soft Tissue Mobilization,Taping, Therapeutic Activities, Therapeutic Exercises Modalities Cold Pack/Ice Massage,Electric Stimulation,Hot Packs, Infrared Therapy,Traction- Mechanical,Ultrasound Next Visit Focus/Plan Next Visit Plan check precautions knee to chest sLR LTR, piriformis stretch
--- NOTE | 2021-08-19 16:08 | PT.OTN ---
Current Diagnoses Other spondylosis with radiculopathy, lumbosacral region (08/19/21) Spinal stenosis, lumbar region without neurogenic claudication (08/19/21) Physical Therapy Treatment Note PT-OP-A Visit Information Start: 07/22/21 12:58 Freq: Status: Active Protocol: Document 08/19/21 13:51 HH (Rec: 08/19/21 16:08 [id number]) Out-Patient Physical Therapy Visit Information Visit Information Visit Type Treatment Note Visit Note pt is 18 mins late Visit Start Time 14:03 Visit Stop Time 14:30 Total Visit Minutes 27 Visit Number 4 Number of COURTROOM DEPUTY OR CALENDAR CLERK Visits 0 PT-OP-B Current Condition Start: 07/22/21 12:58 Freq: Status: Active Protocol: Document 07/22/21 16:19 HH (Rec: 07/22/21 17:08 [email or web address]) Current Condition History of Current Condition Onset Date 8/ Current Complaints chronic LBP with radiating pain to LE, s/p lumbar fusion History of Current Condition Handy is a 65yo male presenting to PT with c/o severe LBP with radiating pain to BLE and neck pain stemming from past orthopedic surgeries. He recently had his 2nd back surgery on 04/30/21 for L3-L4 TLIF, L2-3 hemilaminectomy,L4-S1 lumbar HWR, exploration of fusion, repeat laminectomy, reinsertion of hardware, L3-S1 PSF w. instrumentation. However, his symptoms have not improved significantly. His pain tends to get worse with WB activities, trunk related movements. He is sleeping in his recliner. He does have tingling and numbness down his posterior legs. He went to ER two days because of severe pain and he was prescribed with valiem, oxycodone and pedizone. He is still walking with a 4WW to take pressure off his back. Past h/o back surgery in 2000, bilateral shoulder surgeries, R knee replacement, cervical spine fusion. Personal Factors Other Personal Factors That May Effect everyday smoker Therapy/Recovery failed spinal surgeries. PT-OP-C Subjective Start: 07/22/21 12:58 Freq: Status: Active Protocol: Document 08/19/21 13:51 HH (Rec: 08/19/21 16:08 [id number]) OP-PT Subjective Patient Comments Patient Comments I hurt my back really bad after i was bending over and doing yard work. My back hurts a lot after i recovered from that position. Patient Reported Progress Worse PT-OP-F Manual Assessment Start: 07/22/21 12:58 Freq: Status: Active Protocol: Document 07/22/21 16:19 HH (Rec: 07/22/21 17:08 [email or web address]) Manual Assessments Soft Tissue Assessment Soft Tissue Mobility Assessment significant pain to light pressure along his lumbar spine but decreased sensation to light touch. PT-OP-G Mobility & Gait Start: 07/22/21 12:58 Freq: Status: Active Protocol: Document 07/22/21 16:19 (Rec: 07/22/21 17:08 [email or web address]) OP Mobility Evaluation Bed Mobility Supine to and from Sit supine to long with need of UE push off from bed, Transfers Sit to Stand pt needs to sit with arm supported OP Gait Assessment Gait Gait Assistance Required: Independent Assistive Devices Assistive Device 4 Wheeled Walker Gait Deviations General Gait Pattern Decreased Stride Length, Decreased Feet Clearance, Flexed Trunk PT-OP-H Neuro Start: 07/22/21 12:58 Freq: Status: Active Protocol: Document 07/22/21 16:19 (Rec: 07/22/21 17:08 [email or web address]) Sensation Evaluation Gross Sensation Gross Sensation Left LE Impaired,Right LE Impaired Sensation Description Paresthesia,Numbness,Tingling Dermatome Impairments L4,L5,S1 Deep Tendon Reflex & Clonus Assessment Deep Tendon Reflex Bilateral Achilles Deep Tendon Reflex 1+ Diminished Left Patellar Deep Tendon Reflex 2+ Normal Right Patellar Deep Tendon Reflex 1+ Diminished PT-OP-J Posture/Palpation/Skin Start: 07/22/21 12:58 Freq: Status: Active Protocol: Document 07/22/21 16:19 (Rec: 07/22/21 17:08 [email or web address]) Posture Evaluation Position Standing Pelvis Posture Anteriorly Tilted Knee Posture (L) Excess Flexion,(R) Excess Flexion PT-OP-K Range of Motion Start: 07/22/21 12:58 Freq: Status: Active Protocol: Document 07/22/21 16:19 HH (Rec: 07/22/21 17:08 [email or web address]) Lumbar Spine Range of Motion Lumbar Spine Active Degrees ROM Limitations Pain Comments unable to test d/t pain PT-OP-L Special Tests Start: 07/22/21 12:58 Freq: Status: Active Protocol: Document 07/22/21 16:19 HH (Rec: 07/22/21 17:08 [email or web address]) Special Tests Lumbar Spine Special Tests Straight Leg Raise Test Results +VE B Comments passive SLR, pain R worse than L Slump Test Results +VE R>L PT-OP-M Strength Start: 07/22/21 12:58 Freq: Status: Active Protocol: Document 07/22/21 16:19 HH (Rec: 07/22/21 17:08 [email or web address]) Hip Strength Hip Manual Muscle Testing Right Flexion (L2) 4- Good- Extension (S1) 4- Good- Abduction 4- Good- Left Flexion (L2) 4- Good- Extension (S1) 4- Good- Abduction 4- Good- Knee Strength Knee Manual Muscle Testing Right Flexion (S2) 4- Good- Extension (L3) 4- Good- Comments LBP with resistance Left Flexion (S2) 4- Good- Extension (L3) 4- Good- Comments LBP with resistance PT-OP-Q Treatments Start: 07/22/21 12:58 Freq: Status: Active Protocol: Document 08/19/21 13:51 HH (Rec: 08/19/21 16:08 [id number]) Cardio Equipment Recumbent Stepper (Sci-Fit) Duration (Minutes) 6 Resistance 3 Therapeutic Exercises Supine Exercises sciatic nerve glide Supine Exercise Name HS stretch position with belt. Reps/Minutes 20sx3 Comments for HEP piriformis Side bilateral Reps/Minutes 20sx3 Comments for HEP knee to chest Supine Exercise Name unilateral Reps/Minutes 20s x 5 Comments for HEP, reports of pulling sensation at lumbar region Self-Care/Home Management Treatment Education Patient Education Body Mechanics,Home Exercise Program,Joint Protection,Pain Management,Posture,Safety Other Education educated pt to follow post op protocol ( avoid twisting/ bending/ lifting) for joint protection at this point. Pt reports he is not aware of any of the protocol for his past 2 back surgeries. I recommended to be patient in term of his rehab progress due to the nature of the extensive back surgery he had. I also recommended him to focus on improving his hip and neural tension by doing HEP at the moment. PT-OP-R Modalities Start: 07/22/21 12:58 Freq: Status: Active Protocol: Document 08/16/21 12:59 HH (Rec: 08/16/21 14:43 HH [id number]) Hot Pack/Cold Pack Treatment Hot Pack Location lumbar Patient Position Hooklying Treatment Duration (minutes) 10 Patient Tolerance Good PT-OP-T Assessment and Plan Start: 07/22/21 12:58 Freq: Status: Active Protocol: Document 08/19/21 13:51 HH (Rec: 08/19/21 16:08 HH [id number]) Physical Therapy Assessment Goals heP Impairment pt does not have HEP Short Term Goal (STG) pt will be able to complete daily HEP safely and independently. STG Duration 4 weeks gait Impairment pt is using a 4WW for mobility Short Term Goal (STG) pt will be able to show improved strength and mobility by being able to use SPC for home mobility STG Duration 5 weeks. Director Of Golf Goal (LTG) pt will be able to show improved strength and mobility by being able to use SPC for community mobility LTG Duration 10 weeks owestry Impairment pt scores 48 on Owestry Short Term Goal (STG) pt will show improved pain and mobility by scoring <40 on Owestry STG Duration 5 weeks Director Of Golf Goal (LTG) pt will show improved pain and mobility by scoring <30 on Owestry LTG Duration 10 weeks Assessment Summary Assessment pt was 18mins late today. He reports he has significant after bending over to do yard work. I spent time educating pt today regarding his post op protocol for joint protection and plan of care. Reminded him that he will be DC from PT if he is being late/ no show again. Pt expressed good understanding Physical Therapy Plan Frequency and Duration Frequency of Treatment 2x/Week Duration of Treatment 10 weeks Plan of Care Start Date 07/22/21 Plan of Care End Date 09/20/21 Therapeutic Interventions Therapeutic Interventions Gait Training,Home Exercise Program,Joint Mobilizations, Manual Therapy,Neuromuscular Re-education,Patient/Caregiver Education,Self-Care/Home Management,Soft Tissue Mobilization,Taping, Therapeutic Activities, Therapeutic Exercises Modalities Cold Pack/Ice Massage,Electric Stimulation,Hot Packs, Infrared Therapy,Traction- Mechanical,Ultrasound Next Visit Focus/Plan Next Visit Plan check precautions knee to chest sLR LTR, piriformis stretch
--- NOTE | 2021-08-24 16:27 | PT.OTN ---
Current Diagnoses Other spondylosis with radiculopathy, lumbosacral region (08/24/21) Spinal stenosis, lumbar region without neurogenic claudication (08/24/21) Physical Therapy Treatment Note PT-OP-A Visit Information Start: 07/22/21 12:58 Freq: Status: Active Protocol: Document 08/24/21 16:19 (Rec: 08/24/21 16:27 [email or web address]) Out-Patient Physical Therapy Visit Information Visit Information Visit Type Treatment Note Visit Note pt is 12 mins late Visit Start Time 13:57 Visit Stop Time 14:40 Total Visit Minutes 43 Visit Number 5 Number of SHOT CORE DRILL OPERATOR Visits 0 PT-OP-B Current Condition Start: 07/22/21 12:58 Freq: Status: Active Protocol: Document 07/22/21 16:19 HH (Rec: 07/22/21 17:08 [email or web address]) Current Condition History of Current Condition Onset Date 8/ Current Complaints chronic LBP with radiating pain to LE, s/p lumbar fusion History of Current Condition Handy is a 65yo male presenting to PT with c/o severe LBP with radiating pain to BLE and neck pain stemming from past orthopedic surgeries. He recently had his 2nd back surgery on 04/30/21 for L3-L4 TLIF, L2-3 hemilaminectomy,L4-S1 lumbar HWR, exploration of fusion, repeat laminectomy, reinsertion of hardware, L3-S1 PSF w. instrumentation. However, his symptoms have not improved significantly. His pain tends to get worse with WB activities, trunk related movements. He is sleeping in his recliner. He does have tingling and numbness down his posterior legs. He went to ER two days because of severe pain and he was prescribed with valiem, oxycodone and pedizone. He is still walking with a 4WW to take pressure off his back. Past h/o back surgery in 2000, bilateral shoulder surgeries, R knee replacement, cervical spine fusion. Personal Factors Other Personal Factors That May Effect everyday smoker Therapy/Recovery failed spinal surgeries. PT-OP-C Subjective Start: 07/22/21 12:58 Freq: Status: Active Protocol: Document 08/24/21 16:19 HH (Rec: 08/24/21 16:27 [email or web address]) OP-PT Subjective Patient Comments Patient Comments Cindi been feeling better. Cindi been focusing on my activity level not to do too much like you said. It is very hard for me since i like doing multiple things at the same time and I just cant sit still. Patient Reported Progress Improving PT-OP-F Manual Assessment Start: 07/22/21 12:58 Freq: Status: Active Protocol: Document 07/22/21 16:19 HH (Rec: 07/22/21 17:08 [email or web address]) Manual Assessments Soft Tissue Assessment Soft Tissue Mobility Assessment significant pain to light pressure along his lumbar spine but decreased sensation to light touch. PT-OP-G Mobility & Gait Start: 07/22/21 12:58 Freq: Status: Active Protocol: Document 07/22/21 16:19 HH (Rec: 07/22/21 17:08 [email or web address]) OP Mobility Evaluation Bed Mobility Supine to and from Sit supine to long with need of UE push off from bed, Transfers Sit to Stand pt needs to sit with arm supported OP Gait Assessment Gait Gait Assistance Required: Independent Assistive Devices Assistive Device 4 Wheeled Walker Gait Deviations General Gait Pattern Decreased Stride Length, Decreased Feet Clearance, Flexed Trunk PT-OP-H Neuro Start: 07/22/21 12:58 Freq: Status: Active Protocol: Document 07/22/21 16:19 HH (Rec: 07/22/21 17:08 [email or web address]) Sensation Evaluation Gross Sensation Gross Sensation Left LE Impaired,Right LE Impaired Sensation Description Paresthesia,Numbness,Tingling Dermatome Impairments L4,L5,S1 Deep Tendon Reflex & Clonus Assessment Deep Tendon Reflex Bilateral Achilles Deep Tendon Reflex 1+ Diminished Left Patellar Deep Tendon Reflex 2+ Normal Right Patellar Deep Tendon Reflex 1+ Diminished PT-OP-J Posture/Palpation/Skin Start: 07/22/21 12:58 Freq: Status: Active Protocol: Document 07/22/21 16:19 HH (Rec: 07/22/21 17:08 [email or web address]) Posture Evaluation Position Standing Pelvis Posture Anteriorly Tilted Knee Posture (L) Excess Flexion,(R) Excess Flexion PT-OP-K Range of Motion Start: 07/22/21 12:58 Freq: Status: Active Protocol: Document 07/22/21 16:19 HH (Rec: 07/22/21 17:08 [email or web address]) Lumbar Spine Range of Motion Lumbar Spine Active Degrees ROM Limitations Pain Comments unable to test d/t pain PT-OP-L Special Tests Start: 07/22/21 12:58 Freq: Status: Active Protocol: Document 07/22/21 16:19 HH (Rec: 07/22/21 17:08 [email or web address]) Special Tests Lumbar Spine Special Tests Straight Leg Raise Test Results +VE B Comments passive SLR, pain R worse than L Slump Test Results +VE R>L PT-OP-M Strength Start: 07/22/21 12:58 Freq: Status: Active Protocol: Document 07/22/21 16:19 HH (Rec: 07/22/21 17:08 [email or web address]) Hip Strength Hip Manual Muscle Testing Right Flexion (L2) 4- Good- Extension (S1) 4- Good- Abduction 4- Good- Left Flexion (L2) 4- Good- Extension (S1) 4- Good- Abduction 4- Good- Knee Strength Knee Manual Muscle Testing Right Flexion (S2) 4- Good- Extension (L3) 4- Good- Comments LBP with resistance Left Flexion (S2) 4- Good- Extension (L3) 4- Good- Comments LBP with resistance PT-OP-Q Treatments Start: 07/22/21 12:58 Freq: Status: Active Protocol: Document 08/24/21 16:19 HH (Rec: 08/24/21 16:27 [email or web address]) Cardio Equipment Recumbent Stepper (Sci-Fit) Duration (Minutes) 6 Resistance 3 Therapeutic Exercises Supine Exercises sciatic nerve glide Supine Exercise Name HS stretch position with belt. Reps/Minutes 20sx3 Comments for HEP piriformis Side bilateral Reps/Minutes 20sx3 Comments for HEP knee to chest Supine Exercise Name unilateral Reps/Minutes 20s x 5 Comments for HEP, reports of pulling sensation at lumbar region Sitting Exercises pec stretch Side bilateral Reps/Minutes 20s x 5 Comments for HEP Manual Therapy Treatment Soft Tissue Mobilization skin desensitization Mobilization Type Cross-Friction,Instrument Assisted,Myofascial Release, Rolling Intensity/Depth Moderate Body Position Prone Comments most sensitive at center of his surgical scar B paraspinals Body Location lumbar and thoracic Mobilization Type Rolling,Sustained Pressure, Trigger Point Release Body Position Prone Comments most sensitive at center of his surgical scar PT-OP-R Modalities Start: 07/22/21 12:58 Freq: Status: Active Protocol: Document 08/24/21 16:19 (Rec: 08/24/21 16:27 [email or web address]) Hot Pack/Cold Pack Treatment Hot Pack Location lumbar Patient Position Hooklying Treatment Duration (minutes) 10 Patient Tolerance Good PT-OP-T Assessment and Plan Start: 07/22/21 12:58 Freq: Status: Active Protocol: Document 08/24/21 16:19 (Rec: 08/24/21 16:27 [email or web address]) Physical Therapy Assessment Goals heP Impairment pt does not have HEP Short Term Goal (STG) pt will be able to complete daily HEP safely and independently. STG Duration 4 weeks gait Impairment pt is using a 4WW for mobility Short Term Goal (STG) pt will be able to show improved strength and mobility by being able to use SPC for home mobility STG Duration 5 weeks. Research Biologist Goal (LTG) pt will be able to show improved strength and mobility by being able to use SPC for community mobility LTG Duration 10 weeks owestry Impairment pt scores 48 on Owestry Short Term Goal (STG) pt will show improved pain and mobility by scoring <40 on Owestry STG Duration 5 weeks Senior Care Goal (LTG) pt will show improved pain and mobility by scoring <30 on Owestry LTG Duration 10 weeks Assessment Summary Assessment pt was 12 mins late today. He stated he felt better after paying attention to his activity level and avoid BLT movements when he remembers. I reminded him to focus on stretching at home and added pec stretch for postural rastafarian today. Physical Therapy Plan Frequency and Duration Frequency of Treatment 2x/Week Duration of Treatment 10 weeks Plan of Care Start Date 07/22/21 Plan of Care End Date 09/20/21 Therapeutic Interventions Therapeutic Interventions Gait Training,Home Exercise Program,Joint Mobilizations, Manual Therapy,Neuromuscular Re-education,Patient/Caregiver Education,Self-Care/Home Management,Soft Tissue Mobilization,Taping, Therapeutic Activities, Therapeutic Exercises Modalities Cold Pack/Ice Massage,Electric Stimulation,Hot Packs, Infrared Therapy,Traction- Mechanical,Ultrasound Next Visit Focus/Plan Next Visit Plan check precautions knee to chest sLR LTR, piriformis stretch
--- NOTE | 2021-09-02 15:19 | PT.OTN ---
Current Diagnoses Other spondylosis with radiculopathy, lumbosacral region (09/02/21) Spinal stenosis, lumbar region without neurogenic claudication (09/02/21) Physical Therapy Treatment Note PT-OP-A Visit Information Start: 07/22/21 12:58 Freq: Status: Active Protocol: Document 09/02/21 14:30 DCW (Rec: 09/02/21 15:19 DCW [id number]) Out-Patient Physical Therapy Visit Information Visit Information Visit Type Treatment Note Visit Start Time 14:30 Visit Stop Time 15:20 Total Visit Minutes 50 Visit Number 6 Number of CUT TO LENGTH OPERATOR Visits 0 Evaluation Information Evaluation Date 07/22/21 PT-OP-B Current Condition Start: 07/22/21 12:58 Freq: Status: Active Protocol: Document 07/22/21 16:19 HH (Rec: 07/22/21 17:08 HH [email or web address]) Current Condition History of Current Condition Onset Date 8/ Current Complaints chronic LBP with radiating pain to LE, s/p lumbar fusion History of Current Condition Handy is a 65yo male presenting to PT with c/o severe LBP with radiating pain to BLE and neck pain stemming from past orthopedic surgeries. He recently had his 2nd back surgery on 04/30/21 for L3-L4 TLIF, L2-3 hemilaminectomy,L4-S1 lumbar HWR, exploration of fusion, repeat laminectomy, reinsertion of hardware, L3-S1 PSF w. instrumentation. However, his symptoms have not improved significantly. His pain tends to get worse with WB activities, trunk related movements. He is sleeping in his recliner. He does have tingling and numbness down his posterior legs. He went to ER two days because of severe pain and he was prescribed with valiem, oxycodone and pedizone. He is still walking with a 4WW to take pressure off his back. Past h/o back surgery in 2000, bilateral shoulder surgeries, R knee replacement, cervical spine fusion. Personal Factors Other Personal Factors That May Effect everyday smoker Therapy/Recovery failed spinal surgeries. PT-OP-C Subjective Start: 07/22/21 12:58 Freq: Status: Active Protocol: Document 09/02/21 14:30 DCW (Rec: 09/02/21 15:19 DCW [id number]) OP-PT Subjective Patient Comments Patient Comments I played basketball for years , and I just don't think I'll ever get back to that. PT-OP-F Manual Assessment Start: 07/22/21 12:58 Freq: Status: Active Protocol: Document 07/22/21 16:19 (Rec: 07/22/21 17:08 [email or web address]) Manual Assessments Soft Tissue Assessment Soft Tissue Mobility Assessment significant pain to light pressure along his lumbar spine but decreased sensation to light touch. PT-OP-G Mobility & Gait Start: 07/22/21 12:58 Freq: Status: Active Protocol: Document 07/22/21 16:19 (Rec: 07/22/21 17:08 [email or web address]) OP Mobility Evaluation Bed Mobility Supine to and from Sit supine to long with need of UE push off from bed, Transfers Sit to Stand pt needs to sit with arm supported OP Gait Assessment Gait Gait Assistance Required: Independent Assistive Devices Assistive Device 4 Wheeled Walker Gait Deviations General Gait Pattern Decreased Stride Length, Decreased Feet Clearance, Flexed Trunk PT-OP-H Neuro Start: 07/22/21 12:58 Freq: Status: Active Protocol: Document 07/22/21 16:19 (Rec: 07/22/21 17:08 [email or web address]) Sensation Evaluation Gross Sensation Gross Sensation Left LE Impaired,Right LE Impaired Sensation Description Paresthesia,Numbness,Tingling Dermatome Impairments L4,L5,S1 Deep Tendon Reflex & Clonus Assessment Deep Tendon Reflex Bilateral Achilles Deep Tendon Reflex 1+ Diminished Left Patellar Deep Tendon Reflex 2+ Normal Right Patellar Deep Tendon Reflex 1+ Diminished PT-OP-J Posture/Palpation/Skin Start: 07/22/21 12:58 Freq: Status: Active Protocol: Document 07/22/21 16:19 (Rec: 07/22/21 17:08 [email or web address]) Posture Evaluation Position Standing Pelvis Posture Anteriorly Tilted Knee Posture (L) Excess Flexion,(R) Excess Flexion PT-OP-K Range of Motion Start: 07/22/21 12:58 Freq: Status: Active Protocol: Document 07/22/21 16:19 (Rec: 07/22/21 17:08 [email or web address]) Lumbar Spine Range of Motion Lumbar Spine Active Degrees ROM Limitations Pain Comments unable to test d/t pain PT-OP-L Special Tests Start: 07/22/21 12:58 Freq: Status: Active Protocol: Document 07/22/21 16:19 HH (Rec: 07/22/21 17:08 HH [email or web address]) Special Tests Lumbar Spine Special Tests Straight Leg Raise Test Results +VE B Comments passive SLR, pain R worse than L Slump Test Results +VE R>L PT-OP-M Strength Start: 07/22/21 12:58 Freq: Status: Active Protocol: Document 07/22/21 16:19 HH (Rec: 07/22/21 17:08 HH [email or web address]) Hip Strength Hip Manual Muscle Testing Right Flexion (L2) 4- Good- Extension (S1) 4- Good- Abduction 4- Good- Left Flexion (L2) 4- Good- Extension (S1) 4- Good- Abduction 4- Good- Knee Strength Knee Manual Muscle Testing Right Flexion (S2) 4- Good- Extension (L3) 4- Good- Comments LBP with resistance Left Flexion (S2) 4- Good- Extension (L3) 4- Good- Comments LBP with resistance PT-OP-Q Treatments Start: 07/22/21 12:58 Freq: Status: Active Protocol: Document 09/02/21 14:30 DCW (Rec: 09/02/21 15:19 DCW [id number]) Cardio Equipment Recumbent Stepper (Sci-Fit) Duration (Minutes) 6 Resistance 3 Seat Position 13 Therapeutic Exercises Supine Exercises sciatic nerve glide Supine Exercise Name HS stretch position with belt. Reps/Minutes 20sx3 Comments for HEP piriformis Side bilateral Reps/Minutes 20sx3 Comments for HEP knee to chest Supine Exercise Name unilateral Reps/Minutes 20s x 5 Comments for HEP, reports of pulling sensation at lumbar region Manual Therapy Treatment Soft Tissue Mobilization skin desensitization Mobilization Type Cross-Friction,Instrument Assisted,Myofascial Release, Rolling Intensity/Depth Moderate Body Position Prone Comments most sensitive at center of his surgical scar B paraspinals Body Location lumbar and thoracic Mobilization Type Rolling,Sustained Pressure, Trigger Point Release Body Position Prone Comments most sensitive at center of his surgical scar Neuro Re-Education Treatment Balance Activities 2 Details SLS Surface // bars 1 Details Tandem Stance Surface // bars PT-OP-R Modalities Start: 07/22/21 12:58 Freq: Status: Active Protocol: Document 09/02/21 14:30 DCW (Rec: 09/02/21 15:19 DCW [id number]) Hot Pack/Cold Pack Treatment Hot Pack Location lumbar Patient Position Hooklying Treatment Duration (minutes) 10 Patient Tolerance Good PT-OP-T Assessment and Plan Start: 07/22/21 12:58 Freq: Status: Active Protocol: Document 09/02/21 14:30 DCW (Rec: 09/02/21 15:19 DCW [id number]) Physical Therapy Assessment Goals heP Impairment pt does not have HEP Short Term Goal (STG) pt will be able to complete daily HEP safely and independently. STG Duration 4 weeks gait Impairment pt is using a 4WW for mobility Short Term Goal (STG) pt will be able to show improved strength and mobility by being able to use SPC for home mobility STG Duration 5 weeks. Snf Goal (LTG) pt will be able to show improved strength and mobility by being able to use SPC for community mobility LTG Duration 10 weeks owestry Impairment pt scores 48 on Owestry Short Term Goal (STG) pt will show improved pain and mobility by scoring <40 on Owestry STG Duration 5 weeks Promotional Demonstrator Goal (LTG) pt will show improved pain and mobility by scoring <30 on Owestry LTG Duration 10 weeks Assessment Summary Assessment Pt tolerated treatment very well, was happy with his performance with standing balance Physical Therapy Plan Frequency and Duration Frequency of Treatment 2x/Week Duration of Treatment 10 weeks Plan of Care Start Date 07/22/21 Plan of Care End Date 09/20/21 Therapeutic Interventions Therapeutic Interventions Gait Training,Home Exercise Program,Joint Mobilizations, Manual Therapy,Neuromuscular Re-education,Patient/Caregiver Education,Self-Care/Home Management,Soft Tissue Mobilization,Taping, Therapeutic Activities, Therapeutic Exercises Modalities Cold Pack/Ice Massage,Electric Stimulation,Hot Packs, Infrared Therapy,Traction- Mechanical,Ultrasound Next Visit Focus/Plan Next Visit Plan check precautions knee to chest sLR LTR, piriformis stretch
--- NOTE | 2021-09-07 12:50 | PT.OTN ---
Current Diagnoses Other spondylosis with radiculopathy, lumbosacral region (09/07/21) Spinal stenosis, lumbar region without neurogenic claudication (09/07/21) Physical Therapy Treatment Note PT-OP-A Visit Information Start: 07/22/21 12:58 Freq: Status: Active Protocol: Document 09/07/21 12:05 DCW (Rec: 09/07/21 12:50 DCW [id number]) Out-Patient Physical Therapy Visit Information Visit Information Visit Type Treatment Note Visit Start Time 12:05 Visit Stop Time 12:55 Total Visit Minutes 50 Visit Number 7 Number of DRAMATIC CRITIC Visits 0 Evaluation Information Evaluation Date 07/22/21 PT-OP-B Current Condition Start: 07/22/21 12:58 Freq: Status: Active Protocol: Document 07/22/21 16:19 HH (Rec: 07/22/21 17:08 HH [email or web address]) Current Condition History of Current Condition Onset Date 8/ Current Complaints chronic LBP with radiating pain to LE, s/p lumbar fusion History of Current Condition Handy is a 65yo male presenting to PT with c/o severe LBP with radiating pain to BLE and neck pain stemming from past orthopedic surgeries. He recently had his 2nd back surgery on 04/30/21 for L3-L4 TLIF, L2-3 hemilaminectomy,L4-S1 lumbar HWR, exploration of fusion, repeat laminectomy, reinsertion of hardware, L3-S1 PSF w. instrumentation. However, his symptoms have not improved significantly. His pain tends to get worse with WB activities, trunk related movements. He is sleeping in his recliner. He does have tingling and numbness down his posterior legs. He went to ER two days because of severe pain and he was prescribed with valiem, oxycodone and pedizone. He is still walking with a 4WW to take pressure off his back. Past h/o back surgery in 2000, bilateral shoulder surgeries, R knee replacement, cervical spine fusion. Personal Factors Other Personal Factors That May Effect everyday smoker Therapy/Recovery failed spinal surgeries. PT-OP-C Subjective Start: 07/22/21 12:58 Freq: Status: Active Protocol: Document 09/07/21 12:05 DCW (Rec: 09/07/21 12:50 DCW [id number]) OP-PT Subjective Patient Comments Patient Comments My took me shopping the last four days, and I'm feeling it, but it got my exercise in. PT-OP-F Manual Assessment Start: 07/22/21 12:58 Freq: Status: Active Protocol: Document 07/22/21 16:19 (Rec: 07/22/21 17:08 [email or web address]) Manual Assessments Soft Tissue Assessment Soft Tissue Mobility Assessment significant pain to light pressure along his lumbar spine but decreased sensation to light touch. PT-OP-G Mobility & Gait Start: 07/22/21 12:58 Freq: Status: Active Protocol: Document 07/22/21 16:19 (Rec: 07/22/21 17:08 [email or web address]) OP Mobility Evaluation Bed Mobility Supine to and from Sit supine to long with need of UE push off from bed, Transfers Sit to Stand pt needs to sit with arm supported OP Gait Assessment Gait Gait Assistance Required: Independent Assistive Devices Assistive Device 4 Wheeled Walker Gait Deviations General Gait Pattern Decreased Stride Length, Decreased Feet Clearance, Flexed Trunk PT-OP-H Neuro Start: 07/22/21 12:58 Freq: Status: Active Protocol: Document 07/22/21 16:19 (Rec: 07/22/21 17:08 [email or web address]) Sensation Evaluation Gross Sensation Gross Sensation Left LE Impaired,Right LE Impaired Sensation Description Paresthesia,Numbness,Tingling Dermatome Impairments L4,L5,S1 Deep Tendon Reflex & Clonus Assessment Deep Tendon Reflex Bilateral Achilles Deep Tendon Reflex 1+ Diminished Left Patellar Deep Tendon Reflex 2+ Normal Right Patellar Deep Tendon Reflex 1+ Diminished PT-OP-J Posture/Palpation/Skin Start: 07/22/21 12:58 Freq: Status: Active Protocol: Document 07/22/21 16:19 (Rec: 07/22/21 17:08 [email or web address]) Posture Evaluation Position Standing Pelvis Posture Anteriorly Tilted Knee Posture (L) Excess Flexion,(R) Excess Flexion PT-OP-K Range of Motion Start: 07/22/21 12:58 Freq: Status: Active Protocol: Document 07/22/21 16:19 (Rec: 07/22/21 17:08 [email or web address]) Lumbar Spine Range of Motion Lumbar Spine Active Degrees ROM Limitations Pain Comments unable to test d/t pain PT-OP-L Special Tests Start: 07/22/21 12:58 Freq: Status: Active Protocol: Document 07/22/21 16:19 HH (Rec: 07/22/21 17:08 HH [email or web address]) Special Tests Lumbar Spine Special Tests Straight Leg Raise Test Results +VE B Comments passive SLR, pain R worse than L Slump Test Results +VE R>L PT-OP-M Strength Start: 07/22/21 12:58 Freq: Status: Active Protocol: Document 07/22/21 16:19 HH (Rec: 07/22/21 17:08 HH [email or web address]) Hip Strength Hip Manual Muscle Testing Right Flexion (L2) 4- Good- Extension (S1) 4- Good- Abduction 4- Good- Left Flexion (L2) 4- Good- Extension (S1) 4- Good- Abduction 4- Good- Knee Strength Knee Manual Muscle Testing Right Flexion (S2) 4- Good- Extension (L3) 4- Good- Comments LBP with resistance Left Flexion (S2) 4- Good- Extension (L3) 4- Good- Comments LBP with resistance PT-OP-Q Treatments Start: 07/22/21 12:58 Freq: Status: Active Protocol: Document 09/07/21 12:05 DCW (Rec: 09/07/21 12:50 DCW [id number]) Manual Therapy Treatment Soft Tissue Mobilization skin desensitization Mobilization Type Cross-Friction,Instrument Assisted,Myofascial Release, Rolling Intensity/Depth Moderate Body Position Prone Comments most sensitive at center of his surgical scar B paraspinals Body Location lumbar and thoracic Mobilization Type Rolling,Sustained Pressure, Trigger Point Release Body Position Prone Comments most sensitive at center of his surgical scar Neuro Re-Education Treatment Balance Activities 3 Details NBOS Surface Brar foam Comments EO/EC 2 Details SLS Surface // bars 1 Details Tandem Stance Surface // bars PT-OP-R Modalities Start: 07/22/21 12:58 Freq: Status: Active Protocol: Document 09/07/21 12:05 DCW (Rec: 09/07/21 12:50 DCW [id number]) Hot Pack/Cold Pack Treatment Hot Pack Location lumbar Patient Position Hooklying Treatment Duration (minutes) 10 Patient Tolerance Good PT-OP-T Assessment and Plan Start: 07/22/21 12:58 Freq: Status: Active Protocol: Document 09/07/21 12:05 DCW (Rec: 09/07/21 12:50 DCW [id number]) Physical Therapy Assessment Goals heP Impairment pt does not have HEP Short Term Goal (STG) pt will be able to complete daily HEP safely and independently. STG Duration 4 weeks gait Impairment pt is using a 4WW for mobility Short Term Goal (STG) pt will be able to show improved strength and mobility by being able to use SPC for home mobility STG Duration 5 weeks. Senior Living Goal (LTG) pt will be able to show improved strength and mobility by being able to use SPC for community mobility LTG Duration 10 weeks owestry Impairment pt scores 48 on Owestry Short Term Goal (STG) pt will show improved pain and mobility by scoring <40 on Owestry STG Duration 5 weeks Senior Living Goal (LTG) pt will show improved pain and mobility by scoring <30 on Owestry LTG Duration 10 weeks Assessment Summary Assessment Pt noticeably tired today, but still did fairly well with his balance. Physical Therapy Plan Frequency and Duration Frequency of Treatment 2x/Week Duration of Treatment 10 weeks Plan of Care Start Date 07/22/21 Plan of Care End Date 09/20/21 Therapeutic Interventions Therapeutic Interventions Gait Training,Home Exercise Program,Joint Mobilizations, Manual Therapy,Neuromuscular Re-education,Patient/Caregiver Education,Self-Care/Home Management,Soft Tissue Mobilization,Taping, Therapeutic Activities, Therapeutic Exercises Modalities Cold Pack/Ice Massage,Electric Stimulation,Hot Packs, Infrared Therapy,Traction- Mechanical,Ultrasound Next Visit Focus/Plan Next Visit Plan check precautions knee to chest sLR LTR, piriformis stretch
--- NOTE | 2021-09-15 14:27 | PT.OTN ---
Current Diagnoses Other spondylosis with radiculopathy, lumbosacral region (09/15/21) Spinal stenosis, lumbar region without neurogenic claudication (09/15/21) Physical Therapy Treatment Note PT-OP-A Visit Information Start: 07/22/21 12:58 Freq: Status: Active Protocol: Document 09/15/21 13:45 DCW (Rec: 09/15/21 14:26 DCW [id number]) Out-Patient Physical Therapy Visit Information Visit Information Visit Type Treatment Note Visit Start Time 13:45 Visit Stop Time 14:35 Total Visit Minutes 50 Visit Number 8 Number of BITUMASTIC APPLIER Visits 0 Evaluation Information Evaluation Date 07/22/21 PT-OP-B Current Condition Start: 07/22/21 12:58 Freq: Status: Active Protocol: Document 07/22/21 16:19 HH (Rec: 07/22/21 17:08 HH [email or web address]) Current Condition History of Current Condition Onset Date 8/ Current Complaints chronic LBP with radiating pain to LE, s/p lumbar fusion History of Current Condition Handy is a 65yo male presenting to PT with c/o severe LBP with radiating pain to BLE and neck pain stemming from past orthopedic surgeries. He recently had his 2nd back surgery on 04/30/21 for L3-L4 TLIF, L2-3 hemilaminectomy,L4-S1 lumbar HWR, exploration of fusion, repeat laminectomy, reinsertion of hardware, L3-S1 PSF w. instrumentation. However, his symptoms have not improved significantly. His pain tends to get worse with WB activities, trunk related movements. He is sleeping in his recliner. He does have tingling and numbness down his posterior legs. He went to ER two days because of severe pain and he was prescribed with valiem, oxycodone and pedizone. He is still walking with a 4WW to take pressure off his back. Past h/o back surgery in 2000, bilateral shoulder surgeries, R knee replacement, cervical spine fusion. Personal Factors Other Personal Factors That May Effect everyday smoker Therapy/Recovery failed spinal surgeries. PT-OP-C Subjective Start: 07/22/21 12:58 Freq: Status: Active Protocol: Document 09/15/21 13:45 DCW (Rec: 09/15/21 14:26 DCW [id number]) OP-PT Subjective Patient Comments Patient Comments This weather is just making things a little more difficult . PT-OP-F Manual Assessment Start: 07/22/21 12:58 Freq: Status: Active Protocol: Document 07/22/21 16:19 (Rec: 07/22/21 17:08 [email or web address]) Manual Assessments Soft Tissue Assessment Soft Tissue Mobility Assessment significant pain to light pressure along his lumbar spine but decreased sensation to light touch. PT-OP-G Mobility & Gait Start: 07/22/21 12:58 Freq: Status: Active Protocol: Document 07/22/21 16:19 HH (Rec: 07/22/21 17:08 [email or web address]) OP Mobility Evaluation Bed Mobility Supine to and from Sit supine to long with need of UE push off from bed, Transfers Sit to Stand pt needs to sit with arm supported OP Gait Assessment Gait Gait Assistance Required: Independent Assistive Devices Assistive Device 4 Wheeled Walker Gait Deviations General Gait Pattern Decreased Stride Length, Decreased Feet Clearance, Flexed Trunk PT-OP-H Neuro Start: 07/22/21 12:58 Freq: Status: Active Protocol: Document 07/22/21 16:19 (Rec: 07/22/21 17:08 [email or web address]) Sensation Evaluation Gross Sensation Gross Sensation Left LE Impaired,Right LE Impaired Sensation Description Paresthesia,Numbness,Tingling Dermatome Impairments L4,L5,S1 Deep Tendon Reflex & Clonus Assessment Deep Tendon Reflex Bilateral Achilles Deep Tendon Reflex 1+ Diminished Left Patellar Deep Tendon Reflex 2+ Normal Right Patellar Deep Tendon Reflex 1+ Diminished PT-OP-J Posture/Palpation/Skin Start: 07/22/21 12:58 Freq: Status: Active Protocol: Document 07/22/21 16:19 (Rec: 07/22/21 17:08 [email or web address]) Posture Evaluation Position Standing Pelvis Posture Anteriorly Tilted Knee Posture (L) Excess Flexion,(R) Excess Flexion PT-OP-K Range of Motion Start: 07/22/21 12:58 Freq: Status: Active Protocol: Document 07/22/21 16:19 (Rec: 07/22/21 17:08 [email or web address]) Lumbar Spine Range of Motion Lumbar Spine Active Degrees ROM Limitations Pain Comments unable to test d/t pain PT-OP-L Special Tests Start: 07/22/21 12:58 Freq: Status: Active Protocol: Document 07/22/21 16:19 (Rec: 07/22/21 17:08 [email or web address]) Special Tests Lumbar Spine Special Tests Straight Leg Raise Test Results +VE B Comments passive SLR, pain R worse than L Slump Test Results +VE R>L PT-OP-M Strength Start: 07/22/21 12:58 Freq: Status: Active Protocol: Document 07/22/21 16:19 HH (Rec: 07/22/21 17:08 [email or web address]) Hip Strength Hip Manual Muscle Testing Right Flexion (L2) 4- Good- Extension (S1) 4- Good- Abduction 4- Good- Left Flexion (L2) 4- Good- Extension (S1) 4- Good- Abduction 4- Good- Knee Strength Knee Manual Muscle Testing Right Flexion (S2) 4- Good- Extension (L3) 4- Good- Comments LBP with resistance Left Flexion (S2) 4- Good- Extension (L3) 4- Good- Comments LBP with resistance PT-OP-Q Treatments Start: 07/22/21 12:58 Freq: Status: Active Protocol: Document 09/15/21 13:45 DCW (Rec: 09/15/21 14:26 DCW [id number]) Manual Therapy Treatment Soft Tissue Mobilization skin desensitization Mobilization Type Cross-Friction,Instrument Assisted,Myofascial Release, Rolling Intensity/Depth Moderate Body Position Prone Comments most sensitive at center of his surgical scar B paraspinals Body Location lumbar and thoracic Mobilization Type Rolling,Sustained Pressure, Trigger Point Release Body Position Prone Comments most sensitive at center of his surgical scar Neuro Re-Education Treatment Balance Activities 3 Details NBOS Surface Brar foam Comments EO/EC 2 Details SLS Surface // bars 1 Details Tandem Stance Surface // bars PT-OP-R Modalities Start: 07/22/21 12:58 Freq: Status: Active Protocol: Document 09/15/21 13:45 DCW (Rec: 09/15/21 14:26 DCW [id number]) Hot Pack/Cold Pack Treatment Hot Pack Location lumbar Patient Position Hooklying Treatment Duration (minutes) 10 Patient Tolerance Good PT-OP-T Assessment and Plan Start: 07/22/21 12:58 Freq: Status: Active Protocol: Document 09/15/21 13:45 DCW (Rec: 09/15/21 14:26 DCW [id number]) Physical Therapy Assessment Goals heP Impairment pt does not have HEP Short Term Goal (STG) pt will be able to complete daily HEP safely and independently. STG Duration 4 weeks gait Impairment pt is using a 4WW for mobility Short Term Goal (STG) pt will be able to show improved strength and mobility by being able to use SPC for home mobility STG Duration 5 weeks. Assisted Goal (LTG) pt will be able to show improved strength and mobility by being able to use SPC for community mobility LTG Duration 10 weeks owestry Impairment pt scores 48 on Owestry Short Term Goal (STG) pt will show improved pain and mobility by scoring <40 on Owestry STG Duration 5 weeks Canine Service Teacher Goal (LTG) pt will show improved pain and mobility by scoring <30 on Owestry LTG Duration 10 weeks Assessment Summary Assessment Pt continues to improve with balance, feels like he is improving, but notes that he is just still struggling. Physical Therapy Plan Frequency and Duration Frequency of Treatment 2x/Week Duration of Treatment 10 weeks Plan of Care Start Date 07/22/21 Plan of Care End Date 09/20/21 Therapeutic Interventions Therapeutic Interventions Gait Training,Home Exercise Program,Joint Mobilizations, Manual Therapy,Neuromuscular Re-education,Patient/Caregiver Education,Self-Care/Home Management,Soft Tissue Mobilization,Taping, Therapeutic Activities, Therapeutic Exercises Modalities Cold Pack/Ice Massage,Electric Stimulation,Hot Packs, Infrared Therapy,Traction- Mechanical,Ultrasound Next Visit Focus/Plan Next Visit Plan check precautions knee to chest sLR LTR, piriformis stretch
--- NOTE | 2021-09-23 14:33 | PT.OTN ---
Current Diagnoses Other spondylosis with radiculopathy, lumbosacral region (09/23/21) Spinal stenosis, lumbar region without neurogenic claudication (09/23/21) Physical Therapy Treatment Note PT-OP-A Visit Information Start: 07/22/21 12:58 Freq: Status: Active Protocol: Document 09/23/21 13:45 DCW (Rec: 09/23/21 14:32 DCW [id number]) Out-Patient Physical Therapy Visit Information Visit Information Visit Type Progress Note Visit Start Time 13:45 Visit Stop Time 14:35 Total Visit Minutes 50 Visit Number 9 Number of REGIONAL ECONOMIC LIAISON Visits 0 Evaluation Information Evaluation Date 07/22/21 PT-OP-B Current Condition Start: 07/22/21 12:58 Freq: Status: Active Protocol: Document 07/22/21 16:19 HH (Rec: 07/22/21 17:08 HH [id number]) Current Condition History of Current Condition Onset Date 8/ Current Complaints chronic LBP with radiating pain to LE, s/p lumbar fusion History of Current Condition Handy is a 65yo male presenting to PT with c/o severe LBP with radiating pain to BLE and neck pain stemming from past orthopedic surgeries. He recently had his 2nd back surgery on 04/30/21 for L3-L4 TLIF, L2-3 hemilaminectomy,L4-S1 lumbar HWR, exploration of fusion, repeat laminectomy, reinsertion of hardware, L3-S1 PSF w. instrumentation. However, his symptoms have not improved significantly. His pain tends to get worse with WB activities, trunk related movements. He is sleeping in his recliner. He does have tingling and numbness down his posterior legs. He went to ER two days because of severe pain and he was prescribed with valiem, oxycodone and pedizone. He is still walking with a 4WW to take pressure off his back. Past h/o back surgery in 2000, bilateral shoulder surgeries, R knee replacement, cervical spine fusion. Personal Factors Other Personal Factors That May Effect everyday smoker Therapy/Recovery failed spinal surgeries. PT-OP-C Subjective Start: 07/22/21 12:58 Freq: Status: Active Protocol: Document 09/23/21 13:45 DCW (Rec: 09/23/21 14:32 DCW [id number]) OP-PT Subjective Patient Comments Patient Comments I'm feeling worse with this constant changing in the weather. PT-OP-F Manual Assessment Start: 07/22/21 12:58 Freq: Status: Active Protocol: Document 09/23/21 13:45 DCW (Rec: 09/23/21 13:59 DCW [id number]) Manual Assessments Soft Tissue Assessment Soft Tissue Mobility Assessment Tenderness to palpation 2/4 Pain with wincing along lumbar paraspinals L>R, B upper trap , B cervical paraspinals PT-OP-G Mobility & Gait Start: 07/22/21 12:58 Freq: Status: Active Protocol: Document 09/23/21 13:45 DCW (Rec: 09/23/21 13:59 DCW [id number]) OP Mobility Evaluation Bed Mobility Supine to and from Sit supine to long with need of UE push off from bed, Transfers Sit to Stand pt needs to sit with arm rested on thigh OP Gait Assessment Gait Gait Assistance Required: Independent Assistive Devices Assistive Device Straight Cane Gait Deviations General Gait Pattern Decreased Stride Length, Decreased Feet Clearance, Flexed Trunk Comments Gait Comments Double straight canes today, pt reports snow makes it difficult to use 4WW PT-OP-H Neuro Start: 07/22/21 12:58 Freq: Status: Active Protocol: Document 09/23/21 13:45 DCW (Rec: 09/23/21 13:59 DCW [id number]) Sensation Evaluation Gross Sensation Gross Sensation Left LE Impaired,Right LE Impaired Sensation Description Paresthesia,Numbness,Tingling Dermatome Impairments L4,L5,S1 Deep Tendon Reflex & Clonus Assessment Deep Tendon Reflex Bilateral Achilles Deep Tendon Reflex 1+ Diminished Left Patellar Deep Tendon Reflex 2+ Normal Right Patellar Deep Tendon Reflex 1+ Diminished PT-OP-J Posture/Palpation/Skin Start: 07/22/21 12:58 Freq: Status: Active Protocol: Document 09/23/21 13:45 DCW (Rec: 09/23/21 13:59 DCW [id number]) Posture Evaluation Position Standing Pelvis Posture Anteriorly Tilted Knee Posture (L) Excess Flexion,(R) Excess Flexion PT-OP-K Range of Motion Start: 07/22/21 12:58 Freq: Status: Active Protocol: Document 09/23/21 13:45 DCW (Rec: 09/23/21 13:59 DCW [id number]) Lumbar Spine Range of Motion Lumbar Spine Active Degrees Flexion 30 Extension 5 Lateral Flexion Left 51 Lateral Flexion Right 42 ROM Limitations Pain Comments Lateral flexion measured in cm from fingertips to floor PT-OP-L Special Tests Start: 07/22/21 12:58 Freq: Status: Active Protocol: Document 09/23/21 13:45 DCW (Rec: 09/23/21 13:59 DCW [id number]) Special Tests Lumbar Spine Special Tests Straight Leg Raise Test Results Positive bilaterally Comments passive SLR, pain R<L Slump Test Results Positive bilaterally Comments R<L PT-OP-M Strength Start: 07/22/21 12:58 Freq: Status: Active Protocol: Document 09/23/21 13:45 DCW (Rec: 09/23/21 13:59 DCW [id number]) Hip Strength Hip Manual Muscle Testing Right Flexion (L2) 3+ Fair+ Extension (S1) 4- Good- Abduction 4- Good- Left Flexion (L2) 3+ Fair+ Extension (S1) 4- Good- Abduction 4- Good- Knee Strength Knee Manual Muscle Testing Right Flexion (S2) 4- Good- Extension (L3) 4- Good- Left Flexion (S2) 4- Good- Extension (L3) 4- Good- PT-OP-Q Treatments Start: 07/22/21 12:58 Freq: Status: Active Protocol: Document 09/23/21 13:45 DCW (Rec: 09/23/21 14:32 DCW [id number]) Manual Therapy Treatment Soft Tissue Mobilization skin desensitization Mobilization Type Cross-Friction,Instrument Assisted,Myofascial Release, Rolling Intensity/Depth Moderate Body Position Prone Comments most sensitive at center of his surgical scar B paraspinals Body Location lumbar and thoracic Mobilization Type Rolling,Sustained Pressure, Trigger Point Release Body Position Prone Comments most sensitive at center of his surgical scar PT-OP-R Modalities Start: 07/22/21 12:58 Freq: Status: Active Protocol: Document 09/23/21 13:45 DCW (Rec: 09/23/21 14:32 DCW [id number]) Hot Pack/Cold Pack Treatment Hot Pack Location lumbar Patient Position Hooklying Treatment Duration (minutes) 10 Patient Tolerance Good PT-OP-T Assessment and Plan Start: 07/22/21 12:58 Freq: Status: Active Protocol: Document 09/23/21 13:45 DCW (Rec: 09/23/21 14:32 DCW [id number]) Physical Therapy Assessment Goals heP Impairment pt does not have HEP Short Term Goal (STG) pt will be able to complete daily HEP safely and independently. STG Duration 4 weeks gait Impairment pt is using a 4WW for mobility Short Term Goal (STG) pt will be able to show improved strength and mobility by being able to use SPC for home mobility STG Duration 5 weeks. Manager Of Case Management Goal (LTG) pt will be able to show improved strength and mobility by being able to use SPC for community mobility LTG Duration 10 weeks owestry Impairment pt scores 48 on Owestry Short Term Goal (STG) pt will show improved pain and mobility by scoring <40 on Owestry STG Duration 5 weeks [facility] Goal (LTG) pt will show improved pain and mobility by scoring <30 on Owestry LTG Duration 10 weeks Assessment Summary Assessment Pt moving with a little more difficultly today, overall spine and neck musculature are still fairly tender and increased tone. Pt walking better, using two canes today vs his usual 4WW. Physical Therapy Plan Frequency and Duration Frequency of Treatment 2x/Week Duration of Treatment 10 weeks Plan of Care Start Date 09/23/21 Plan of Care End Date 12/02/21 Therapeutic Interventions Therapeutic Interventions Gait Training,Home Exercise Program,Joint Mobilizations, Manual Therapy,Neuromuscular Re-education,Patient/Caregiver Education,Self-Care/Home Management,Soft Tissue Mobilization,Taping, Therapeutic Activities, Therapeutic Exercises Modalities Cold Pack/Ice Massage,Electric Stimulation,Hot Packs, Infrared Therapy,Traction- Mechanical,Ultrasound Next Visit Focus/Plan Next Visit Plan check precautions knee to chest sLR LTR, piriformis stretch
--- NOTE | 2021-09-23 14:33 | PT.OPPOC ---
Physical, Occupational & Speech Therapy At [facility] Current Diagnoses Other spondylosis with radiculopathy, lumbosacral region (09/23/21) Spinal stenosis, lumbar region without neurogenic claudication (09/23/21) Visit Care Team Role Provider Type Myron Estrella MD Family Provider Physician Primary Care Provider Specialty: Internal Medicine Address: [address] [place] [address], [facility] [address], [address] Email: [email or web address] Karina Alamo MD Attending Provider Physician Referring Provider Specialty: Orthopedic Surgery Address: [address] [place] [address], [id number] Email: [email or web address] Plan Of Care PT-OP-T Assessment and Plan Start: 07/22/21 12:58 Freq: Status: Active Protocol: Document 09/23/21 13:45 DCW (Rec: 09/23/21 14:32 DCW [id number]) Physical Therapy Assessment Goals heP Impairment pt does not have HEP Short Term Goal (STG) pt will be able to complete daily HEP safely and independently. STG Duration 4 weeks gait Impairment pt is using a 4WW for mobility Short Term Goal (STG) pt will be able to show improved strength and mobility by being able to use SPC for home mobility STG Duration 5 weeks. Correction Goal (LTG) pt will be able to show improved strength and mobility by being able to use SPC for community mobility LTG Duration 10 weeks owestry Impairment pt scores 48 on Owestry Short Term Goal (STG) pt will show improved pain and mobility by scoring <40 on Owestry STG Duration 5 weeks Correction Goal (LTG) pt will show improved pain and mobility by scoring <30 on Owestry LTG Duration 10 weeks Assessment Summary Assessment Pt moving with a little more difficultly today, overall spine and neck musculature are still fairly tender and increased tone. Pt walking better, using two canes today vs his usual 4WW. Physical Therapy Plan Frequency and Duration Frequency of Treatment 2x/Week Duration of Treatment 10 weeks Plan of Care Start Date 09/23/21 Plan of Care End Date 12/02/21 Therapeutic Interventions Therapeutic Interventions Gait Training,Home Exercise Program,Joint Mobilizations, Manual Therapy,Neuromuscular Re-education,Patient/Caregiver Education,Self-Care/Home Management,Soft Tissue Mobilization,Taping, Therapeutic Activities, Therapeutic Exercises Modalities Cold Pack/Ice Massage,Electric Stimulation,Hot Packs, Infrared Therapy,Traction- Mechanical,Ultrasound Next Visit Focus/Plan Next Visit Plan check precautions knee to chest sLR LTR, piriformis stretch Plan of Care Dates Plan of Care Start Date 09/23/21 Plan of Care End Date 12/02/21 Electronically Signed by: Charles Hayden, PT 09/23/21 4900 Please Sign and Return: I have reviewed this Plan of Care and certify that the skilled therapy services above are required to meet the patient?s needs. Physician Signature Date Printed Name and Credentials Clinical Instructor Signature Printed Name and Credentials
--- NOTE | 2021-09-29 14:29 | PT.OTN ---
Current Diagnoses Other spondylosis with radiculopathy, lumbosacral region (09/29/21) Spinal stenosis, lumbar region without neurogenic claudication (09/29/21) Physical Therapy Treatment Note PT-OP-A Visit Information Start: 07/22/21 12:58 Freq: Status: Active Protocol: Document 09/29/21 13:50 DCW (Rec: 09/29/21 14:29 DCW [id number]) Out-Patient Physical Therapy Visit Information Visit Information Visit Type Treatment Note Visit Start Time 13:50 Visit Stop Time 14:35 Total Visit Minutes 45 Visit Number 10 Number of SOURCING ANALYST Visits 0 Evaluation Information Evaluation Date 07/22/21 PT-OP-B Current Condition Start: 07/22/21 12:58 Freq: Status: Active Protocol: Document 07/22/21 16:19 HH (Rec: 07/22/21 17:08 HH [id number]) Current Condition History of Current Condition Onset Date 8/ Current Complaints chronic LBP with radiating pain to LE, s/p lumbar fusion History of Current Condition Handy is a 65yo male presenting to PT with c/o severe LBP with radiating pain to BLE and neck pain stemming from past orthopedic surgeries. He recently had his 2nd back surgery on 04/30/21 for L3-L4 TLIF, L2-3 hemilaminectomy,L4-S1 lumbar HWR, exploration of fusion, repeat laminectomy, reinsertion of hardware, L3-S1 PSF w. instrumentation. However, his symptoms have not improved significantly. His pain tends to get worse with WB activities, trunk related movements. He is sleeping in his recliner. He does have tingling and numbness down his posterior legs. He went to ER two days because of severe pain and he was prescribed with valiem, oxycodone and pedizone. He is still walking with a 4WW to take pressure off his back. Past h/o back surgery in 2000, bilateral shoulder surgeries, R knee replacement, cervical spine fusion. Personal Factors Other Personal Factors That May Effect everyday smoker Therapy/Recovery failed spinal surgeries. PT-OP-C Subjective Start: 07/22/21 12:58 Freq: Status: Active Protocol: Document 09/29/21 13:50 DCW (Rec: 09/29/21 14:29 DCW [id number]) OP-PT Subjective Patient Comments Patient Comments Not too bad, the balance is getting better, my legs feel stronger. PT-OP-F Manual Assessment Start: 07/22/21 12:58 Freq: Status: Active Protocol: Document 09/23/21 13:45 DCW (Rec: 09/23/21 13:59 DCW [id number]) Manual Assessments Soft Tissue Assessment Soft Tissue Mobility Assessment Tenderness to palpation 2/4 Pain with wincing along lumbar paraspinals L>R, B upper trap , B cervical paraspinals PT-OP-G Mobility & Gait Start: 07/22/21 12:58 Freq: Status: Active Protocol: Document 09/23/21 13:45 DCW (Rec: 09/23/21 13:59 DCW [id number]) OP Mobility Evaluation Bed Mobility Supine to and from Sit supine to long with need of UE push off from bed, Transfers Sit to Stand pt needs to sit with arm rested on thigh OP Gait Assessment Gait Gait Assistance Required: Independent Assistive Devices Assistive Device Straight Cane Gait Deviations General Gait Pattern Decreased Stride Length, Decreased Feet Clearance, Flexed Trunk Comments Gait Comments Double straight canes today, pt reports snow makes it difficult to use 4WW PT-OP-H Neuro Start: 07/22/21 12:58 Freq: Status: Active Protocol: Document 09/23/21 13:45 DCW (Rec: 09/23/21 13:59 DCW [id number]) Sensation Evaluation Gross Sensation Gross Sensation Left LE Impaired,Right LE Impaired Sensation Description Paresthesia,Numbness,Tingling Dermatome Impairments L4,L5,S1 Deep Tendon Reflex & Clonus Assessment Deep Tendon Reflex Bilateral Achilles Deep Tendon Reflex 1+ Diminished Left Patellar Deep Tendon Reflex 2+ Normal Right Patellar Deep Tendon Reflex 1+ Diminished PT-OP-J Posture/Palpation/Skin Start: 07/22/21 12:58 Freq: Status: Active Protocol: Document 09/23/21 13:45 DCW (Rec: 09/23/21 13:59 DCW [id number]) Posture Evaluation Position Standing Pelvis Posture Anteriorly Tilted Knee Posture (L) Excess Flexion,(R) Excess Flexion PT-OP-K Range of Motion Start: 07/22/21 12:58 Freq: Status: Active Protocol: Document 09/23/21 13:45 DCW (Rec: 09/23/21 13:59 DCW [id number]) Lumbar Spine Range of Motion Lumbar Spine Active Degrees Flexion 30 Extension 5 Lateral Flexion Left 51 Lateral Flexion Right 42 ROM Limitations Pain Comments Lateral flexion measured in cm from fingertips to floor PT-OP-L Special Tests Start: 07/22/21 12:58 Freq: Status: Active Protocol: Document 09/23/21 13:45 DCW (Rec: 09/23/21 13:59 DCW [id number]) Special Tests Lumbar Spine Special Tests Straight Leg Raise Test Results Positive bilaterally Comments passive SLR, pain R<L Slump Test Results Positive bilaterally Comments R<L PT-OP-M Strength Start: 07/22/21 12:58 Freq: Status: Active Protocol: Document 09/23/21 13:45 DCW (Rec: 09/23/21 13:59 DCW [id number]) Hip Strength Hip Manual Muscle Testing Right Flexion (L2) 3+ Fair+ Extension (S1) 4- Good- Abduction 4- Good- Left Flexion (L2) 3+ Fair+ Extension (S1) 4- Good- Abduction 4- Good- Knee Strength Knee Manual Muscle Testing Right Flexion (S2) 4- Good- Extension (L3) 4- Good- Left Flexion (S2) 4- Good- Extension (L3) 4- Good- PT-OP-Q Treatments Start: 07/22/21 12:58 Freq: Status: Active Protocol: Document 09/29/21 13:50 DCW (Rec: 09/29/21 14:29 DCW [id number]) Manual Therapy Treatment Soft Tissue Mobilization skin desensitization Mobilization Type Cross-Friction,Instrument Assisted,Myofascial Release, Rolling Intensity/Depth Moderate Body Position Prone Comments most sensitive at center of his surgical scar B paraspinals Body Location lumbar and thoracic Mobilization Type Rolling,Sustained Pressure, Trigger Point Release Body Position Prone Comments most sensitive at center of his surgical scar Neuro Re-Education Treatment Balance Activities 3 Details NBOS Surface Brar foam Comments EO/EC 2 Details SLS Surface // bars 1 Details Tandem Stance Surface // bars PT-OP-R Modalities Start: 07/22/21 12:58 Freq: Status: Active Protocol: Document 09/29/21 13:50 DCW (Rec: 09/29/21 14:29 DCW [id number]) Hot Pack/Cold Pack Treatment Hot Pack Location lumbar Patient Position Hooklying Treatment Duration (minutes) 10 Patient Tolerance Good PT-OP-T Assessment and Plan Start: 07/22/21 12:58 Freq: Status: Active Protocol: Document 09/29/21 13:50 DCW (Rec: 09/29/21 14:29 DCW [id number]) Physical Therapy Assessment Goals heP Impairment pt does not have HEP Short Term Goal (STG) pt will be able to complete daily HEP safely and independently. STG Duration 4 weeks gait Impairment pt is using a 4WW for mobility Short Term Goal (STG) pt will be able to show improved strength and mobility by being able to use SPC for home mobility STG Duration 5 weeks. Machine Shop Worker Goal (LTG) pt will be able to show improved strength and mobility by being able to use SPC for community mobility LTG Duration 10 weeks owestry Impairment pt scores 48 on Owestry Short Term Goal (STG) pt will show improved pain and mobility by scoring <40 on Owestry STG Duration 5 weeks Machine Shop Worker Goal (LTG) pt will show improved pain and mobility by scoring <30 on Owestry LTG Duration 10 weeks Assessment Summary Assessment Pt showing improved balance today, tolerated treatment very well. Physical Therapy Plan Frequency and Duration Frequency of Treatment 2x/Week Duration of Treatment 10 weeks Plan of Care Start Date 09/23/21 Plan of Care End Date 12/02/21 Therapeutic Interventions Therapeutic Interventions Gait Training,Home Exercise Program,Joint Mobilizations, Manual Therapy,Neuromuscular Re-education,Patient/Caregiver Education,Self-Care/Home Management,Soft Tissue Mobilization,Taping, Therapeutic Activities, Therapeutic Exercises Modalities Cold Pack/Ice Massage,Electric Stimulation,Hot Packs, Infrared Therapy,Traction- Mechanical,Ultrasound Next Visit Focus/Plan Next Visit Plan check precautions knee to chest sLR LTR, piriformis stretch
--- NOTE | 2021-10-06 14:31 | PT.OTN ---
Current Diagnoses Other spondylosis with radiculopathy, lumbosacral region (10/06/21) Spinal stenosis, lumbar region without neurogenic claudication (10/06/21) Physical Therapy Treatment Note PT-OP-A Visit Information Start: 07/22/21 12:58 Freq: Status: Active Protocol: Document 10/06/21 13:49 DCW (Rec: 10/06/21 14:31 DCW [id number]) Out-Patient Physical Therapy Visit Information Visit Information Visit Type Treatment Note Visit Start Time 13:49 Visit Stop Time 14:35 Total Visit Minutes 46 Visit Number 11 Number of SALES RECRUITING COORDINATOR Visits 0 Evaluation Information Evaluation Date 07/22/21 PT-OP-B Current Condition Start: 07/22/21 12:58 Freq: Status: Active Protocol: Document 07/22/21 16:19 HH (Rec: 07/22/21 17:08 HH [id number]) Current Condition History of Current Condition Onset Date 8/ Current Complaints chronic LBP with radiating pain to LE, s/p lumbar fusion History of Current Condition Handy is a 65yo male presenting to PT with c/o severe LBP with radiating pain to BLE and neck pain stemming from past orthopedic surgeries. He recently had his 2nd back surgery on 04/30/21 for L3-L4 TLIF, L2-3 hemilaminectomy,L4-S1 lumbar HWR, exploration of fusion, repeat laminectomy, reinsertion of hardware, L3-S1 PSF w. instrumentation. However, his symptoms have not improved significantly. His pain tends to get worse with WB activities, trunk related movements. He is sleeping in his recliner. He does have tingling and numbness down his posterior legs. He went to ER two days because of severe pain and he was prescribed with valiem, oxycodone and pedizone. He is still walking with a 4WW to take pressure off his back. Past h/o back surgery in 2000, bilateral shoulder surgeries, R knee replacement, cervical spine fusion. Personal Factors Other Personal Factors That May Effect everyday smoker Therapy/Recovery failed spinal surgeries. PT-OP-C Subjective Start: 07/22/21 12:58 Freq: Status: Active Protocol: Document 10/06/21 13:49 DCW (Rec: 10/06/21 14:31 DCW [id number]) OP-PT Subjective Patient Comments Patient Comments The sciatic nerve kind of kick up last night on the left side. I didn't get to sleep until 8 this morning. PT-OP-F Manual Assessment Start: 07/22/21 12:58 Freq: Status: Active Protocol: Document 09/23/21 13:45 DCW (Rec: 09/23/21 13:59 DCW [id number]) Manual Assessments Soft Tissue Assessment Soft Tissue Mobility Assessment Tenderness to palpation 2/4 Pain with wincing along lumbar paraspinals L>R, B upper trap , B cervical paraspinals PT-OP-G Mobility & Gait Start: 07/22/21 12:58 Freq: Status: Active Protocol: Document 09/23/21 13:45 DCW (Rec: 09/23/21 13:59 DCW [id number]) OP Mobility Evaluation Bed Mobility Supine to and from Sit supine to long with need of UE push off from bed, Transfers Sit to Stand pt needs to sit with arm rested on thigh OP Gait Assessment Gait Gait Assistance Required: Independent Assistive Devices Assistive Device Straight Cane Gait Deviations General Gait Pattern Decreased Stride Length, Decreased Feet Clearance, Flexed Trunk Comments Gait Comments Double straight canes today, pt reports snow makes it difficult to use 4WW PT-OP-H Neuro Start: 07/22/21 12:58 Freq: Status: Active Protocol: Document 09/23/21 13:45 DCW (Rec: 09/23/21 13:59 DCW [id number]) Sensation Evaluation Gross Sensation Gross Sensation Left LE Impaired,Right LE Impaired Sensation Description Paresthesia,Numbness,Tingling Dermatome Impairments L4,L5,S1 Deep Tendon Reflex & Clonus Assessment Deep Tendon Reflex Bilateral Achilles Deep Tendon Reflex 1+ Diminished Left Patellar Deep Tendon Reflex 2+ Normal Right Patellar Deep Tendon Reflex 1+ Diminished PT-OP-J Posture/Palpation/Skin Start: 07/22/21 12:58 Freq: Status: Active Protocol: Document 09/23/21 13:45 DCW (Rec: 09/23/21 13:59 DCW [id number]) Posture Evaluation Position Standing Pelvis Posture Anteriorly Tilted Knee Posture (L) Excess Flexion,(R) Excess Flexion PT-OP-K Range of Motion Start: 07/22/21 12:58 Freq: Status: Active Protocol: Document 09/23/21 13:45 DCW (Rec: 09/23/21 13:59 DCW [id number]) Lumbar Spine Range of Motion Lumbar Spine Active Degrees Flexion 30 Extension 5 Lateral Flexion Left 51 Lateral Flexion Right 42 ROM Limitations Pain Comments Lateral flexion measured in cm from fingertips to floor PT-OP-L Special Tests Start: 07/22/21 12:58 Freq: Status: Active Protocol: Document 09/23/21 13:45 DCW (Rec: 09/23/21 13:59 DCW [id number]) Special Tests Lumbar Spine Special Tests Straight Leg Raise Test Results Positive bilaterally Comments passive SLR, pain R<L Slump Test Results Positive bilaterally Comments R<L PT-OP-M Strength Start: 07/22/21 12:58 Freq: Status: Active Protocol: Document 09/23/21 13:45 DCW (Rec: 09/23/21 13:59 DCW [id number]) Hip Strength Hip Manual Muscle Testing Right Flexion (L2) 3+ Fair+ Extension (S1) 4- Good- Abduction 4- Good- Left Flexion (L2) 3+ Fair+ Extension (S1) 4- Good- Abduction 4- Good- Knee Strength Knee Manual Muscle Testing Right Flexion (S2) 4- Good- Extension (L3) 4- Good- Left Flexion (S2) 4- Good- Extension (L3) 4- Good- PT-OP-Q Treatments Start: 07/22/21 12:58 Freq: Status: Active Protocol: Document 10/06/21 13:49 DCW (Rec: 10/06/21 14:31 DCW [id number]) Manual Therapy Treatment Soft Tissue Mobilization skin desensitization Mobilization Type Cross-Friction,Instrument Assisted,Myofascial Release, Rolling Intensity/Depth Moderate Body Position Prone Comments most sensitive at center of his surgical scar B paraspinals Body Location lumbar and thoracic Mobilization Type Rolling,Sustained Pressure, Trigger Point Release Body Position Prone Comments most sensitive at center of his surgical scar Neuro Re-Education Treatment Balance Activities 3 Details NBOS Surface Brar foam Comments EO/EC 2 Details SLS Surface // bars 1 Details Tandem Stance Surface // bars PT-OP-R Modalities Start: 07/22/21 12:58 Freq: Status: Active Protocol: Document 10/06/21 13:49 DCW (Rec: 10/06/21 14:31 DCW [id number]) Hot Pack/Cold Pack Treatment Hot Pack Location lumbar Patient Position Hooklying Treatment Duration (minutes) 10 Patient Tolerance Good PT-OP-T Assessment and Plan Start: 07/22/21 12:58 Freq: Status: Active Protocol: Document 10/06/21 13:49 DCW (Rec: 10/06/21 14:31 DCW [id number]) Physical Therapy Assessment Goals heP Impairment pt does not have HEP Short Term Goal (STG) pt will be able to complete daily HEP safely and independently. STG Duration 4 weeks gait Impairment pt is using a 4WW for mobility Short Term Goal (STG) pt will be able to show improved strength and mobility by being able to use SPC for home mobility STG Duration 5 weeks. Intermediate Goal (LTG) pt will be able to show improved strength and mobility by being able to use SPC for community mobility LTG Duration 10 weeks owestry Impairment pt scores 48 on Owestry Short Term Goal (STG) pt will show improved pain and mobility by scoring <40 on Owestry STG Duration 5 weeks Experimental Preflight Mechanic Goal (LTG) pt will show improved pain and mobility by scoring <30 on Owestry LTG Duration 10 weeks Assessment Summary Assessment Pt noticeably more sore today, having increased difficulty performing bed mobility, and much more sensitive with STM. [place] slightly more loosened up after therapy session, but still fairly sore. Physical Therapy Plan Frequency and Duration Frequency of Treatment 2x/Week Duration of Treatment 10 weeks Plan of Care Start Date 09/23/21 Plan of Care End Date 12/02/21 Therapeutic Interventions Therapeutic Interventions Gait Training,Home Exercise Program,Joint Mobilizations, Manual Therapy,Neuromuscular Re-education,Patient/Caregiver Education,Self-Care/Home Management,Soft Tissue Mobilization,Taping, Therapeutic Activities, Therapeutic Exercises Modalities Cold Pack/Ice Massage,Electric Stimulation,Hot Packs, Infrared Therapy,Traction- Mechanical,Ultrasound Next Visit Focus/Plan Next Visit Plan check precautions knee to chest sLR LTR, piriformis stretch
--- NOTE | 2021-10-13 14:29 | PT.OTN ---
Current Diagnoses Other spondylosis with radiculopathy, lumbosacral region (10/13/21) Spinal stenosis, lumbar region without neurogenic claudication (10/13/21) Physical Therapy Treatment Note PT-OP-A Visit Information Start: 07/22/21 12:58 Freq: Status: Active Protocol: Document 10/13/21 13:49 DCW (Rec: 10/13/21 14:29 DCW [id number]) Out-Patient Physical Therapy Visit Information Visit Information Visit Type Treatment Note Visit Start Time 13:49 Visit Stop Time 14:40 Total Visit Minutes 51 Visit Number 12 Number of THREAD MARKER Visits 0 Evaluation Information Evaluation Date 07/22/21 PT-OP-B Current Condition Start: 07/22/21 12:58 Freq: Status: Active Protocol: Document 07/22/21 16:19 HH (Rec: 07/22/21 17:08 HH [id number]) Current Condition History of Current Condition Onset Date 8/ Current Complaints chronic LBP with radiating pain to LE, s/p lumbar fusion History of Current Condition Handy is a 65yo male presenting to PT with c/o severe LBP with radiating pain to BLE and neck pain stemming from past orthopedic surgeries. He recently had his 2nd back surgery on 04/30/21 for L3-L4 TLIF, L2-3 hemilaminectomy,L4-S1 lumbar HWR, exploration of fusion, repeat laminectomy, reinsertion of hardware, L3-S1 PSF w. instrumentation. However, his symptoms have not improved significantly. His pain tends to get worse with WB activities, trunk related movements. He is sleeping in his recliner. He does have tingling and numbness down his posterior legs. He went to ER two days because of severe pain and he was prescribed with valiem, oxycodone and pedizone. He is still walking with a 4WW to take pressure off his back. Past h/o back surgery in 2000, bilateral shoulder surgeries, R knee replacement, cervical spine fusion. Personal Factors Other Personal Factors That May Effect everyday smoker Therapy/Recovery failed spinal surgeries. PT-OP-C Subjective Start: 07/22/21 12:58 Freq: Status: Active Protocol: Document 10/13/21 13:49 DCW (Rec: 10/13/21 14:29 DCW [id number]) OP-PT Subjective Patient Comments Patient Comments Pt notes his PCP felt he sould continue with more therapy and exercise to help mobility. PT-OP-F Manual Assessment Start: 07/22/21 12:58 Freq: Status: Active Protocol: Document 09/23/21 13:45 DCW (Rec: 09/23/21 13:59 DCW [id number]) Manual Assessments Soft Tissue Assessment Soft Tissue Mobility Assessment Tenderness to palpation 2/4 Pain with wincing along lumbar paraspinals L>R, B upper trap , B cervical paraspinals PT-OP-G Mobility & Gait Start: 07/22/21 12:58 Freq: Status: Active Protocol: Document 09/23/21 13:45 DCW (Rec: 09/23/21 13:59 DCW [id number]) OP Mobility Evaluation Bed Mobility Supine to and from Sit supine to long with need of UE push off from bed, Transfers Sit to Stand pt needs to sit with arm rested on thigh OP Gait Assessment Gait Gait Assistance Required: Independent Assistive Devices Assistive Device Straight Cane Gait Deviations General Gait Pattern Decreased Stride Length, Decreased Feet Clearance, Flexed Trunk Comments Gait Comments Double straight canes today, pt reports snow makes it difficult to use 4WW PT-OP-H Neuro Start: 07/22/21 12:58 Freq: Status: Active Protocol: Document 09/23/21 13:45 DCW (Rec: 09/23/21 13:59 DCW [id number]) Sensation Evaluation Gross Sensation Gross Sensation Left LE Impaired,Right LE Impaired Sensation Description Paresthesia,Numbness,Tingling Dermatome Impairments L4,L5,S1 Deep Tendon Reflex & Clonus Assessment Deep Tendon Reflex Bilateral Achilles Deep Tendon Reflex 1+ Diminished Left Patellar Deep Tendon Reflex 2+ Normal Right Patellar Deep Tendon Reflex 1+ Diminished PT-OP-J Posture/Palpation/Skin Start: 07/22/21 12:58 Freq: Status: Active Protocol: Document 09/23/21 13:45 DCW (Rec: 09/23/21 13:59 DCW [id number]) Posture Evaluation Position Standing Pelvis Posture Anteriorly Tilted Knee Posture (L) Excess Flexion,(R) Excess Flexion PT-OP-K Range of Motion Start: 07/22/21 12:58 Freq: Status: Active Protocol: Document 09/23/21 13:45 DCW (Rec: 09/23/21 13:59 DCW [id number]) Lumbar Spine Range of Motion Lumbar Spine Active Degrees Flexion 30 Extension 5 Lateral Flexion Left 51 Lateral Flexion Right 42 ROM Limitations Pain Comments Lateral flexion measured in cm from fingertips to floor PT-OP-L Special Tests Start: 07/22/21 12:58 Freq: Status: Active Protocol: Document 09/23/21 13:45 DCW (Rec: 09/23/21 13:59 DCW [id number]) Special Tests Lumbar Spine Special Tests Straight Leg Raise Test Results Positive bilaterally Comments passive SLR, pain R<L Slump Test Results Positive bilaterally Comments R<L PT-OP-M Strength Start: 07/22/21 12:58 Freq: Status: Active Protocol: Document 09/23/21 13:45 DCW (Rec: 09/23/21 13:59 DCW [id number]) Hip Strength Hip Manual Muscle Testing Right Flexion (L2) 3+ Fair+ Extension (S1) 4- Good- Abduction 4- Good- Left Flexion (L2) 3+ Fair+ Extension (S1) 4- Good- Abduction 4- Good- Knee Strength Knee Manual Muscle Testing Right Flexion (S2) 4- Good- Extension (L3) 4- Good- Left Flexion (S2) 4- Good- Extension (L3) 4- Good- PT-OP-Q Treatments Start: 07/22/21 12:58 Freq: Status: Active Protocol: Document 10/13/21 13:49 DCW (Rec: 10/13/21 14:29 DCW [id number]) Manual Therapy Treatment Soft Tissue Mobilization skin desensitization Mobilization Type Cross-Friction,Instrument Assisted,Myofascial Release, Rolling Intensity/Depth Moderate Body Position Prone Comments most sensitive at center of his surgical scar B paraspinals Body Location lumbar and thoracic Mobilization Type Rolling,Sustained Pressure, Trigger Point Release Body Position Prone Comments most sensitive at center of his surgical scar PT-OP-R Modalities Start: 07/22/21 12:58 Freq: Status: Active Protocol: Document 10/13/21 13:49 DCW (Rec: 10/13/21 14:29 DCW [id number]) Hot Pack/Cold Pack Treatment Hot Pack Location lumbar Patient Position Hooklying Treatment Duration (minutes) 10 Patient Tolerance Good PT-OP-T Assessment and Plan Start: 07/22/21 12:58 Freq: Status: Active Protocol: Document 10/13/21 13:49 DCW (Rec: 10/13/21 14:29 ROSANA [id number]) Physical Therapy Assessment Goals heP Impairment pt does not have HEP Short Term Goal (STG) pt will be able to complete daily HEP safely and independently. STG Duration 4 weeks gait Impairment pt is using a 4WW for mobility Short Term Goal (STG) pt will be able to show improved strength and mobility by being able to use SPC for home mobility STG Duration 5 weeks. Rn Immunology Goal (LTG) pt will be able to show improved strength and mobility by being able to use SPC for community mobility LTG Duration 10 weeks owestry Impairment pt scores 48 on Owestry Short Term Goal (STG) pt will show improved pain and mobility by scoring <40 on Owestry STG Duration 5 weeks Halfway Goal (LTG) pt will show improved pain and mobility by scoring <30 on Owestry LTG Duration 10 weeks Assessment Summary Assessment Focused more today on STM to decrease pt complaints of sciatic pain. Physical Therapy Plan Frequency and Duration Frequency of Treatment 2x/Week Duration of Treatment 10 weeks Plan of Care Start Date 09/23/21 Plan of Care End Date 12/02/21 Therapeutic Interventions Therapeutic Interventions Gait Training,Home Exercise Program,Joint Mobilizations, Manual Therapy,Neuromuscular Re-education,Patient/Caregiver Education,Self-Care/Home Management,Soft Tissue Mobilization,Taping, Therapeutic Activities, Therapeutic Exercises Modalities Cold Pack/Ice Massage,Electric Stimulation,Hot Packs, Infrared Therapy,Traction- Mechanical,Ultrasound Next Visit Focus/Plan Next Visit Plan check precautions knee to chest sLR LTR, piriformis stretch
--- NOTE | 2021-10-20 14:33 | PT.OTN ---
Current Diagnoses Other spondylosis with radiculopathy, lumbosacral region (10/20/21) Spinal stenosis, lumbar region without neurogenic claudication (10/20/21) Physical Therapy Treatment Note PT-OP-A Visit Information Start: 07/22/21 12:58 Freq: Status: Active Protocol: Document 10/20/21 13:54 DCW (Rec: 10/20/21 14:33 DCW [id number]) Out-Patient Physical Therapy Visit Information Visit Information Visit Type Treatment Note Visit Start Time 13:54 Visit Stop Time 14:35 Total Visit Minutes 41 Visit Number 13 Number of TRADING MANAGER Visits 0 Evaluation Information Evaluation Date 07/22/21 PT-OP-B Current Condition Start: 07/22/21 12:58 Freq: Status: Active Protocol: Document 07/22/21 16:19 HH (Rec: 07/22/21 17:08 HH [id number]) Current Condition History of Current Condition Onset Date 8/ Current Complaints chronic LBP with radiating pain to LE, s/p lumbar fusion History of Current Condition Handy is a 65yo male presenting to PT with c/o severe LBP with radiating pain to BLE and neck pain stemming from past orthopedic surgeries. He recently had his 2nd back surgery on 04/30/21 for L3-L4 TLIF, L2-3 hemilaminectomy,L4-S1 lumbar HWR, exploration of fusion, repeat laminectomy, reinsertion of hardware, L3-S1 PSF w. instrumentation. However, his symptoms have not improved significantly. His pain tends to get worse with WB activities, trunk related movements. He is sleeping in his recliner. He does have tingling and numbness down his posterior legs. He went to ER two days because of severe pain and he was prescribed with valiem, oxycodone and pedizone. He is still walking with a 4WW to take pressure off his back. Past h/o back surgery in 2000, bilateral shoulder surgeries, R knee replacement, cervical spine fusion. Personal Factors Other Personal Factors That May Effect everyday smoker Therapy/Recovery failed spinal surgeries. PT-OP-C Subjective Start: 07/22/21 12:58 Freq: Status: Active Protocol: Document 10/20/21 13:54 DCW (Rec: 10/20/21 14:33 DCW [id number]) OP-PT Subjective Patient Comments Patient Comments Pt notes his sciatic pain is still hurting. I'm still losing my balance, and there's a little bit of weakness. PT-OP-F Manual Assessment Start: 07/22/21 12:58 Freq: Status: Active Protocol: Document 09/23/21 13:45 DCW (Rec: 09/23/21 13:59 DCW [id number]) Manual Assessments Soft Tissue Assessment Soft Tissue Mobility Assessment Tenderness to palpation 2/4 Pain with wincing along lumbar paraspinals L>R, B upper trap , B cervical paraspinals PT-OP-G Mobility & Gait Start: 07/22/21 12:58 Freq: Status: Active Protocol: Document 09/23/21 13:45 DCW (Rec: 09/23/21 13:59 DCW [id number]) OP Mobility Evaluation Bed Mobility Supine to and from Sit supine to long with need of UE push off from bed, Transfers Sit to Stand pt needs to sit with arm rested on thigh OP Gait Assessment Gait Gait Assistance Required: Independent Assistive Devices Assistive Device Straight Cane Gait Deviations General Gait Pattern Decreased Stride Length, Decreased Feet Clearance, Flexed Trunk Comments Gait Comments Double straight canes today, pt reports snow makes it difficult to use 4WW PT-OP-H Neuro Start: 07/22/21 12:58 Freq: Status: Active Protocol: Document 09/23/21 13:45 DCW (Rec: 09/23/21 13:59 DCW [id number]) Sensation Evaluation Gross Sensation Gross Sensation Left LE Impaired,Right LE Impaired Sensation Description Paresthesia,Numbness,Tingling Dermatome Impairments L4,L5,S1 Deep Tendon Reflex & Clonus Assessment Deep Tendon Reflex Bilateral Achilles Deep Tendon Reflex 1+ Diminished Left Patellar Deep Tendon Reflex 2+ Normal Right Patellar Deep Tendon Reflex 1+ Diminished PT-OP-J Posture/Palpation/Skin Start: 07/22/21 12:58 Freq: Status: Active Protocol: Document 09/23/21 13:45 DCW (Rec: 09/23/21 13:59 DCW [id number]) Posture Evaluation Position Standing Pelvis Posture Anteriorly Tilted Knee Posture (L) Excess Flexion,(R) Excess Flexion PT-OP-K Range of Motion Start: 07/22/21 12:58 Freq: Status: Active Protocol: Document 09/23/21 13:45 DCW (Rec: 09/23/21 13:59 DCW [id number]) Lumbar Spine Range of Motion Lumbar Spine Active Degrees Flexion 30 Extension 5 Lateral Flexion Left 51 Lateral Flexion Right 42 ROM Limitations Pain Comments Lateral flexion measured in cm from fingertips to floor PT-OP-L Special Tests Start: 07/22/21 12:58 Freq: Status: Active Protocol: Document 09/23/21 13:45 DCW (Rec: 09/23/21 13:59 DCW [id number]) Special Tests Lumbar Spine Special Tests Straight Leg Raise Test Results Positive bilaterally Comments passive SLR, pain R<L Slump Test Results Positive bilaterally Comments R<L PT-OP-M Strength Start: 07/22/21 12:58 Freq: Status: Active Protocol: Document 09/23/21 13:45 DCW (Rec: 09/23/21 13:59 DCW [id number]) Hip Strength Hip Manual Muscle Testing Right Flexion (L2) 3+ Fair+ Extension (S1) 4- Good- Abduction 4- Good- Left Flexion (L2) 3+ Fair+ Extension (S1) 4- Good- Abduction 4- Good- Knee Strength Knee Manual Muscle Testing Right Flexion (S2) 4- Good- Extension (L3) 4- Good- Left Flexion (S2) 4- Good- Extension (L3) 4- Good- PT-OP-Q Treatments Start: 07/22/21 12:58 Freq: Status: Active Protocol: Document 10/20/21 13:54 DCW (Rec: 10/20/21 14:33 DCW [id number]) Manual Therapy Treatment Soft Tissue Mobilization skin desensitization Mobilization Type Cross-Friction,Instrument Assisted,Myofascial Release, Rolling Intensity/Depth Moderate Body Position Prone Comments most sensitive at center of his surgical scar B paraspinals Body Location lumbar and thoracic Mobilization Type Rolling,Sustained Pressure, Trigger Point Release Body Position Prone Comments most sensitive at center of his surgical scar PT-OP-R Modalities Start: 07/22/21 12:58 Freq: Status: Active Protocol: Document 10/20/21 13:54 DCW (Rec: 10/20/21 14:33 DCW [id number]) Hot Pack/Cold Pack Treatment Hot Pack Location lumbar Patient Position Hooklying Treatment Duration (minutes) 10 Patient Tolerance Good PT-OP-T Assessment and Plan Start: 07/22/21 12:58 Freq: Status: Active Protocol: Document 10/20/21 13:54 DCW (Rec: 10/20/21 14:33 DCW [id number]) Physical Therapy Assessment Goals heP Impairment pt does not have HEP Short Term Goal (STG) pt will be able to complete daily HEP safely and independently. STG Duration 4 weeks gait Impairment pt is using a 4WW for mobility Short Term Goal (STG) pt will be able to show improved strength and mobility by being able to use SPC for home mobility STG Duration 5 weeks. [facility] Goal (LTG) pt will be able to show improved strength and mobility by being able to use SPC for community mobility LTG Duration 10 weeks owestry Impairment pt scores 48 on Owestry Short Term Goal (STG) pt will show improved pain and mobility by scoring <40 on Owestry STG Duration 5 weeks Facilities Director Goal (LTG) pt will show improved pain and mobility by scoring <30 on Owestry LTG Duration 10 weeks Assessment Summary Assessment Pt continuing to have increased sciatic pain. Physical Therapy Plan Frequency and Duration Frequency of Treatment 2x/Week Duration of Treatment 10 weeks Plan of Care Start Date 09/23/21 Plan of Care End Date 12/02/21 Therapeutic Interventions Therapeutic Interventions Gait Training,Home Exercise Program,Joint Mobilizations, Manual Therapy,Neuromuscular Re-education,Patient/Caregiver Education,Self-Care/Home Management,Soft Tissue Mobilization,Taping, Therapeutic Activities, Therapeutic Exercises Modalities Cold Pack/Ice Massage,Electric Stimulation,Hot Packs, Infrared Therapy,Traction- Mechanical,Ultrasound Next Visit Focus/Plan Next Visit Plan check precautions knee to chest sLR LTR, piriformis stretch
--- NOTE | 2021-10-27 14:28 | PT.OTN ---
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 He recently had his 2nd back surgery on 04/30/21 for L3-L4 TLIF, L2-3 hemilaminectomy,L4-S1 lumbar HWR, exploration of fusion, repeat laminectomy, reinsertion of hardware, L3-S1 PSF w. instrumentation. However, his symptoms have not improved significantly. His pain tends to get worse with WB activities, trunk related movements. He is sleeping in his recliner. He does have tingling and numbness down his posterior legs. He went to ER two days because of severe pain and he was prescribed with valiem, oxycodone and pedizone. He is still walking with a 4WW to take pressure off his back. Past h/o back surgery in 2000, bilateral shoulder surgeries, R knee replacement, cervical spine fusion. Personal Factors Other Personal Factors That May Effect everyday smoker Therapy/Recovery failed spinal surgeries. PT-OP-C Subjective Start: 07/22/21 12:58 Freq: Status: Active Protocol: Document 10/27/21 14:02 DCW (Rec: 10/27/21 14:28 DCW [id number]) OP-PT Subjective Patient Comments Patient Comments Pt still experiencing quite a bit of leg pain today. PT-OP-F Manual Assessment Start: 07/22/21 12:58 Freq: Status: Active Protocol: Document 09/23/21 13:45 DCW (Rec: 09/23/21 13:59 DCW [id number]) Manual Assessments Soft Tissue Assessment Soft Tissue Mobility Assessment Tenderness to palpation 2/4 Pain with wincing along lumbar paraspinals L>R, B upper trap , B cervical paraspinals PT-OP-G Mobility & Gait Start: 07/22/21 12:58 Freq: Status: Active Protocol: Document 09/23/21 13:45 DCW (Rec: 09/23/21 13:59 DCW [id number]) OP Mobility Evaluation Bed Mobility Supine to and from Sit supine to long with need of UE push off from bed, Transfers Sit to Stand pt needs to sit with arm rested on thigh OP Gait Assessment Gait Gait Assistance Required: Independent Assistive Devices Assistive Device Straight Cane Gait Deviations General Gait Pattern Decreased Stride Length, Decreased Feet Clearance, Flexed Trunk Comments Gait Comments Double straight canes today, pt reports snow makes it difficult to use 4WW PT-OP-H Neuro Start: 07/22/21 12:58 Freq: Status: Active Protocol: Document 09/23/21 13:45 DCW (Rec: 09/23/21 13:59 DCW [id number]) Sensation Evaluation Gross Sensation Gross Sensation Left LE Impaired,Right LE Impaired Sensation Description Paresthesia,Numbness,Tingling Dermatome Impairments L4,L5,S1 Deep Tendon Reflex & Clonus Assessment Deep Tendon Reflex Bilateral Achilles Deep Tendon Reflex 1+ Diminished Left Patellar Deep Tendon Reflex 2+ Normal Right Patellar Deep Tendon Reflex 1+ Diminished PT-OP-J Posture/Palpation/Skin Start: 07/22/21 12:58 Freq: Status: Active Protocol: Document 09/23/21 13:45 DCW (Rec: 09/23/21 13:59 DCW [id number]) Posture Evaluation Position Standing Pelvis Posture Anteriorly Tilted Knee Posture (L) Excess Flexion,(R) Excess Flexion PT-OP-K Range of Motion Start: 07/22/21 12:58 Freq: Status: Active Protocol: Document 09/23/21 13:45 DCW (Rec: 09/23/21 13:59 DCW [id number]) Lumbar Spine Range of Motion Lumbar Spine Active Degrees Flexion 30 Extension 5 Lateral Flexion Left 51 Lateral Flexion Right 42 ROM Limitations Pain Comments Lateral flexion measured in cm from fingertips to floor PT-OP-L Special Tests Start: 07/22/21 12:58 Freq: Status: Active Protocol: Document 09/23/21 13:45 DCW (Rec: 09/23/21 13:59 DCW [id number]) Special Tests Lumbar Spine Special Tests Straight Leg Raise Test Results Positive bilaterally Comments passive SLR, pain R<L Slump Test Results Positive bilaterally Comments R<L PT-OP-M Strength Start: 07/22/21 12:58 Freq: Status: Active Protocol: Document 09/23/21 13:45 DCW (Rec: 09/23/21 13:59 DCW [id number]) Hip Strength Hip Manual Muscle Testing Right Flexion (L2) 3+ Fair+ Extension (S1) 4- Good- Abduction 4- Good- Left Flexion (L2) 3+ Fair+ Extension (S1) 4- Good- Abduction 4- Good- Knee Strength Knee Manual Muscle Testing Right Flexion (S2) 4- Good- Extension (L3) 4- Good- Left Flexion (S2) 4- Good- Extension (L3) 4- Good- PT-OP-Q Treatments Start: 07/22/21 12:58 Freq: Status: Active Protocol: Document 10/27/21 14:02 DCW (Rec: 10/27/21 14:28 DCW [id number]) Manual Therapy Treatment Soft Tissue Mobilization skin desensitization Mobilization Type Cross-Friction,Instrument Assisted,Myofascial Release, Rolling Intensity/Depth Moderate Body Position Prone Comments most sensitive at center of his surgical scar B paraspinals Body Location lumbar and thoracic Mobilization Type Rolling,Sustained Pressure, Trigger Point Release Body Position Prone Comments most sensitive at center of his surgical scar PT-OP-R Modalities Start: 07/22/21 12:58 Freq: Status: Active Protocol: Document 10/20/21 13:54 DCW (Rec: 10/20/21 14:33 DCW [id number]) Hot Pack/Cold Pack Treatment Hot Pack Location lumbar Patient Position Hooklying Treatment Duration (minutes) 10 Patient Tolerance Good PT-OP-T Assessment and Plan Start: 07/22/21 12:58 Freq: Status: Active Protocol: Document 10/27/21 14:02 DCW (Rec: 10/27/21 14:28 ROSANA [id number]) Physical Therapy Plan Frequency and Duration Frequency of Treatment 2x/Week Duration of Treatment 10 weeks Plan of Care Start Date 09/23/21 Plan of Care End Date 12/02/21 Therapeutic Interventions Therapeutic Interventions Gait Training,Home Exercise Program,Joint Mobilizations, Manual Therapy,Neuromuscular Re-education,Patient/Caregiver Education,Self-Care/Home Management,Soft Tissue Mobilization,Taping, Therapeutic Activities, Therapeutic Exercises Modalities Cold Pack/Ice Massage,Electric Stimulation,Hot Packs, Infrared Therapy,Traction- Mechanical,Ultrasound Next Visit Focus/Plan Next Visit Plan check precautions knee to chest sLR LTR, piriformis stretch
--- NOTE | 2021-11-01 14:50 | PT.OTN ---
Current Diagnoses Other spondylosis with radiculopathy, lumbosacral region (11/01/21) Spinal stenosis, lumbar region without neurogenic claudication (11/01/21) Physical Therapy Treatment Note PT-OP-A Visit Information Start: 07/22/21 12:58 Freq: Status: Active Protocol: Document 11/01/21 14:02 SP (Rec: 11/01/21 16:37 SP [id number]) Out-Patient Physical Therapy Visit Information Visit Information Visit Type Treatment Note Visit Note BIOPHARMACEUTICAL REP 17 min late for appt. Visit Start Time 14:02 Visit Stop Time 14:50 Total Visit Minutes 48 Visit Number 15 Number of BIOPHARMACEUTICAL REP Visits 1 Evaluation Information Evaluation Date 07/22/21 Precautions Precautions lumbar spine surgery PT-OP-B Current Condition Start: 07/22/21 12:58 Freq: Status: Active Protocol: Document 07/22/21 16:19 HH (Rec: 07/22/21 17:08 HH [id number]) Current Condition History of Current Condition Onset Date 8/ Current Complaints chronic LBP with radiating pain to LE, s/p lumbar fusion History of Current Condition Handy is a 65yo male presenting to PT with c/o severe LBP with radiating pain to BLE and neck pain stemming from past orthopedic surgeries. He recently had his 2nd back surgery on 04/30/21 for L3-L4 TLIF, L2-3 hemilaminectomy,L4-S1 lumbar HWR, exploration of fusion, repeat laminectomy, reinsertion of hardware, L3-S1 PSF w. instrumentation. However, his symptoms have not improved significantly. His pain tends to get worse with WB activities, trunk related movements. He is sleeping in his recliner. He does have tingling and numbness down his posterior legs. He went to ER two days because of severe pain and he was prescribed with valiem, oxycodone and pedizone. He is still walking with a 4WW to take pressure off his back. Past h/o back surgery in 2000, bilateral shoulder surgeries, R knee replacement, cervical spine fusion. Personal Factors Other Personal Factors That May Effect everyday smoker Therapy/Recovery failed spinal surgeries. PT-OP-C Subjective Start: 07/22/21 12:58 Freq: Status: Active Protocol: Document 11/01/21 14:02 SP (Rec: 11/01/21 16:37 SP [id number]) OP-PT Subjective Patient Comments Patient Comments Pt reported having pain in L mid upper back. PT-OP-F Manual Assessment Start: 07/22/21 12:58 Freq: Status: Active Protocol: Document 09/23/21 13:45 DCW (Rec: 09/23/21 13:59 DCW [id number]) Manual Assessments Soft Tissue Assessment Soft Tissue Mobility Assessment Tenderness to palpation 2/4 Pain with wincing along lumbar paraspinals L>R, B upper trap , B cervical paraspinals PT-OP-G Mobility & Gait Start: 07/22/21 12:58 Freq: Status: Active Protocol: Document 09/23/21 13:45 DCW (Rec: 09/23/21 13:59 DCW [id number]) OP Mobility Evaluation Bed Mobility Supine to and from Sit supine to long with need of UE push off from bed, Transfers Sit to Stand pt needs to sit with arm rested on thigh OP Gait Assessment Gait Gait Assistance Required: Independent Assistive Devices Assistive Device Straight Cane Gait Deviations General Gait Pattern Decreased Stride Length, Decreased Feet Clearance, Flexed Trunk Comments Gait Comments Double straight canes today, pt reports snow makes it difficult to use 4WW PT-OP-H Neuro Start: 07/22/21 12:58 Freq: Status: Active Protocol: Document 09/23/21 13:45 DCW (Rec: 09/23/21 13:59 DCW [id number]) Sensation Evaluation Gross Sensation Gross Sensation Left LE Impaired,Right LE Impaired Sensation Description Paresthesia,Numbness,Tingling Dermatome Impairments L4,L5,S1 Deep Tendon Reflex & Clonus Assessment Deep Tendon Reflex Bilateral Achilles Deep Tendon Reflex 1+ Diminished Left Patellar Deep Tendon Reflex 2+ Normal Right Patellar Deep Tendon Reflex 1+ Diminished PT-OP-J Posture/Palpation/Skin Start: 07/22/21 12:58 Freq: Status: Active Protocol: Document 09/23/21 13:45 DCW (Rec: 09/23/21 13:59 DCW [id number]) Posture Evaluation Position Standing Pelvis Posture Anteriorly Tilted Knee Posture (L) Excess Flexion,(R) Excess Flexion PT-OP-K Range of Motion Start: 07/22/21 12:58 Freq: Status: Active Protocol: Document 09/23/21 13:45 DCW (Rec: 09/23/21 13:59 DCW [id number]) Lumbar Spine Range of Motion Lumbar Spine Active Degrees Flexion 30 Extension 5 Lateral Flexion Left 51 Lateral Flexion Right 42 ROM Limitations Pain Comments Lateral flexion measured in cm from fingertips to floor PT-OP-L Special Tests Start: 07/22/21 12:58 Freq: Status: Active Protocol: Document 09/23/21 13:45 DCW (Rec: 09/23/21 13:59 DCW [id number]) Special Tests Lumbar Spine Special Tests Straight Leg Raise Test Results Positive bilaterally Comments passive SLR, pain R<L Slump Test Results Positive bilaterally Comments R<L PT-OP-M Strength Start: 07/22/21 12:58 Freq: Status: Active Protocol: Document 09/23/21 13:45 DCW (Rec: 09/23/21 13:59 DCW [id number]) Hip Strength Hip Manual Muscle Testing Right Flexion (L2) 3+ Fair+ Extension (S1) 4- Good- Abduction 4- Good- Left Flexion (L2) 3+ Fair+ Extension (S1) 4- Good- Abduction 4- Good- Knee Strength Knee Manual Muscle Testing Right Flexion (S2) 4- Good- Extension (L3) 4- Good- Left Flexion (S2) 4- Good- Extension (L3) 4- Good- PT-OP-Q Treatments Start: 07/22/21 12:58 Freq: Status: Active Protocol: Document 11/01/21 14:02 SP (Rec: 11/01/21 16:37 SP [id number]) Therapeutic Exercises Supine Exercises TA SLR Supine Exercise Name in PT only Side bilateral Resistance AROM Reps/Minutes x3 reps, challenging maintaining knee extension, noted lag Comments cued TA, knee extension and DF LTR Supine Exercise Name reviewed HEP Side bilateral Resistance AROM Reps/Minutes x5 R and L Comments cued lower ribcage TA toward table, good feedback stretch and ROM painfree sciatic nerve glide Supine Exercise Name HS stretch position with belt. Reps/Minutes 20sx3 Comments for HEP knee to chest Supine Exercise Name unilateral- reviewed HEP Reps/Minutes 20s x 5 Comments for HEP, reports good feedback lumbar stretch Standing Exercises self STMs Standing Exercise Name added to HEP- Provide HO next tx Equipment Used racquetball on wall Reps/Minutes 2 min Comments TS, LS, discussed gluts- good feedback results this feels good, will help Manual Therapy Treatment Soft Tissue Mobilization B paraspinals Body Location lumbar and thoracic Mobilization Type Rolling,Sustained Pressure, Trigger Point Release Intensity/Depth Moderate Body Position Prone Comments Manual and instructionon self racquetball on wall. Self-Care/Home Management Treatment Education Patient Education Body Mechanics,Home Exercise Program,Pain Management, Posture Other Education Initiated self STMs ball on wall for TS/ LS paraspinals. Discussed anatomy and posture with carryover during gait for decreased back pain. Verbalized understanding. Activities Self-Care/Home Management Activities Education for log roll technique. PT-OP-R Modalities Start: 07/22/21 12:58 Freq: Status: Active Protocol: Document 11/01/21 14:02 SP (Rec: 11/01/21 16:37 SP [id number]) Hot Pack/Cold Pack Treatment Hot Pack Location TS, LS Patient Position Hooklying Treatment Duration (minutes) 10 Patient Tolerance Good Comments LEs over wedge, PT-OP-T Assessment and Plan Start: 07/22/21 12:58 Freq: Status: Active Protocol: Document 11/01/21 14:02 SP (Rec: 11/01/21 16:37 SP [id number]) Physical Therapy Assessment Goals heP Impairment pt does not have HEP Short Term Goal (STG) pt will be able to complete daily HEP safely and independently. STG Duration 4 weeks gait Impairment pt is using a 4WW for mobility Short Term Goal (STG) pt will be able to show improved strength and mobility by being able to use SPC for home mobility STG Duration 5 weeks. Instructional Aide Goal (LTG) pt will be able to show improved strength and mobility by being able to use SPC for community mobility LTG Duration 10 weeks owestry Impairment pt scores 48 on Owestry Short Term Goal (STG) pt will show improved pain and mobility by scoring <40 on Owestry STG Duration 5 weeks Instructional Aide Goal (LTG) pt will show improved pain and mobility by scoring <30 on Owestry LTG Duration 10 weeks Assessment Summary Assessment Pt reported decreased pain in mid back post manual and TA instruction. Cues for set up proper form during HEP review. Initiated self STMs ball on wall for paraspinals in lumbar , gluts and TS but place in sock for ease placement in upper back. Ended with MHP, good feed back response, almost no mid back pain. Cue upright posture/ body closer to 4WW leaving. Physical Therapy Plan Frequency and Duration Frequency of Treatment 2x/Week Duration of Treatment 10 weeks Plan of Care Start Date 09/23/21 Plan of Care End Date 12/02/21 Therapeutic Interventions Therapeutic Interventions Gait Training,Home Exercise Program,Joint Mobilizations, Manual Therapy,Neuromuscular Re-education,Patient/Caregiver Education,Self-Care/Home Management,Soft Tissue Mobilization,Taping, Therapeutic Activities, Therapeutic Exercises Modalities Cold Pack/Ice Massage,Electric Stimulation,Hot Packs, Infrared Therapy,Traction- Mechanical,Ultrasound Next Visit Focus/Plan Next Visit Plan Recheck ball wall STMs, supine core ex, stretching: SKTC, LTR, SLR LTR, piriformis stretch. give HOs next tx. *precautions
--- NOTE | 2021-11-03 14:31 | PT.OTN ---
Current Diagnoses Other spondylosis with radiculopathy, lumbosacral region (11/03/21) Spinal stenosis, lumbar region without neurogenic claudication (11/03/21) Physical Therapy Treatment Note PT-OP-A Visit Information Start: 07/22/21 12:58 Freq: Status: Active Protocol: Document 11/03/21 13:45 DCW (Rec: 11/03/21 14:30 DCW [id number]) Out-Patient Physical Therapy Visit Information Visit Information Visit Type Treatment Note Visit Start Time 13:45 Visit Stop Time 14:35 Total Visit Minutes 50 Visit Number 16 Number of BUNGHOLE BORER Visits 0 Evaluation Information Evaluation Date 07/22/21 PT-OP-B Current Condition Start: 07/22/21 12:58 Freq: Status: Active Protocol: Document 07/22/21 16:19 HH (Rec: 07/22/21 17:08 HH [id number]) Current Condition History of Current Condition Onset Date 8/ Current Complaints chronic LBP with radiating pain to LE, s/p lumbar fusion History of Current Condition Handy is a 65yo male presenting to PT with c/o severe LBP with radiating pain to BLE and neck pain stemming from past orthopedic surgeries. He recently had his 2nd back surgery on 04/30/21 for L3-L4 TLIF, L2-3 hemilaminectomy,L4-S1 lumbar HWR, exploration of fusion, repeat laminectomy, reinsertion of hardware, L3-S1 PSF w. instrumentation. However, his symptoms have not improved significantly. His pain tends to get worse with WB activities, trunk related movements. He is sleeping in his recliner. He does have tingling and numbness down his posterior legs. He went to ER two days because of severe pain and he was prescribed with valiem, oxycodone and pedizone. He is still walking with a 4WW to take pressure off his back. Past h/o back surgery in 2000, bilateral shoulder surgeries, R knee replacement, cervical spine fusion. Personal Factors Other Personal Factors That May Effect everyday smoker Therapy/Recovery failed spinal surgeries. PT-OP-C Subjective Start: 07/22/21 12:58 Freq: Status: Active Protocol: Document 11/03/21 13:45 DCW (Rec: 11/03/21 14:30 DCW [id number]) OP-PT Subjective Patient Comments Patient Comments Pain is kind of high today, but there's weather coming in. PT-OP-F Manual Assessment Start: 07/22/21 12:58 Freq: Status: Active Protocol: Document 09/23/21 13:45 DCW (Rec: 09/23/21 13:59 DCW [id number]) Manual Assessments Soft Tissue Assessment Soft Tissue Mobility Assessment Tenderness to palpation 2/4 Pain with wincing along lumbar paraspinals L>R, B upper trap , B cervical paraspinals PT-OP-G Mobility & Gait Start: 07/22/21 12:58 Freq: Status: Active Protocol: Document 09/23/21 13:45 DCW (Rec: 09/23/21 13:59 DCW [id number]) OP Mobility Evaluation Bed Mobility Supine to and from Sit supine to long with need of UE push off from bed, Transfers Sit to Stand pt needs to sit with arm rested on thigh OP Gait Assessment Gait Gait Assistance Required: Independent Assistive Devices Assistive Device Straight Cane Gait Deviations General Gait Pattern Decreased Stride Length, Decreased Feet Clearance, Flexed Trunk Comments Gait Comments Double straight canes today, pt reports snow makes it difficult to use 4WW PT-OP-H Neuro Start: 07/22/21 12:58 Freq: Status: Active Protocol: Document 09/23/21 13:45 DCW (Rec: 09/23/21 13:59 DCW [id number]) Sensation Evaluation Gross Sensation Gross Sensation Left LE Impaired,Right LE Impaired Sensation Description Paresthesia,Numbness,Tingling Dermatome Impairments L4,L5,S1 Deep Tendon Reflex & Clonus Assessment Deep Tendon Reflex Bilateral Achilles Deep Tendon Reflex 1+ Diminished Left Patellar Deep Tendon Reflex 2+ Normal Right Patellar Deep Tendon Reflex 1+ Diminished PT-OP-J Posture/Palpation/Skin Start: 07/22/21 12:58 Freq: Status: Active Protocol: Document 09/23/21 13:45 DCW (Rec: 09/23/21 13:59 DCW [id number]) Posture Evaluation Position Standing Pelvis Posture Anteriorly Tilted Knee Posture (L) Excess Flexion,(R) Excess Flexion PT-OP-K Range of Motion Start: 07/22/21 12:58 Freq: Status: Active Protocol: Document 09/23/21 13:45 DCW (Rec: 09/23/21 13:59 DCW [id number]) Lumbar Spine Range of Motion Lumbar Spine Active Degrees Flexion 30 Extension 5 Lateral Flexion Left 51 Lateral Flexion Right 42 ROM Limitations Pain Comments Lateral flexion measured in cm from fingertips to floor PT-OP-L Special Tests Start: 07/22/21 12:58 Freq: Status: Active Protocol: Document 09/23/21 13:45 DCW (Rec: 09/23/21 13:59 DCW [id number]) Special Tests Lumbar Spine Special Tests Straight Leg Raise Test Results Positive bilaterally Comments passive SLR, pain R<L Slump Test Results Positive bilaterally Comments R<L PT-OP-M Strength Start: 07/22/21 12:58 Freq: Status: Active Protocol: Document 09/23/21 13:45 DCW (Rec: 09/23/21 13:59 DCW [id number]) Hip Strength Hip Manual Muscle Testing Right Flexion (L2) 3+ Fair+ Extension (S1) 4- Good- Abduction 4- Good- Left Flexion (L2) 3+ Fair+ Extension (S1) 4- Good- Abduction 4- Good- Knee Strength Knee Manual Muscle Testing Right Flexion (S2) 4- Good- Extension (L3) 4- Good- Left Flexion (S2) 4- Good- Extension (L3) 4- Good- PT-OP-Q Treatments Start: 07/22/21 12:58 Freq: Status: Active Protocol: Document 11/03/21 13:45 DCW (Rec: 11/03/21 14:30 DCW [id number]) Manual Therapy Treatment Soft Tissue Mobilization skin desensitization Mobilization Type Cross-Friction,Instrument Assisted,Myofascial Release, Rolling Intensity/Depth Moderate Body Position Prone Comments most sensitive at center of his surgical scar B paraspinals Body Location lumbar and thoracic Mobilization Type Rolling,Sustained Pressure, Trigger Point Release Body Position Prone Comments most sensitive at center of his surgical scar Neuro Re-Education Treatment Balance Activities 3 Details NBOS Surface Brar foam Comments EO/EC 2 Details SLS Surface // bars 1 Details Tandem Stance Surface // bars PT-OP-R Modalities Start: 07/22/21 12:58 Freq: Status: Active Protocol: Document 11/03/21 13:45 DCW (Rec: 11/03/21 14:30 DCW [id number]) Hot Pack/Cold Pack Treatment Hot Pack Location TS, LS Patient Position Hooklying Treatment Duration (minutes) 10 Patient Tolerance Good Comments LEs over wedge, PT-OP-T Assessment and Plan Start: 07/22/21 12:58 Freq: Status: Active Protocol: Document 11/03/21 13:45 DCW (Rec: 11/03/21 14:30 DCW [id number]) Physical Therapy Assessment Goals heP Impairment pt does not have HEP Short Term Goal (STG) pt will be able to complete daily HEP safely and independently. STG Duration 4 weeks gait Impairment pt is using a 4WW for mobility Short Term Goal (STG) pt will be able to show improved strength and mobility by being able to use SPC for home mobility STG Duration 5 weeks. Care Home Goal (LTG) pt will be able to show improved strength and mobility by being able to use SPC for community mobility LTG Duration 10 weeks owestry Impairment pt scores 48 on Owestry Short Term Goal (STG) pt will show improved pain and mobility by scoring <40 on Owestry STG Duration 5 weeks Accounting Lecturer Goal (LTG) pt will show improved pain and mobility by scoring <30 on Owestry LTG Duration 10 weeks Assessment Summary Assessment Pt struggling more today with balance and back pain, may need to return to referring physician for follow-up if he does not begin to show more improvement. Physical Therapy Plan Frequency and Duration Frequency of Treatment 2x/Week Duration of Treatment 10 weeks Plan of Care Start Date 09/23/21 Plan of Care End Date 12/02/21 Therapeutic Interventions Therapeutic Interventions Gait Training,Home Exercise Program,Joint Mobilizations, Manual Therapy,Neuromuscular Re-education,Patient/Caregiver Education,Self-Care/Home Management,Soft Tissue Mobilization,Taping, Therapeutic Activities, Therapeutic Exercises Modalities Cold Pack/Ice Massage,Electric Stimulation,Hot Packs, Infrared Therapy,Traction- Mechanical,Ultrasound Next Visit Focus/Plan Next Visit Plan Recheck ball wall STMs, supine core ex, stretching: SKTC, LTR, SLR LTR, piriformis stretch. give HOs next tx. *precautions
--- NOTE | 2021-11-08 14:36 | PT.OTN ---
Current Diagnoses Other spondylosis with radiculopathy, lumbosacral region (11/08/21) Spinal stenosis, lumbar region without neurogenic claudication (11/08/21) Physical Therapy Treatment Note PT-OP-A Visit Information Start: 07/22/21 12:58 Freq: Status: Active Protocol: Document 11/08/21 13:48 SP (Rec: 11/08/21 15:04 SP [id number]) Out-Patient Physical Therapy Visit Information Visit Information Visit Type Treatment Note Visit Start Time 13:48 Visit Stop Time 14:36 Total Visit Minutes 48 Visit Number 17 Number of MARINATOR Visits 1 Evaluation Information Evaluation Date 07/22/21 Precautions Precautions lumbar spine surgery PT-OP-B Current Condition Start: 07/22/21 12:58 Freq: Status: Active Protocol: Document 07/22/21 16:19 HH (Rec: 07/22/21 17:08 HH [id number]) Current Condition History of Current Condition Onset Date 8/ Current Complaints chronic LBP with radiating pain to LE, s/p lumbar fusion History of Current Condition Handy is a 65yo male presenting to PT with c/o severe LBP with radiating pain to BLE and neck pain stemming from past orthopedic surgeries. He recently had his 2nd back surgery on 04/30/21 for L3-L4 TLIF, L2-3 hemilaminectomy,L4-S1 lumbar HWR, exploration of fusion, repeat laminectomy, reinsertion of hardware, L3-S1 PSF w. instrumentation. However, his symptoms have not improved significantly. His pain tends to get worse with WB activities, trunk related movements. He is sleeping in his recliner. He does have tingling and numbness down his posterior legs. He went to ER two days because of severe pain and he was prescribed with valiem, oxycodone and pedizone. He is still walking with a 4WW to take pressure off his back. Past h/o back surgery in 2000, bilateral shoulder surgeries, R knee replacement, cervical spine fusion. Personal Factors Other Personal Factors That May Effect everyday smoker Therapy/Recovery failed spinal surgeries. PT-OP-C Subjective Start: 07/22/21 12:58 Freq: Status: Active Protocol: Document 11/08/21 13:48 SP (Rec: 11/08/21 15:04 SP [id number]) OP-PT Subjective Patient Comments Patient Comments Pt stated having pain in LB down L leg and L UE today. PT-OP-F Manual Assessment Start: 07/22/21 12:58 Freq: Status: Active Protocol: Document 09/23/21 13:45 DCW (Rec: 09/23/21 13:59 DCW [id number]) Manual Assessments Soft Tissue Assessment Soft Tissue Mobility Assessment Tenderness to palpation 2/4 Pain with wincing along lumbar paraspinals L>R, B upper trap , B cervical paraspinals PT-OP-G Mobility & Gait Start: 07/22/21 12:58 Freq: Status: Active Protocol: Document 09/23/21 13:45 DCW (Rec: 09/23/21 13:59 DCW [id number]) OP Mobility Evaluation Bed Mobility Supine to and from Sit supine to long with need of UE push off from bed, Transfers Sit to Stand pt needs to sit with arm rested on thigh OP Gait Assessment Gait Gait Assistance Required: Independent Assistive Devices Assistive Device Straight Cane Gait Deviations General Gait Pattern Decreased Stride Length, Decreased Feet Clearance, Flexed Trunk Comments Gait Comments Double straight canes today, pt reports snow makes it difficult to use 4WW PT-OP-H Neuro Start: 07/22/21 12:58 Freq: Status: Active Protocol: Document 09/23/21 13:45 DCW (Rec: 09/23/21 13:59 DCW [id number]) Sensation Evaluation Gross Sensation Gross Sensation Left LE Impaired,Right LE Impaired Sensation Description Paresthesia,Numbness,Tingling Dermatome Impairments L4,L5,S1 Deep Tendon Reflex & Clonus Assessment Deep Tendon Reflex Bilateral Achilles Deep Tendon Reflex 1+ Diminished Left Patellar Deep Tendon Reflex 2+ Normal Right Patellar Deep Tendon Reflex 1+ Diminished PT-OP-J Posture/Palpation/Skin Start: 07/22/21 12:58 Freq: Status: Active Protocol: Document 09/23/21 13:45 DCW (Rec: 09/23/21 13:59 DCW [id number]) Posture Evaluation Position Standing Pelvis Posture Anteriorly Tilted Knee Posture (L) Excess Flexion,(R) Excess Flexion PT-OP-K Range of Motion Start: 07/22/21 12:58 Freq: Status: Active Protocol: Document 09/23/21 13:45 DCW (Rec: 09/23/21 13:59 DCW [id number]) Lumbar Spine Range of Motion Lumbar Spine Active Degrees Flexion 30 Extension 5 Lateral Flexion Left 51 Lateral Flexion Right 42 ROM Limitations Pain Comments Lateral flexion measured in cm from fingertips to floor PT-OP-L Special Tests Start: 07/22/21 12:58 Freq: Status: Active Protocol: Document 09/23/21 13:45 DCW (Rec: 09/23/21 13:59 DCW [id number]) Special Tests Lumbar Spine Special Tests Straight Leg Raise Test Results Positive bilaterally Comments passive SLR, pain R<L Slump Test Results Positive bilaterally Comments R<L PT-OP-M Strength Start: 07/22/21 12:58 Freq: Status: Active Protocol: Document 09/23/21 13:45 DCW (Rec: 09/23/21 13:59 DCW [id number]) Hip Strength Hip Manual Muscle Testing Right Flexion (L2) 3+ Fair+ Extension (S1) 4- Good- Abduction 4- Good- Left Flexion (L2) 3+ Fair+ Extension (S1) 4- Good- Abduction 4- Good- Knee Strength Knee Manual Muscle Testing Right Flexion (S2) 4- Good- Extension (L3) 4- Good- Left Flexion (S2) 4- Good- Extension (L3) 4- Good- PT-OP-Q Treatments Start: 07/22/21 12:58 Freq: Status: Active Protocol: Document 11/08/21 13:48 SP (Rec: 11/08/21 15:04 SP [id number]) Cardio Equipment Recumbent Stepper (Sci-Fit) Duration (Minutes) 7 Resistance 3 Seat Position 14 Other LEs> UEs, 35-37 RPM, 0.63 miles Gym Equipment Therapeutic Ball TA activation Ball Size/Color 55 cm ball (red) Body Position Supine Reps/Duration x5 min Comments cued neutral spine- no pain LTR Ball Size/Color 55 cm (red) Body Position Supine Reps/Duration x10 each direction Comments gentle- no increase LBP Therapeutic Exercises Supine Exercises LTR Supine Exercise Name discussed HEP- performs at home Side bilateral Resistance AROM Reps/Minutes stretch hold 20s x2 Comments cued lower ribcage TA toward table, good feedback stretch and ROM painfree knee to chest Supine Exercise Name DIscussed HEP- performs at home Reps/Minutes stretch hold 20s x 3 Comments for HEP, reports good feedback lumbar stretch Sitting Exercises seated rotation Sitting Exercise Name in PT assessment if benificial for home Side bilateral Equipment Used seated at [place] table Reps/Minutes x5 Comments painfree range- no adverse affects try again if ok for HEP seated row Sitting Exercise Name in PT assessment if benificial for home Resistance TB #1 (therapist anchored) Equipment Used seated at [place] table Reps/Minutes x8 Comments cued tall posture, caused little more irritation in neck - stopped radial nerve glide Sitting Exercise Name in PT assessment if benificial for home Side bilateral Equipment Used seated at [place] table Reps/Minutes x5 reps R and L Comments no change in reduction in neck / LBP Standing Exercises self STMs Standing Exercise Name DIscussed performed 2 tx ago and had good response, Provide HO next tx Equipment Used racquetball on wall Reps/Minutes 2 min Comments TS, LS, discussed gluts- good feedback results I will try that PT-OP-R Modalities Start: 07/22/21 12:58 Freq: Status: Active Protocol: Document 11/08/21 13:48 SP (Rec: 11/08/21 15:04 SP [id number]) Hot Pack/Cold Pack Treatment Hot Pack Location CS (small), full back (large) Patient Position Hooklying Treatment Duration (minutes) 10 Patient Tolerance Good Comments LEs over wedge, PT-OP-T Assessment and Plan Start: 07/22/21 12:58 Freq: Status: Active Protocol: Document 11/08/21 13:48 SP (Rec: 11/08/21 15:04 SP [id number]) Physical Therapy Assessment Goals heP Impairment pt does not have HEP Short Term Goal (STG) pt will be able to complete daily HEP safely and independently. STG Duration 4 weeks gait Impairment pt is using a 4WW for mobility Short Term Goal (STG) pt will be able to show improved strength and mobility by being able to use SPC for home mobility STG Duration 5 weeks. Focusing Machine Operator Goal (LTG) pt will be able to show improved strength and mobility by being able to use SPC for community mobility LTG Duration 10 weeks owestry Impairment pt scores 48 on Owestry Short Term Goal (STG) pt will show improved pain and mobility by scoring <40 on Owestry STG Duration 5 weeks Focusing Machine Operator Goal (LTG) pt will show improved pain and mobility by scoring <30 on Owestry LTG Duration 10 weeks Assessment Summary Assessment Pt no significant reduction in pain post manual and MHP this tx. States solid 10 pain and same back up to neck. Provided HO for visual back and hip stretches HEP at home for recall to support flexibility and pain reducation has been working in the past. Initiated seated rows/ AROM rotation for mobility cued awareness of posture with noted increase UT irritation recruitment. Physical Therapy Plan Frequency and Duration Frequency of Treatment 2x/Week Duration of Treatment 10 weeks Plan of Care Start Date 09/23/21 Plan of Care End Date 12/02/21 Therapeutic Interventions Therapeutic Interventions Gait Training,Home Exercise Program,Joint Mobilizations, Manual Therapy,Neuromuscular Re-education,Patient/Caregiver Education,Self-Care/Home Management,Soft Tissue Mobilization,Taping, Therapeutic Activities, Therapeutic Exercises Modalities Cold Pack/Ice Massage,Electric Stimulation,Hot Packs, Infrared Therapy,Traction- Mechanical,Ultrasound Next Visit Focus/Plan Next Visit Plan Recheck ball wall STMs, supine core ex, stretching: SLR, piriformis stretch. Give HOs next tx if helpful. *precautions
--- NOTE | 2021-11-10 14:23 | PT.OTN ---
Current Diagnoses Other spondylosis with radiculopathy, lumbosacral region (11/10/21) Spinal stenosis, lumbar region without neurogenic claudication (11/10/21) Physical Therapy Treatment Note PT-OP-A Visit Information Start: 07/22/21 12:58 Freq: Status: Active Protocol: Document 11/10/21 13:45 DCW (Rec: 11/10/21 14:23 DCW [id number]) Out-Patient Physical Therapy Visit Information Visit Information Visit Type Treatment Note Visit Start Time 13:45 Visit Stop Time 14:35 Total Visit Minutes 50 Visit Number 18 Number of WATER QUALITY SPECIALIST Visits 0 Evaluation Information Evaluation Date 07/22/21 PT-OP-B Current Condition Start: 07/22/21 12:58 Freq: Status: Active Protocol: Document 07/22/21 16:19 HH (Rec: 07/22/21 17:08 HH [id number]) Current Condition History of Current Condition Onset Date 8/ Current Complaints chronic LBP with radiating pain to LE, s/p lumbar fusion History of Current Condition Handy is a 65yo male presenting to PT with c/o severe LBP with radiating pain to BLE and neck pain stemming from past orthopedic surgeries. He recently had his 2nd back surgery on 04/30/21 for L3-L4 TLIF, L2-3 hemilaminectomy,L4-S1 lumbar HWR, exploration of fusion, repeat laminectomy, reinsertion of hardware, L3-S1 PSF w. instrumentation. However, his symptoms have not improved significantly. His pain tends to get worse with WB activities, trunk related movements. He is sleeping in his recliner. He does have tingling and numbness down his posterior legs. He went to ER two days because of severe pain and he was prescribed with valiem, oxycodone and pedizone. He is still walking with a 4WW to take pressure off his back. Past h/o back surgery in 2000, bilateral shoulder surgeries, R knee replacement, cervical spine fusion. Personal Factors Other Personal Factors That May Effect everyday smoker Therapy/Recovery failed spinal surgeries. PT-OP-C Subjective Start: 07/22/21 12:58 Freq: Status: Active Protocol: Document 11/10/21 13:45 DCW (Rec: 11/10/21 14:23 DCW [id number]) OP-PT Subjective Patient Comments Patient Comments As soon as the weather gets better, I'll get better. PT-OP-F Manual Assessment Start: 07/22/21 12:58 Freq: Status: Active Protocol: Document 09/23/21 13:45 DCW (Rec: 09/23/21 13:59 DCW [id number]) Manual Assessments Soft Tissue Assessment Soft Tissue Mobility Assessment Tenderness to palpation 2/4 Pain with wincing along lumbar paraspinals L>R, B upper trap , B cervical paraspinals PT-OP-G Mobility & Gait Start: 07/22/21 12:58 Freq: Status: Active Protocol: Document 09/23/21 13:45 DCW (Rec: 09/23/21 13:59 DCW [id number]) OP Mobility Evaluation Bed Mobility Supine to and from Sit supine to long with need of UE push off from bed, Transfers Sit to Stand pt needs to sit with arm rested on thigh OP Gait Assessment Gait Gait Assistance Required: Independent Assistive Devices Assistive Device Straight Cane Gait Deviations General Gait Pattern Decreased Stride Length, Decreased Feet Clearance, Flexed Trunk Comments Gait Comments Double straight canes today, pt reports snow makes it difficult to use 4WW PT-OP-H Neuro Start: 07/22/21 12:58 Freq: Status: Active Protocol: Document 09/23/21 13:45 DCW (Rec: 09/23/21 13:59 DCW [id number]) Sensation Evaluation Gross Sensation Gross Sensation Left LE Impaired,Right LE Impaired Sensation Description Paresthesia,Numbness,Tingling Dermatome Impairments L4,L5,S1 Deep Tendon Reflex & Clonus Assessment Deep Tendon Reflex Bilateral Achilles Deep Tendon Reflex 1+ Diminished Left Patellar Deep Tendon Reflex 2+ Normal Right Patellar Deep Tendon Reflex 1+ Diminished PT-OP-J Posture/Palpation/Skin Start: 07/22/21 12:58 Freq: Status: Active Protocol: Document 09/23/21 13:45 DCW (Rec: 09/23/21 13:59 DCW [id number]) Posture Evaluation Position Standing Pelvis Posture Anteriorly Tilted Knee Posture (L) Excess Flexion,(R) Excess Flexion PT-OP-K Range of Motion Start: 07/22/21 12:58 Freq: Status: Active Protocol: Document 09/23/21 13:45 DCW (Rec: 09/23/21 13:59 DCW [id number]) Lumbar Spine Range of Motion Lumbar Spine Active Degrees Flexion 30 Extension 5 Lateral Flexion Left 51 Lateral Flexion Right 42 ROM Limitations Pain Comments Lateral flexion measured in cm from fingertips to floor PT-OP-L Special Tests Start: 07/22/21 12:58 Freq: Status: Active Protocol: Document 09/23/21 13:45 DCW (Rec: 09/23/21 13:59 DCW [id number]) Special Tests Lumbar Spine Special Tests Straight Leg Raise Test Results Positive bilaterally Comments passive SLR, pain R<L Slump Test Results Positive bilaterally Comments R<L PT-OP-M Strength Start: 07/22/21 12:58 Freq: Status: Active Protocol: Document 09/23/21 13:45 DCW (Rec: 09/23/21 13:59 DCW [id number]) Hip Strength Hip Manual Muscle Testing Right Flexion (L2) 3+ Fair+ Extension (S1) 4- Good- Abduction 4- Good- Left Flexion (L2) 3+ Fair+ Extension (S1) 4- Good- Abduction 4- Good- Knee Strength Knee Manual Muscle Testing Right Flexion (S2) 4- Good- Extension (L3) 4- Good- Left Flexion (S2) 4- Good- Extension (L3) 4- Good- PT-OP-Q Treatments Start: 07/22/21 12:58 Freq: Status: Active Protocol: Document 11/10/21 13:45 DCW (Rec: 11/10/21 14:23 DCW [id number]) Therapeutic Exercises Sitting Exercises seated rotation Side bilateral Equipment Used seated at [place] table Reps/Minutes x5 Comments painfree range- no adverse affects try again if ok for HEP seated row Resistance TB #2 (therapist anchored) Equipment Used seated at [place] table Reps/Minutes x8 Comments cued tall posture, caused little more irritation in neck - stopped Manual Therapy Treatment Soft Tissue Mobilization skin desensitization Mobilization Type Cross-Friction,Instrument Assisted,Myofascial Release, Rolling Intensity/Depth Moderate Body Position Prone Comments most sensitive at center of his surgical scar B paraspinals Body Location lumbar and thoracic Mobilization Type Rolling,Sustained Pressure, Trigger Point Release Body Position Prone Comments most sensitive at center of his surgical scar Neuro Re-Education Treatment Balance Activities 2 Details SLS Surface // bars 1 Details Tandem Stance Surface // bars PT-OP-R Modalities Start: 07/22/21 12:58 Freq: Status: Active Protocol: Document 11/10/21 13:45 DCW (Rec: 11/10/21 14:23 DCW [id number]) Hot Pack/Cold Pack Treatment Hot Pack Location TS, LS Patient Position Hooklying Treatment Duration (minutes) 10 Patient Tolerance Good Comments LEs over wedge, PT-OP-T Assessment and Plan Start: 07/22/21 12:58 Freq: Status: Active Protocol: Document 11/10/21 13:45 DCW (Rec: 11/10/21 14:23 DCW [id number]) Physical Therapy Assessment Goals heP Impairment pt does not have HEP Short Term Goal (STG) pt will be able to complete daily HEP safely and independently. STG Duration 4 weeks gait Impairment pt is using a 4WW for mobility Short Term Goal (STG) pt will be able to show improved strength and mobility by being able to use SPC for home mobility STG Duration 5 weeks. Event Host Goal (LTG) pt will be able to show improved strength and mobility by being able to use SPC for community mobility LTG Duration 10 weeks owestry Impairment pt scores 48 on Owestry Short Term Goal (STG) pt will show improved pain and mobility by scoring <40 on Owestry STG Duration 5 weeks Event Host Goal (LTG) pt will show improved pain and mobility by scoring <30 on Owestry LTG Duration 10 weeks Assessment Summary Assessment Pt feeling much better today than last visit, better mobility with transfers and bed mobility. Physical Therapy Plan Frequency and Duration Frequency of Treatment 2x/Week Duration of Treatment 10 weeks Plan of Care Start Date 09/23/21 Plan of Care End Date 12/02/21 Therapeutic Interventions Therapeutic Interventions Gait Training,Home Exercise Program,Joint Mobilizations, Manual Therapy,Neuromuscular Re-education,Patient/Caregiver Education,Self-Care/Home Management,Soft Tissue Mobilization,Taping, Therapeutic Activities, Therapeutic Exercises Modalities Cold Pack/Ice Massage,Electric Stimulation,Hot Packs, Infrared Therapy,Traction- Mechanical,Ultrasound Next Visit Focus/Plan Next Visit Plan Recheck ball wall STMs, supine core ex, stretching: SLR, piriformis stretch. Give HOs next tx if helpful. *precautions
--- NOTE | 2021-11-15 14:35 | PT.OTN ---
Current Diagnoses Other spondylosis with radiculopathy, lumbosacral region (11/15/21) Spinal stenosis, lumbar region without neurogenic claudication (11/15/21) Physical Therapy Treatment Note PT-OP-A Visit Information Start: 07/22/21 12:58 Freq: Status: Active Protocol: Document 11/15/21 13:45 SP (Rec: 11/15/21 15:17 SP [id number]) Out-Patient Physical Therapy Visit Information Visit Information Visit Type Treatment Note Visit Note PN next tx, 20th visit. Visit Start Time 13:45 Visit Stop Time 14:35 Total Visit Minutes 50 Visit Number 19 Number of MILK TREATER Visits 1 Evaluation Information Evaluation Date 07/22/21 Precautions Precautions lumbar spine surgery PT-OP-B Current Condition Start: 07/22/21 12:58 Freq: Status: Active Protocol: Document 07/22/21 16:19 HH (Rec: 07/22/21 17:08 HH [id number]) Current Condition History of Current Condition Onset Date 8/ Current Complaints chronic LBP with radiating pain to LE, s/p lumbar fusion History of Current Condition Handy is a 65yo male presenting to PT with c/o severe LBP with radiating pain to BLE and neck pain stemming from past orthopedic surgeries. He recently had his 2nd back surgery on 04/30/21 for L3-L4 TLIF, L2-3 hemilaminectomy,L4-S1 lumbar HWR, exploration of fusion, repeat laminectomy, reinsertion of hardware, L3-S1 PSF w. instrumentation. However, his symptoms have not improved significantly. His pain tends to get worse with WB activities, trunk related movements. He is sleeping in his recliner. He does have tingling and numbness down his posterior legs. He went to ER two days because of severe pain and he was prescribed with valiem, oxycodone and pedizone. He is still walking with a 4WW to take pressure off his back. Past h/o back surgery in 2000, bilateral shoulder surgeries, R knee replacement, cervical spine fusion. Personal Factors Other Personal Factors That May Effect everyday smoker Therapy/Recovery failed spinal surgeries. PT-OP-C Subjective Start: 07/22/21 12:58 Freq: Status: Active Protocol: Document 11/15/21 13:45 SP (Rec: 11/15/21 15:17 SP [id number]) OP-PT Subjective Patient Comments Patient Comments Pt states the weather is bothering his back today ( raining). I got my ball to massage my back. PT-OP-F Manual Assessment Start: 07/22/21 12:58 Freq: Status: Active Protocol: Document 09/23/21 13:45 DCW (Rec: 09/23/21 13:59 DCW [id number]) Manual Assessments Soft Tissue Assessment Soft Tissue Mobility Assessment Tenderness to palpation 2/4 Pain with wincing along lumbar paraspinals L>R, B upper trap , B cervical paraspinals PT-OP-G Mobility & Gait Start: 07/22/21 12:58 Freq: Status: Active Protocol: Document 09/23/21 13:45 DCW (Rec: 09/23/21 13:59 DCW [id number]) OP Mobility Evaluation Bed Mobility Supine to and from Sit supine to long with need of UE push off from bed, Transfers Sit to Stand pt needs to sit with arm rested on thigh OP Gait Assessment Gait Gait Assistance Required: Independent Assistive Devices Assistive Device Straight Cane Gait Deviations General Gait Pattern Decreased Stride Length, Decreased Feet Clearance, Flexed Trunk Comments Gait Comments Double straight canes today, pt reports snow makes it difficult to use 4WW PT-OP-H Neuro Start: 07/22/21 12:58 Freq: Status: Active Protocol: Document 09/23/21 13:45 DCW (Rec: 09/23/21 13:59 DCW [id number]) Sensation Evaluation Gross Sensation Gross Sensation Left LE Impaired,Right LE Impaired Sensation Description Paresthesia,Numbness,Tingling Dermatome Impairments L4,L5,S1 Deep Tendon Reflex & Clonus Assessment Deep Tendon Reflex Bilateral Achilles Deep Tendon Reflex 1+ Diminished Left Patellar Deep Tendon Reflex 2+ Normal Right Patellar Deep Tendon Reflex 1+ Diminished PT-OP-J Posture/Palpation/Skin Start: 07/22/21 12:58 Freq: Status: Active Protocol: Document 09/23/21 13:45 DCW (Rec: 09/23/21 13:59 DCW [id number]) Posture Evaluation Position Standing Pelvis Posture Anteriorly Tilted Knee Posture (L) Excess Flexion,(R) Excess Flexion PT-OP-K Range of Motion Start: 07/22/21 12:58 Freq: Status: Active Protocol: Document 09/23/21 13:45 DCW (Rec: 09/23/21 13:59 DCW [id number]) Lumbar Spine Range of Motion Lumbar Spine Active Degrees Flexion 30 Extension 5 Lateral Flexion Left 51 Lateral Flexion Right 42 ROM Limitations Pain Comments Lateral flexion measured in cm from fingertips to floor PT-OP-L Special Tests Start: 07/22/21 12:58 Freq: Status: Active Protocol: Document 09/23/21 13:45 DCW (Rec: 09/23/21 13:59 DCW [id number]) Special Tests Lumbar Spine Special Tests Straight Leg Raise Test Results Positive bilaterally Comments passive SLR, pain R<L Slump Test Results Positive bilaterally Comments R<L PT-OP-M Strength Start: 07/22/21 12:58 Freq: Status: Active Protocol: Document 09/23/21 13:45 DCW (Rec: 09/23/21 13:59 DCW [id number]) Hip Strength Hip Manual Muscle Testing Right Flexion (L2) 3+ Fair+ Extension (S1) 4- Good- Abduction 4- Good- Left Flexion (L2) 3+ Fair+ Extension (S1) 4- Good- Abduction 4- Good- Knee Strength Knee Manual Muscle Testing Right Flexion (S2) 4- Good- Extension (L3) 4- Good- Left Flexion (S2) 4- Good- Extension (L3) 4- Good- PT-OP-Q Treatments Start: 07/22/21 12:58 Freq: Status: Active Protocol: Document 11/15/21 13:45 SP (Rec: 11/15/21 15:17 SP [id number]) Therapeutic Exercises Supine Exercises TA heel slide Supine Exercise Name modified heel slide w/ breath/ count decrease abdominal protrusion. TA SLR Supine Exercise Name HEP review Side bilateral Resistance AROM Reps/Minutes 2x5 reps (best TA fac w/ BLE straight) Comments cued TA, knee extension and DF LTR Supine Exercise Name HEP review Side bilateral Resistance AROM Reps/Minutes 2x5 Comments cued lower ribcage TA toward table, good feedback stretch and ROM painfree knee to chest Supine Exercise Name HEP review Reps/Minutes stretch hold 20s x 3 Comments for HEP, reports good feedback lumbar stretch Sitting Exercises seated rotation Side bilateral Resistance TB #2 Equipment Used seated at EOmat table Reps/Minutes 2x10 Comments painfree range- no adverse affects , able add TB#2 seated row Resistance TB #2 (therapist anchored) Equipment Used seated at EOmat table Reps/Minutes 2x10 Comments cued tall posture, caused little more irritation in neck - stopped Standing Exercises self STMs Standing Exercise Name DIscussed performed 2 tx ago and had good response, Provide HO next tx Equipment Used racquetball on wall Reps/Minutes 8 min Comments lumbar paraspinals, lower thoracic Gait Training Gait Activity gait w/ SPC Device Used SPC Level of Assistance S Surface firm Distance/Duration 100ft Treatment Focus postural alignment, spinal stabilization for stability Comments cued for elevated shlds w/ abdominal engaged. Self-Care/Home Management Treatment Education Patient Education Home Exercise Program,Pain Management,Posture Other Education MILK TREATER educated on postural alignment and TA facilitation to assist with pain mgt during standing activities. PT-OP-R Modalities Start: 07/22/21 12:58 Freq: Status: Active Protocol: Document 11/15/21 13:45 SP (Rec: 11/15/21 15:17 SP [id number]) Hot Pack/Cold Pack Treatment Hot Pack Location CS, TS- LS Patient Position Hooklying Treatment Duration (minutes) 10 Patient Tolerance Good Comments LEs over wedge PT-OP-T Assessment and Plan Start: 07/22/21 12:58 Freq: Status: Active Protocol: Document 11/15/21 13:45 SP (Rec: 11/15/21 15:17 SP [id number]) Physical Therapy Assessment Goals heP Impairment pt does not have HEP Short Term Goal (STG) pt will be able to complete daily HEP safely and independently. 11/15/21: HEP SLR, SKTC and piriformis stretch, LTR, LR w /TB, resisted rows and trunk rotation. STG Duration 4 weeks gait Impairment pt is using a 4WW for mobility Short Term Goal (STG) pt will be able to show improved strength and mobility by being able to use SPC for home mobility. 11/15/21: pt tolerated gait 100 ft with cues for posturing. States able to walk around the house about 5 min using SPC before needs to sit down due to back pain. STG Duration 5 weeks. Director Construction Services Goal (LTG) pt will be able to show improved strength and mobility by being able to use SPC for community mobility LTG Duration 10 weeks owestry Impairment pt scores 48 on Owestry Short Term Goal (STG) pt will show improved pain and mobility by scoring <40 on O[employer] STG Duration 5 weeks Penitentiary Goal (LTG) pt will show improved pain and mobility by scoring <30 on Owestry LTG Duration 10 weeks Assessment Summary Assessment Pt was able to tolerated gait 100 ft using SPC stable w/ cues taller posturing and TA fac awareness for spinal stabilization, reports back is achy end of tx. He required cuing for log roll to R to sit up SBA and breath during HEP both legs straight vs opposite bent improved decrease diastasis protrusion demonstrated. Pt reported ball massaging on wall helps with his pain, provided sleeve to put ball in for ease mid back STMs. Physical Therapy Plan Frequency and Duration Frequency of Treatment 2x/Week Duration of Treatment 10 weeks Plan of Care Start Date 09/23/21 Plan of Care End Date 12/02/21 Therapeutic Interventions Therapeutic Interventions Gait Training,Home Exercise Program,Joint Mobilizations, Manual Therapy,Neuromuscular Re-education,Patient/Caregiver Education,Self-Care/Home Management,Soft Tissue Mobilization,Taping, Therapeutic Activities, Therapeutic Exercises Modalities Cold Pack/Ice Massage,Electric Stimulation,Hot Packs, Infrared Therapy,Traction- Mechanical,Ultrasound Next Visit Focus/Plan Next Visit Plan PN next tx 20th visit, Kx modifier? Continue core strengthening and gait with SPC tolerance with pain. POC: Strengthening, stretching . *precautions
--- NOTE | 2021-11-22 14:38 | PT.OTN ---
Current Diagnoses Other spondylosis with radiculopathy, lumbosacral region (11/22/21) Spinal stenosis, lumbar region without neurogenic claudication (11/22/21) Physical Therapy Treatment Note PT-OP-A Visit Information Start: 07/22/21 12:58 Freq: Status: Active Protocol: Document 11/22/21 13:57 SP (Rec: 11/22/21 14:31 SP [id number]) Out-Patient Physical Therapy Visit Information Visit Information Visit Type Treatment Note Visit Note Pt cancelled last tx 20th visit, PN next tx, 21st visit. Pt 12 min late for appt. Visit Start Time 13:57 Visit Stop Time 14:38 Total Visit Minutes 41 Visit Number 20 Number of RADIOLOGICAL ENGINEER Visits 2 Evaluation Information Evaluation Date 07/22/21 Precautions Precautions lumbar spine surgery PT-OP-B Current Condition Start: 07/22/21 12:58 Freq: Status: Active Protocol: Document 07/22/21 16:19 HH (Rec: 07/22/21 17:08 HH [id number]) Current Condition History of Current Condition Onset Date 8/ Current Complaints chronic LBP with radiating pain to LE, s/p lumbar fusion History of Current Condition Handy is a 65yo male presenting to PT with c/o severe LBP with radiating pain to BLE and neck pain stemming from past orthopedic surgeries. He recently had his 2nd back surgery on 04/30/21 for L3-L4 TLIF, L2-3 hemilaminectomy,L4-S1 lumbar HWR, exploration of fusion, repeat laminectomy, reinsertion of hardware, L3-S1 PSF w. instrumentation. However, his symptoms have not improved significantly. His pain tends to get worse with WB activities, trunk related movements. He is sleeping in his recliner. He does have tingling and numbness down his posterior legs. He went to ER two days because of severe pain and he was prescribed with valiem, oxycodone and pedizone. He is still walking with a 4WW to take pressure off his back. Past h/o back surgery in 2000, bilateral shoulder surgeries, R knee replacement, cervical spine fusion. Personal Factors Other Personal Factors That May Effect everyday smoker Therapy/Recovery failed spinal surgeries. PT-OP-C Subjective Start: 07/22/21 12:58 Freq: Status: Active Protocol: Document 11/22/21 13:57 SP (Rec: 11/22/21 14:31 SP [id number]) OP-PT Subjective Patient Comments Patient Comments Pt reports doing better today but still hurting over R QL about 10 inches verticle near the spine. PT-OP-F Manual Assessment Start: 07/22/21 12:58 Freq: Status: Active Protocol: Document 09/23/21 13:45 DCW (Rec: 09/23/21 13:59 DCW [id number]) Manual Assessments Soft Tissue Assessment Soft Tissue Mobility Assessment Tenderness to palpation 2/4 Pain with wincing along lumbar paraspinals L>R, B upper trap , B cervical paraspinals PT-OP-G Mobility & Gait Start: 07/22/21 12:58 Freq: Status: Active Protocol: Document 09/23/21 13:45 DCW (Rec: 09/23/21 13:59 DCW [id number]) OP Mobility Evaluation Bed Mobility Supine to and from Sit supine to long with need of UE push off from bed, Transfers Sit to Stand pt needs to sit with arm rested on thigh OP Gait Assessment Gait Gait Assistance Required: Independent Assistive Devices Assistive Device Straight Cane Gait Deviations General Gait Pattern Decreased Stride Length, Decreased Feet Clearance, Flexed Trunk Comments Gait Comments Double straight canes today, pt reports snow makes it difficult to use 4WW PT-OP-H Neuro Start: 07/22/21 12:58 Freq: Status: Active Protocol: Document 09/23/21 13:45 DCW (Rec: 09/23/21 13:59 DCW [id number]) Sensation Evaluation Gross Sensation Gross Sensation Left LE Impaired,Right LE Impaired Sensation Description Paresthesia,Numbness,Tingling Dermatome Impairments L4,L5,S1 Deep Tendon Reflex & Clonus Assessment Deep Tendon Reflex Bilateral Achilles Deep Tendon Reflex 1+ Diminished Left Patellar Deep Tendon Reflex 2+ Normal Right Patellar Deep Tendon Reflex 1+ Diminished PT-OP-J Posture/Palpation/Skin Start: 07/22/21 12:58 Freq: Status: Active Protocol: Document 09/23/21 13:45 DCW (Rec: 09/23/21 13:59 DCW [id number]) Posture Evaluation Position Standing Pelvis Posture Anteriorly Tilted Knee Posture (L) Excess Flexion,(R) Excess Flexion PT-OP-K Range of Motion Start: 07/22/21 12:58 Freq: Status: Active Protocol: Document 09/23/21 13:45 DCW (Rec: 09/23/21 13:59 DCW [id number]) Lumbar Spine Range of Motion Lumbar Spine Active Degrees Flexion 30 Extension 5 Lateral Flexion Left 51 Lateral Flexion Right 42 ROM Limitations Pain Comments Lateral flexion measured in cm from fingertips to floor PT-OP-L Special Tests Start: 07/22/21 12:58 Freq: Status: Active Protocol: Document 09/23/21 13:45 DCW (Rec: 09/23/21 13:59 DCW [id number]) Special Tests Lumbar Spine Special Tests Straight Leg Raise Test Results Positive bilaterally Comments passive SLR, pain R<L Slump Test Results Positive bilaterally Comments R<L PT-OP-M Strength Start: 07/22/21 12:58 Freq: Status: Active Protocol: Document 09/23/21 13:45 DCW (Rec: 09/23/21 13:59 DCW [id number]) Hip Strength Hip Manual Muscle Testing Right Flexion (L2) 3+ Fair+ Extension (S1) 4- Good- Abduction 4- Good- Left Flexion (L2) 3+ Fair+ Extension (S1) 4- Good- Abduction 4- Good- Knee Strength Knee Manual Muscle Testing Right Flexion (S2) 4- Good- Extension (L3) 4- Good- Left Flexion (S2) 4- Good- Extension (L3) 4- Good- PT-OP-Q Treatments Start: 07/22/21 12:58 Freq: Status: Active Protocol: Document 11/22/21 13:57 SP (Rec: 11/22/21 14:31 SP [id number]) Therapeutic Exercises Supine Exercises TA heel slide Supine Exercise Name modified heel slide w/ breath/ count decrease abdominal protrusion. Equipment Used therapist hand under LB for feedback Reps/Minutes x5 Comments improved TA fac LTR Supine Exercise Name HEP review Side bilateral Resistance AROM Reps/Minutes 2x5 Comments cued lower ribcage TA toward table, good feedback stretch and ROM painfree sciatic nerve glide Supine Exercise Name HS stretch/ AP flossing Side right Equipment Used w/ towel Reps/Minutes x5 Comments good feedback response, painsfree- reviewed HEP knee to chest Supine Exercise Name HEP review Equipment Used holding towel Reps/Minutes stretch hold 20s x 3 Comments for HEP, reports good feedback lumbar stretch Sidelying Exercises open book Sidelying Exercise Name assessment ROM Side bilateral Reps/Minutes x5 Comments cued head with arm movement- painfree Manual Therapy Treatment Soft Tissue Mobilization B paraspinals Body Location R lumbar and thoracic Mobilization Type Myofascial Release,Sustained Pressure,Trigger Point Release Body Position Sidelying Comments gentle manual with requested feedback for pressure, improved decrease tightness and pain. PT-OP-R Modalities Start: 07/22/21 12:58 Freq: Status: Active Protocol: Document 11/22/21 13:57 SP (Rec: 11/22/21 14:31 SP [id number]) Hot Pack/Cold Pack Treatment Hot Pack Location CS, TS- LS Patient Position Hooklying Treatment Duration (minutes) 10 Patient Tolerance Good Comments LEs over wedge PT-OP-T Assessment and Plan Start: 07/22/21 12:58 Freq: Status: Active Protocol: Document 11/22/21 13:57 SP (Rec: 11/22/21 14:31 SP [id number]) Physical Therapy Assessment Goals heP Impairment pt does not have HEP Short Term Goal (STG) pt will be able to complete daily HEP safely and independently. 11/15/21: HEP SLR, SKTC and piriformis stretch, LTR, LR w /TB, resisted rows and trunk rotation. STG Duration 4 weeks gait Impairment pt is using a 4WW for mobility Short Term Goal (STG) pt will be able to show improved strength and mobility by being able to use SPC for home mobility. 11/15/21: pt tolerated gait 100 ft with cues for posturing. States able to walk around the house about 5 min using SPC before needs to sit down due to back pain. STG Duration 5 weeks. Resin Painter Goal (LTG) pt will be able to show improved strength and mobility by being able to use SPC for community mobility LTG Duration 10 weeks owestry Impairment pt scores 48 on [employer] Short Term Goal (STG) pt will show improved pain and mobility by scoring <40 on [place] STG Duration 5 weeks Resin Painter Goal (LTG) pt will show improved pain and mobility by scoring <30 on Owest[employer] LTG Duration 10 weeks Assessment Summary Assessment Pt 12 min late for appt, just recovered from 2 txs ago think TB seated ex was to much. Wants to focus on LBP relief, tactile/verbal cues for TA and stretching HEP review. Improvement reduction in pain post manual and stretching. He stated RLBP improved 9/10 >8/ 10 post manual and stretching. Requested use of modalities end tx but stated increase 9/ 10 LBP when leaving. Physical Therapy Plan Frequency and Duration Frequency of Treatment 2x/Week Duration of Treatment 10 weeks Plan of Care Start Date 09/23/21 Plan of Care End Date 12/02/21 Therapeutic Interventions Therapeutic Interventions Gait Training,Home Exercise Program,Joint Mobilizations, Manual Therapy,Neuromuscular Re-education,Patient/Caregiver Education,Self-Care/Home Management,Soft Tissue Mobilization,Taping, Therapeutic Activities, Therapeutic Exercises Modalities Cold Pack/Ice Massage,Electric Stimulation,Hot Packs, Infrared Therapy,Traction- Mechanical,Ultrasound Next Visit Focus/Plan Next Visit Plan Continue core strengthening and gait with SPC tolerance with pain. POC: Strengthening, stretching . *precautions
--- NOTE | 2021-11-24 14:30 | PT.OTN ---
Current Diagnoses Other spondylosis with radiculopathy, lumbosacral region (11/24/21) Spinal stenosis, lumbar region without neurogenic claudication (11/24/21) Physical Therapy Treatment Note PT-OP-A Visit Information Start: 07/22/21 12:58 Freq: Status: Active Protocol: Document 11/24/21 14:00 DCW (Rec: 11/24/21 14:30 DCW [id number]) Out-Patient Physical Therapy Visit Information Visit Information Visit Type Progress Note Visit Note Pt arrived late, then went to [facility] restroom. Started 15 min late. Visit Start Time 14:00 Visit Stop Time 14:35 Total Visit Minutes 35 Visit Number 21 Number of FRONT OFFICE HELP Visits 0 Evaluation Information Evaluation Date 07/22/21 Precautions Precautions lumbar spine surgery PT-OP-B Current Condition Start: 07/22/21 12:58 Freq: Status: Active Protocol: Document 07/22/21 16:19 HH (Rec: 07/22/21 17:08 HH [id number]) Current Condition History of Current Condition Onset Date 8/ Current Complaints chronic LBP with radiating pain to LE, s/p lumbar fusion History of Current Condition Handy is a 65yo male presenting to PT with c/o severe LBP with radiating pain to BLE and neck pain stemming from past orthopedic surgeries. He recently had his 2nd back surgery on 04/30/21 for L3-L4 TLIF, L2-3 hemilaminectomy,L4-S1 lumbar HWR, exploration of fusion, repeat laminectomy, reinsertion of hardware, L3-S1 PSF w. instrumentation. However, his symptoms have not improved significantly. His pain tends to get worse with WB activities, trunk related movements. He is sleeping in his recliner. He does have tingling and numbness down his posterior legs. He went to ER two days because of severe pain and he was prescribed with valiem, oxycodone and pedizone. He is still walking with a 4WW to take pressure off his back. Past h/o back surgery in 2000, bilateral shoulder surgeries, R knee replacement, cervical spine fusion. Personal Factors Other Personal Factors That May Effect everyday smoker Therapy/Recovery failed spinal surgeries. PT-OP-C Subjective Start: 07/22/21 12:58 Freq: Status: Active Protocol: Document 11/24/21 14:00 DCW (Rec: 11/24/21 14:30 DCW [id number]) OP-PT Subjective Patient Comments Patient Comments It's still been hard to sleep , the back still bothers me, the balance is still pretty bad, but I still think it's getting better every day. PT-OP-F Manual Assessment Start: 07/22/21 12:58 Freq: Status: Active Protocol: Document 09/23/21 13:45 DCW (Rec: 09/23/21 13:59 DCW [id number]) Manual Assessments Soft Tissue Assessment Soft Tissue Mobility Assessment Tenderness to palpation 2/4 Pain with wincing along lumbar paraspinals L>R, B upper trap , B cervical paraspinals PT-OP-G Mobility & Gait Start: 07/22/21 12:58 Freq: Status: Active Protocol: Document 09/23/21 13:45 DCW (Rec: 09/23/21 13:59 DCW [id number]) OP Mobility Evaluation Bed Mobility Supine to and from Sit supine to long with need of UE push off from bed, Transfers Sit to Stand pt needs to sit with arm rested on thigh OP Gait Assessment Gait Gait Assistance Required: Independent Assistive Devices Assistive Device Straight Cane Gait Deviations General Gait Pattern Decreased Stride Length, Decreased Feet Clearance, Flexed Trunk Comments Gait Comments Double straight canes today, pt reports snow makes it difficult to use 4WW PT-OP-H Neuro Start: 07/22/21 12:58 Freq: Status: Active Protocol: Document 09/23/21 13:45 DCW (Rec: 09/23/21 13:59 DCW [id number]) Sensation Evaluation Gross Sensation Gross Sensation Left LE Impaired,Right LE Impaired Sensation Description Paresthesia,Numbness,Tingling Dermatome Impairments L4,L5,S1 Deep Tendon Reflex & Clonus Assessment Deep Tendon Reflex Bilateral Achilles Deep Tendon Reflex 1+ Diminished Left Patellar Deep Tendon Reflex 2+ Normal Right Patellar Deep Tendon Reflex 1+ Diminished PT-OP-J Posture/Palpation/Skin Start: 07/22/21 12:58 Freq: Status: Active Protocol: Document 09/23/21 13:45 DCW (Rec: 09/23/21 13:59 DCW [id number]) Posture Evaluation Position Standing Pelvis Posture Anteriorly Tilted Knee Posture (L) Excess Flexion,(R) Excess Flexion PT-OP-K Range of Motion Start: 07/22/21 12:58 Freq: Status: Active Protocol: Document 09/23/21 13:45 DCW (Rec: 09/23/21 13:59 DCW [id number]) Lumbar Spine Range of Motion Lumbar Spine Active Degrees Flexion 30 Extension 5 Lateral Flexion Left 51 Lateral Flexion Right 42 ROM Limitations Pain Comments Lateral flexion measured in cm from fingertips to floor PT-OP-L Special Tests Start: 07/22/21 12:58 Freq: Status: Active Protocol: Document 09/23/21 13:45 DCW (Rec: 09/23/21 13:59 DCW [id number]) Special Tests Lumbar Spine Special Tests Straight Leg Raise Test Results Positive bilaterally Comments passive SLR, pain R<L Slump Test Results Positive bilaterally Comments R<L PT-OP-M Strength Start: 07/22/21 12:58 Freq: Status: Active Protocol: Document 09/23/21 13:45 DCW (Rec: 09/23/21 13:59 DCW [id number]) Hip Strength Hip Manual Muscle Testing Right Flexion (L2) 3+ Fair+ Extension (S1) 4- Good- Abduction 4- Good- Left Flexion (L2) 3+ Fair+ Extension (S1) 4- Good- Abduction 4- Good- Knee Strength Knee Manual Muscle Testing Right Flexion (S2) 4- Good- Extension (L3) 4- Good- Left Flexion (S2) 4- Good- Extension (L3) 4- Good- PT-OP-Q Treatments Start: 07/22/21 12:58 Freq: Status: Active Protocol: Document 11/24/21 14:00 DCW (Rec: 11/24/21 14:30 DCW [id number]) Manual Therapy Treatment Soft Tissue Mobilization B paraspinals Body Location R lumbar and thoracic Mobilization Type Myofascial Release,Sustained Pressure,Trigger Point Release Body Position Sidelying Comments gentle manual with requested feedback for pressure, improved decrease tightness and pain. PT-OP-R Modalities Start: 07/22/21 12:58 Freq: Status: Active Protocol: Document 11/24/21 14:00 DCW (Rec: 11/24/21 14:30 DCW [id number]) Hot Pack/Cold Pack Treatment Hot Pack Location CS, TS- LS Patient Position Hooklying Treatment Duration (minutes) 10 Patient Tolerance Good Comments LEs over wedge PT-OP-T Assessment and Plan Start: 07/22/21 12:58 Freq: Status: Active Protocol: Document 11/24/21 14:00 DCW (Rec: 11/24/21 14:30 DCW [id number]) Physical Therapy Assessment Goals heP Impairment pt does not have HEP Short Term Goal (STG) pt will be able to complete daily HEP safely and independently. 11/24/21: Improving, still struggles with regularity STG Duration 4 weeks gait Impairment pt is using a 4WW for mobility Short Term Goal (STG) pt will be able to show improved strength and mobility by being able to use SPC for home mobility. 11/15/21: pt tolerated gait 100 ft with cues for posturing. States able to walk around the house about 5 min using SPC before needs to sit down due to back pain. 11/24/21: slight improvement STG Duration 5 weeks. Assisted Goal (LTG) pt will be able to show improved strength and mobility by being able to use SPC for community mobility LTG Duration 10 weeks owestry Impairment pt scores 48 on Owestry Short Term Goal (STG) pt will show improved pain and mobility by scoring <40 on Owestry STG Duration 5 weeks Manager [employer] Services Goal (LTG) pt will show improved pain and mobility by scoring <30 on Owestry LTG Duration 10 weeks Assessment Summary Assessment Due to late arrival, focused today on manual and heat. Making some progress since evaluation, very slow so far, but less overall tone and improved bed and transfer mobility. Continued therapy will likely help progress pt for improved independence and increased activity tolerance. Physical Therapy Plan Frequency and Duration Frequency of Treatment 2x/Week Duration of Treatment 10 weeks Plan of Care Start Date 09/23/21 Plan of Care End Date 12/02/21 Therapeutic Interventions Therapeutic Interventions Gait Training,Home Exercise Program,Joint Mobilizations, Manual Therapy,Neuromuscular Re-education,Patient/Caregiver Education,Self-Care/Home Management,Soft Tissue Mobilization,Taping, Therapeutic Activities, Therapeutic Exercises Modalities Cold Pack/Ice Massage,Electric Stimulation,Hot Packs, Infrared Therapy,Traction- Mechanical,Ultrasound Next Visit Focus/Plan Next Visit Plan Continue core strengthening and gait with SPC tolerance with pain. POC: Strengthening, stretching . *precautions
--- NOTE | 2021-11-29 14:35 | PT.OTN ---
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 He recently had his 2nd back surgery on 04/30/21 for L3-L4 TLIF, L2-3 hemilaminectomy,L4-S1 lumbar HWR, exploration of fusion, repeat laminectomy, reinsertion of hardware, L3-S1 PSF w. instrumentation. However, his symptoms have not improved significantly. His pain tends to get worse with WB activities, trunk related movements. He is sleeping in his recliner. He does have tingling and numbness down his posterior legs. He went to ER two days because of severe pain and he was prescribed with valiem, oxycodone and pedizone. He is still walking with a 4WW to take pressure off his back. Past h/o back surgery in 2000, bilateral shoulder surgeries, R knee replacement, cervical spine fusion. Personal Factors Other Personal Factors That May Effect everyday smoker Therapy/Recovery failed spinal surgeries. PT-OP-C Subjective Start: 07/22/21 12:58 Freq: Status: Active Protocol: Document 11/29/21 13:49 SP (Rec: 11/29/21 14:33 SP [id number]) OP-PT Subjective Patient Comments Patient Comments Pt reports pain isn't as bad as was yesterday, the rainy season is here. Pt reports is making beaded earrings lately . When asked postioning, states has to sit up tall and use a magnifing glass. 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 Pt stated pain on L side today: L UT down arm to hand and weakness in B hands and L low back down posterior and lateral L leg. B feet always numb feeling. PT-OP-F Manual Assessment Start: 07/22/21 12:58 Freq: Status: Active Protocol: Document 09/23/21 13:45 DCW (Rec: 09/23/21 13:59 DCW [id number]) Manual Assessments Soft Tissue Assessment Soft Tissue Mobility Assessment Tenderness to palpation 2/4 Pain with wincing along lumbar paraspinals L>R, B upper trap , B cervical paraspinals PT-OP-G Mobility & Gait Start: 07/22/21 12:58 Freq: Status: Active Protocol: Document 09/23/21 13:45 DCW (Rec: 09/23/21 13:59 DCW [id number]) OP Mobility Evaluation Bed Mobility Supine to and from Sit supine to long with need of UE push off from bed, Transfers Sit to Stand pt needs to sit with arm rested on thigh OP Gait Assessment Gait Gait Assistance Required: Independent Assistive Devices Assistive Device Straight Cane Gait Deviations General Gait Pattern Decreased Stride Length, Decreased Feet Clearance, Flexed Trunk Comments Gait Comments Double straight canes today, pt reports snow makes it difficult to use 4WW PT-OP-H Neuro Start: 07/22/21 12:58 Freq: Status: Active Protocol: Document 09/23/21 13:45 DCW (Rec: 09/23/21 13:59 DCW [id number]) Sensation Evaluation Gross Sensation Gross Sensation Left LE Impaired,Right LE Impaired Sensation Description Paresthesia,Numbness,Tingling Dermatome Impairments L4,L5,S1 Deep Tendon Reflex & Clonus Assessment Deep Tendon Reflex Bilateral Achilles Deep Tendon Reflex 1+ Diminished Left Patellar Deep Tendon Reflex 2+ Normal Right Patellar Deep Tendon Reflex 1+ Diminished PT-OP-J Posture/Palpation/Skin Start: 07/22/21 12:58 Freq: Status: Active Protocol: Document 09/23/21 13:45 DCW (Rec: 09/23/21 13:59 DCW [id number]) Posture Evaluation Position Standing Pelvis Posture Anteriorly Tilted Knee Posture (L) Excess Flexion,(R) Excess Flexion PT-OP-K Range of Motion Start: 07/22/21 12:58 Freq: Status: Active Protocol: Document 09/23/21 13:45 DCW (Rec: 09/23/21 13:59 DCW [id number]) Lumbar Spine Range of Motion Lumbar Spine Active Degrees Flexion 30 Extension 5 Lateral Flexion Left 51 Lateral Flexion Right 42 ROM Limitations Pain Comments Lateral flexion measured in cm from fingertips to floor PT-OP-L Special Tests Start: 07/22/21 12:58 Freq: Status: Active Protocol: Document 09/23/21 13:45 DCW (Rec: 09/23/21 13:59 DCW [id number]) Special Tests Lumbar Spine Special Tests Straight Leg Raise Test Results Positive bilaterally Comments passive SLR, pain R<L Slump Test Results Positive bilaterally Comments R<L PT-OP-M Strength Start: 07/22/21 12:58 Freq: Status: Active Protocol: Document 09/23/21 13:45 DCW (Rec: 09/23/21 13:59 DCW [id number]) Hip Strength Hip Manual Muscle Testing Right Flexion (L2) 3+ Fair+ Extension (S1) 4- Good- Abduction 4- Good- Left Flexion (L2) 3+ Fair+ Extension (S1) 4- Good- Abduction 4- Good- Knee Strength Knee Manual Muscle Testing Right Flexion (S2) 4- Good- Extension (L3) 4- Good- Left Flexion (S2) 4- Good- Extension (L3) 4- Good- PT-OP-Q Treatments Start: 07/22/21 12:58 Freq: Status: Active Protocol: Document 11/29/21 13:49 SP (Rec: 11/29/21 14:33 SP [id number]) Cardio Equipment Recumbent Elliptical ([employer]) Duration (Minutes) 6 Resistance 2 Seat Position see 13 Other UE/ LEs, 25 RPM easy ROM, Therapeutic Exercises Supine Exercises LTR Supine Exercise Name HEP review Side bilateral Resistance AROM Reps/Minutes 2x5 Comments cued lower ribcage TA toward table, fair LS opp side stretch- ok R, L not L Sitting Exercises STS Sitting Exercise Name functional strengthening mob assessment Equipment Used from black mat table Reps/Minutes x3- heavy BUE WB on 4WW front last rep Comments stated after 3rd rep, starting to have that pain ant thighs/ deadened feel. Gait Training Gait Activity gait w/ SPC Device Used SPC Level of Assistance SBA, sway self recovery during R turn. Surface firm Distance/Duration 170 ft 1 laps around clinic Treatment Focus postural alignment, spinal stabilization for stability, foot clearance Comments cued for elevated shlds w/ abdominal engaged. Manual Therapy Treatment Soft Tissue Mobilization skin desensitization Mobilization Type Cross-Friction,Instrument Assisted,Myofascial Release, Rolling Intensity/Depth Moderate Body Position Sidelying Comments doesn' really feel like much B paraspinals Body Location L lumbar & thoracic, piriformis Mobilization Type Myofascial Release,Sustained Pressure Body Position Sidelying Comments gentle manual with requested feedback for pressure, improved decrease tightness and pain. PT-OP-R Modalities Start: 07/22/21 12:58 Freq: Status: Active Protocol: Document 11/29/21 13:49 SP (Rec: 11/29/21 15:40 SP [id number]) Hot Pack/Cold Pack Treatment Hot Pack Location CS, TS- LS Patient Position Hooklying Treatment Duration (minutes) 10 Patient Tolerance Good Comments LEs over wedge PT-OP-T Assessment and Plan Start: 07/22/21 12:58 Freq: Status: Active Protocol: Document 11/29/21 13:49 SP (Rec: 11/29/21 14:33 SP [id number]) Physical Therapy Assessment Goals heP Impairment pt does not have HEP Short Term Goal (STG) pt will be able to complete daily HEP safely and independently. 11/24/21: Improving, still struggles with regularity STG Duration 4 weeks gait Impairment pt is using a 4WW for mobility Short Term Goal (STG) pt will be able to show improved strength and mobility by being able to use SPC for home mobility. 11/15/21: pt tolerated gait 100 ft with cues for posturing. States able to walk around the house about 5 min using SPC before needs to sit down due to back pain. 11/24/21: slight improvement 11/29/21: pt able to walk about 170 ft around clinic sBA w/ SPC before needed to sit and rest. STG Duration 5 weeks. 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 He reported increase into B quads after walk and STS felt almost felt deadened which does at times, he states that is his indicator that needs to sit and take a rest so legs don't buckle. Pt's pain improved and leg more stable post manual w/ broad pressure feedback and MHP when got up from table assess walking. Physical Therapy Plan Frequency and Duration Frequency of Treatment 2x/Week Duration of Treatment 10 weeks Plan of Care Start Date 09/23/21 Plan of Care End Date 12/02/21 Therapeutic Interventions Therapeutic Interventions Gait Training,Home Exercise Program,Joint Mobilizations, Manual Therapy,Neuromuscular Re-education,Patient/Caregiver Education,Self-Care/Home Management,Soft Tissue Mobilization,Taping, Therapeutic Activities, Therapeutic Exercises Modalities Cold Pack/Ice Massage,Electric Stimulation,Hot Packs, Infrared Therapy,Traction- Mechanical,Ultrasound Next Visit Focus/Plan Next Visit Plan Continue core strengthening and gait with SPC tolerance with pain. POC: Strengthening, stretching . *precautions
--- NOTE | 2021-12-01 14:27 | PT.OTN ---
Current Diagnoses Other spondylosis with radiculopathy, lumbosacral region (12/01/21) Spinal stenosis, lumbar region without neurogenic claudication (12/01/21) Physical Therapy Treatment Note PT-OP-A Visit Information Start: 07/22/21 12:58 Freq: Status: Active Protocol: Document 12/01/21 13:48 DCW (Rec: 12/01/21 14:26 DCW [id number]) Out-Patient Physical Therapy Visit Information Visit Information Visit Type Treatment Note Visit Start Time 13:48 Visit Stop Time 14:38 Total Visit Minutes 50 Visit Number 23 Number of OPERATIONS ASSISTANT Visits 0 Evaluation Information Evaluation Date 07/22/21 Precautions Precautions lumbar spine surgery PT-OP-B Current Condition Start: 07/22/21 12:58 Freq: Status: Active Protocol: Document 07/22/21 16:19 HH (Rec: 07/22/21 17:08 HH [id number]) Current Condition History of Current Condition Onset Date 8/ Current Complaints chronic LBP with radiating pain to LE, s/p lumbar fusion History of Current Condition Handy is a 65yo male presenting to PT with c/o severe LBP with radiating pain to BLE and neck pain stemming from past orthopedic surgeries. He recently had his 2nd back surgery on 04/30/21 for L3-L4 TLIF, L2-3 hemilaminectomy,L4-S1 lumbar HWR, exploration of fusion, repeat laminectomy, reinsertion of hardware, L3-S1 PSF w. instrumentation. However, his symptoms have not improved significantly. His pain tends to get worse with WB activities, trunk related movements. He is sleeping in his recliner. He does have tingling and numbness down his posterior legs. He went to ER two days because of severe pain and he was prescribed with valiem, oxycodone and pedizone. He is still walking with a 4WW to take pressure off his back. Past h/o back surgery in 2000, bilateral shoulder surgeries, R knee replacement, cervical spine fusion. Personal Factors Other Personal Factors That May Effect everyday smoker Therapy/Recovery failed spinal surgeries. PT-OP-C Subjective Start: 07/22/21 12:58 Freq: Status: Active Protocol: Document 12/01/21 13:48 DCW (Rec: 12/01/21 14:26 DCW [id number]) OP-PT Subjective Patient Comments Patient Comments Pt notes severe back pain today. PT-OP-F Manual Assessment Start: 07/22/21 12:58 Freq: Status: Active Protocol: Document 12/01/21 13:48 DCW (Rec: 12/01/21 13:59 DCW [id number]) Manual Assessments Soft Tissue Assessment Soft Tissue Mobility Assessment Tenderness to palpation 2/4 Pain with wincing along lumbar paraspinals L>R, B upper trap , B cervical paraspinals PT-OP-G Mobility & Gait Start: 07/22/21 12:58 Freq: Status: Active Protocol: Document 12/01/21 13:48 DCW (Rec: 12/01/21 13:59 DCW [id number]) OP Mobility Evaluation Bed Mobility Supine to and from Sit supine to long with need of UE push off from bed, Transfers Sit to Stand pt needs to sit with arm rested on thigh OP Gait Assessment Gait Gait Assistance Required: Independent Assistive Devices Assistive Device 4 Wheeled Walker Gait Deviations General Gait Pattern Decreased Stride Length, Decreased Feet Clearance, Flexed Trunk PT-OP-H Neuro Start: 07/22/21 12:58 Freq: Status: Active Protocol: Document 12/01/21 13:48 DCW (Rec: 12/01/21 13:59 DCW [id number]) Sensation Evaluation Gross Sensation Gross Sensation Left LE Impaired,Right LE Impaired Sensation Description Paresthesia,Numbness,Tingling Dermatome Impairments L4,L5,S1 Deep Tendon Reflex & Clonus Assessment Deep Tendon Reflex Bilateral Achilles Deep Tendon Reflex 1+ Diminished Left Patellar Deep Tendon Reflex 2+ Normal Right Patellar Deep Tendon Reflex 1+ Diminished PT-OP-J Posture/Palpation/Skin Start: 07/22/21 12:58 Freq: Status: Active Protocol: Document 12/01/21 13:48 DCW (Rec: 12/01/21 13:59 DCW [id number]) Posture Evaluation Position Standing T-Spine Posture Increased Kyphosis L-Spine Posture Flattened,Flexed Pelvis Posture Anteriorly Tilted Knee Posture (L) Excess Flexion,(R) Excess Flexion PT-OP-K Range of Motion Start: 07/22/21 12:58 Freq: Status: Active Protocol: Document 12/01/21 13:48 DCW (Rec: 12/01/21 13:59 DCW [id number]) Lumbar Spine Range of Motion Lumbar Spine Active Degrees Flexion 27 Extension 9 Lateral Flexion Left 50 Lateral Flexion Right 43 Comments Lateral flexion measured in cm from fingertips to floor PT-OP-L Special Tests Start: 07/22/21 12:58 Freq: Status: Active Protocol: Document 12/01/21 13:48 DCW (Rec: 12/01/21 13:59 DCW [id number]) Special Tests Lumbar Spine Special Tests Straight Leg Raise Test Results Positive bilaterally Comments passive SLR, pain R<L Slump Test Results Positive bilaterally Comments R=L PT-OP-M Strength Start: 07/22/21 12:58 Freq: Status: Active Protocol: Document 12/01/21 13:48 DCW (Rec: 12/01/21 13:59 DCW [id number]) Hip Strength Hip Manual Muscle Testing Right Flexion (L2) 3+ Fair+ Abduction 4- Good- Adduction 4- Good- Left Flexion (L2) 3+ Fair+ Abduction 4- Good- Adduction 4- Good- Knee Strength Knee Manual Muscle Testing Right Flexion (S2) 4- Good- Extension (L3) 4- Good- Left Flexion (S2) 4- Good- Extension (L3) 4- Good- PT-OP-Q Treatments Start: 07/22/21 12:58 Freq: Status: Active Protocol: Document 12/01/21 13:48 DCW (Rec: 12/01/21 14:26 DCW [id number]) Manual Therapy Treatment Soft Tissue Mobilization B paraspinals Body Location R lumbar and thoracic Mobilization Type Myofascial Release,Sustained Pressure,Trigger Point Release Body Position Sidelying Comments gentle manual with requested feedback for pressure, improved decrease tightness and pain. Other Other Manual Treatments Testing PT-OP-R Modalities Start: 07/22/21 12:58 Freq: Status: Active Protocol: Document 12/01/21 13:48 DCW (Rec: 12/01/21 14:26 DCW [id number]) Hot Pack/Cold Pack Treatment Hot Pack Location CS, TS- LS Patient Position Hooklying Treatment Duration (minutes) 10 Patient Tolerance Good Comments LEs over wedge PT-OP-T Assessment and Plan Start: 07/22/21 12:58 Freq: Status: Active Protocol: Document 12/01/21 13:48 DCW (Rec: 12/01/21 14:26 DCW [id number]) Physical Therapy Assessment Goals heP Impairment pt does not have HEP Short Term Goal (STG) pt will be able to complete daily HEP safely and independently. 11/24/21: Improving, still struggles with regularity STG Duration 4 weeks gait Impairment pt is using a 4WW for mobility Short Term Goal (STG) pt will be able to show improved strength and mobility by being able to use SPC for home mobility. 11/15/21: pt tolerated gait 100 ft with cues for posturing. States able to walk around the house about 5 min using SPC before needs to sit down due to back pain. 11/24/21: slight improvement 11/29/21: pt able to walk about 170 ft around clinic sBA w/ SPC before needed to sit and rest. STG Duration 5 weeks. Chcf Goal (LTG) pt will be able to show improved strength and mobility by being able to use SPC for community mobility LTG Duration 10 weeks owestry Impairment pt scores 48 on Owestry Short Term Goal (STG) pt will show improved pain and mobility by scoring <40 on Owestry STG Duration 5 weeks Patient Services Manager Goal (LTG) pt will show improved pain and mobility by scoring <30 on Owestry LTG Duration 10 weeks Assessment Summary Assessment Pt struggling more today with low back pain, struggled with mobility. Testing largely unchanged since last visit. Will try for one more POC to work toward increased mobility and independence with core strengthening, but discussed possibility of returning to PCP to determine next step. Physical Therapy Plan Frequency and Duration Frequency of Treatment 2x/Week Duration of Treatment 10 weeks Plan of Care Start Date 12/01/21 Plan of Care End Date 02/09/22 Therapeutic Interventions Therapeutic Interventions Gait Training,Home Exercise Program,Joint Mobilizations, Manual Therapy,Neuromuscular Re-education,Patient/Caregiver Education,Self-Care/Home Management,Soft Tissue Mobilization,Taping, Therapeutic Activities, Therapeutic Exercises Modalities Cold Pack/Ice Massage,Electric Stimulation,Hot Packs, Infrared Therapy,Traction- Mechanical,Ultrasound Next Visit Focus/Plan Next Visit Plan Continue core strengthening and gait with SPC tolerance with pain. POC: Strengthening, stretching . *precautions
--- NOTE | 2021-12-01 14:27 | PT.OPPOC ---
Physical, Occupational & Speech Therapy At [facility] Current Diagnoses Other spondylosis with radiculopathy, lumbosacral region (12/01/21) Spinal stenosis, lumbar region without neurogenic claudication (12/01/21) Visit Care Team Role Provider Type Myron Estrella MD Family Provider Physician Primary Care Provider Specialty: Internal Medicine Address: [address] [place] [address], [facility] [address], [place], [address] Email: [email or web address] Karina Alamo MD Attending Provider Physician Referring Provider Specialty: Orthopedics Orthopedic Surgery Address: [address] [place] [address], [id number] Email: [email or web address] Plan Of Care PT-OP-T Assessment and Plan Start: 07/22/21 12:58 Freq: Status: Active Protocol: Document 12/01/21 13:48 DCW (Rec: 12/01/21 14:26 DCW [id number]) Physical Therapy Assessment Goals heP Impairment pt does not have HEP Short Term Goal (STG) pt will be able to complete daily HEP safely and independently. 11/24/21: Improving, still struggles with regularity STG Duration 4 weeks gait Impairment pt is using a 4WW for mobility Short Term Goal (STG) pt will be able to show improved strength and mobility by being able to use SPC for home mobility. 11/15/21: pt tolerated gait 100 ft with cues for posturing. States able to walk around the house about 5 min using SPC before needs to sit down due to back pain. 11/24/21: slight improvement 11/29/21: pt able to walk about 170 ft around clinic sBA w/ SPC before needed to sit and rest. STG Duration 5 weeks. Primary Products Inspectors Goal (LTG) pt will be able to show improved strength and mobility by being able to use SPC for community mobility LTG Duration 10 weeks owestry Impairment pt scores 48 on Owestry Short Term Goal (STG) pt will show improved pain and mobility by scoring <40 on Owestry STG Duration 5 weeks Assisted Goal (LTG) pt will show improved pain and mobility by scoring <30 on Owestry LTG Duration 10 weeks Assessment Summary Assessment Pt struggling more today with low back pain, struggled with mobility. Testing largely unchanged since last visit. Will try for one more POC to work toward increased mobility and independence with core strengthening, but discussed possibility of returning to PCP to determine next step. Physical Therapy Plan Frequency and Duration Frequency of Treatment 2x/Week Duration of Treatment 10 weeks Plan of Care Start Date 12/01/21 Plan of Care End Date 02/09/22 Therapeutic Interventions Therapeutic Interventions Gait Training,Home Exercise Program,Joint Mobilizations, Manual Therapy,Neuromuscular Re-education,Patient/Caregiver Education,Self-Care/Home Management,Soft Tissue Mobilization,Taping, Therapeutic Activities, Therapeutic Exercises Modalities Cold Pack/Ice Massage,Electric Stimulation,Hot Packs, Infrared Therapy,Traction- Mechanical,Ultrasound Next Visit Focus/Plan Next Visit Plan Continue core strengthening and gait with SPC tolerance with pain. POC: Strengthening, stretching . *precautions Plan of Care Dates Plan of Care Start Date 12/01/21 Plan of Care End Date 02/09/22 Electronically Signed by: Charles Hayden, PT 12/01/21 2181 Please Sign and Return: I have reviewed this Plan of Care and certify that the skilled therapy services above are required to meet the patient?s needs. Physician Signature Date Printed Name and Credentials Clinical Instructor Signature Printed Name and Credentials
--- NOTE | 2022-05-06 10:05 | PT.OPDS ---
Current Diagnoses Other spondylosis with radiculopathy, lumbosacral region (12/01/21) Spinal stenosis, lumbar region without neurogenic claudication (12/01/21) Visit Care Team Role Provider Type Myron Estrella MD Family Provider Physician Primary Care Provider Specialty: Internal Medicine Address: [address] [place] [address], [address], [place], [address] Email: [email or web address] Karina Alamo MD Attending Provider Physician Referring Provider Specialty: Orthopedics Orthopedic Surgery Address: [address] [place] [address], [phone] Email: [email or web address] Visit Number Visit Number 23 Discharge Summary PT-OP-B Current Condition Start: 07/22/21 12:58 Freq: Status: Active Protocol: Document 07/22/21 16:19 HH (Rec: 07/22/21 17:08 [id number]) Current Condition History of Current Condition Onset Date / Current Complaints chronic LBP with radiating pain to LE, s/p lumbar fusion History of Current Condition Handy is a 65yo male presenting to PT with c/o severe LBP with radiating pain to BLE and neck pain stemming from past orthopedic surgeries. He recently had his 2nd back surgery on 04/30/21 for L3-L4 TLIF, L2-3 hemilaminectomy,L4-S1 lumbar HWR, exploration of fusion, repeat laminectomy, reinsertion of hardware, L3-S1 PSF w. instrumentation. However, his symptoms have not improved significantly. His pain tends to get worse with WB activities, trunk related movements. He is sleeping in his recliner. He does have tingling and numbness down his posterior legs. He went to ER two days because of severe pain and he was prescribed with valiem, oxycodone and pedizone. He is still walking with a 4WW to take pressure off his back. Past h/o back surgery in 2000, bilateral shoulder surgeries, R knee replacement, cervical spine fusion. Personal Factors Other Personal Factors That May Effect everyday smoker Therapy/Recovery failed spinal surgeries. PT-OP-C Subjective Start: 07/22/21 12:58 Freq: Status: Active Protocol: Document 12/01/21 13:48 DCW (Rec: 12/01/21 14:26 DCW [id number]) OP-PT Subjective Patient Comments Patient Comments Pt notes severe back pain today. PT-OP-F Manual Assessment Start: 07/22/21 12:58 Freq: Status: Active Protocol: Document 12/01/21 13:48 DCW (Rec: 12/01/21 13:59 DCW [id number]) Manual Assessments Soft Tissue Assessment Soft Tissue Mobility Assessment Tenderness to palpation 2/4 Pain with wincing along lumbar paraspinals L>R, B upper trap , B cervical paraspinals PT-OP-G Mobility & Gait Start: 07/22/21 12:58 Freq: Status: Active Protocol: Document 12/01/21 13:48 DCW (Rec: 12/01/21 13:59 DCW [id number]) OP Mobility Evaluation Bed Mobility Supine to and from Sit supine to long with need of UE push off from bed, Transfers Sit to Stand pt needs to sit with arm rested on thigh OP Gait Assessment Gait Gait Assistance Required: Independent Assistive Devices Assistive Device 4 Wheeled Walker Gait Deviations General Gait Pattern Decreased Stride Length, Decreased Feet Clearance, Flexed Trunk PT-OP-H Neuro Start: 07/22/21 12:58 Freq: Status: Active Protocol: Document 12/01/21 13:48 DCW (Rec: 12/01/21 13:59 DCW [id number]) Sensation Evaluation Gross Sensation Gross Sensation Left LE Impaired,Right LE Impaired Sensation Description Paresthesia,Numbness,Tingling Dermatome Impairments L4,L5,S1 Deep Tendon Reflex & Clonus Assessment Deep Tendon Reflex Bilateral Achilles Deep Tendon Reflex 1+ Diminished Left Patellar Deep Tendon Reflex 2+ Normal Right Patellar Deep Tendon Reflex 1+ Diminished PT-OP-J Posture/Palpation/Skin Start: 07/22/21 12:58 Freq: Status: Active Protocol: Document 12/01/21 13:48 DCW (Rec: 12/01/21 13:59 DCW [id number]) Posture Evaluation Position Standing T-Spine Posture Increased Kyphosis L-Spine Posture Flattened,Flexed Pelvis Posture Anteriorly Tilted Knee Posture (L) Excess Flexion,(R) Excess Flexion PT-OP-K Range of Motion Start: 07/22/21 12:58 Freq: Status: Active Protocol: Document 12/01/21 13:48 DCW (Rec: 12/01/21 13:59 DCW [id number]) Lumbar Spine Range of Motion Lumbar Spine Active Degrees Flexion 27 Extension 9 Lateral Flexion Left 50 Lateral Flexion Right 43 Comments Lateral flexion measured in cm from fingertips to floor PT-OP-L Special Tests Start: 07/22/21 12:58 Freq: Status: Active Protocol: Document 12/01/21 13:48 DCW (Rec: 12/01/21 13:59 DCW [id number]) Special Tests Lumbar Spine Special Tests Straight Leg Raise Test Results Positive bilaterally Comments passive SLR, pain R<L Slump Test Results Positive bilaterally Comments R=L PT-OP-M Strength Start: 07/22/21 12:58 Freq: Status: Active Protocol: Document 12/01/21 13:48 DCW (Rec: 12/01/21 13:59 DCW [id number]) Hip Strength Hip Manual Muscle Testing Right Flexion (L2) 3+ Fair+ Abduction 4- Good- Adduction 4- Good- Left Flexion (L2) 3+ Fair+ Abduction 4- Good- Adduction 4- Good- Knee Strength Knee Manual Muscle Testing Right Flexion (S2) 4- Good- Extension (L3) 4- Good- Left Flexion (S2) 4- Good- Extension (L3) 4- Good- PT-OP-T Assessment and Plan Start: 07/22/21 12:58 Freq: Status: Active Protocol: Document 05/06/22 10:05 DCW (Rec: 05/06/22 10:05 DCW [id number]) Physical Therapy Assessment Assessment Summary Assessment Pt was last seen five months ago, as not scheduled any further follow-up visits. Pt will be discharged at this time, will require a new referral in order to return to skilled PT Physical Therapy Plan Discharge Physical Therapy Discharge Reasons No Longer Attending PT
== END 2022-05-09 13:19 ==
LOC: PHYS 13:45
PROVIDERS: Family Provider Student in an Organized Health Care Education/Training Program; PCP Student in an Organized Health Care Education/Training Program; Referring Provider Orthopaedic Surgery Orthopaedic Surgery of the Spine; Visit Provider Orthopaedic Surgery Orthopaedic Surgery of the Spine
DX: M48.061 Spinal stenosis, lumbar region without neurogenic claudication (principal); M47.27 Other spondylosis with radiculopathy, lumbosacral region
CPT/HCPCS: 97010; 97110; 97112; 97140; 97163; 97535

== ENCOUNTER → 2022-02-21 12:15 | Outpatient (CLI) | payer OTHER, MEDICARE, SELFPAY ==
[2021-04-30 13:44] VITALS: BMI 33.9
[2022-02-21 13:13] LABS: Blood Urea Nitrogen 12 mg/dL (9-20); Calcium 8.6 mg/dL (8.4-10.2); Carbon Dioxide 25 mmol/L (22-32); Chloride 106 mmol/L (98-107); Cholesterol 111 mg/dL (140-199); Estimated Glomerular Filt Rate > 60 mL/min (>60); Glucose 108 mg/dL (80-110); HDL Cholesterol 25 mg/dL (40-60); HEMOLYSIS 18 (0-50); LDL Cholesterol Calculated 31 mg/dL (<100); Potassium 4.1 mmol/L (3.4-5.1); Sodium 139 mmol/L (137-145); Triglycerides 274 mg/dL (35-150)
[2022-02-21 14:57] LABS: Creatinine Urine Random 80.8 mg/dL
[2022-02-21 15:01] LABS: Microalbumi Creatinin Ratio Ur 44.5 ug/mg CR (<30); Microalbumin Urine Random 3.6 mg/dL (0-1.6)
== END ==
PROVIDERS: Family Provider Student in an Organized Health Care Education/Training Program; PCP Student in an Organized Health Care Education/Training Program; Referring Provider Student in an Organized Health Care Education/Training Program; Visit Provider Student in an Organized Health Care Education/Training Program
DX: E11.9 Type 2 diabetes mellitus without complications (principal); E78.00 Pure hypercholesterolemia, unspecified; I10 Essential (primary) hypertension
CPT/HCPCS: 36415; 80048; 80061; 82043; 82570; 83036

== ENCOUNTER → 2022-05-20 15:41 | Outpatient (CLI) | payer OTHER, MEDICARE, SELFPAY ==
[2021-04-30 13:44] VITALS: BMI 33.9
[2022-05-20 16:13] LABS: Hemoglobin A1C% w Est Avg Glu 6.8 % (4.0-6.0)
[2022-05-20 16:15] LABS: BUN Creatinine Ratio 14.7 (6-22); Blood Urea Nitrogen 11 mg/dL (9-20); Estimated Glomerular Filt Rate > 60 mL/min (>60)
[2022-05-20 19:13] LABS: Creatinine Urine Random 98.2 mg/dL
[2022-05-20 19:19] LABS: Microalbumi Creatinin Ratio Ur 47.8 ug/mg CR (<30); Microalbumin Urine Random 4.7 mg/dL (0-1.6)
== END ==
PROVIDERS: Family Provider Student in an Organized Health Care Education/Training Program; PCP Student in an Organized Health Care Education/Training Program; Referring Provider Student in an Organized Health Care Education/Training Program; Visit Provider Student in an Organized Health Care Education/Training Program
DX: E11.9 Type 2 diabetes mellitus without complications (principal); R80.9 Proteinuria, unspecified
CPT/HCPCS: 36415; 82043; 82565; 82570; 83036; 84520

== ENCOUNTER → 2022-06-15 14:01 | Outpatient (CLI) | payer OTHER, MEDICARE, SELFPAY ==
[2021-04-30 13:44] VITALS: BMI 33.9
--- NOTE | 2022-06-15 14:04 | DI.CT.S_ITS ---
PROCEDURE: CT LUMBAR SPINE WO CON INDICATIONS: Spinal stenosis, lumbar region without neurogenic TECHNIQUE: Noncontrast 3 mm thick sections acquired from the T12 level to the sacrum. Sagittal and coronal reformats were constructed. For radiation dose reduction, the following was used: automated exposure control. COMPARISON: [facility], MR, MR LUMBAR SPINE WO CON, 07/30/2020, 16:27. [facility] [place], CR, XR LUMBAR SPINE 2 OR 3 VIEWS, 06/07/2022, 13:41. [facility] [place], CR, XR LUMBAR SPINE 2 OR 3 VIEWS, 06/01/2021, 11:26. FINDINGS: Image quality: There is artifact associated with the metallic hardware. Bones: There is normal bony alignment. No acute vertebral body compression fractures. No suspicious lytic or blastic bony lesions. No pars defects. Postoperative changes are seen, with bilateral pedicle screws at the L3 through S1 levels. The screws appear well placed. Vertical fixation rods are seen. Disc spacers are seen at L3-L4, L4-L5, and at L5-S1. Lucency is seen adjacent to the L3 screws on both sides. No additional findings of hardware failure or hardware loosening are seen. There has been removal of portions of the posterior elements. T12-L1: Moderate loss of disc height is seen. Mild generalized disc bulge is seen. No neural foraminal narrowing or central canal narrowing can be seen. L1-L2: Mild loss of disc height is seen. Macrometastasis there is minimal right-sided and moderate left-sided neural foraminal narrowing. No significant central canal narrowing is seen. L2-L3: Mild loss of disc height is seen. Vacuum disc phenomenon is seen at this level. Endplate irregularity and sclerosis can be seen. At least moderate disc bulge is seen. Moderate facet joint hypertrophy is seen. Associated hypertrophy of the ligamentum flavum can be seen. Moderate bilateral neural foraminal narrowing is seen. Moderate central canal narrowing is seen. L3-L4: Mild generalized disc bulge is seen. There is moderate right-sided and no left-sided neural foraminal narrowing. The central canal is widely patent. This level is improved compared to the prior MRI. L4-L5: Moderate generalized disc bulge is seen. Moderate facet joint hypertrophy is seen. There is at least moderate left-sided and moderate to severe right-sided neural foraminal narrowing. Mild central canal narrowing is seen. When comparison is made with the prior images, these findings are similar. L5-S1: Moderate generalized disc bulge is seen. There is at least moderate bilateral neural foraminal narrowing. No central canal narrowing is seen. When comparison is made with the prior images, these findings are similar. Soft tissues: No retroperitoneal masses or hematomas. Visualized aorta is normal in caliber. IMPRESSION: Since the prior MRI, there has been revision of the postoperative hardware, which is now seen L3 through S1. The screws at L3 demonstrate surrounding lucency, which is consistent with loosening. The degrees of narrowing at L3-L4 are improved compared to the prior MRI. Dictated by: Darrius Cerrato M.D. on 06/15/2022 at 16:31 Approved by: Darrius Cerrato M.D. on 06/15/2022 at 16:36
== END ==
PROVIDERS: Family Provider Student in an Organized Health Care Education/Training Program; PCP Student in an Organized Health Care Education/Training Program; Referring Provider Orthopaedic Surgery Orthopaedic Surgery of the Spine; Visit Provider Orthopaedic Surgery Orthopaedic Surgery of the Spine
DX: M48.061 Spinal stenosis, lumbar region without neurogenic claudication (principal); Z98.1 Arthrodesis status
CPT/HCPCS: 72131